=== PATIENT | female | born 1950 | race Caucasian/White ===

== ENCOUNTER → 2024-03-05 14:50 | Outpatient (REF) | payer OTHER, SELFPAY | LOC: WDC 14:50 | PROVIDERS: ATTENDING PHYSICIAN Family Medicine | DX: Z12.31 Encounter for screening mammogram for malignant neoplasm of breast (principal) | CPT/HCPCS: 77062; 77066 ==

== ENCOUNTER → 2024-03-10 08:27 | Outpatient (REF) | payer OTHER, SELFPAY | LOC: WDC 08:27 | PROVIDERS: ATTENDING PHYSICIAN Family Medicine | DX: R92.8 Other abnormal and inconclusive findings on diagnostic imaging of breast (principal) | CPT/HCPCS: 76642 ==

== ENCOUNTER → 2024-03-13 11:26 | Outpatient (REF) | payer OTHER, SELFPAY ==
--- NOTE | 2024-03-14 08:57 | OID.BR.INTR ---
OID Breast Navigator - Initial
- -
Did not meet patient at time of biopsy. Will follow up per protocol.
== END ==
LOC: WDC 11:26
PROVIDERS: ATTENDING PHYSICIAN Family Medicine
DX: N63.12 Unspecified lump in the right breast, upper inner quadrant (principal); N63.31 Unspecified lump in axillary tail of the right breast
CPT/HCPCS: 88305; 19083; 19084; 77065; 88341; 88360; A4648

== ENCOUNTER → 2024-04-23 07:29 | Outpatient (REF) | payer OTHER, SELFPAY | LOC: RCS 07:29 | PROVIDERS: ATTENDING PHYSICIAN Internal Medicine; FAMILY PHYSICIAN Family Medicine | DX: C50.211 Malignant neoplasm of upper-inner quadrant of right female breast (principal); K76.9 Liver disease, unspecified; Z17.0 Estrogen receptor positive status [ER+] | CPT/HCPCS: 74183; 93005; A9575 ==

== ENCOUNTER 2024-05-12 21:28 | Inpatient (IN) | payer OTHER, SELFPAY ==
[2024-05-12 16:59] VITALS: BMI 39.9
[2024-05-12 17:00] VITALS: BP 102/56
[2024-05-12 17:04] VITALS: BP 102/56
--- NOTE | 2024-05-12 17:15 | ED.GENMED ---
History of Present Illness
General
Chief Complaint: Fainting/Passed Out
Time Seen by Provider: 05/12/24 17:05
History of Present Illness
History of Present Illness:
73-year-old female presents to the emergency department for evaluation of fever and a syncopal event that occurred this afternoon. Patient apparently has had right knee pain for the past 3 days, was seen in the emergency department at [facility] yesterday and prescribed antibiotics for presumed cellulitis. She is not able to ambulate for the past day on the right knee. She is status post right total knee arthroplasty performed in this hospital by Dr. Amador in 2015. She denies
any coughing or difficulty breathing.
Past History
Past History
ED Past Medical History: HTN, Hypercholesterolemia and IDDM
Social History
Tobacco: Non-smoker
Alcohol: None
Drug: None
Personal:
Living: with family
Employment: Employed
Family History
Family History: Other
Review of Systems
Review of Systems
Allergies reviewed?: Yes
All Other Systems: ROS reviewed and negative except as documented in HPI and ROS
Phy Exam
Physical Exam
Physical Exam:
GEN: Ill-appearing, somnolent, tachypneic
Eyes: PERRLA, EOMs intact, no scleral icterus
HENT: NCAT, oral mucosa moist, no JVD, no cervical adenopathy.
Lungs: Tachypneic, no rales or wheezing
Cardiac: Markedly tachycardic, regular
Abdomen: S, NT, ND, NABS, no masses or hepatosplenomegaly
Neuro: Somnolent but arouses easily to voice, disoriented, is oriented to person and place
MSK: Right knee effusion with scant erythema and significant pain with range of motion
Skin: No rashes, petechiae. Normal color, no pallor or jaundice.
Psych: Calm, cooperative, proper hygiene
Course
Orders/Labs/Results
Orders:
Orders
05/12/24 16:56
Electrocardiogram (*1) Urgent
Reason for Study: Syncope
EKG- Treatment ONCE
05/12/24 17:12
Basic Metabolic Panel Urgent
C-Reactive Protein Urgent
Comment: ADD ON
Complete Blood Count/With Diff Urgent
05/12/24 17:13
0.9% Sodium Chloride 1000 ml [Nss] 1,000 ml IV BOLUS
Acetaminophen 1000MG/100Ml [Ofirmev] 1,000 mg in 100 ml IV ONCE
Acetaminophen IV Indication:: ED Narcotic Naive Pt-ONCE
CR Chest Portable - 1 View Urgent
Comment:
Reason For Exam: sepsis
Reason Study Needs to be Portable: Other
05/12/24 17:15
Lactic Acid Q4H
Comment: CANCEL 2nd LACTIC ACID IF 1st LACTIC ACID IS LESS THAN 2
Blood Culture Urgent
LYNNE Source: Blood/Venous
Specimen Description:
05/12/24 17:16
Add On- LAB Urgent
Tests Added?: CRP
05/12/24 17:17
Blood Culture Urgent
LYNNE Source: Blood/Venous
Specimen Description:
05/12/24 17:51
Urinalysis Reflex To Culture Urgent
Date Specimen was Collected: 05/12/24
Time Specimen was Collected: 17:48
Urine Microscopic Reflex Cult Urgent
05/12/24 18:32
CeFAZolin 2 GRAM [Ancef] 2 grams in 10 ml IV NOW
05/12/24 18:40
Vancomycin [Vancocin] 2,000 mg 0.9% Sodium Chloride 500 ml [Nss] 500 ml IV NOW
05/12/24 18:45
Body Fluid Cell Count Urgent
What is the Body Fluid: joint
Date Specimen was Collected: 05/12/24
Time Specimen was Collected: 18:42
Comment: with DIFF
Body Fluid Crystals Urgent
What is the Body Fluid: joint
Date Specimen was Collected: 05/12/24
Time Specimen was Collected: 18:42
Fluid Culture with Gram Stain Urgent
LYNNE Source: Joint Fluid
Specimen Description:
Date Specimen was Collected: 05/12/24
Time Specimen was Collected: 18:42
Wound Culture [Wound/Abscess/Other Culture] Urgent
LYNNE Source: Knee
Specimen Description: Right
Date Specimen was Collected: 05/12/24
Time Specimen was Collected: 18:42
Comment: synovial fluid
05/12/24 19:46
HYDROmorphone [Dilaudid] 0.25 mg IV PACU-Q5MPRN PRN
HYDROmorphone [Dilaudid] 0.5 mg IV PACU-Q5MPRN PRN
Ondansetron Injectable [Zofran] 4 mg IV PACU-ONCEPRN PRN
Prochlorperazine [Compazine] 5 mg IV PACU-ONCEPRN PRN
Notify MD As Directed
Notify physician if: for SDS patients with known or suspected sleep obstructive sleep apnea, monitor in the
PACU.
Notify MD for any apneic/desaturation episodes
O2 Therapy [RESP] Urgent
Titrate/Wean O2 to maintain O2 sat greater than (%): 92
Special Instructions: -Provide supplemental oxygen to achieve O2 sat of 92% or greater.
-After 15 min, may wean O2 and discontinue if patient is able to maintain O2 sat of 92%
or greater during recovery period.
If patient is a discharge home, without oxygen therapy, notify anestheiologist if
unable to maintain O2 SAT of 92% or greater on room air for MD clearance.
05/12/24 20:00
Normosol (Mult Electrolytes) [Normosol-R] 1,000 ml IV PER PROTOCOL
05/12/24 20:45
Admit/Transfer Patient As Directed
Co-Sign Provider:
Level of Care: Inpatient admission
Assign to:: Telemetry
Physician / Group: Laron
Diagnosis: Sepsis/ Septic Right Knee Prosthesis
Reason for Telemetry: Arrhythmia
Date to Stop Telemetry: 05/15/24
Time to Stop Telemetry: 11:00
Reason for Hospitalization: IV abx
Expected length of stay greater than two midnights?: Yes
ELOS- Estimated Length of Stay in days: 3
I certify the patient meets the requirements for IP care: Yes
PRN Pain Medication Management As Directed
May give lesser potent ordered pain med per pt: Yes
preference::
Protocol:: Medication orders for pain may be administered in a
manner that supports deferring to patient preference
when the pt is:
- Requesting an ordered lesser potent pain medication.
Least to most potent pain medications are defined
as: acetaminophen < NSAID < tramadol < opioids
(morphine, oxycodone, hydromorphone).
- Requesting a lesser dose of the same medication IF
ORDERED.
- Requesting a less intrusive route of administration
if both routes are prescribed by the provider (PO <
IV).
05/12/24 20:50
Code Status As Directed
Resuscitation Status: Full Code
05/12/24 21:09
Lactic Acid Q4H
Comment: CANCEL 2nd LACTIC ACID IF 1st LACTIC ACID IS LESS THAN 2
05/15/24 11:00
DC Protocol for Telemetry ONCE
Abnormal Lab Results
05/12/24 05/12/24 05/12/24
17:12 17:51 21:09
WBC 28.8 H 10^3/uL
(4.8-10.8)
Abs Immat Gran (auto) 0.3 H 10^3/uL
(0-0.05)
Absolute Neuts (auto) 26.1 H 10^3/uL
(1.4-6.5)
Absolute Monos (auto) 1.1 H 10^3/uL
(0.1-0.6)
Immature Gran % 1.0 H %
(0-0.5)
Neutrophils % 90.6 H %
(42.2-75.2)
Lymphocytes % 4.1 L %
(20.5-51.1)
Carbon Dioxide 21 L mmol/L
(22-30)
BUN 29 H mg/dl
(7-17)
Glucose 180 H mg/dl
(70-99)
Lactic Acid 0.6 L mmol/L
(0.7-2.0)
C-Reactive Protein 250.90 H mg/L
(0.0-10.00)
Urine Ketones Trace A
(Negative)
Ur Occult Blood Reflex 1+ A
(Negative)
Urine Bilirubin 1+ A
(Negative)
Leukocyte Esterase Rfl Trace A
(Negative)
Urine RBC 3-6 A /HPF
(0-2)
Urine Bacteria (Reflex) Few A
(Negative)
Urine Albumin (Reflex) 2+ A
(Neg - Trace)
05/12/24 17:12
05/12/24 17:12
Vital Signs
Initial and Last Documented VS:
Initial Vital Signs
Pulse Ox
88
05/12/24 16:57
Last Documented Vital Signs
Temp Pulse Resp BP Pulse Ox
99.3 F 104 19 111/58 94
05/12/24 21:29 05/12/24 20:21 05/12/24 20:21 05/12/24 20:21 05/12/24 20:21
Procedures
Incision/Drainage/Joint Aspiration
Right Knee:
Preparation: cleaned with Hibiclens
Type of procedure: aspiration
Nature of site: other (joint-R knee)
How much fluid was obtained?: number in mls (45cc)
Fluid description: cloudy and purulent
Treatment: bandaid applied
MDM/Problems Addressed
MDM/Problems Addressed:
After initial workup patient was noted to be profoundly septic with a white blood cell count of 20,000 and a markedly elevated CRP. Urinalysis and chest x-ray are unrevealing thus attention was then directed to the right knee with a clear effusion,
I made the decision to perform a sterile arthrocentesis which yielded approximately 45 cc of purulent fluid. This fluid confirmed the suspicion for infection with white blood cell count greater than 100,000. Orthopedics was made aware with plans
to take the patient for operative intervention tonight. Will admit the patient for further evaluation and management to the hospitalist service, broad-spectrum IV antibiotics initiated in the emergency department
*Critical Care Note
Total Time (30-74mins, 75-104mins- exclusive of procedures): Not Applicable
ED Attending Note
-
Portions of this chart may have been created with voice recognition software.� Occasional wrong word or��sound alike� substitutions may have occurred due to the inherent limitations of voice recognition software.
Discharge Plan
Departure
Patient Disposition: Admit
Date of Disposition: 05/12/24
Time of Disposition: 20:04
Admit to: Med/Surg
Presentation/result/management discussed w/ accepting MD/DO: Hospitalist
Discharge Problem:
Infection of prosthetic right knee joint, Sepsis
Interventions
Interventions:
*Risk Screen - Suicide Last Done: 05/12/24 17:00
*General Assessment Last Done: 05/12/24 17:00
*Neglect/Abuse Screening Last Done: 05/12/24 17:00
ED- Fall Risk Assessment Last Done: 05/12/24 17:05
*ED COVID-19 Vaccine History Last Done: 05/12/24 17:00
*Nursing Disposition Last Done: 05/12/24 21:38
ED- Cardiac Assessment Last Done: 05/12/24 17:05
ED- Neurological Assessment Last Done: 05/12/24 17:05
Discharge Date and Time
Discharge Date/Time: 05/12/24 21:38
[2024-05-12 17:18] LABS: Hematocrit 39.2 % (37.0-47.0); Hemoglobin 13.4 g/dL (12.0-16.0); Mean Corp Hgb Conc. 34.2 g/dL (33.0-37.0); Mean Corpuscular Hgb 29.6 pg (27.0-31.0); Mean Corpuscular Volume 86.7 fL (81.0-99.0); Mean Platelet Volume 9.6 fL (7.4-10.4); Platelet Count 366 10^3/uL (130-400); Red Blood Cell Count 4.52 10^6/uL (4.20-5.40); Red Cell Dist. Width 13.7 % (11.5-14.5); White Blood Cell Count 28.8 10^3/uL (4.8-10.8)
[2024-05-12] MEDS: NSS 1000 IV (17:18)
[2024-05-12] MEDS: OFIRMEV 100 IV (17:18)
[2024-05-12 17:36] LABS: Blood Urea Nitrogen 29 mg/dl (7-17); Calcium 10.2 mg/dl (8.4-10.2); Carbon Dioxide 21 mmol/L (22-30); Chloride 103 mmol/L (98-107); Estimated Creatinine Clearance 70 ml/min; Glucose 180 mg/dl (70-99); Sodium 136 mmol/L (135-145); eGFR > 60.00
[2024-05-12 17:43] LABS: % Basophils 0.3 % (0-2); % Lymphocytes 4.1 % (20.5-51.1); % Neutrophils 90.6 % (42.2-75.2); Absolute Basophils 0.1 10^3/uL (0-0.2); Absolute Immature Granulocytes 0.3 10^3/uL (0-0.05); Absolute Lymphocytes 1.2 10^3/uL (1.2-3.4); Absolute Monocytes 1.1 10^3/uL (0.1-0.6); Absolute Neutrophils 26.1 10^3/uL (1.4-6.5); Nucleated Red Blood Cells % 0 %
[2024-05-12 18:00] VITALS: BP 118/55
[2024-05-12 18:04] LABS: Urine Albumin 2+ (Neg - Trace); Urine Bilirubin 1+ (Negative); Urine Character Clear (Clear); Urine Color Yellow; Urine Glucose Negative (Negative); Urine Ketone Trace (Negative); Urine Leukocyte Trace (Negative); Urine Nitrite Negative (Negative); Urine Occult Blood 1+ (Negative); Urine Urobilinogen 1+ (Neg - 1+)
[2024-05-12 18:15] LABS: Urine Mucus Moderate
[2024-05-12 18:16] LABS: Urine Bacteria Few (Negative)
[2024-05-12] MEDS: ANCEF 10 IV (18:45)
[2024-05-12] MEDS: VANCOCIN 540 MG IV (18:53)
[2024-05-12 19:09] VITALS: BP 131/72
--- NOTE | 2024-05-12 19:20 | EDRN ---
Report received, introduced myself to patient who is waiting on being admitted
[2024-05-12 19:30] LABS: Body Fluid Mononuclear 12.8 %; Body Fluid Polymorphonuclear 87.2 %; Body Fluid WBC 113800 /CUMM
[2024-05-12 19:45] LABS: Body Fluid Second Tech EYM
--- NOTE | 2024-05-12 19:53 | EDRN ---
Dr. Amador called, he is in on his way in to hospital, will most likely be taking patient to OR tonight, informed patient not to eat or drink anything since he will be on his way in, MARY Sam made aware as well who also went in and spoke with
patient.
[2024-05-12 20:21] VITALS: BP 111/58
--- NOTE | 2024-05-12 20:27 | EDRN ---
Hospitalist at bedside working on admission
--- NOTE | 2024-05-12 20:44 | W.PN.UPDATE ---
Update Note
Progress Note Update
This is an addendum to the H&P written by MARY Engel on 05/12/2024
73-year-old female with history of right knee arthroplasty in 2014, past medical history of breast cancer with possible liver metastases, hypertension, CKD 3, diabetes presenting with right knee pain, swelling and erythema and inability to bear
weight with fever consistent with sepsis secondary to septic arthritis of prosthetic knee. Arthrocentesis shows fluid white blood cell count of [id number] and Gram stain shows rare gram-positive cocci.
Blood cultures pending. IV fluids. Hold antihypertensives. Vancomycin/ceftriaxone. Ortho to take to the OR tonight. ID consulted.
--- NOTE | 2024-05-12 20:45 | HPS.HSE ---
Family Physician
-
Family Physician: Addison Willett
Chief Complaint
-
Fever and Right Knee Pain
History of Present Illness
Patient is a 73 y/o female with a PMH of IDDM, HTN, HLD, b/l TKA and recently diagnosed breast cancer with possible liver metastasis who reports to the ED via EMS for right knee pain x 3 days. She states the knee pain started Sunday afternoon and
has worsened over the past 3 days. She says the knee has only been a little red. She was seen at a different emergency department yesterday where she was diagnosed with cellulitis and prescribed an antibiotics, which hasn't been filled yet. Today
she wasn't able to walk due to the pain, which prompted her to come to the ED. She admits to having a fever since yesterday and when EMS arrived her temperature was 103 F. She denies any cough, shortness of breath, nausea, or vomiting. Her right
knee arthroplasty was done in 2014.
Medical History
Past Medical History
Past Medical History: Reports Other
Additional Past Medical History:
Insulin-Dependent Diabetes Mellitus
Diabetic Neuropathy
Essential Hypertension
Hyperlipidemia
Hypothyroidism
Morbid Obesity
Right Breast Invasive Ductal Carcinoma
Chronic Pain Syndrome
Past Surgical History: Reports Other
Additional Past Surgical History:
Right Total Knee Replacement - Jul 2015
Left Total Knee Replacement with Revision - January 2017 / Aug 2021
Social History
Tobacco: Former Smoker (Quit 40 years ago)
Alcohol: None
Family History
Family History: Not pertinent
Allergies / Home Medications
Allergies reflects when Allergies were last updated in [employer].
Home Medications with original date entered in [employer]
Allergy/Medication List:
Allergies
Allergy/AdvReac Type Severity Reaction Status Date / Time
feathers Allergy Shortness Verified 10/11/21 12:03
of Breath
Penicillins Allergy Hives & Verified 10/11/21 12:03
Itching
red dye Allergy Itchy and Verified 10/11/21 12:03
Hives
yellow dye Allergy itching Verified 10/11/21 12:03
and hives
Environmental Allergy Congestion Uncoded 09/26/21 10:58
Home Medications
desloratadine 5 mg tablet (Clarinex) 5 mg PO DAILY Allergies 02/12/17
guaifenesin 600 mg tablet, extended release 12 hr (Mucus Relief ER) 1,200 mg PO BID Congestion 09/06/21
levothyroxine 50 mcg tablet 175 mcg PO MOTUWETHFRSA Thyroid 09/06/21
vitamin B complex 1 tab PO DAILY Supplement 09/06/21
diltiazem HCl 240 mg capsule,extended release 24 hr 240 mg PO HS 10/11/21
gabapentin 100 mg capsule 200 mg PO HSPRN PRN mild pain 10/11/21
gabapentin 100 mg capsule 200 mg PO QPM Pain 10/11/21
gabapentin 100 mg capsule 300 mg PO DAILY Pain 10/11/21
acetaminophen 500 mg tablet (Tylenol Extra Strength) 1,000 mg PO BID Pain 10/12/21
insulin detemir U-100 100 unit/mL subcutaneous solution (Levemir U-100 Insulin) 35 units SC Q12H Diabetes 10/12/21
aspirin 325 mg tablet 975 mg PO BID 05/12/24
chlorzoxazone 500 mg tablet 500 mg PO TIDPRN PRN Muscle cramps 05/12/24
diclofenac sodium 50 mg tablet,delayed release 100 mg PO BID 05/12/24
ibuprofen 200 mg tablet (Advil) 600 mg PO BID 05/12/24
letrozole 2.5 mg tablet 2.5 mg PO DAILY 05/12/24
lisinopril 20 mg-hydrochlorothiazide 12.5 mg tablet 2 tab PO QPM 05/12/24
rosuvastatin 20 mg tablet 20 mg PO HS 05/12/24
Review of Systems
-
A 12 point ROS was completed and negative except as noted: Yes
Constitutional: Reports Fever
Respiratory: Denies Cough or Trouble Breathing
Cardiac: Denies Chest Pain or Palpitations
Musculoskeletal: Reports See HPI
Physical Exam
Vital Signs
Vital Signs
Temp Pulse Resp BP Pulse Ox
99.8 F 104 19 111/58 94
05/12/24 19:18 05/12/24 20:21 05/12/24 20:21 05/12/24 20:21 05/12/24 20:21
Physical Exam
General: Comfortable and Conversant
HEENT: Anicteric and Moist mucous membranes
Respiratory: Clear and Non Labored Respirations
Cardiac: S1/S2 and Regular Rhythm
GI: Soft and Non Tender
Musculoskeletal: No Clubbing, No Cyanosis and Other (Right Knee: Mild erythema with increased warmth, and significant pain with movement)
Skin: Warm and Dry
Neuro: Awake, Alert, Oriented and Nonfocal/grossly intact
Laboratory Results
-
05/12/24 17:12
05/12/24 17:12
Laboratory Results
Lactic Acid 2.0 mmol/L (0.7-2.0) 05/12/24 17:15
Total Bilirubin Cancelled 05/12/24 17:12
AST Cancelled 05/12/24 17:12
ALT Cancelled 05/12/24 17:12
Alkaline Phosphatase Cancelled 05/12/24 17:12
Data Reviewed
-
Lab Data: Labs Reviewed by me
Impression/Plan
-
Sepsis secondary to Septic Arthritis of Right Prosthetic Knee
-Consult Ortho - Plan for washout in OR this evening
-Consult Infectious Disease
-Continue ceftriaxone and vancomycin pending culture data
-Await fluid culture and blood culture
Insulin-Dependent Diabetes Mellitus
-Check HgbA1c
-Continue Levemir
-Monitor sugars and continue coverage insulin
Diabetic Neuropathy
-Continue gabapentin
Essential Hypertension
-BP running on the low side
-Hold oral meds
Hyperlipidemia
-Continue rosuvastatin
Hypothyroidism
-Continue levothyroxine
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
-Patient was diagnosed about 6 weeks ago and had a recent liver biospy, but still waiting on the results
-Continue letrozole
Chronic Pain Syndrome
-Continue Diclofenac and Gabapentin
-Stop Ibuprofen and Aspirin
Class III Obesity
-Affects all aspects of care
DVT proph: SCDs
Code Status: Full Code
[2024-05-12 21:00] VITALS: BP 114/57
[2024-05-12 21:33] LABS: Lactic Acid 0.6 mmol/L (0.7-2.0)
--- NOTE | 2024-05-12 21:36 | CON.ORTHO ---
Consultation
-
Date/Time Consultation Requested: May 21/2129
Date/Time Consultation Performed: May 21/2130
Requesting Provider: RADHA Weber
Performing Provider: Sara Amador
Reason for Consultation: RIGHT knee pain, probable PJI
Consultation - Orthopedics
History
Dictation:[id number]
Asked to see this pleasant 73 y/o white female with PMH HTN, Hypercholesterolemia and IDDM, hx of Breast Ca, mitral stenosis, hypothyroid, who is known to our practice, specifically Dr. Amador for Right TKA back in 2014. Also a left TKA back in
2016 with revision in 2020. She presented to the [facility] ER after 3 days of right knee pain and swelling and was D/c home on po ABX for presumed cellulitis. She experienced a syncopal event today with fever, prompting a visit here to the [facility]. She was
noted to have a large knee effusion which was aspirated prior to any IV ABX admission. On presentation she had a temp of 103, now 99. WBC was 28,800. She will be admitted to the Hospitalist service, but first will be taken urgently to the OR for
Right knee washout with polyethylene liner exchange. We have been requested in consultation given her current medical predicament. Right knee aspirate has come back with 113k WBC.
Allergies / Home Medications
Allergy/AdvReac Type Severity Reaction Status Date / Time
feathers Allergy Shortness Verified 10/11/21 12:03
of Breath
Penicillins Allergy Hives & Verified 10/11/21 12:03
Itching
red dye Allergy Itchy and Verified 10/11/21 12:03
Hives
yellow dye Allergy itching Verified 10/11/21 12:03
and hives
Environmental Allergy Congestion Uncoded 09/26/21 10:58
�Medication �Instructions �Recorded
desloratadine 5 mg tablet 5 mg PO DAILY Allergies 02/12/17
(Clarinex)
guaifenesin 600 mg tablet, 1,200 mg PO BID Congestion 09/06/21
extended release 12 hr (Mucus
Relief ER)
levothyroxine 50 mcg tablet 175 mcg PO MOTUWETHFRSA Thyroid 09/06/21
vitamin B complex 1 tab PO DAILY Supplement 09/06/21
diltiazem HCl 240 mg 240 mg PO HS 10/11/21
capsule,extended release 24 hr
gabapentin 100 mg capsule 200 mg PO HSPRN PRN mild pain 10/11/21
gabapentin 100 mg capsule 200 mg PO QPM Pain 10/11/21
gabapentin 100 mg capsule 300 mg PO DAILY Pain 10/11/21
acetaminophen 500 mg tablet 1,000 mg PO BID Pain 10/12/21
(Tylenol Extra Strength)
insulin detemir U-100 100 unit/mL 35 units SC Q12H Diabetes 10/12/21
subcutaneous solution (Levemir
U-100 Insulin)
aspirin 325 mg tablet 975 mg PO BID 05/12/24
chlorzoxazone 500 mg tablet 500 mg PO TIDPRN PRN Muscle cramps 05/12/24
diclofenac sodium 50 mg 100 mg PO BID 05/12/24
tablet,delayed release
ibuprofen 200 mg tablet (Advil) 600 mg PO BID 05/12/24
letrozole 2.5 mg tablet 2.5 mg PO DAILY 05/12/24
lisinopril 20 2 tab PO QPM 05/12/24
mg-hydrochlorothiazide 12.5 mg
tablet
rosuvastatin 20 mg tablet 20 mg PO HS 05/12/24
Vital Signs / Lab Results
Temp Pulse Resp BP Pulse Ox
99.3 F 104 19 111/58 94
05/12/24 21:29 05/12/24 20:21 05/12/24 20:21 05/12/24 20:21 05/12/24 20:21
05/12/24 17:12
05/12/24 17:12
Assessment / Plan
PE: Tmax 103, currently 99. Right knee with scar anteriorly. Moderate effusion with surrounding erythema and warmth. ROM very limited due to pain. Calf soft, nontender. DNVI RLE
Xrays: Right TKA cemented in position without obvious evidence of loosening or failure
Right hip/pelvis without any obvious or aggressive appearing lesions
Fluid aspirate: 113K WBC
Gram stain: Rare Gram + cocci
Impression: Right knee PJI
Plan: Unfortunately Ana has a RIGHT knee prosthetic joint infection. I have placed right knee films, including right hip and pelvis given her Breast Ca Hx here and 'possible spread to the hip.' However, we did review these films and did not
note anything aggressive in appearance. We had a very long discussion with her regarding this situation. RBAs of nonsurgical and surgical management were discussed. She has accepted all the proposed risks of surgery and wishes to proceed. Surgical
and blood consent has been signed and placed on the patient's chart. RIGHT knee has been marked as the operative site. Patient is NPO. T&S requested. 9L of irrigation requested urgently to the OR. She understands the gravity of this situation, but
the sooner we address it the better her chances are of erradicating the infection. Post-operatively she will continue with IV ABX with ID consult. Will hope to isolate a bacteria from her ER aspirate to better direct ABX coverage, however she was
placed on po ABX post ER visit at [facility] 3 days ago. Again, under the direction of Dr. Amador we will be heading urgently to the OR for RIGHT knee I&D with polyethylene liner exchange
This patient was seen in tandem with Dr. Amador
--- NOTE | 2024-05-12 21:38 | EDRN ---
Report to OR
[2024-05-13] VITALS (15 sets, daily range): BP systolic 90–136; BP diastolic 48–86; PULSE 106–121; O2SAT 99; BMI 45.7
[2024-05-13 00:38] LABS: Glucose - Point of Care 215 mg/dl (70-99)
[2024-05-13] MEDS: TYLENOL 650 MG PO ×2 (00:39→21:11)
[2024-05-13] MEDS: ROXICODONE 5 MG PO ×3 (00:40→08:26)
[2024-05-13] MEDS: NSS 1000 IV ×4 (00:47→21:10)
[2024-05-13] MEDS: ROCEPHIN 2000 MG IV ×2 (00:58→13:36)
[2024-05-13] MEDS: CRESTOR PO (01:36)
[2024-05-13] MEDS: ROCEPHIN IV (01:37)
[2024-05-13] MEDS: BENADRYL SOLUTION 25 MG PO (02:39)
[2024-05-13] MEDS: ANCEF 5 IV (02:39)
[2024-05-13 05:15] LABS: Hematocrit 35.6 % (37.0-47.0); Hemoglobin 11.7 g/dL (12.0-16.0); Mean Corp Hgb Conc. 32.9 g/dL (33.0-37.0); Mean Corpuscular Hgb 29.6 pg (27.0-31.0); Mean Corpuscular Volume 90.1 fL (81.0-99.0); Mean Platelet Volume 9.7 fL (7.4-10.4); Platelet Count 294 10^3/uL (130-400); Red Blood Cell Count 3.95 10^6/uL (4.20-5.40); Red Cell Dist. Width 13.6 % (11.5-14.5); White Blood Cell Count 18.8 10^3/uL (4.8-10.8)
[2024-05-13 05:42] LABS: Blood Urea Nitrogen 28 mg/dl (7-17); Carbon Dioxide 24 mmol/L (22-30); Chloride 105 mmol/L (98-107); Estimated Creatinine Clearance 63 ml/min; Glucose 156 mg/dl (70-99); Potassium 4.1 mmol/L (3.5-5.1); Sodium 137 mmol/L (135-145); eGFR > 60.00
[2024-05-13] MEDS: SYNTHROID 175 MCG PO (06:09)
--- NOTE | 2024-05-13 06:42 | W.PN.ORTHO ---
Addendum entered and electronically signed by Alejandro Medina PA-C 05/13/24 07:02:
ID recommending Cefazolin for now.
Original Note:
Today's Communication / Plan
-
73-year-old female POD 1 right knee I&D with liner exchange [address] Amador.
- WBAT RLE with use of walker for assistance
- ASA 325mg QD x 4 weeks for DVT ppx
- GS showing gram positive cocci. Continue to follow cultures. ID consulted. Continue IV ABX per ID
- PT/OT
- Pain control per primary team. Ice and elevation for edema control
- Repeat CRP and ESR Sunday05/16/2024
- Hgb 11.7. Continue to monitor and trend
- Orthopedic surgery will continue to follow along
Assessment
.
Distal Motor Intact: Yes
Dressing:
Clean, dry and intact.
Assessment:
POD 1 Right Knee I&D with liner exchange [address] Amador
Plan
.
Surgery / Date: 05/12/2024
DVT Prophylaxis: Aspirin
Activity:
Out of bed.
PT/OT
Discharge Information:
Appreciate CM
Subjective
.
.:
Patient resting comfortably. Reports that her pain is well controlled.
Vital Signs and Labs
.
Vital Signs and Labs:
Lab Results
05/13/24 04:34
05/13/24 04:34
Temp Pulse Resp BP Pulse Ox
98.5 F 103 14 120/57 96
05/13/24 03:08 05/13/24 03:08 05/13/24 03:08 05/13/24 03:08 05/13/24 03:08
Non-invasive Hgb result: 10.4
[2024-05-13 08:17] LABS: Glucose - Point of Care 156 mg/dl (70-99)
[2024-05-13] MEDS: ASPIRIN 325 MG PO (08:27)
[2024-05-13] MEDS: LANTUS 0.35 UNITS SC ×2 (08:27→21:24)
[2024-05-13] MEDS: NOVOLOG FLEXPEN-LOW RESISTANCE SC ×3 (08:28→16:39)
[2024-05-13] MEDS: FEMARA 2.5 MG PO (08:28)
[2024-05-13] MEDS: NEURONTIN 300 MG PO (08:32)
[2024-05-13] MEDS: MUCINEX 1200 MG PO ×2 (08:32→21:10)
[2024-05-13 09:07] LABS: Glycohemoglobin (HgbA1c) 6.6 % (4.0-5.6)
--- NOTE | 2024-05-13 09:44 | PHA.VAN.IN ---
Assessment
- Assessment
Renal Function: Appears similar to baseline
Concomitant Antimicrobials: cefazolin
AUC Dosing Plan
- Dosing Variables
Dosing Weight (kg): 110
Dosing CrCl (ml/min): 63
Vd coefficient (L/kg): 0.6
- Empiric Dosing
Initial / Loading Dose: 2000mg - 05/12 18:53
Maintenance Regimen: Vanc 1000mg Q12H - give 1500mg at noon then start 05/14 0600
Estimated AUC (mcg*h/mL): 550
Estimated Peak (mcg*h/mL): 30.7
Estimated Trough (mcg/ml): 16.5
Estimated Half Life (H): 12.2
Patient with borderline CrCl / estimated half-life - may require Q24H interval
Will tentatively start Q12H dosing and follow trend
- Monitoring
No levels ordered at this time: consider levels in next few days
Pharmacokinetics Vancomycin I
- -
Patient Age: 73
Patient Sex: Female
Vancomycin Day #: 1
Indication: Bone And Joint
Requesting Provider: Geovanni Engel
Pertinent Antimicrobial Allergies:
penicillins - hives & itching > 30 years ago
Height / Weight:
Height 5 ft 1 in
Actual Weight 109.769 kg
Pertinent Past Medical History: BMI ~46, DM, TKA, Metastatic breast cancer
- Vital Signs / Lab Results
Temp Pulse Resp BP Pulse Ox
98.4 F 103 17 102/66 97
05/13/24 07:30 05/13/24 07:30 05/13/24 07:30 05/13/24 07:30 05/13/24 08:00
Lab Results - Hematology
05/12/24 05/13/24
17:12 04:34
WBC 28.8 H 18.8 H
Lab Results - Chemistry
05/12/24 05/13/24
17:12 04:34
BUN 29 H 28 H
Creatinine 0.9 0.9
Estimated Creat Clear 70 63
Albumin Cancelled
05/12/24 05/12/24
17:15 21:09
Lactic Acid 2.0 0.6 L
Lab Results - Urine
05/12/24
17:51
Urine Nitrite (Reflex) Negative
Leukocyte Esterase Rfl Trace A
Urine WBC (Reflex) 6-10
Ur Squamous Epith Cells 3-5
Urine Bacteria (Reflex) Few A
Microbiology Results
05/12/24 Unknown Gram Stain - Preliminary
Knee - Right
05/12/24 Unknown Gram Stain - Preliminary
Knee - Right
05/12/24 17:17 Blood Culture - Preliminary
Blood/Venous Positive culture in progress
Gram Stain - Preliminary
05/12/24 17:15 Blood Culture - Preliminary
Blood/Venous Positive culture in progress
Gram Stain - Preliminary
05/12/24 18:45 Gram Stain - Preliminary
Joint Fluid
05/12/24 18:45 Gram Stain - Preliminary
Knee - Right
[2024-05-13] MEDS: ANCEF 10 IV (10:49)
[2024-05-13] MEDS: ROXICODONE 10 MG PO (11:19)
[2024-05-13 11:24] LABS: Glucose - Point of Care 184 mg/dl (70-99)
--- NOTE | 2024-05-13 11:36 | CON.ID ---
Consultation
-
Date/Time Consultation Requested: May 13, 2024 [id number]
Date/Time Consultation Performed: May 13, 2024 1136
Requesting Provider: Lorena Engel PA-C
Performing Provider: Dr. Carey Lombardo
Reason for Consultation: PJI
Chief Complaint / Past History
Chief Complaint
Right knee pain
History of Present Illness
73-year-old female with diabetes mellitus, recent right breast cancer diagnosis with possible liver metastases status post liver biopsy last week, history of right total knee replacement in 2014 who presented to the hospital yesterday due to acute
onset of right knee pain. She reports the knee started to bother her about 2 days after her liver biopsy. She noted redness. Then she developed edema and severe right knee pain. Initially she presented to the ER early on May 12 and was placed
on antibiotics for cellulitis. She was not able to ambulate at home and therefore presented back to the ER last night. She was febrile 1003, white count 28.8. Right knee arthrocentesis showed 114,000 white blood cells, 87% polys. She was taken
to the OR status post I&D, polyethylene liner exchange. Her blood cultures was positive for GPC in chains. She was started on vancomycin and ceftriaxone. + chills and malaise. Has post-op pain.
Past History
Additional Past Medical History:
Insulin-Dependent Diabetes Mellitus
Neuropathy
Hypertension
Hyperlipidemia
Hypothyroidism
Morbid Obesity BMI 46
Recent dx Right Breast Invasive Ductal Carcinoma, liver mets s/p liver bx 05/07/24 at [facility]
Chronic Pain Syndrome
R TKA ( 07/2015)
Left TKA (01/2017) with revision (08/2021)
Allergy History:
feathers Allergy (Verified 10/11/21 12:03)
Shortness of Breath
Penicillins Allergy (Verified 05/13/24 09:45)
Hives & Itching 30 years ago
red dye Allergy (Verified 10/11/21 12:03)
Itchy and Hives
yellow dye Allergy (Verified 10/11/21 12:03)
itching and hives
Environmental Allergy (Uncoded 09/26/21 10:58)
Congestion
Medications Reviewed: Yes
Current Antibiotics:
Vancomycin
Ceftriaxone
Social History
Tobacco: Former Smoker
Alcohol: None
Drug: None
Family History
Family History: Not Pertinent
Review of Systems
Review of Systems
General: Fever, Chills and Change in Appetite
HEENT: Negative Sinus Problems, Headache or Pharyngitis
Cardiovascular: Negative Chest Pain or Dyspnea
Respiratory: Negative Dyspnea or Cough
Gasteroenterology: Other (no diarrhea); Negative Nausea or Vomiting
Genital / Urological: Negative Dysuria or Flank Pain
Neurological: Negative Headache
All systems: All other systems were reviewed and were negative
Vital Signs
Temp Pulse Resp BP Pulse Ox
98.4 F 103 17 102/66 97
05/13/24 07:30 05/13/24 07:30 05/13/24 07:30 05/13/24 07:30 05/13/24 08:00
Selected Entries
05/12/24
17:00
Temp 103.0 F H
Physical Exam
Physical Exam
Constitutional: No Acute Distress and Obese
Eyes: No Conjunctival Hemorrhage and Sclera Anicteric
Cardiovascular: Regular Rate and S1/S2
Pulmonary: Clear
Gastrointestinal: Soft, Non Tender and Non Distended
Genito-Urinary: Negative CVA Tenderness
Musculoskeletal: Other (right knee post-op dressing in place)
Neurological: AO x 3
Lab / Diagnostic Study Results
05/13/24 04:34
05/13/24 04:34
Abs Immat Gran (auto) 0.3 10^3/uL (0-0.05) H 05/12/24 17:12
Absolute Neuts (auto) 26.1 10^3/uL (1.4-6.5) H 05/12/24 17:12
Absolute Lymphs (auto) 1.2 10^3/uL (1.2-3.4) 05/12/24 17:12
Absolute Monos (auto) 1.1 10^3/uL (0.1-0.6) H 05/12/24 17:12
Absolute Basos (auto) 0.1 10^3/uL (0-0.2) 05/12/24 17:12
Immature Gran % 1.0 % (0-0.5) H 05/12/24 17:12
Neutrophils % 90.6 % (42.2-75.2) H 05/12/24 17:12
Lymphocytes % 4.1 % (20.5-51.1) L 05/12/24 17:12
Monocytes % 4.0 % (1.7-9.3) 05/12/24 17:12
Eosinophils % 0.0 % (0-6) 05/12/24 17:12
Basophils % 0.3 % (0-2) 05/12/24 17:12
Lactic Acid 0.6 mmol/L (0.7-2.0) L 05/12/24 21:09
C-Reactive Protein Cancelled 05/12/24 17:15
Ur Squamous Epith Cells 3-5 /LPF (Few) 05/12/24 17:51
Microbiology Results
Micro:
05/12/24 Unknown Wound Culture - Pending
Knee - Right Gram Stain - Preliminary
05/12/24 Unknown Wound Culture - Pending
Knee - Right Gram Stain - Preliminary
05/12/24 17:17 Blood Culture - Preliminary
Blood/Venous Positive culture in progress
Gram Stain - Preliminary
05/12/24 17:15 Blood Culture - Preliminary
Blood/Venous Positive culture in progress
Gram Stain - Preliminary
05/12/24 Unknown Anaerobic Culture - Pending
Knee - Right
05/12/24 Unknown Anaerobic Culture - Pending
Knee - Right
05/12/24 18:45 Body Fluid Culture - Pending
Joint Fluid Gram Stain - Preliminary
05/12/24 18:45 Wound Culture - Pending
Knee - Right Gram Stain - Preliminary
05/12/24 CXR: Mildly decreased bilateral lung volumes with mild subsegmental atelectasis and scarring in both lower lungs.
Assessment / Plan
# Late Right knee PJI
# GPC chain bacteremia
# Sepsis : fever and leukocytosis
# PCN allergy
-s/p I+D, polyethylene liner exchange 05/12/24
- Synovial fluid gram stain GPC, cx pending
- Suspect Streptococcus vs Enterococcus
-Repeat blood cx's in am
- Continue Vancomycin and ceftriaxone pending cx.
- DC cefazolin.
-Follow temps/wbc.
-Place Picc when bcx's clear.
-Anticipate 6 weeks of IV abx followed by lifelong suppressive po abx due to retained hardware.
[2024-05-13] MEDS: VANCOCIN 300 MG IV (12:05)
[2024-05-13] MEDS: VANCOCIN 300 ML IV (12:05)
--- NOTE | 2024-05-13 13:23 | W.PN.HOSP.TC ---
Addendum entered and electronically signed by Kiana Parker MD 05/13/24 18:24:
I saw and evaluated the patient independently. I reviewed the resident�s note and agree with findings and plan as documented by Dr. Cotter.
GENERAL: well developed, well nourished, female in no apparent distress
HEENT: NC/AT--O2 NC in place
HEART: regular rate and rhythm, +S1, +S2, 2/6 MERCEDEZ
LUNGS : clear to auscultation bilaterally
ABDOM: soft, nontender, nondistended, + bowel sounds
EXT: no cyanosis, clubbing, or edema--right knee post op and wrapped
NEUROLOGIC: grossly intact
Septic arthritis of right prosthetic knee: appreciate ortho consult--s/p I & D right knee, Synovial fluid with >100K WBCs and gram stain with gm positive cocci, cx pending (preliminary gram positive cocci), appreciate ID consult--Repeat blood cx's
in am, continue vancomycin and ceftriaxone pending cx, DC cefazolin. Follow temps/wbc, Place Picc when bcx's clear, Anticipate 6 weeks of IV abx followed by lifelong suppressive po abx due to retained hardware
Type 2 DM-- Continue Levemir and monitoring blood glucose
Essential Hypertension-- Blood pressure is controlled--cont meds
diabetic neuropathy-- Continue gabapentin
Hypothyroidism: Continue levothyroxine
CODE STATUS: Full
Original Note:
Today's Communication/Plan
-
Follow orders per ID consult--wean O2
Assessment / Plan
Assessment / Plan
Problem #1: Septic arthritis of right prosthetic knee: appreciate ortho consult-s/p I & D right knee, Synovial fluid gram stain GPC, cx pending (preliminary gram positive cocci), appreciate ID consult--Repeat blood cx's in am, continue vancomycin
and ceftriaxone pending cx, DC cefazolin.Follow temps/wbc, Place Picc when bcx's clear, Anticipate 6 weeks of IV abx followed by lifelong suppressive po abx due to retained hardware
Problem #2: DM: Continue Levemir and monitoring blood glucose
Problem #3: Hypertension: Blood pressure is controlled
Problem #4: diabetec neuropathy: Continue gabapentin
Problem #5: Hypothyroidism: Continue levothyroxin
CODE STATUS: Full
Anticipated Discharge: 24 - 48 hours
Subjective/Interval History
-
Date of Service: May 13, 2024
Patient is feeling good. She did not have any fevers or chills overnight. Mentions her pain is much better after the operation on her right knee last night.
Objective Data
-
Labs:
Laboratory Results
05/13/24
04:34
WBC 18.8 H
Hgb 11.7 L
Hct 35.6 L
Plt Count 294
Sodium 137
Potassium 4.1
Chloride 105
Carbon Dioxide 24
BUN 28 H
Creatinine 0.9
Glucose 156 H
Calcium 9.0
Vital Signs:
Vital Signs
Temp Pulse Resp BP Pulse Ox
97.9 F 105 17 127/57 4
05/13/24 11:30 05/13/24 11:30 05/13/24 11:30 05/13/24 11:30 05/13/24 11:30
I&O
05/12/24 05/13/24 05/14/24
06:59 06:59 06:59
Intake Total 350 / 350
Balance 350 / 350
Review of Systems
-
History Source: Patient
All other systems: Reviewed and negative
Abdomen/GI: Reports Constipated (Chronically constipated)
Physical Exam
-
General: Well Developed and Comfortable
HEENT: Normocephalic and Atraumatic
Respiratory: Clear to Auscultation
Cardiac: Regular Rhythm and S1/S2
GI: Soft, Nontender and Normal Bowel Sounds
Genito-urinary: No Costovertebral Tender
Musculoskeletal: Other (Right knee dressing)
Skin: Warm
Neuro: Awake, Alert, Oriented and AO x 3
Hematologic / Lymphatic: No Lymphadenopathy
Psych: Calm
Data Reviewed
-
Total Time Spent with Patient (in minutes): 20
[2024-05-13] MEDS: STERILE WATER FOR INJECTION 20 ML IV (13:36)
--- NOTE | 2024-05-13 13:59 | CM ---
Patient seen at bedside with physicians. Patient states that she lives with her adult children in a 2 story home. Patient bedroom on second floor. patient states no options for first floor set up. Patient has had several knee replacements and may
need IV antibiotics. Patient has a walker but does not use it. Patient PCP is Dr. Willett and she uses the [facility] in [place] or the [facility] in [place]. Patient referral stent to [facility] for PT/OT. Pending ID assessment. Patient refusing to
consider SNF options at this time. CM will continue to follow for discharge needs.
Plan; home with VN and watch for IV antibiotic needs.
[2024-05-13 16:23] LABS: Glucose - Point of Care 167 mg/dl (70-99)
[2024-05-13] MEDS: NOVOLOG FLEXPEN-LOW RESISTANCE 1 UNITS SC (17:56)
[2024-05-13] MEDS: NEURONTIN 200 MG PO (17:57)
[2024-05-13] MEDS: BACTROBAN 2% OINTMENT NASAL ×2 (20:00→21:11)
[2024-05-13] MEDS: COLACE 100 MG PO (21:10)
[2024-05-13] MEDS: CRESTOR 20 MG PO (21:10)
[2024-05-13] MEDS: SENOKOT 17.2 MG PO (21:11)
[2024-05-13 21:26] LABS: Glucose - Point of Care 179 mg/dl (70-99)
[2024-05-14] VITALS (8 sets, daily range): BP systolic 94–124; BP diastolic 49–67; PULSE 105; O2SAT 96
[2024-05-14] MEDS: FLOMAX 0.4 MG PO (02:17)
--- NOTE | 2024-05-14 03:01 | DOWNTIME ---
There was a [employer] Client Cistern Room Operator Downtime on 05/14/2024 from 0100 to 05/14/2024 at 0255. Downtime documentation of patient's care, including medication administrations, has been reconciled in the electronic record per guidelines. Refer to the
patient's paper chart under the miscellaneous tab to see printed paper medication records and downtime forms.
[2024-05-14] MEDS: ROXICODONE 10 MG PO (04:36)
[2024-05-14] MEDS: SYNTHROID 175 MCG PO (05:46)
[2024-05-14] MEDS: VANCOCIN 200 IV (05:46)
--- NOTE | 2024-05-14 05:56 | W.PN.UPDATE ---
Update Note
Progress Note Update
HR 115-120, mild fever at 99.0. Patient takes Diltazem 240mg PO at home, and is on hold likely due to low BP. BP at present HR-113,124/60. STALEY (baseline), no other complaints. Will give a dose of Diltiazem 240mg POx1.
[2024-05-14] MEDS: TYLENOL 650 MG PO ×2 (06:24→20:03)
--- NOTE | 2024-05-14 06:30 | PTCARENOTE ---
Addendum entered by Burak Licea RN 05/14/24 07:46:
Pt HR was continued to monitor, after tylenol HR came down to 105, Pt resting comfortably,SHUTTLECOCK FEATHER TRIMMER ordered cardizem if HR is sustaining, unable to give it at this time as pt BP-94/49,hr-103.plan of care continued.Report provided to next RN.
Addendum entered by Burak Licea RN 05/14/24 07:45:
Pt HR-105-115, ASSEMBLER ADJUSTER extension forester was made aware.pt temp 99.3, SHUTTLECOCK FEATHER TRIMMER made aware ok to give tylenol to pt & monitor pt HR on telemetry.
Original Note:
Pt aaox3 able to make her needs known.Pt was oob with 2 person assist to BSC. Pt had a temp of 102 prn tylenol given as ordered & rechecked 99.3. SHUTTLECOCK FEATHER TRIMMER was made aware of pt HR-105-120, with activity in 120 or 130 not sustaining.Pt on oxygen at 2lit, pt
ok with ANA stockings,refuses foot pump. SHUTTLECOCK FEATHER TRIMMER was made aware of pt Bladder scan results,flomax was given & straight cath was 600ml. Pt denies of any other problems.Plan of care continued.
[2024-05-14] MEDS: NSS 1000 IV (07:30)
--- NOTE | 2024-05-14 07:36 | W.PN.ORTHO ---
Today's Communication / Plan
-
73-year-old female POD2 right knee I&D with liner exchange [address] Amador.
- WBAT RLE with use of walker for assistance
- ASA 325mg QD x 4 weeks for DVT ppx
- GS showing gram positive cocci. Cultures with streptococcus agalactiae group B. Appreciate ID recommendations. Currently on vancomycin and ceftriaxone
- PT/OT
- Pain control per primary team. Ice and elevation for edema control
- Repeat CRP and ESR Sunday05/16/2024
- Orthopedic surgery will continue to follow along
Assessment
.
Distal Motor Intact: Yes
Dressing:
Clean, dry and intact.
Plan
.
Surgery / Date: Right knee I&D, liner exhange 05/12/24 Dr. Amador
DVT Prophylaxis: Aspirin
Activity:
Out of bed.
PT/OT
Subjective
.
.:
Patient resting comfortably in bed this morning. She does report some pain when working with PT.
Vital Signs and Labs
.
Vital Signs and Labs:
Lab Results
05/13/24 04:34
05/13/24 04:34
Temp Pulse Resp BP Pulse Ox
99.7 F 113 20 124/60 96
05/14/24 03:10 05/14/24 03:10 05/14/24 03:10 05/14/24 03:10 05/14/24 03:10
Non-invasive Hgb result: 10.9
Physical Exam
-
RLE: Aquacel dressing to right knee with strikethrough to center of dressing. MOLINA wrap and ANA stocking in place. Calf soft and nontender. NVI distally
[2024-05-14 08:18] LABS: Glucose - Point of Care 106 mg/dl (70-99)
[2024-05-14] MEDS: ASPIRIN 325 MG PO (08:23)
[2024-05-14] MEDS: NOVOLOG FLEXPEN-LOW RESISTANCE SC ×4 (08:23→16:35)
[2024-05-14] MEDS: BACTROBAN 2% OINTMENT 1 APPLIC NASAL ×2 (08:24→20:04)
[2024-05-14] MEDS: COLACE 100 MG PO (08:24)
[2024-05-14] MEDS: MUCINEX 1200 MG PO ×2 (08:25→20:04)
[2024-05-14] MEDS: FEMARA 2.5 MG PO (08:25)
[2024-05-14] MEDS: NEURONTIN 300 MG PO (08:25)
[2024-05-14] MEDS: LANTUS 0.35 UNITS SC ×2 (08:26→21:22)
[2024-05-14] MEDS: SENOKOT PO ×2 (08:26→21:35)
[2024-05-14 11:57] LABS: Glucose - Point of Care 123 mg/dl (70-99)
[2024-05-14] MEDS: ROCEPHIN 2000 MG IV (12:47)
[2024-05-14] MEDS: STERILE WATER FOR INJECTION 20 ML IV (12:48)
[2024-05-14] MEDS: FLUSH (NSS) 1 FLUSH IV (12:48)
--- NOTE | 2024-05-14 13:02 | CM ---
Addendum entered by Ana Rodrigues 05/14/24 15:56:
CM spoke with patient and Mik. Patient correct number is [phone] and Mik [phone]. Per patient and Mik, Mik will be the point person for the IV antibiotics and they do not have a preference for provider.
CM will call to [facility] to confirm ability to care. CM will continue to follow for discharge planning needs.
Original Note:
Patient seen at bedside. Patient states that she is aware of need for home IV antibiotics as per Dr. Lombardo and does not want to go to a SNF. Patient requested CM call to [facility]; but no phone number given. CM attempted to call patient but no VM
available and no response. CM will continue to follow for discharge planning needs.
Plan; home with VN/IV antibiotics vs SNF
--- NOTE | 2024-05-14 14:13 | W.PN.ID1 ---
Date of Service
Date of Service: May 14, 2024
Today's Communication
See below.
Assessment / Plan
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
# Group B strep bacteremia, septic prosthetic knee source
# Sepsis : fever and leukocytosis
# PCN allergy
-s/p I+D, polyethylene liner exchange 05/12/24
OR cx's Group B strep
-Follow Repeat blood cx's
- DC Vancomycin
-Continue ceftriaxone 2g IV q24 through 06/25/2024 followed by lifelong suppressive po abx due to retained hardware.
- Follow weekly CBC, CMP, CRP
- When bcx's neg x 24 to 48 hrs, place PICC.
- Follow WBC/temps
# Additional Past Medical History:
Insulin-Dependent Diabetes Mellitus
Neuropathy
Hypertension
Hyperlipidemia
Hypothyroidism
Morbid Obesity BMI 46
Recent dx Right Breast Invasive Ductal Carcinoma, liver mets s/p liver bx 05/07/24 at [facility]
Chronic Pain Syndrome
R TKA ( 07/2015)
Left TKA (01/2017) with revision (08/2021)
Chief Complaint
-: Other (PJI)
Subjective / Review of Systems
Feeling better.
Vital Signs / Physical Exam
Vital Signs
Vital Signs
Temp Pulse Resp BP Pulse Ox
98.6 F 105 28 116/63 95
05/14/24 11:10 05/14/24 11:10 05/14/24 11:10 05/14/24 11:10 05/14/24 11:10
Selected Entries
05/13/24
19:20
Temp 101.8 F H
Physical Exam
Constitutional: No Acute Distress
Cardiovascular: Regular Rate and S1/S2
Pulmonary: Clear
Gastrointestinal: Soft, Non Tender and Non Distended
Neurological: AO x 3
Objective Data
Lab Data
Lab Results
05/13/24 04:34
05/13/24 04:34
Estimated Creat Clear 63 ml/min 05/13/24 04:34
Lactic Acid 0.6 mmol/L (0.7-2.0) L 05/12/24 21:09
Total Bilirubin Cancelled 05/12/24 17:12
AST Cancelled 05/12/24 17:12
ALT Cancelled 05/12/24 17:12
Alkaline Phosphatase Cancelled 05/12/24 17:12
C-Reactive Protein Cancelled 05/12/24 17:15
Most recent labs reviewed.
Micro Results:
05/12/24 18:45 Wound Culture - Final
Knee - Right Streptococcus agalactiae
Gram Stain - Final
05/12/24 18:45 Body Fluid Culture - Preliminary
Joint Fluid Streptococcus agalactiae
Gram Stain - Preliminary
05/12/24 Unknown Anaerobic Culture - Preliminary
Knee - Right Culture pending. Anaerobic cultures are examined after 3
days incubation. Additional information to follow.
05/12/24 Unknown Anaerobic Culture - Preliminary
Knee - Right Culture pending. Anaerobic cultures are examined after 3
days incubation. Additional information to follow.
05/12/24 17:15 Blood Culture - Preliminary
Blood/Venous Streptococcus agalactiae
Gram Stain - Preliminary
05/12/24 17:17 Blood Culture - Preliminary
Blood/Venous Streptococcus agalactiae
Gram Stain - Preliminary
05/12/24 Unknown Wound Culture - Preliminary
Knee - Right Streptococcus agalactiae
Gram Stain - Preliminary
05/12/24 Unknown Wound Culture - Preliminary
Knee - Right Streptococcus agalactiae
Gram Stain - Preliminary
05/14/24 07:22 Blood Culture - Pending
Blood/Venous
05/14/24 06:05 Blood Culture - Pending
Blood/Venous
05/12/24 CXR: Mildly decreased bilateral lung volumes with mild subsegmental atelectasis and scarring in both lower lungs.
[2024-05-14 16:14] LABS: Glucose - Point of Care 135 mg/dl (70-99)
--- NOTE | 2024-05-14 16:22 | PTCARENOTE ---
Pt AAO x3, PUENTE; OOB in chair/BSC with assist x1-2/walker,luis felipe well; has slight decreased ROM to RLE from recent knee surgery. VSS. Telemetry:NSR/sinus tachy to 100's with activity. On nc 2 lpm- pulse ox 92%, pt with (+) slight STALEY; denies SOB. Abd
obese, soft, luis felipe PO well; eating foods brought in by family; refusing meal trays. Voided large amts yellow urine on BSC; refuses bladder scan to assess PVR; 'I don't have any problems!'. Rt knee MOLINA wrap intact. Resting in chair at present, no
c/o. Will continue to monitor.
[2024-05-14] MEDS: NEURONTIN 200 MG PO (17:30)
--- NOTE | 2024-05-14 17:44 | W.PN.HOSP.TC ---
Addendum entered and electronically signed by Kiana Parker MD 05/14/24 18:15:
I saw and evaluated the patient independently. I reviewed the resident�s note and agree with findings and plan as documented by Dr. Cotter.
GENERAL: well developed, well nourished, female in no apparent distress
HEENT: NC/AT--O2 NC in place
HEART: regular rate and rhythm, +S1, +S2, 2/6 MERCEDEZ
LUNGS : clear to auscultation bilaterally
ABDOM: soft, nontender, nondistended, + bowel sounds
EXT: no cyanosis, clubbing, or edema--right knee post op and wrapped
NEUROLOGIC: grossly intact
Septic arthritis of right prosthetic knee: appreciate ortho consult--s/p I & D right knee, blood and wound cultures from 05/12/24 show Strep agalactiae,repeat blood cultures pending, appreciate ID --continue vancomycin and ceftriaxone pending cx--
Place Picc when bcx's clear, ceftriaxone 2 gms IV daily through 06/25/24 followed by lifelong suppression
acute hypoxemic resp insufficiency--unclear why requiring O2--wean to OFF
Type 2 DM-- Continue Levemir and monitoring blood glucose
Essential Hypertension-- Blood pressure is controlled--cont meds
diabetic neuropathy-- Continue gabapentin
Hypothyroidism: Continue levothyroxine
CODE STATUS: Full
Original Note:
Today's Communication/Plan
-
Blood culture pending--as soon as blood culture negative PICC line can be placed-discontinue vancomycin--continue ceftriaxone 2 mg daily--continue to monitor body temps/wbc
Assessment / Plan
Assessment / Plan
Problem #1: Septic arthritis of right prosthetic knee: appreciate ortho consult-s/p I & D and liner exchange of right knee, Synovial fluid gram stain GPC, cx pending (preliminary gram positive cocci), appreciate ID consult-- blood cx's pending, DC
Vancomycin-Continue ceftriaxone 2g IV q24 through 06/25/2024 followed by lifelong suppressive po abx due to retained hardware-- Follow weekly CBC, CMP, CRP-- When bcx's neg x 24 to 48 hrs, place PICC-- Follow WBC/temps--Appreciate Ortho consult--
Activity: Out of bed. PT/OT
Problem #2: DM: Continue Levemir and monitoring blood glucose
Problem #3: Hypertension: Blood pressure is controlled
Problem #4: diabetec neuropathy: Continue gabapentin
Problem #5: Hypothyroidism: Continue levothyroxin
DVT Prophylaxis: Aspirin
Case management spoke to patient about who can help her take the IV medications at home. Patient mentioned Mik (mothers adopted child) can be trained for this purpose.
CODE STATUS: Full
Anticipated Discharge: Within 24 hours
Subjective/Interval History
-
Date of Service: May 14, 2024
Patient is feeling good, is alert and oriented. Mentions she has right knee pain while walking with PT. does not report any fever/chills last night.
Objective Data
-
Vital Signs:
Vital Signs
Temp Pulse Resp BP Pulse Ox
98.3 F 110 22 101/54 92
05/14/24 15:44 05/14/24 15:44 05/14/24 15:44 05/14/24 15:44 05/14/24 16:22
I&O
05/13/24 05/14/24 05/15/24
06:59 06:59 06:59
Intake Total 350 / 350 240 / 240 1700 / 1700
Output Total 600 / 600
Balance 350 / 350 -360 / -360 1700 / 1700
Review of Systems
-
History Source: Patient
All other systems: Reviewed and negative
Musculoskeletal: Reports Other (Right knee pain when walking)
Physical Exam
-
General: Well Developed, Well Nourished and Comfortable
HEENT: Normocephalic and Atraumatic
Respiratory: Clear to Auscultation
Cardiac: Regular Rhythm and S1/S2
GI: Soft and Nontender
Genito-urinary: No Costovertebral Tender
Musculoskeletal: No Clubbing, No Cyanosis and Other (Fernando wrap and stockings on right knee)
Neuro: Awake, Alert, Oriented and AO x 3
Psych: Calm
Data Reviewed
-
Total Time Spent with Patient (in minutes): 20
[2024-05-14 21:01] LABS: Glucose - Point of Care 185 mg/dl (70-99)
[2024-05-14] MEDS: CRESTOR 20 MG PO (21:23)
[2024-05-14] MEDS: COLACE PO (21:35)
[2024-05-15] VITALS (9 sets, daily range): BP systolic 92–135; BP diastolic 42–79; PULSE 67–117; O2SAT 94–100
[2024-05-15] MEDS: SYNTHROID 175 MCG PO (04:33)
[2024-05-15] MEDS: ROXICODONE 10 MG PO ×2 (04:33→23:31)
--- NOTE | 2024-05-15 07:24 | PTCARENOTE ---
Pt aaox3 able to make her needs known. Pt denies of any other complaints,prn pain meds given as needed. Plan of care continued. Pt family had concerns about pt having issues with vision.Pt denies of any blurry vision, neurochecks intact, able to
follow commands & track as needed, able to close eyes & open them, neurochecks done with another RN.Plan of care continued.
--- NOTE | 2024-05-15 07:56 | W.PN.ORTHO ---
Today's Communication / Plan
-
PT/OT
Weightbearing as tolerated with walker
Aspirin for DVT prophylaxis
Ceftriaxone x 6 weeks per ID
Follow inflammatory markers
Return to office 2 weeks for skin clip removal
Assessment
.
Distal Motor Intact: Yes
Dressing:
Scant dried blood on dressing.
Plan
.
Surgery / Date: Right knee I&D, liner exhange 05/12/24 Dr. Amador
DVT Prophylaxis: Aspirin
Activity:
Out of bed.
PT/OT
Discharge Plan: SNF
Subjective
.
.:
Patient resting comfortably.
Vital Signs and Labs
.
Vital Signs and Labs:
Temp Pulse Resp BP Pulse Ox
98.2 F 108 20 135/79 95
05/15/24 02:56 05/15/24 02:56 05/15/24 02:56 05/15/24 02:56 05/15/24 02:56
cultures Strep Algaectiae group B
Non-invasive Hgb result: 10.9
[2024-05-15 07:57] LABS: Hematocrit 31.9 % (37.0-47.0); Hemoglobin 10.5 g/dL (12.0-16.0); Mean Corp Hgb Conc. 32.9 g/dL (33.0-37.0); Mean Corpuscular Hgb 29.8 pg (27.0-31.0); Mean Corpuscular Volume 90.6 fL (81.0-99.0); Mean Platelet Volume 9.6 fL (7.4-10.4); Platelet Count 304 10^3/uL (130-400); Red Blood Cell Count 3.52 10^6/uL (4.20-5.40); Red Cell Dist. Width 13.3 % (11.5-14.5)
[2024-05-15 08:32] LABS: Glucose - Point of Care 64 mg/dl (70-99)
[2024-05-15 09:16] LABS: Glucose - Point of Care 91 mg/dl (70-99)
--- NOTE | 2024-05-15 09:18 | W.PN.ID1 ---
Date of Service
Date of Service: May 15, 2024
Today's Communication
Place Picc
-Can dc home when home IV abx set up.
-Follow up with me in 4 weeks.
Assessment / Plan
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
# Group B strep bacteremia, septic prosthetic knee source
# s/p Sepsis : fever and leukocytosis resolved
# PCN allergy
-s/p I+D, polyethylene liner exchange 05/12/24
OR cx's Group B strep
- Repeat blood cx's neg to date
-Continue ceftriaxone 2g IV q24 through 06/25/2024 followed by lifelong suppressive po abx due to retained hardware.
- Follow weekly CBC, CMP, CRP
-Place PICC
- Home infusion sheet submitted to rn case manager hospice 05/14/24.
-Can dc home when home IV abx set up.
-Follow up with me in 4 weeks.
# Additional Past Medical History:
Insulin-Dependent Diabetes Mellitus
Neuropathy
Hypertension
Hyperlipidemia
Hypothyroidism
Morbid Obesity BMI 46
Recent dx Right Breast Invasive Ductal Carcinoma, liver mets s/p liver bx 05/07/24 at [facility]
Chronic Pain Syndrome
R TKA ( 07/2015)
Left TKA (01/2017) with revision (08/2021)
Chief Complaint
-: Other (PJI)
Subjective / Review of Systems
Doing well.
Vital Signs / Physical Exam
Vital Signs
Vital Signs
Temp Pulse Resp BP Pulse Ox
98.7 F 115 24 92/42 98
05/15/24 06:59 05/15/24 06:59 05/15/24 06:59 05/15/24 06:59 05/15/24 08:11
Physical Exam
Constitutional: No Acute Distress and Obese
Pulmonary: Clear
Gastrointestinal: Soft, Non Tender and Non Distended
Wound: Other (right knee dressing mild dried blood)
Objective Data
Lab Data
Lab Results
05/15/24 07:12
Estimated Creat Clear 63 ml/min 05/13/24 04:34
Lactic Acid 0.6 mmol/L (0.7-2.0) L 05/12/24 21:09
Total Bilirubin Cancelled 05/12/24 17:12
AST Cancelled 05/12/24 17:12
ALT Cancelled 05/12/24 17:12
Alkaline Phosphatase Cancelled 05/12/24 17:12
C-Reactive Protein Cancelled 05/12/24 17:15
Most recent labs reviewed.
Micro Results:
05/12/24 17:17 Blood Culture - Preliminary
Blood/Venous Streptococcus agalactiae
Gram Stain - Preliminary
05/12/24 17:15 Blood Culture - Preliminary
Blood/Venous Streptococcus agalactiae
Gram Stain - Final
05/14/24 07:22 Blood Culture - Preliminary
Blood/Venous No Growth in 24 hours- Final report to follow
05/14/24 06:05 Blood Culture - Preliminary
Blood/Venous No Growth in 24 hours- Final report to follow
05/12/24 18:45 Wound Culture - Final
Knee - Right Streptococcus agalactiae
Gram Stain - Final
05/12/24 18:45 Body Fluid Culture - Preliminary
Joint Fluid Streptococcus agalactiae
Gram Stain - Preliminary
05/12/24 Unknown Anaerobic Culture - Preliminary
Knee - Right Culture pending. Anaerobic cultures are examined after 3
days incubation. Additional information to follow.
05/12/24 Unknown Anaerobic Culture - Preliminary
Knee - Right Culture pending. Anaerobic cultures are examined after 3
days incubation. Additional information to follow.
05/12/24 Unknown Wound Culture - Preliminary
Knee - Right Streptococcus agalactiae
Gram Stain - Preliminary
05/12/24 Unknown Wound Culture - Preliminary
Knee - Right Streptococcus agalactiae
Gram Stain - Preliminary
05/12/24 CXR: Mildly decreased bilateral lung volumes with mild subsegmental atelectasis and scarring in both lower lungs.
[2024-05-15] MEDS: NEURONTIN 300 MG PO (09:46)
[2024-05-15] MEDS: NOVOLOG FLEXPEN-LOW RESISTANCE SC ×3 (09:46→16:57)
[2024-05-15] MEDS: MUCINEX 1200 MG PO ×2 (09:47→19:44)
[2024-05-15] MEDS: FEMARA 2.5 MG PO (09:47)
[2024-05-15] MEDS: SENOKOT PO ×2 (09:47→19:43)
[2024-05-15] MEDS: COLACE PO ×2 (09:47→19:43)
[2024-05-15] MEDS: ASPIRIN 325 MG PO (09:47)
[2024-05-15] MEDS: LANTUS 0.35 UNITS SC (09:48)
[2024-05-15 10:08] LABS: Blood Urea Nitrogen 23 mg/dl (7-17); Calcium 9.7 mg/dl (8.4-10.2); Carbon Dioxide 26 mmol/L (22-30); Chloride 104 mmol/L (98-107); Estimated Creatinine Clearance 71 ml/min; Glucose 85 mg/dl (70-99); Potassium 4.2 mmol/L (3.5-5.1); Sodium 135 mmol/L (135-145); eGFR > 60.00
[2024-05-15 11:18] LABS: Glucose - Point of Care 145 mg/dl (70-99)
--- NOTE | 2024-05-15 11:45 | W.PN.HOSP.TC ---
Addendum entered and electronically signed by Kiana Parker MD 05/15/24 13:50:
I saw and evaluated the patient independently. I reviewed the resident�s note and agree with findings and plan as documented by Dr. Cotter.
GENERAL: well developed, well nourished, female in no apparent distress
HEENT: NC/AT--O2 NC in place
HEART: regular rate and rhythm, +S1, +S2, 2/6 MERCEDEZ
LUNGS : clear to auscultation bilaterally
ABDOM: soft, nontender, nondistended, + bowel sounds
EXT: no cyanosis, clubbing, or edema--right knee post op and wrapped
NEUROLOGIC: grossly intact
Septic arthritis of right prosthetic knee: appreciate ortho consult--s/p I & D right knee, blood and wound cultures from 05/12/24 show Strep agalactiae,repeat blood cultures pending, appreciate ID ---- Picc today 05/15/24-- ceftriaxone 2 gms IV daily
through 06/25/24 followed by lifelong suppression
acute hypoxemic resp insufficiency--unclear why requiring O2--wean to OFF--check CXR
Type 2 DM-- Continue Levemir and monitoring blood glucose
Essential Hypertension-- Blood pressure is controlled--cont meds
diabetic neuropathy-- Continue gabapentin
Hypothyroidism: Continue levothyroxine
CODE STATUS: Full
Original Note:
Today's Communication/Plan
-
Coordinating for PICC placement--continue IV ceftriaxone 2 g daily--decrease glargine dose--wean off O2 if patient tolerates
Assessment / Plan
Assessment / Plan
Problem #1: Septic arthritis of right prosthetic knee: appreciate ortho consult-s/p I & D and liner exchange of right knee, Synovial fluid gram stain GPC, blood cx's negative-- appreciate ID consult: Vancomycin DC'ed--Continue ceftriaxone 2g IV q24
through 06/25/2024 followed by lifelong suppressive po abx due to retained hardware-- Follow weekly CBC, CMP, CRP--coordinating for PICC to be placed today-leukocytosis resolved--continue to follow WBC/temps--patient to follow-up with ID office in 4
weeks --appreciate Ortho consult: Weightbearing as tolerated with walker--Return to office 2 weeks for skin clip removal
Case management is aware of family situation and is actively involved in seeking the right option for continuation of IV medications.
Problem #2: DM: Blood glucose 85--reduced glargine to 30 BID
Problem #3: Hypertension: Blood pressure is controlled
Problem #4: diabetec neuropathy: Continue gabapentin
Problem #5: Hypothyroidism: Continue levothyroxin
DVT Prophylaxis: Aspirin
Activity: Out of bed. PT/OT.
CODE STATUS: Full
Anticipated Discharge: Within 24 hours
Subjective/Interval History
-
Date of Service: May 15, 2024
Patient is feeling good. Mentions her right knee pain has improved significantly. Did not have any fever or chills overnight. Is still a bit undecided about where to go after discharge to continue IV medication. Patient refuses pumps and to have
only ANA stockings.
Objective Data
-
Labs:
Laboratory Results
05/15/24 05/15/24
07:12 09:03
WBC 9.0
Hgb 10.5 L
Hct 31.9 L
Plt Count 304
Sodium 135
Potassium 4.2
Chloride 104
Carbon Dioxide 26
BUN 23 H
Creatinine 0.8
Glucose 85
Calcium 9.7
Vital Signs:
Vital Signs
Temp Pulse Resp BP Pulse Ox
98.6 F 67 24 127/69 99
05/15/24 10:56 05/15/24 10:56 05/15/24 10:56 05/15/24 10:56 05/15/24 10:56
I&O
05/14/24 05/15/24 05/16/24
06:59 06:59 06:59
Intake Total 240 / 240 194 / 1939
Output Total 600 / 600 150 / 150
Balance -360 / -360 1789 / 1789
Review of Systems
-
History Source: Patient
All other systems: Reviewed and negative
Abdomen/GI: Reports Constipated
Physical Exam
-
General: Well Developed, Well Nourished and Comfortable
HEENT: Normocephalic and Atraumatic
Respiratory: Clear to Auscultation
Cardiac: Regular Rhythm and S1/S2
GI: Soft and Nontender
Genito-urinary: No Costovertebral Tender
Musculoskeletal: Other (Fernando wrap and ANA stockings on right knee)
Neuro: Awake, Alert, Oriented and AO x 3
Psych: Calm
Data Reviewed
-
Total Time Spent with Patient (in minutes): 20
--- NOTE | 2024-05-15 11:49 | CM ---
Addendum entered by Ana Rodrigues 05/15/24 13:29:
Stephanie from [facility] to stop by and review plan for patient at discharge/teaching with family
Original Note:
Patient seen at bedside with physicians. CM faxed to [facility] and referral sent to [facility]. Per [facility] traveling sales representative patient has a copay of 20$ per week and CM called to [facility] Liaison to inquire about the teaching process for this
patient. CM will continue to follow for discharge planning needs.
Plan; home with [facility] and [facility]
[2024-05-15] MEDS: ROCEPHIN 2000 MG IV (13:17)
[2024-05-15] MEDS: STERILE WATER FOR INJECTION 20 ML IV (13:17)
[2024-05-15] MEDS: FLUSH (NSS) 1 FLUSH IV (13:17)
[2024-05-15 13:28] LABS: Glucose - Point of Care 83 mg/dl (70-99)
[2024-05-15 15:49] LABS: Glucose - Point of Care 134 mg/dl (70-99)
--- NOTE | 2024-05-15 16:01 | RESPNOTE ---
Patient received on 2L NC. After removing o2 and assessing after 5 minutes, spo2 > 95%. Attempted to walk patient in room; patient unable to ambulate more than 5ft at this time due to pain in her knee. However, spo2 maintained > 94% on attempt.
--- NOTE | 2024-05-15 16:24 | PTCARENOTE ---
Pt AAO x3, PUENTE; OOB to chair/BSC with assist x1/walker, moves slowly. VSS. On room air- pulseox 95%, pt with (+) slight STALEY, denies SOB. Abd obese, soft, luis felipe PO; does not order meal trays; eats foods brought in from home. Voids piedad urine on
BSC without difficulty. Rt knee post-op dsg D/I; Thigh high TEDs in place. Pt without c/o Rt knee discomfort. Will continue to monitor.
[2024-05-15] MEDS: NEURONTIN 200 MG PO (17:50)
[2024-05-15 21:26] LABS: Glucose - Point of Care 118 mg/dl (70-99)
[2024-05-15] MEDS: CRESTOR 20 MG PO (21:29)
[2024-05-15] MEDS: LANTUS SC (21:29)
--- NOTE | 2024-05-15 21:30 | PTCARENOTE ---
Pts blood sugar 118- pt refusing lantus. Pt educated, continues to refuse.
[2024-05-16 03:58] LABS: Glucose - Point of Care 59 mg/dl (70-99)
[2024-05-16 04:25] LABS: Glucose - Point of Care 96 mg/dl (70-99)
--- NOTE | 2024-05-16 04:36 | PTCARENOTE ---
Pts blood sugar 59 gave applejuice and Peanut butter rechecked 96. asymptomatic.
[2024-05-16] MEDS: SYNTHROID 175 MCG PO (06:07)
[2024-05-16 06:38] LABS: Glucose - Point of Care 110 mg/dl (70-99)
--- NOTE | 2024-05-16 07:54 | W.PN.ORTHO ---
Today's Communication / Plan
-
PT/OT
Weightbearing as tolerated with walker
Aspirin for DVT prophylaxis
Ceftriaxone x 6 weeks per ID
Follow inflammatory markers, weekly.
Return to office 2 weeks for skin clip removal
Assessment
.
Distal Motor Intact: Yes
Dressing:
Clean, dry and intact.
Plan
.
Surgery / Date: Right knee I&D, liner exhange 05/12/24 Dr. Amador
Activity:
Out of bed.
PT/OT
Subjective
.
.:
Patient resting comfortably.
Vital Signs and Labs
.
Vital Signs and Labs:
Temp Pulse Resp BP Pulse Ox
98.1 F 113 20 127/79 94
05/15/24 23:27 05/15/24 23:27 05/15/24 23:27 05/15/24 23:27 05/15/24 23:27
Non-invasive Hgb result: 10.9
[2024-05-16] MEDS: NEURONTIN PO ×2 (08:03→08:11)
[2024-05-16] MEDS: FEMARA 2.5 MG PO (08:03)
[2024-05-16] MEDS: ASPIRIN 325 MG PO (08:03)
[2024-05-16] MEDS: MUCINEX 1200 MG PO (08:03)
[2024-05-16] MEDS: COLACE PO (08:04)
[2024-05-16] MEDS: NOVOLOG FLEXPEN-LOW RESISTANCE SC ×2 (08:05→12:18)
[2024-05-16] MEDS: SENOKOT PO (08:09)
[2024-05-16] MEDS: NEURONTIN 300 MG PO (08:13)
[2024-05-16 08:18] VITALS: BP 138/78
[2024-05-16 08:48] LABS: Glucose - Point of Care 150 mg/dl (70-99)
[2024-05-16] MEDS: LANTUS 0.3 UNITS SC (08:52)
--- NOTE | 2024-05-16 09:25 | W.PN.HOSP.TC ---
Addendum entered and electronically signed by Kiana Parker MD 05/16/24 18:31:
I saw and evaluated the patient independently. I reviewed the resident�s note and agree with findings and plan as documented by Dr. Cotter.
GENERAL: well developed, well nourished, female in no apparent distress
HEENT: NC/AT--O2 NC in place
HEART: regular rate and rhythm, +S1, +S2, 2/6 MERCEDEZ
LUNGS : clear to auscultation bilaterally
ABDOM: soft, nontender, nondistended, + bowel sounds
EXT: no cyanosis, clubbing, or edema--right knee post op and wrapped
NEUROLOGIC: grossly intact
Septic arthritis of right prosthetic knee: appreciate ortho consult--s/p I & D right knee, blood and wound cultures from 05/12/24 show Strep agalactiae, repeat blood cultures negative, appreciate ID ---- Picc today 05/15/24-- ceftriaxone 2 gms IV
daily through 06/25/24 followed by lifelong suppression
acute pulmonary insufficiency following surgery-- OFF--CXR WNL
Type 2 DM-- Continue Levemir and monitoring blood glucose
Essential Hypertension-- Blood pressure is controlled--cont meds
diabetic neuropathy-- Continue gabapentin
Hypothyroidism: Continue levothyroxine
CODE STATUS: Full
ok for d/c
Original Note:
Today's Communication/Plan
-
Plan is to discharge home today with VN. Continue Ceftriaxone 2gr daily for 6 weeks
Assessment / Plan
Assessment / Plan
Problem #1: Septic arthritis of right prosthetic knee: appreciate ortho consult-s/p I & D and liner exchange of right knee, Synovial fluid gram stain GPC, blood cx's negative after 48hrs-- appreciate ID consult: Vancomycin DC'ed--Continue
ceftriaxone 2g IV q24 through 06/25/2024 followed by lifelong suppressive po abx due to retained hardware-- Follow weekly CBC, CMP, CRP--coordinating for PICC to be placed today-leukocytosis resolved--continue to follow WBC/temps--patient to
follow-up with ID office in 4 weeks --appreciate Ortho consult: Weightbearing as tolerated with walker--Return to office 2 weeks for skin clip removal
Case management and physician are aware of family situation--Patient does not have any problems with vision or eye movement--She mentions she will not go upstairs and the living room is being made prepared for her to stay downstairs in a recliner
chair--[facility] will be here today to teach patient and family (Mik) regarding IV meds at home--patient insists on going home and not SNF
Problem #2: DM: Blood glucose 85--cont glargine to 30 BID
Problem #3: Hypertension: Blood pressure is controlled
Problem #4: diabetec neuropathy: Continue gabapentin
Problem #5: Hypothyroidism: Continue levothyroxin
DVT Prophylaxis: Aspirin
Activity: Out of bed. PT/OT.
CODE STATUS: Full
Anticipated Discharge: Today
Subjective/Interval History
-
Date of Service: May 16, 2024
Patient is feeling good. Still not comfortable with who will take care of continuation of her IV treatment, would like to speak to Dr. Parker and comp field case manager about this. She has no other complains otherwise and has been able to wean off O2
without any drops in saturations.
Objective Data
-
Labs:
Laboratory Results
05/16/24
07:27
WBC Pending
Hgb Pending
Hct Pending
Plt Count Pending
Sodium Pending
Potassium Pending
Chloride Pending
Carbon Dioxide Pending
BUN Pending
Creatinine Pending
Glucose Pending
Calcium Pending
Vital Signs:
Vital Signs
Temp Pulse Resp BP Pulse Ox
97.8 F 107 20 138/78 96
05/16/24 08:18 05/16/24 08:18 05/16/24 08:18 05/16/24 08:18 07/19/24 08:18
I&O
05/15/24 05/16/24 05/17/24
06:59 06:59 06:59
Intake Total 1939 / 1939 1560 / 1560
Output Total 150 / 150
Balance 1789 / 1790 1560 / 1560
[2024-05-16 10:38] LABS: Hematocrit 33.4 % (37.0-47.0); Hemoglobin 11.5 g/dL (12.0-16.0); Mean Corp Hgb Conc. 34.4 g/dL (33.0-37.0); Mean Corpuscular Hgb 29.2 pg (27.0-31.0); Mean Corpuscular Volume 84.8 fL (81.0-99.0); Mean Platelet Volume 9.5 fL (7.4-10.4); Platelet Count 344 10^3/uL (130-400); Red Blood Cell Count 3.94 10^6/uL (4.20-5.40); White Blood Cell Count 8.3 10^3/uL (4.8-10.8)
[2024-05-16 11:13] LABS: Blood Urea Nitrogen 20 mg/dl (7-17); Calcium 9.4 mg/dl (8.4-10.2); Carbon Dioxide 26 mmol/L (22-30); Chloride 103 mmol/L (98-107); Estimated Creatinine Clearance 81 ml/min; Glucose 109 mg/dl (70-99); Potassium 4.4 mmol/L (3.5-5.1); Sodium 134 mmol/L (135-145); eGFR > 60.00
--- NOTE | 2024-05-16 11:52 | W.PN.ID1 ---
Date of Service
Date of Service: May 16, 2024
Today's Communication
- Can dc home when home IV abx set up.
-Follow up with Dr Lombardo in 4 weeks.
Assessment / Plan
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
# Group B strep bacteremia, septic prosthetic knee source
# s/p Sepsis : fever and leukocytosis resolved
# PCN allergy
-s/p I+D, polyethylene liner exchange 05/12/24
OR cx's Group B strep
- Repeat blood cx's neg to date
- Continue ceftriaxone 2g IV q24 through 06/25/2024 followed by lifelong suppressive po abx due to retained hardware.
- Follow weekly CBC, CMP, CRP
- PICC in place
- Home infusion sheet submitted to clinical case manager 05/14/24.
- Can dc home when home IV abx set up.
-Follow up with Dr Lombardo in 4 weeks.
# Additional Past Medical History:
Insulin-Dependent Diabetes Mellitus
Neuropathy
Hypertension
Hyperlipidemia
Hypothyroidism
Morbid Obesity BMI 46
Recent dx Right Breast Invasive Ductal Carcinoma, liver mets s/p liver bx 05/07/24 at [facility]
Chronic Pain Syndrome
R TKA ( 07/2015)
Left TKA (01/2017) with revision (08/2021)
Chief Complaint
-: Other (PJI)
Subjective / Review of Systems
afebrile
bp stable
without leukocytosis
cr stable
crp 73 today, esr pending
cxr: PICC in place
blood cultures x2 no growth to date
Vital Signs / Physical Exam
Vital Signs
Vital Signs
Temp Pulse Resp BP Pulse Ox
97.8 F 107 20 138/78 96
05/16/24 08:18 05/16/24 08:18 05/16/24 08:18 05/16/24 08:18 05/16/24 08:18
Physical Exam
Constitutional: No Acute Distress
Cardiovascular: Regular Rate and S1/S2; Negative Murmur or Rub
Pulmonary: Clear and Symmetric; Negative Wheezes or Rales
Gastrointestinal: Soft, Non Tender, Non Distended and Normal Bowel Sounds
Skin: Warm and Dry; Negative Rash or Jaundice
Lines: PICC
Objective Data
Lab Data
Lab Results
05/16/24 09:53
05/16/24 09:53
Estimated Creat Clear 81 ml/min 05/16/24 09:53
Lactic Acid 0.6 mmol/L (0.7-2.0) L 05/12/24 21:09
Total Bilirubin Cancelled 05/12/24 17:12
AST Cancelled 05/12/24 17:12
ALT Cancelled 05/12/24 17:12
Alkaline Phosphatase Cancelled 05/12/24 17:12
C-Reactive Protein 73.00 mg/L (0.0-10.00) H 05/16/24 09:53
Most recent labs reviewed.
Micro Results:
05/12/24 Unknown Anaerobic Culture - Preliminary
Knee - Right Culture pending. Anaerobic cultures are examined after 3
days incubation. Additional information to follow.
05/12/24 Unknown Anaerobic Culture - Preliminary
Knee - Right Culture pending. Anaerobic cultures are examined after 3
days incubation. Additional information to follow.
05/12/24 17:15 Blood Culture - Preliminary
Blood/Venous Streptococcus agalactiae
Gram Stain - Final
05/12/24 17:17 Blood Culture - Final
Blood/Venous Streptococcus agalactiae
Gram Stain - Final
05/14/24 07:22 Blood Culture - Preliminary
Blood/Venous No Growth in 48 hours- Final report to follow
05/14/24 06:05 Blood Culture - Preliminary
Blood/Venous No Growth in 48 hours- Final report to follow
05/12/24 18:45 Body Fluid Culture - Final
Joint Fluid Streptococcus agalactiae
Gram Stain - Final
05/12/24 18:45 Wound Culture - Final
Knee - Right Streptococcus agalactiae
Gram Stain - Final
05/12/24 Unknown Wound Culture - Preliminary
Knee - Right Streptococcus agalactiae
Gram Stain - Preliminary
05/12/24 Unknown Wound Culture - Preliminary
Knee - Right Streptococcus agalactiae
Gram Stain - Preliminary
05/12/24 CXR: Mildly decreased bilateral lung volumes with mild subsegmental atelectasis and scarring in both lower lungs.
[2024-05-16 12:09] LABS: Glucose - Point of Care 108 mg/dl (70-99)
[2024-05-16] MEDS: STERILE WATER FOR INJECTION 20 ML IV (12:18)
[2024-05-16] MEDS: ROCEPHIN 2000 MG IV (12:18)
[2024-05-16 12:40] VITALS: BP 117/63; PULSE 100
[2024-05-16 12:58] LABS: Erythrocyte Sed Rate 64 mm/hour (0-20)
--- NOTE | 2024-05-16 13:26 | CM ---
Patient seen at bedside with physician. Patient states again she wants to go home with [facility], and [facility] for IV antibiotics. Patient completed IMM form, signed and placed on chart. Patient to have teaching with patient son Mik today approx
2pm. Patient son expressing concerns about taking patient home. Patient reviewed all concerns with physician and patient insisting on discharge home. PT/OT recommending SNF due to limited distance in patient ambulation. Patient close supervision
to get up per PT. PT agreed to return and provide any assistance with recommendations to get out of chair. [facility] to start with patient when patient home and dogs to be placed in crates. CM will continue to follow for discharge planning needs.
Plan; home with IV antibiotics and [facility]
--- NOTE | 2024-05-16 14:34 | PN.CDI ---
CDI
- -
CDI:
Physician Documentation Request
Admit Date: 05/12/24 21:28
Dear Doctor Keith ,
Please review the following and provide your response in the progress notes.
Clinical Indicators:
Pt admitted with Sepsis 2/2 infected knee prosthesis/septic arthritis s/p revision on 05/12
Progress note 05/14 &05/15 , ' acute hypoxemic resp insufficiency--unclear why requiring O2--wean to OFF..'
Patient care note 05/14 @1622, ' sinus tachy to 100's with activity. On nc 2 lpm- pulse ox 92%, pt with (+) slight STALEY...'
Respirations as high as 34, on 2-4 LPM via NC
05/13/24
00:43 05/13/24
15:40 05/13/24
19:20
Nasal Cannula flow liters per minute 4 4 2
05/14/24
19:52 05/15/24
15:10
Nasal Cannula flow liters per minute 2 2
Clarify which of the following accurately represents the patient's respiratory status following surgery:
Acute pulmonary insufficiency (following surgery)
Hypoxia only
Other (please specify)
Additional information for Pulmonary Insufficiency:
Consider when patients require group home oxygen therapy postoperatively
Weaned off oxygen initially then requiring supplemental oxygen
No other definitive diagnosis to support the need for oxygen (COPD exac, CHF etc.)
Unable to wean from vent
When criteria for respiratory failure not present
May extend stay or require additional resources; may need home O2
Use of terms such as suspected, likely, concern for, or probable (associated with a specific diagnosis that is being evaluated, monitored, or treated as if it exists) are acceptable and can be coded in the inpatient setting, when documented at the
time of discharge.
Thank you,
Lottie Parker RN
CDI Specialist
Only Text
Please use your independent medical judgment in providing your response.
--- NOTE | 2024-05-16 14:55 | PN.CDI ---
CDI
- -
CDI:
Physician Documentation Request
Admit Date: 05/12/24 21:28
Dear Doctor Keith ,
Please review the following and provide your response in the progress notes.
Clinical Indicators:
Pt admitted with Sepsis 2/2 infected knee prosthesis/septic arthritis s/p revision on 05/12
Progress note 05/14 &05/15 , ' acute hypoxemic resp insufficiency--unclear why requiring O2--wean to OFF..'
Patient care note 05/14 @1622, ' sinus tachy to 100's with activity. On nc 2 lpm- pulse ox 92%, pt with (+) slight STALEY...'
Respirations as high as 34, on 2-4 LPM via NC / Pt was on 4 LPM from 05/13 0028- 05/13 @ 1540 ,Then on 2 LPM until 05/15
Clarify which of the following accurately represents the patient's respiratory status following surgery:
Acute pulmonary insufficiency (following surgery)
Hypoxia only
Other (please specify)
Additional information for Pulmonary Insufficiency:
Consider when patients require powder operator oxygen therapy postoperatively
Weaned off oxygen initially then requiring supplemental oxygen
No other definitive diagnosis to support the need for oxygen (COPD exac, CHF etc.)
Unable to wean from vent
When criteria for respiratory failure not present
May extend stay or require additional resources; may need home O2
Use of terms such as suspected, likely, concern for, or probable (associated with a specific diagnosis that is being evaluated, monitored, or treated as if it exists) are acceptable and can be coded in the inpatient setting, when documented at the
time of discharge.
Thank you,
Lottie Parker RN
CDI Specialist
[place] Text
Please use your independent medical judgment in providing your response.
[2024-05-16 16:06] VITALS: BP 135/77
--- NOTE | 2024-05-16 16:55 | PTCARENOTE ---
Reviewed discharge instructions with patient and son. Both verbalize understanding of teaching and deny questions at this time. Patient left with right PICC line for home antibiotics. [facility] completed teaching and medications and supplies to be
delivered to home tonight. Patient left via wheelchair with staff escort. Son is here to transport patient home.
--- NOTE | 2024-05-16 18:19 | W.DS.TRANS ---
DC Summary - [employer]
-
Discharge Instructions:
Discharge Diagnosis/Procedures Septic arthritis of right prosthetic knee, Type
2 DM, Essential Hypertension, diabetic
neuropathy, Hypothyroidism
Diet As tolerated,Diabetic, Carb Controlled
Activity Do not bear weight R leg,With Walker
Driving Restrictions Not until seen by your Dr
Bathing Restrictions After dressing removed
Other Services VN,PT,OT
Instructions:
Stand-Alone Forms:
Changes to Home Medications: Yes
Discharge Medications:
DC Medications w/original date entered in Verified Person
desloratadine 5 mg tablet (Clarinex) 5 mg PO DAILY Allergies 02/12/17
guaifenesin 600 mg tablet, extended release 12 hr (Mucus Relief ER) 1,200 mg PO BID Congestion 09/06/21
levothyroxine 50 mcg tablet 175 mcg PO MOTUWETHFRSA Thyroid 09/06/21
vitamin B complex 1 tab PO DAILY Supplement 09/06/21
diltiazem HCl 240 mg capsule,extended release 24 hr 240 mg PO HS Heart Disease/Condition 10/11/21
gabapentin 100 mg capsule 200 mg PO HSPRN PRN mild pain 10/11/21
gabapentin 100 mg capsule 200 mg PO QPM Pain 10/11/21
gabapentin 100 mg capsule 300 mg PO DAILY Pain 10/11/21
acetaminophen 500 mg tablet (Tylenol Extra Strength) 1,000 mg PO BID Pain 10/12/21
insulin detemir U-100 100 unit/mL subcutaneous solution (Levemir U-100 Insulin) 35 units SC Q12H Diabetes 10/12/21
aspirin 325 mg tablet 975 mg PO BID 05/12/24
chlorzoxazone 500 mg tablet 500 mg PO TIDPRN PRN Muscle cramps 05/12/24
diclofenac sodium 50 mg tablet,delayed release 100 mg PO BID 05/12/24
ibuprofen 200 mg tablet (Advil) 600 mg PO BID Pain 05/12/24
letrozole 2.5 mg tablet 2.5 mg PO DAILY Cancer 05/12/24
lisinopril 20 mg-hydrochlorothiazide 12.5 mg tablet 2 tab PO QPM Blood Pressure 05/12/24
rosuvastatin 20 mg tablet 20 mg PO HS High Cholesterol 05/12/24
ceftriaxone 2 gram solution for injection 2,000 mg IV Q24H 6 weeks #0 ea 05/16/24
Home Medication Changes
New Medications:
ceftriaxone 2 gram solution for injection 2,000 mg IV Q24H for 6 weeks
Pending Results: No
--- NOTE | 2024-05-16 18:20 | W.DCSUMMARY ---
Addendum entered and electronically signed by Kiana Parker MD 05/17/24 07:19:
Read, reviewed, and agree. See same day progress note for additional details. Time spent coordinating care, DC planning, review of DC plan of care with resident, transition of care, review of records in EMR, med rec, consults, notes, d/w
consultants, nursing, family, and CM = 40 minutes.
In regards to disposition, patient wanted to go home and refused to think about a senior living facility. Family was concerned that the patient was having 'mini strokes' because her left eye was not tracking according to them. I examined the
patient on multiple occasions and all ocular movements are intact. There was no lag or 'lazy eye'. Following that, family was concerned that the patient was unable to get up from a chair on her own and that they could not lift her. Physical
therapy and Occupational Therapy saw the patient and cleared the patient for home with visiting nurses/PT/OT. Subsequently, family was concerned that patient was getting outside food and not eating the hospital food. Nursing instructed patient's
family that this was brought in from outside and not given to her by us. There was concern upon the medical staff that the patient's family did not want her home and wished to have her placed. However, patient has complete capacity to make her own
decisions and does not wish to go to a senior living facility.
She was discharged home in good condition. Family did receive training on IV antibiotic administration.
Original Note:
Discharge Summary
Discharge Data
Date of Admission: 05/12/24
Date of Discharge: 05/16/24
Total time spent discharging patient (in min): 40
-
Pending Results: No
Hospital Course
Patient is a 73 y/o female with PMH of IDDM, HTN, HLD, b/l TKA and recently diagnosed breast cancer who presented to the ED via EMS for right knee pain for the past 3 days; the pain had been progressing and she was not able to bear weight on her
right knee on the day of admission. She was diagnosed with cellulitis at another ED one day prior to admission and had received one dose of doxycycline. She denied any cough, shortness of breath, nausea, or vomiting, or changes in urination. Her
right knee arthroplasty was done in 2014. On evaluation in the ED, she was noted to have a large knee effusion
which was aspirated prior to any IV abx admission. She had a temp of 103 and White blood cell count 28,800. She was admitted for evaluation and treatment of possible right knee infection.
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 Right knee aspirate came back with 113,000 white blood cells and fluid culture and gram stain showed gram
positive cocci. ID was consulted and she was initially started on vancomycin and ceftriaxone. Initial blood cultures came back positive for streptococcal agalactiae but repeat blood cultures were negative. WBC count and temperatures down trended
during hospitalization and returned back to normal. Since 6 weeks of IV antibiotic was anticipated the patient, a PICC line was placed for continuation of IV ceftriaxone at home after second set of blood cultures came back negative. Patient
insisted on being discharged to home rather than SNF. Patient and family (Mik) received training regarding administering IV antibiotics through PICC line. Patient was examined by physician and did not have any problems with vision or eyes
movements. Patient mentioned family is preparing the recliner chair downstairs in the living room, and she will not have to go up the stairs while at home. Patient and family have been trained to continue IV antibiotic for 6 weeks. She will visit
the orthopedics office in 2 weeks for skin clip removal. She will follow-up with ID in 4 weeks.
#2: Type 2 DM: No changes as prior to admission. Blood glucose was controlled during hospitalization.
#3: Essential hypertension: No changes as prior to admission. Blood pressure was controlled during hospitalization.
#4: Diabetic neuropathy: No changes as prior to admission. Gabapentin continued during hospitalization.
#5: Hypothyroidism: No changes as prior to admission. Levothyroxine continued during hospitalization.
Patient is in good clinical condition and is stable for discharge to home with visiting nurse.
Discharge Plan
-
Patient Disposition: Home with Home Care
Discharge Diagnosis/Procedures: Septic arthritis of right prosthetic knee, Type 2 DM, Essential Hypertension, diabetic neuropathy, Hypothyroidism
Condition: Good
Diet: As tolerated and Diabetic, Carb Controlled
Activity: Do not bear weight R leg and With Walker
Driving Restrictions: Not until seen by your Dr
Bathing Restrictions: After dressing removed
Other Services: VN, PT and OT
Referrals:
Addison Willett MD [Family Provider] - in less than 1 week
Carey Lombardo MD [Active] - in one month
Prescriptions:
New
ceftriaxone 2 gram Recon Soln
2,000 mg IV Q24H 42 Days Qty: 0 0RF
Continued
desloratadine [Clarinex] 5 MG tablet
5 mg PO DAILY
vitamin B complex 1 TAB tablet
1 tab PO DAILY
guaifenesin [Mucus Relief ER] 600 MG tablet extended release 12hr
1,200 mg PO BID
levothyroxine 50 MCG tablet
175 mcg PO MOTUWETHFRSA
Patient Comments:
diltiazem HCl 240 MG capsule,extended release 24hr
240 mg PO HS
gabapentin 100 MG capsule
300 mg PO DAILY
gabapentin 100 MG capsule
200 mg PO QPM
gabapentin 100 MG capsule
200 mg PO HSPRN PRN (Reason: mild pain)
acetaminophen [Tylenol Extra Strength] 500 MG tablet
1,000 mg PO BID
Levemir U-100 Insulin 1,000 UNITS/10 ML solution
35 units SC Q12H
lisinopril-hydrochlorothiazide 20-12.5 mg Tablet
2 tab PO QPM
ibuprofen [Advil] 200 mg Tablet
600 mg PO BID
diclofenac sodium 50 mg Tablet,Delayed Release (Dr/Ec)
100 mg PO BID
letrozole 2.5 mg Tablet
2.5 mg PO DAILY
rosuvastatin 20 mg Tablet
20 mg PO HS
aspirin 325 MG tablet
975 mg PO BID
Patient Comments:
05/12/24: triple confirmed with patient, she takes 3 full dose tablets twice a day for total of 6.
chlorzoxazone 500 MG tablet
500 mg PO TIDPRN PRN (Reason: Muscle cramps)
Discharge Orders:
Discharge Patient (As Directed); Ordered 05/16/24
Ordered By: Bessy Cotter
Discharge Date and Time
Discharge Date/Time: 05/16/24 17:14
Print Language: HEBREW
== END 2024-05-16 17:14 | disposition home health service (06) | DRG 485 ==
LOC: 4 EAST ACU 21:28
PROVIDERS: Emergency Medicine; Physician Assistant; Physician Assistant Medical; Physician Assistant Surgical; Radiology Vascular & Interventional Radiology; ADMITTING PHYSICIAN Hospitalist; ATTENDING PHYSICIAN Internal Medicine; CONSULT PHYSICIAN Internal Medicine Infectious Disease; CONSULT PHYSICIAN Specialist; EMERGENCY PHYSICIAN Emergency Medicine; FAMILY PHYSICIAN Family Medicine
PROC: 0S9C3ZZ Drainage of Right Knee Joint, Percutaneous Approach (ICD-10-PCS; 2024-05-12)
PROC: 0SPC08Z Removal of Spacer from Right Knee Joint, Open Approach (ICD-10-PCS; 2024-05-12)
PROC: 0SBC0ZZ Excision of Right Knee Joint, Open Approach (ICD-10-PCS; 2024-05-12)
PROC: 0SHC08Z Insertion of Spacer into Right Knee Joint, Open Approach (ICD-10-PCS; 2024-05-12)
PROC: 0S9C0ZX Drainage of Right Knee Joint, Open Approach, Diagnostic (ICD-10-PCS; 2024-05-12)
PROC: 02HV33Z Insertion of Infusion Device into Superior Vena Cava, Percutaneous Approach (ICD-10-PCS; 2024-05-15)
DX: T84.53XA Infection and inflammatory reaction due to internal right knee prosthesis, initial encounter (principal); A40.1 Sepsis due to streptococcus, group B; J95.2 Acute pulmonary insufficiency following nonthoracic surgery; M00.261 Other streptococcal arthritis, right knee; Z68.42 Body mass index [BMI] 45.0-49.9, adult; C78.7 Secondary malignant neoplasm of liver and intrahepatic bile duct; E11.40 Type 2 diabetes mellitus with diabetic neuropathy, unspecified; E78.00 Pure hypercholesterolemia, unspecified; C50.911 Malignant neoplasm of unspecified site of right female breast; E03.9 Hypothyroidism, unspecified; E66.01 Morbid (severe) obesity due to excess calories; G89.4 Chronic pain syndrome; I10 Essential (primary) hypertension; M25.561 Pain in right knee; J30.1 Allergic rhinitis due to pollen; J30.81 Allergic rhinitis due to animal (cat) (dog) hair and dander; I05.0 Rheumatic mitral stenosis; G47.33 Obstructive sleep apnea (adult) (pediatric); Y83.1 Surgical operation with implant of artificial internal device as the cause of abnormal reaction of the patient, or of later complication, without mention of misadventure at the time of the procedure; Y92.9 Unspecified place or not applicable; Z96.651 Presence of right artificial knee joint; Z96.652 Presence of left artificial knee joint; Z87.891 Personal history of nicotine dependence; Z91.02 Food additives allergy status; Z88.0 Allergy status to penicillin; Z79.890 Hormone replacement therapy; Z79.4 Long term (current) use of insulin; Z79.82 Long term (current) use of aspirin; Z79.811 Long term (current) use of aromatase inhibitors
CPT/HCPCS: 20610; 71045; 71046; 73502; 73560; 80048; 81003; 81015; 82962; 83036; 83605; 85025; 85027; 85652; 86140; 86850; 86900; 86901; 87015; 87040; 87070; 87075; 87077; 87147; 87205; 89051; 89060; 93005; 94761; 96365; 97116; 97163; 97167; 97530; 97535; 99285; C1776

== ENCOUNTER → 2024-05-22 07:59 | Outpatient (REF) | payer OTHER, SELFPAY | LOC: WOUND 07:59 | PROVIDERS: ATTENDING PHYSICIAN Surgery; FAMILY PHYSICIAN Family Medicine | DX: L97.511 Non-pressure chronic ulcer of other part of right foot limited to breakdown of skin (principal); M00.9 Pyogenic arthritis, unspecified; I87.2 Venous insufficiency (chronic) (peripheral); I73.9 Peripheral vascular disease, unspecified; E11.3213 Type 2 diabetes mellitus with mild nonproliferative diabetic retinopathy with macular edema, bilateral; Z79.4 Long term (current) use of insulin; E66.01 Morbid (severe) obesity due to excess calories; N18.32 Chronic kidney disease, stage 3b; E11.42 Type 2 diabetes mellitus with diabetic polyneuropathy; E11.29 Type 2 diabetes mellitus with other diabetic kidney complication | CPT/HCPCS: 97597; 97598; 99204 ==

== ENCOUNTER → 2024-05-29 13:25 | Outpatient (REF) | payer OTHER, SELFPAY | LOC: WOUND 13:25 | PROVIDERS: ATTENDING PHYSICIAN Surgery; FAMILY PHYSICIAN Family Medicine | DX: L97.511 Non-pressure chronic ulcer of other part of right foot limited to breakdown of skin (principal); L97.521 Non-pressure chronic ulcer of other part of left foot limited to breakdown of skin; I87.2 Venous insufficiency (chronic) (peripheral); I73.9 Peripheral vascular disease, unspecified | CPT/HCPCS: 99213 ==

== ENCOUNTER → 2024-06-05 13:35 | Outpatient (REF) | payer OTHER, SELFPAY | LOC: WOUND 13:35 | PROVIDERS: ATTENDING PHYSICIAN Surgery; FAMILY PHYSICIAN Family Medicine | DX: L97.511 Non-pressure chronic ulcer of other part of right foot limited to breakdown of skin (principal); L97.521 Non-pressure chronic ulcer of other part of left foot limited to breakdown of skin; M00.9 Pyogenic arthritis, unspecified; I87.2 Venous insufficiency (chronic) (peripheral); I73.9 Peripheral vascular disease, unspecified; E11.3213 Type 2 diabetes mellitus with mild nonproliferative diabetic retinopathy with macular edema, bilateral; E66.01 Morbid (severe) obesity due to excess calories; N18.32 Chronic kidney disease, stage 3b; E11.42 Type 2 diabetes mellitus with diabetic polyneuropathy; Z79.4 Long term (current) use of insulin; E11.29 Type 2 diabetes mellitus with other diabetic kidney complication | CPT/HCPCS: 72110; 99213 ==

== ENCOUNTER → 2024-06-12 13:13 | Outpatient (REF) | payer OTHER, SELFPAY | LOC: WOUND 13:13 | PROVIDERS: ATTENDING PHYSICIAN Surgery; FAMILY PHYSICIAN Family Medicine | DX: L97.511 Non-pressure chronic ulcer of other part of right foot limited to breakdown of skin (principal); L97.521 Non-pressure chronic ulcer of other part of left foot limited to breakdown of skin; M00.9 Pyogenic arthritis, unspecified; I87.2 Venous insufficiency (chronic) (peripheral); I73.9 Peripheral vascular disease, unspecified; E11.3213 Type 2 diabetes mellitus with mild nonproliferative diabetic retinopathy with macular edema, bilateral; E66.01 Morbid (severe) obesity due to excess calories; N18.32 Chronic kidney disease, stage 3b; E11.42 Type 2 diabetes mellitus with diabetic polyneuropathy; Z79.4 Long term (current) use of insulin; E11.22 Type 2 diabetes mellitus with diabetic chronic kidney disease | CPT/HCPCS: 99212 ==

== ENCOUNTER → 2024-07-09 08:26 | Outpatient (REF) | payer OTHER, SELFPAY | LOC: RAD 08:26 | PROVIDERS: ATTENDING PHYSICIAN Registered Nurse Oncology; FAMILY PHYSICIAN Family Medicine | DX: C50.211 Malignant neoplasm of upper-inner quadrant of right female breast (principal) | CPT/HCPCS: 78306; A9503 ==

== ENCOUNTER → 2024-07-15 07:36 | Outpatient (REF) | payer OTHER, SELFPAY | LOC: HWRAD 07:36 | PROVIDERS: ATTENDING PHYSICIAN Registered Nurse Oncology; FAMILY PHYSICIAN Family Medicine | DX: C50.211 Malignant neoplasm of upper-inner quadrant of right female breast (principal); C78.7 Secondary malignant neoplasm of liver and intrahepatic bile duct; Z79.811 Long term (current) use of aromatase inhibitors; Z17.0 Estrogen receptor positive status [ER+] | CPT/HCPCS: 71260; 74177; Q9967 ==

== ENCOUNTER 2024-08-14 21:06 | Inpatient (IN) | payer OTHER, SELFPAY ==
[2024-08-14] VITALS (18 sets, daily range): BP systolic 65–129; BP diastolic 26–102; BMI 48.0; BMI 6758.0
--- NOTE | 2024-08-14 18:15 | ED.GENMED ---
History of Present Illness
General
Chief Complaint: Breathing Problem
Source: patient
Exam Limitations: none
Time Seen by Provider: 08/14/24 17:54
History of Present Illness
History of Present Illness:
This is a 74 year old female that comes in with c/o weakness. States that she was unable to walk since last night. States that she is very tired. States that she feels SOB and has had diarrhea. States that she is also dizzy. When questioned about
new chemo medication patient states that she is not getting any chemo and doesn't know her medications. Denies any fever, chills, chest pain, abd pain, nausea, vomiting, headache, urinary burning.
Past History
Past History
ED Past Medical History: Cancer (Breast CA), HTN, Hypercholesterolemia, IDDM and Other (Macular degeneration, )
ED Past Surgical History: (X 3), Gynecological (D&C), Orthopedic (Right and left carpal tunnel, right knee surgery X 2, Left knee replacement), Tonsilectomy and Other (Left breast tumor removed, Cataracts, )
Social History
Tobacco: 2nd hand smoke exposure
Alcohol: None
Drug: None
Personal:
Living: with family
Employment: Employed
Family History
Family History: Other
Review of Systems
Review of Systems
All Other Systems: ROS reviewed and negative except as documented in HPI and ROS
Constitutional: Reports no symptoms; Denies fever or chills
EENT: Reports no symptoms
Respiratory: Reports trouble breathing; Denies cough
Cardiac: Reports no symptoms; Denies chest pain
ABD/GI: Reports diarrhea; Denies abdominal pain, nausea or vomiting
: Reports no symptoms; Denies dysuria, frequency or urgency
Musculoskeletal: Reports no symptoms
Skin: Reports no symptoms
Neurological: Reports dizzy and weakness; Denies headache
Psychiatric: Reports no symptoms
Phy Exam
General Physical Exam
General Presentation: no apparent distress
General age: appears stated age
General Skin: warm and dry
General Habitus: elderly
General Mental: other (Lethargic, will open eyes when asked otherwise keeps eye's closed)
General Hydration: dry mucous membranes
ENT Exam
ENT Exam: TM's normal, pharynx normal and neck supple
Eye Exam
Eye Exam: EOMI
Cardiovascular Exam
Cardiovascular Exam: no edema, normal peripheral pulses and irregularly irregular
Pulmonary Exam
Pulmonary Exam: lungs clear, no respiratory distress, no rales, chest non tender, no crackles, no rhonchi, no wheezing and no cough
Gastrointestinal Exam
Gastrointestinal Exam: normal bowel sounds, non tender, soft, no organomegaly, no pulsatile mass and non distended
Musculoskeletal Exam
Musculoskeletal Exam: no edema
Skin Exam
Skin Exam: normal color, warm/dry, no rash and no petechia
Psychiatric Exam
Psychiatric Exam: normal mood/affect
Scores
Heart Failure Risk
Heart Failure Risk Score: Not Applicable
Course
Orders/Labs/Results
Orders:
Orders
08/14/24 17:47
Electrocardiogram (*1) Urgent
Reason for Study: Shortness of Breath
EKG- Treatment ONCE
08/14/24 17:51
Basic Metabolic Panel Urgent
COVID-19 Antigen Urgent
Source: Nasal Swab
Complete Blood Count/With Diff Urgent
Lipase Urgent
Manual Differential Urgent
PTT Urgent
Prothrombin Time Urgent
Troponin I Urgent
Influenza A+B Rapid Molecular Urgent
LYNNE Source: Nasal Swab
Specimen Description:
08/14/24 18:14
Straight cath- Treatment ONCE
0.9% Sodium Chloride 1000 ml [Nss] 1,000 ml IV BOLUS
CR Chest - 2 Views Urgent
Comment:
Reason For Exam: SOB
08/14/24 18:15
CT Head W/o Iv Contrast Urgent
Comment:
Reason For Exam: Weakness, cant walk
08/14/24 18:17
Lactic Acid Urgent
Venous Blood Gas Urgent
%Oxygen/Room Air: room air
08/14/24 18:33
Comprehensive Metabolic Panel Urgent
Urinalysis Reflex To Culture Urgent
Date Specimen was Collected: 08/14/24
Time Specimen was Collected: 18:27
Urine Microscopic Reflex Cult Urgent
Urine Culture Urgent
LYNNE Source: U
Specimen Description:
Date Specimen was Collected: 08/14/24
Time Specimen was Collected: 18:27
08/14/24 19:39
Sodium Zirconium Cyclosilicate [Lokelma] 10 gram PO NOW STA
Abnormal Lab Results
08/14/24 08/14/24 08/14/24
17:51 18:17 18:33
WBC 4.1 L 10^3/uL
(4.8-10.8)
MCHC 32.5 L g/dL
(33.0-37.0)
RDW 15.2 H %
(11.5-14.5)
Band Neutrophils 14 H %
(0-3)
Lymphocytes (Manual) 15 L %
(20-51)
PT 16.5 H Sec
(11.4-14.6)
APTT 42.4 H Sec
(23.4-35.0)
VBG pH 7.20 L
(7.32-7.43)
VBG pCO2 55 H mmHg
(35-48)
VBG HCO3 21.5 L mmol/L
(22-27)
Potassium 6.1 H* mmol/L
(3.5-5.1)
Carbon Dioxide 19 L mmol/L 20 L mmol/L
(22-30) (22-30)
BUN 63 H mg/dl 63 H mg/dl
(7-17) (7-17)
Creatinine 2.9 H mg/dL 2.9 H mg/dL
(0.6-1.0) (0.6-1.0)
Glucose 116 H mg/dl 111 H mg/dl
(70-99) (70-99)
AST 51 H U/L
(14-36)
Total Protein 5.8 L g/dl
(6.3-8.2)
Albumin 3.2 L g/dl
(3.5-5.0)
Lipase 11 L U/L
(23-300)
Urine Ketones Trace A
(Negative)
Urine Bilirubin 3+ A
(Negative)
Leukocyte Esterase Rfl 1+ A
(Negative)
Urine Bacteria (Reflex) Moderate A
(Negative)
08/14/24 17:51
08/14/24 18:33
Leukopenia Bandemia. Hyperkalemia, Carbon dioxide low Acidosis, Acute renal Failure, Dehydration. Hyperglycemia. Lactic acid normal at 1.7, AST elevation. Total protein low. Albumin slightly low, PT 16.5 with INR 1.32, PTT 42.4 Troponin 0.013,
Lipase low at 11, COVID negative, Influenza negative. Urine negative for infection positive for bilirubin
Vital Signs
Initial and Last Documented VS:
Initial Vital Signs
Temp Pulse Resp BP Pulse Ox
98.5 F 79 20 129/102 93
08/14/24 17:18 08/14/24 17:18 08/14/24 17:18 08/14/24 17:18 08/14/24 17:18
Last Documented Vital Signs
Temp Pulse Resp BP Pulse Ox
98.9 F 90 24 105/48 95
08/14/24 18:40 08/14/24 18:45 08/14/24 18:45 08/14/24 18:30 08/14/24 18:45
MDM/Problems Addressed
Differential Diagnosis Includes:
UTI, Change in mental status, Dehydration
MDM/Problems Addressed:
This is a 74 year old female that comes in with c/o weakness. States that starting last night she has not been able to walk. States that she is very tired. According to triage note patient was started on a new Chemo medication but patient at this
time denies.
Will check labs. Chest x-ray, Urine, Give IV fluids. CT head
Spoke with Son. States that there has been a significant mental decline in the past 24 hours. States that the new chemo medication as started about 2.5 weeks ago.
Back into see patient. Explained that her chest x-ray shows a right sided Pneumonia, her blood work shows that her potassium is elevated and that she is in renal failure. Will admit. Hospitalist notified and IV antibiotics ordered.
Chronic conditions affecting care: Cancer
Acute Exacerbation and/or Progression of Chronic Illness: Cancer
*Radiology
Radiology exam reviewed: radiology read reviewed (CT head-No acute intracranial abnormality noted. Chest-Findings suggesting mild right upper lobe and right infrahilar Pneumonia. Clinical and laboratory correlation recommended. )
*Pulse Oximetry
Patient hypoxic: no
*EKG
Interpreted by ED Provider?: Yes
Heart Rate: 88
Rate: normal
Rhythm: sinus and PVC's
[place]: left axis deviation
Interval: normal interval
Ischemia: non-specific ST changes (V4, V5, V6)
*Corrections Caseworker Interpretation
Rate: normal
Heart Rate: 85
Rhythm: sinus and PAC's
*Critical Care Note
Total Time (30-74mins, 75-104mins- exclusive of procedures): Not Applicable
ED Attending Note
-
Portions of this chart may have been created with voice recognition software.� Occasional wrong word or��sound alike� substitutions may have occurred due to the inherent limitations of voice recognition software.
Discharge Plan
Departure
Patient Disposition: Admit
Date of Disposition: 08/14/24
Time of Disposition: 19:47
Admit to: Telemetry
Presentation/result/management discussed w/ accepting MD/DO: Hospitalist
Patient with high blood pressure during this ER visit?: No
Condition: Good
Covid-19: Negative COVID-19
Discharge Problem:
Pneumonia, Acute renal failure, Weakness, Acute hyperkalemia
Prescriptions:
No Action
desloratadine [Clarinex] 5 MG tablet
5 mg PO DAILY
vitamin B complex 1 TAB tablet
1 tab PO DAILY
guaifenesin [Mucus Relief ER] 600 MG tablet extended release 12hr
1,200 mg PO DAILY
levothyroxine 50 MCG tablet
175 mcg PO MOTUWETHFRSA
Patient Comments:
diltiazem HCl 240 MG capsule,extended release 24hr
240 mg PO HS
gabapentin 100 MG capsule
200 mg PO DAILY
gabapentin 100 MG capsule
300 mg PO QPM
gabapentin 100 MG capsule
200 mg PO HSPRN PRN (Reason: mild pain)
acetaminophen [Tylenol Extra Strength] 500 MG tablet
1,500 mg PO BID
Levemir U-100 Insulin 1,000 UNITS/10 ML solution
38 units SC Q12H
lisinopril-hydrochlorothiazide 20-12.5 mg Tablet
2 tab PO QPM
ibuprofen [Advil] 200 mg Tablet
600 mg PO BID
diclofenac sodium 50 mg Tablet,Delayed Release (Dr/Ec)
100 mg PO BID
letrozole 2.5 mg Tablet
2.5 mg PO DAILY
rosuvastatin 20 mg Tablet
20 mg PO HS
chlorzoxazone 500 MG tablet
500 mg PO TIDPRN PRN (Reason: Muscle cramps)
diphenhydramine HCl [Benadryl] 50 mg Capsule
50 mg PO DAILY
cefuroxime axetil 500 mg Tablet
500 mg PO DAILY
Verzenio 100 mg Tablet
100 mg PO BID
Referrals:
UNKNOWN - PT DOES,NOT KNOW [Family Provider] -
Interventions
Interventions:
*Risk Screen - Suicide Last Done: 08/14/24 17:45
*General Assessment Last Done: 08/14/24 17:44
*Neglect/Abuse Screening Last Done: 08/14/24 17:45
ED- Fall Risk Assessment Last Done: 08/14/24 17:58
*ED COVID-19 Vaccine History Last Done: 08/14/24 17:45
ED- Cardiac Assessment Last Done: 08/14/24 17:58
ED- Pulmonary Assessment Last Done: 08/14/24 17:58
Discharge Date and Time
Print Language: NAURUAN
[2024-08-14 18:16] LABS: INR 1.32; PT 16.5 Sec (11.4-14.6)
[2024-08-14 18:17] LABS: APTT 42.4 Sec (23.4-35.0)
[2024-08-14] MEDS: NSS 1000 IV ×3 (18:17→22:31)
[2024-08-14 18:19] LABS: COVID-19 Antigen Negative (Negative)
[2024-08-14 18:20] LABS: Absolute Neutrophils -Man Diff 3.2 10^3/uL (1.4-6.5); Band Neutrophils 14 % (0-3); Hematocrit 39.4 % (37.0-47.0); Hemoglobin 12.8 g/dL (12.0-16.0); Lymphocytes 15 % (20-51); Mean Corp Hgb Conc. 32.5 g/dL (33.0-37.0); Mean Corpuscular Hgb 29.2 pg (27.0-31.0); Mean Platelet Volume 10.3 fL (7.4-10.4); Monocytes 6 % (2-9); Platelet Count 185 10^3/uL (130-400); Red Blood Cell Count 4.38 10^6/uL (4.20-5.40); Red Cell Dist. Width 15.2 % (11.5-14.5); Segmented Neutrophils 65 % (42-75); White Blood Cell Count 4.1 10^3/uL (4.8-10.8)
[2024-08-14 18:21] LABS: Normal RBC Morphology Yes; Platelets Checked Yes; Total Cells Counted 100
[2024-08-14 18:22] LABS: Venous Blood Gas B.E. -6.9 mmol/L (-4 to +4); Venous Blood Gas HCO3 21.5 mmol/L (22-27); Venous Blood Gas O2 Sat % 54.9 %; Venous Blood Gas pCO2 55 mmHg (35-48); Venous Blood Gas pO2 33 mmHg (30-50)
[2024-08-14 18:24] LABS: Blood Urea Nitrogen 63 mg/dl (7-17); Calcium 9.3 mg/dl (8.4-10.2); Carbon Dioxide 19 mmol/L (22-30); Chloride 105 mmol/L (98-107); Estimated Creatinine Clearance 20 ml/min; Glucose 116 mg/dl (70-99); Lipase 11 U/L (23-300); Sodium 137 mmol/L (135-145); eGFR 16.37
[2024-08-14 18:30] LABS: Troponin I 0.013 ng/ml
[2024-08-14 18:37] LABS: Lactic Acid 1.7 mmol/L (0.7-2.0)
[2024-08-14 18:42] LABS: Urine Albumin Trace (Neg - Trace); Urine Bilirubin 3+ (Negative); Urine Character Clear (Clear); Urine Color Amber; Urine Glucose Negative (Negative); Urine Ketone Trace (Negative); Urine Leukocyte 1+ (Negative); Urine Nitrite Negative (Negative); Urine Occult Blood Negative (Negative); Urine Urobilinogen 1+ (Neg - 1+)
[2024-08-14 18:52] LABS: Urine Bacteria Moderate (Negative); Urine Red Blood Cell 0-2 /HPF (0-2)
[2024-08-14 19:09] LABS: ALT (SGPT) 26 U/L (0-35); AST (SGOT) 51 U/L (14-36); Albumin 3.2 g/dl (3.5-5.0); Alkaline Phosphatase 53 U/L (38-126); Blood Urea Nitrogen 63 mg/dl (7-17); Calcium 9.3 mg/dl (8.4-10.2); Carbon Dioxide 20 mmol/L (22-30); Chloride 106 mmol/L (98-107); Estimated Creatinine Clearance 20 ml/min; Glucose 111 mg/dl (70-99); Potassium 6.1 mmol/L (3.5-5.1); Sodium 137 mmol/L (135-145); Total Bilirubin 0.7 mg/dl (0.2-1.3); Total Protein 5.8 g/dl (6.3-8.2); eGFR 16.37
[2024-08-14] MEDS: ZITHROMAX INFUSION 250 IV (20:10)
[2024-08-14] MEDS: ROCEPHIN 1000 MG IV (20:10)
--- NOTE | 2024-08-14 20:34 | HPS.HSE ---
Family Physician
-
Family Physician: Addison Willett
Chief Complaint
-
Weakness
History of Present Illness
Patient is a 74y F with PMH significant for hypertension, DM-II and breast cancer who presents to ED complaining of weakness. History obtained from patient and from ED staff. Patient has julita feeling poorly for the past 3 days or so. Family
reports diarrhea, poor PO intake and general malaise. Patient states that she slept until 3PM today when she was awakened by family. At that time, she was unable to get out of bed under her own power and was transported to the ED for further
evaluation and treatment. Patient is somewhat sluggish / fatigued in the ED and seems slightly confused in terms of recent history.
She denies any specific / focal complaints such as sore throat, cough, N/V, urinary symptoms.
She states that she has had perhaps one loose stool per day - though family indicated more significant diarrhea.
Patient is on lifelong suppression with cefuroxime following R TKA joint infection treated here in April of this year.
Since that admission, she was also started on Verzenio for breast cancer. She believes she has been on this for 2-3 weeks or so.
In the ED, patient is noted to be hypotensive and hypoxemic.
Medical History
Past Medical History
Past Medical History: Reports Other
Additional Past Medical History:
DM-II
Diabetic Neuropathy
Hypertension
Dyslipidemia
Hypothyroidism
Morbid Obesity
Right Breast Invasive Ductal Carcinoma
Chronic Pain Syndrome
Past Surgical History: Reports Other
Additional Past Surgical History:
Right Total Knee Replacement - Jul 2015
Left Total Knee Replacement with Revision - January 2017 / Aug 2021
Right Knee Wash Out - April 2024
Social History
Tobacco: Former Smoker (Quit 40 years ago)
Alcohol: None
Family History
Family History: Not pertinent
Allergies / Home Medications
Allergies reflects when Allergies were last updated in [facility].
Home Medications with original date entered in [facility]
Allergy/Medication List:
Allergies
Allergy/AdvReac Type Severity Reaction Status Date / Time
feathers Allergy Shortness Verified 10/11/21 12:03
of Breath
Penicillins Allergy Hives & Verified 05/13/24 09:45
Itching 30
years ago
red dye Allergy Itchy and Verified 10/11/21 12:03
Hives
yellow dye Allergy itching Verified 10/11/21 12:03
and hives
Environmental Allergy Congestion Uncoded 09/26/21 10:58
Home Medications
desloratadine 5 mg tablet (Clarinex) 5 mg PO DAILY Allergies 02/12/17
guaifenesin 600 mg tablet, extended release 12 hr (Mucus Relief ER) 1,200 mg PO DAILY Congestion 09/06/21
levothyroxine 50 mcg tablet 175 mcg PO MOTUWETHFRSA Thyroid 09/06/21
vitamin B complex 1 tab PO DAILY Supplement 09/06/21
diltiazem HCl 240 mg capsule,extended release 24 hr 240 mg PO HS Heart Disease/Condition 10/11/21
gabapentin 100 mg capsule 200 mg PO DAILY Pain 10/11/21
gabapentin 100 mg capsule 200 mg PO HSPRN PRN mild pain 10/11/21
gabapentin 100 mg capsule 300 mg PO QPM Pain 10/11/21
acetaminophen 500 mg tablet (Tylenol Extra Strength) 1,500 mg PO BID Pain 10/12/21
insulin detemir U-100 100 unit/mL subcutaneous solution (Levemir U-100 Insulin) 38 units SC Q12H Diabetes 10/12/21
chlorzoxazone 500 mg tablet 500 mg PO TIDPRN PRN Muscle cramps 05/12/24
diclofenac sodium 50 mg tablet,delayed release 100 mg PO BID 05/12/24
ibuprofen 200 mg tablet (Advil) 600 mg PO BID Pain 05/12/24
letrozole 2.5 mg tablet 2.5 mg PO DAILY Cancer 05/12/24
lisinopril 20 mg-hydrochlorothiazide 12.5 mg tablet 2 tab PO QPM Blood Pressure 05/12/24
rosuvastatin 20 mg tablet 20 mg PO HS High Cholesterol 05/12/24
abemaciclib 100 mg tablet (Verzenio) 100 mg PO BID 08/14/24
cefuroxime axetil 500 mg tablet 500 mg PO DAILY 08/14/24
diphenhydramine HCl 50 mg capsule 50 mg PO DAILY 08/14/24
Review of Systems
-
History Source: Patient
A 12 point ROS was completed and negative except as noted: Yes
Constitutional: Reports Fatigue and Chills; Denies Fever
EENT: Denies Sore Throat
Respiratory: Denies Cough or Trouble Breathing
Cardiac: Denies Chest Pain or Palpitations
Abdomen/GI: Reports Diarrhea; Denies Abdominal Pain, Nausea or Vomiting
: Denies Dysuria, Frequency or Flank Pain
Musculoskeletal: Denies Edema
Neurological: Denies Dizzy or Headache
Psych: Denies Depression or Anxiety
Physical Exam
Vital Signs
Vital Signs
Temp Pulse Resp BP Pulse Ox
98.9 F 90 24 105/48 95
08/14/24 20:29 08/14/24 18:45 08/14/24 18:45 08/14/24 18:30 08/14/24 18:45
Physical Exam
General: Other (74y F is interactive, but weak, sluggish. Not in acute distress.)
HEENT: Other (Dry MM. Thick neck.)
Respiratory: Other (Decreased BS bilaterally - otherwise clear.)
Cardiac: S1/S2, Regular Rhythm and Murmur (II/ MERCEDEZ)
GI: Non Tender, Non Distended, Normal Bowel Sounds and Other (Obese)
Musculoskeletal: No Clubbing, No Cyanosis, No Edema and Other (Dry skin of extremities.)
Neuro: Awake, Alert and Nonfocal/grossly intact
Laboratory Results
-
08/14/24 17:51
08/14/24 18:33
Laboratory Results
PT 16.5 Sec (11.4-14.6) H 08/14/24 17:51
INR 1.32 08/14/24 17:51
APTT 42.4 Sec (23.4-35.0) H 08/14/24 17:51
Lactic Acid 1.7 mmol/L (0.7-2.0) 08/14/24 18:17
Total Bilirubin 0.7 mg/dl (0.2-1.3) 08/14/24 18:33
AST 51 U/L (14-36) H 08/14/24 18:33
ALT 26 U/L (0-35) 08/14/24 18:33
Alkaline Phosphatase 53 U/L (38-126) 08/14/24 18:33
Troponin I 0.013 ng/ml 08/14/24:51
Lipase 11 U/L (23-300) L 08/14/24 17:51
Impression/Plan
-
A/P: Patient is a 74y F with PMH significant for HTN, DM-II and breast cancer who presents to ED complaining of weakness and diarrhea.
Pneumonia
Sepsis secondary to the above
Acute Hypoxemic Respiratory Insufficiency secondary to the above
- Admit for further evaluation and treatment.
- Patient presents with CXR evidence of right-sided pneumonia, hypotension and life-threatening organ dysfunction in the form of acute hypoxemia and DONNA.
- Continue IV abx for coverage of CAP.
- Supportive care including IVFs.
- Follow-up culture data and monitor for focal / specific complaints or symptoms.
DONNA
Hyperkalemia
- Likely pre-renal due to GI losses, poor PO intake and med effects (HCTZ and lisinopril).
- Hold BP meds.
- IVF support and follow for improvement in labs / lytes.
- Bladder scan protocol and straight cath / Keith if needed.
- Consider Nephrology evaluation if renal function does not improve.
- Hold newly added Verzenio which can also contribute to DONNA and infection risk.
Diarrhea
- Unclear the frequency or volume of GI losses at this point. No stools since arrival here.
- Patient is on chronic abx for R TKA infection - so CDiff is a possibility.
- Check stool studies and adjust abx regimen as needed.
- IVF replacement as noted above.
Right TKA Infection
- Treated with wash out and IV abx x 6 weeks starting in April of this year.
- Now on lifelong suppression with cefuroxime (which we will hold acutely while on abx as noted above).
- Resume usual suppression meds at discharge.
- No evidence at present of any new / recurrent infection of the R knee.
Benign Hypertension
- Currently hypotensive.
- Hold all BP medications acutely.
- Resume when appropriate.
DM-II with Neuropathy
- Continue basal : bolus insulin at decreased dose.
- Follow glucose and cover with SSI as needed.
- Update A1C.
- Hold gabapentin acutely given weakness / confusion.
- Resume at lower doses if needed for pain / neuropathy control.
Breast Cancer
- Holding newly added Verzenio as noted above.
- Continue letrozole.
Hypothyroidism
- Continue current T4 supplementation.
Morbid Obesity due to excess calories
- Affects all aspects of care.
- Encourage healthy diet and increased mobility with goal of weight reduction.
DVT Prophylaxis: Lovenox
Code Status: Full
[2024-08-14] MEDS: VIBRAMYCIN 260 MG IV (22:34)
[2024-08-14 22:35] LABS: Glucose - Point of Care 82 mg/dl (70-99)
--- NOTE | 2024-08-14 22:44 | PTCARENOTE ---
Patient arrived to room 3342 with ER nurse and tech. Pt drowsy; able to state place and the year, forgetful on the month/day. on 2L. CHG bath. Placed on tele. NSR with PVCs. Loud audible murmur present. LORETA Oliva made aware about potassium, no new
orders. No diarrhea. Denies any pain. Bladder scan showing 4mL. NSS IVF started, abx administered. Blood sugar 82; hold 20 units of Lantus per LORETA Oliva. Unable to complete full admission questions d/t patient's mentation status. Bed alarm set for
safety. Call gallo left within reach. RN sitting outside closest nursing station.
[2024-08-15] VITALS (14 sets, daily range): BP systolic 85–127; BP diastolic 33–90; BMI 6813.8
[2024-08-15] MEDS: SYNTHROID 175 MCG PO (05:24)
[2024-08-15 05:45] LABS: Blood Urea Nitrogen 66 mg/dl (7-17); Carbon Dioxide 17 mmol/L (22-30); Chloride 111 mmol/L (98-107); Estimated Creatinine Clearance -1 ml/min; Glucose 86 mg/dl (70-99); Potassium 5.5 mmol/L (3.5-5.1); Sodium 140 mmol/L (135-145); eGFR 16.37
[2024-08-15 05:54] LABS: Hematocrit 34.6 % (37.0-47.0); Hemoglobin 11.3 g/dL (12.0-16.0); Mean Corp Hgb Conc. 32.7 g/dL (33.0-37.0); Mean Corpuscular Hgb 28.8 pg (27.0-31.0); Mean Corpuscular Volume 88.3 fL (81.0-99.0); Platelet Count 138 10^3/uL (130-400); Red Blood Cell Count 3.92 10^6/uL (4.20-5.40); Red Cell Dist. Width 15.6 % (11.5-14.5); White Blood Cell Count 3.8 10^3/uL (4.8-10.8)
[2024-08-15 06:25] LABS: TSH Reflex To Free T4 0.09 uIU/ml (0.47-4.68)
[2024-08-15 06:54] LABS: Free T4 1.37 ng/dl (0.78-2.19)
[2024-08-15] MEDS: NSS 1000 IV (07:05)
[2024-08-15 07:54] LABS: Glucose - Point of Care 85 mg/dl (70-99)
[2024-08-15] MEDS: MAXIPIME 1000 MG IV (08:38)
[2024-08-15] MEDS: FEMARA 2.5 MG PO (08:38)
[2024-08-15] MEDS: VISBIOME 1 CAP PO (08:38)
[2024-08-15] MEDS: STERILE WATER FOR INJECTION 10 ML IV (08:38)
[2024-08-15] MEDS: HEPARIN 5000 UNITS SC ×2 (08:39→17:14)
[2024-08-15] MEDS: DESENEX/MITRAZOL/ZEASORB 1 APPLIC TOPICAL ×2 (08:39→21:10)
[2024-08-15] MEDS: VANCOCIN 540 MG IV (08:40)
--- NOTE | 2024-08-15 09:27 | W.PN.HOSP.TC ---
Today's Communication/Plan
-
See PN
Assessment / Plan
Assessment / Plan
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
patient herself does not confirm and admitted with hypotension, DONNA and hyperkalemia due to possible UTI vs RUL and R infrahilar pneumonia and intermittent lethargy
A/P:
#Sepsis (DONNA, toxic metabolic encephaalopathy) 2/2 UTI and RUL pneumonia with unspecified organism with acute hypoxic insufficiency
Leukopenia 2/2 CA and sepsis
Vanco/Cefepime
Follow Bcx
Ucx
Legionella and S/pneumonia urinary Ag
Sputum Cx if possible
Wean off O2
Check VBG for CO2 retention
#DONNA with hyperkalemia
#Hypotension on admission
responding to IVF, concern for dehydration with diarrhea vs Verzenio vs drug-induced vs iatrogenic hypotension
Hold BP meds
Avoid diuretics
Urine studies including eosynophils
CT without hydronephrosis
#Non-obstructive R nephrolithiasis
Outpatient follow up
#Morbid Obesity weith BMI 45.8
Reduce calorie intake
#DM type 2 with neuropathy
Accuchecks, Insulin SS, HgbA1c, DM diet
Cont low dose lantus if patient resuming oral intake
#Hx of R knee prosthetic joint infection
cont suppression upon d/c
#Metastatic R breat CA with liver mets
Upon d/c cont mgmt with existent oncologist in [place]
temporary holding Verzenio
#HLD
cont statin
DVT ppx hep
FUll code
I have spent at least 59min reviewing chart, test results, communication with consultants and direct patient care
Anticipated Discharge: > 48 hours
Subjective/Interval History
-
Date of Service: August 15, 2024
Objective Data
-
Labs:
Laboratory Results
08/15/24 08/15/24
05:04 09:11
WBC 3.8 L
Hgb 11.3 L
Hct 34.6 L
Plt Count 138 D
Sodium 140 Pending
Potassium 5.5 H Pending
Chloride 111 H Pending
Carbon Dioxide 17 L Pending
BUN 66 H Pending
Creatinine 2.9 H Pending
Glucose 86 Pending
Calcium 8.0 L Pending
Vital Signs:
Vital Signs
Temp Pulse Resp BP Pulse Ox
98.4 F 90 15 98/45 94
08/15/24 07:00 08/15/24 06:00 08/15/24 06:00 08/15/24 06:00 08/15/24 06:00
I&O
08/14/24 08/15/24 08/16/24
06:59 06:59 06:59
Intake Total 1005 / 1005
Output Total 0 / 0
Balance 1005 / 1005
Review of Systems
-
History Source: Patient
All other systems: Reviewed and negative
Constitutional: Reports Fatigue
Physical Exam
-
General: No Apparent Distress and Morbidly Obese
HEENT: Normocephalic, Atraumatic and Moist Mucous Membranes
Respiratory: Clear to Auscultation
Cardiac: Regular Rhythm
GI: Soft, Nontender and Nondistended
Musculoskeletal: No Clubbing, No Cyanosis and No Edema
Skin: Warm
Neuro: Awake, Alert, Oriented, AO x 3 and Other (Lethargic)
Psych: Calm
--- NOTE | 2024-08-15 09:40 | W.CON.NEPH ---
Consultation
-
Date/Time Consultation Requested: 08/15/2024 7:00 AM
Date/Time Consultation Performed: 08/15/2024 9:40 AM
Requesting Provider: Dr. Lowe
Performing Provider: Dr. Walker
Reason for Consultation: Acute kidney injury/hyperkalemia/metabolic acidosis
Medical History
-
Chief Complaint: Acute kidney injury/hyperkalemia/metabolic acidosis
History of Present Illness:
The patient is a 74-year-old female with a history of breast cancer maintained on Verzenio. She has been on this agent for 2 to 3 weeks. she has a history of diabetes maintained on insulin therapy. She also has a history of hypertension for which
she is maintained on lisinopril hydrochlorothiazide, and diltiazem. The patient has remained on lifelong antibiotic suppression with cefuroxime following a right total knee joint infection for which she underwent treatment at our hospital this past
April. The patient presented to the hospital with complaints of weakness. She has been feeling poorly over the past 3-day reports diarrhea malaise and decreased p.o. intake. She was brought in by her family last evening after being unable to get
out of bed. Nephrology was consulted for acute renal failure as her creatinine is off its baseline of 0.7 from April 2024 now up to 2.9 with associated metabolic acidosis and hyperkalemia.
Past Medical History
Hypertension
Right knee septic arthritis
Breast cancer
Diabetes
Diabetic neuropathy
Hypothyroidism
Morbid obesity
Chronic pain
Social History
Tobacco: Former Smoker
Alcohol: None
Drug: None
Family History
No chronic kidney disease
Family History: Not Pertinent
Allergies / Home Medications
Allergy/AdvReac Type Severity Reaction Status Date / Time
feathers Allergy Shortness Verified 10/11/21 12:03
of Breath
Penicillins Allergy Hives & Verified 05/13/24 09:45
Itching 30
years ago
red dye Allergy Itchy and Verified 10/11/21 12:03
Hives
yellow dye Allergy itching Verified 10/11/21 12:03
and hives
Environmental Allergy Congestion Uncoded 09/26/21 10:58
�Medication �Instructions �Recorded �Confirmed �Type
desloratadine 5 mg tablet 5 mg PO DAILY Allergies 02/12/17 08/14/24 History
(Clarinex)
guaifenesin 600 mg tablet, 1,200 mg PO DAILY Congestion 09/06/21 08/14/24 History
extended release 12 hr (Mucus
Relief ER)
levothyroxine 50 mcg tablet 175 mcg PO MOTUWETHFRSA Thyroid 09/06/21 08/14/24 History
vitamin B complex 1 tab PO DAILY Supplement 09/06/21 08/14/24 History
diltiazem HCl 240 mg 240 mg PO HS Heart 10/11/21 08/14/24 History
capsule,extended release 24 hr Disease/Condition
gabapentin 100 mg capsule 200 mg PO DAILY Pain 10/11/21 08/14/24 History
gabapentin 100 mg capsule 200 mg PO HSPRN PRN mild pain 10/11/21 08/14/24 History
gabapentin 100 mg capsule 300 mg PO QPM Pain 10/11/21 08/14/24 History
acetaminophen 500 mg tablet 1,500 mg PO BID Pain 10/12/21 08/14/24 History
(Tylenol Extra Strength)
insulin detemir U-100 100 unit/mL 38 units SC Q12H Diabetes 10/12/21 08/14/24 History
subcutaneous solution (Levemir
U-100 Insulin)
chlorzoxazone 500 mg tablet 500 mg PO TIDPRN PRN Muscle cramps 05/12/24 08/14/24 History
diclofenac sodium 50 mg 100 mg PO BID Pain 05/12/24 08/14/24 History
tablet,delayed release
ibuprofen 200 mg tablet (Advil) 600 mg PO BID Pain 05/12/24 08/14/24 History
letrozole 2.5 mg tablet 2.5 mg PO DAILY Cancer 05/12/24 08/14/24 History
lisinopril 20 2 tab PO QPM Blood Pressure 05/12/24 08/14/24 History
mg-hydrochlorothiazide 12.5 mg
tablet
rosuvastatin 20 mg tablet 20 mg PO HS High Cholesterol 05/12/24 08/14/24 History
abemaciclib 100 mg tablet 100 mg PO BID BREAST CA 08/14/24 08/14/24 History
(Verzenio)
cefuroxime axetil 500 mg tablet 500 mg PO DAILY Infection 08/14/24 08/14/24 History
diphenhydramine HCl 50 mg capsule 50 mg PO DAILY ITCH 08/14/24 08/14/24 History
Review of Systems
-
History Source: Patient
All other systems: Negative unless noted
Constitutional: Fatigue
Abdomen/GI: Diarrhea
Physical Exam
Vital Signs
Vital Signs
Temp Pulse Resp BP Pulse Ox
98.4 F 90 15 98/45 94
08/15/24 07:00 08/15/24 06:00 08/15/24 06:00 08/15/24 06:00 08/15/24 06:00
Lab Results
08/15/24 05:04
WBC 3.8 10^3/uL (4.8-10.8) L 08/15/24 05:04
RBC 3.92 10^6/uL (4.20-5.40) L 08/15/24 05:04
Hgb 11.3 g/dL (12.0-16.0) L 08/15/24 05:04
Hct 34.6 % (37.0-47.0) L 08/15/24 05:04
Plt Count 138 10^3/uL (130-400) D 08/15/24 05:04
eGFR 16.37 08/15/24 05:04
Albumin 3.2 g/dl (3.5-5.0) L 08/14/24 18:33
Physical Exam
General: AOx3, Nontoxic , NAD, obese
HEENT: PERRL, EOMI, Anicteric, Conjunctivae Clear, Ear/Nose Intact, Hearing Normal, Oropharynx Clear/Moist, Dentition Intact, Facial Symmetry, Neck Supple, Neck: Trachea Midline, No JVD and No Thyromegaly, no Bruits
Respiratory: Coarse to auscultation bilaterally with normal lung exersion
Cardiac: S1/S2 and Regular Rate/Rhythm
Breast: Deferred by me
Abdomen: Soft, Nontender, Nondistended, Normal Bowel Sounds and No Hepatosplenomegaly
Rectal: Deferred by Provider
Genito-urinary: No Costovertebral Tenderness
Extremities: No Clubbing, No Cyanosis and No Edema
Skin: No Rash or open lesions
Neuro: Nonfocal/Grossly Intact, CN II-XII (Intact) and Strength (Musculoskeletal exam 5 out of 5 both upper and lower extremities)
Hematologic/Lymphatic: No Cervical Lymphadenopathy, No Submandibular Lymphadenopathy and No Supraclavicular Lymphadenopathy
Psych: Mood/afflect flat, Insight/judgement uncertain
Vascular: plus 1 pedal and radial pulses
Data Reviewed
-
CT Scan: Report Reviewed by me (No hydronephrosis mild perinephric stranding and large right breast mass, no bowel obstruction)
Medical Tests (Nuc Med, Echo etc): Other (EKG reviewed 08/15/2024 sinus rhythm left axis deviation inferior infarct pattern at 95 bpm per report)
Labs: Labs Reviewed by me ([facility] CBC urinalysis)
Old Records: Reviewed (Old records reviewed from date 05/15/2024 and hospital chart creatinine 0.7)
Assessment/Plan
-
Impression:
RUL PNA
Diarrhea
DONNA
Hyperkalemia
Metabolic acidosis (Non-gapped)
History of hypertension
History of chronic pain
History of breast cancer liver metastasis
Plan:
DONNA:
-Likely prerenal he mediated in setting of hypotension from sepsis on presentation
-Support blood pressure with isotonic fluids
-Will add alkaline IV fluids given hyperkalemia and metabolic acidosis
-Accurate I's and O's
-Check fractional excretion of sodium
-CT of abdomen and pelvis reveals no obstructive uropathy
-Check urine eosinophils for possible interstitial nephritis from multiple drug exposure including antibiotics and cancer meds
-Withhold all antihypertensives and NSAIDs
-Lokelma provided for hyperkalemia
- no acute HD required
-Place Keith as patient has acute kidney injury hyperkalemia and inconsistent voiding
[2024-08-15 10:06] LABS: Glycohemoglobin (HgbA1c) 5.9 % (4.0-5.6)
[2024-08-15 10:20] LABS: Venous Blood Gas B.E. -10.4 mmol/L (-4 to +4); Venous Blood Gas HCO3 18.2 mmol/L (22-27); Venous Blood Gas O2 Sat % 94.6 %; Venous Blood Gas pCO2 51 mmHg (35-48); Venous Blood Gas pO2 70 mmHg (30-50)
[2024-08-15 10:22] LABS: Venous Blood Gas pH 7.16 (7.32-7.43)
[2024-08-15 10:39] LABS: Blood Urea Nitrogen 68 mg/dl (7-17); Calcium 7.7 mg/dl (8.4-10.2); Carbon Dioxide 17 mmol/L (22-30); Chloride 111 mmol/L (98-107); Estimated Creatinine Clearance 19 ml/min; Glucose 79 mg/dl (70-99); Potassium 5.3 mmol/L (3.5-5.1); Sodium 139 mmol/L (135-145); eGFR 16.37
--- NOTE | 2024-08-15 11:22 | PHA.VAN.IN ---
Assessment
- Assessment
Renal Function: Appears elevated from baseline (DONNA)
Concomitant Antimicrobials: cefepime
Plan
- Plan
Initial / Loading Dose: 2000 mg LD - given 0840 08/15/24
Maintenance Regimen: dose by random level due to DONNA
Monitoring: random level ordered AM 08/16
Pharmacokinetics Vancomycin I
- -
Patient Age: 74
Patient Sex: Female
Vancomycin Day #: 1
Indication: Pulmonary/Respiratory
Requesting Provider: Therese
Pertinent Antimicrobial Allergies:
penicillins- hives/itching 30 years ago; red dye/yellow dye - hives itching
Height / Weight:
Height 5 ft 1 in
Actual Weight 109.9 kg
Pertinent Past Medical History: BMI~46; R breast invasive Ca ( on Verzenio); Hx R knee pros joint infection
- Vital Signs / Lab Results
Temp Pulse Resp BP Pulse Ox
98.4 F 90 15 98/45 94
08/15/24 07:00 08/15/24 06:00 08/15/24 06:00 08/15/24 06:00 08/15/24 06:00
Lab Results - Hematology
08/14/24 08/15/24
17:51 05:04
WBC 4.1 L 3.8 L
Band Neutrophils 14 H
Lab Results - Chemistry
08/14/24 08/14/24 08/15/24
17:51 18:33 05:04
BUN 63 H 63 H 66 H
Creatinine 2.9 H 2.9 H 2.9 H
Estimated Creat Clear 20 20 -1
Albumin Cancelled 3.2 L
08/15/24
10:08
BUN 68 H
Creatinine 2.9 H
Estimated Creat Clear 19
Albumin
08/14/24
18:17
Lactic Acid 1.7
Lab Results - Urine
08/14/24
18:33
Urine Nitrite (Reflex) Negative
Leukocyte Esterase Rfl 1+ A
Urine WBC (Reflex) 3-5
Urine Bacteria (Reflex) Moderate A
Microbiology Results
08/15/24 07:32 Legionella Urinary Antigen - Final
Urine Negative for Legionella pneumophila Serogroup 1 antigen.
A negative result does not rule out the possiblity of
Legionella infection due to other serogroups or species of
Legionella. Clinical correlation is recommended.
Streptococcus pneumoniae Antigen (M - Final
Negative for Streptococcus pneumoniae antigen.
A negative result does not exclude infection with
Streptococcus pneumoniae. Clinical correlation is
recommended.
08/14/24 17:51 Influenza Types A & B (AYAAN) - Final
Nasal Swab Negative for Influenza A & B, NAAT
Negative results must be combined with clinical observations
and patient history.
Nucleic Acid Amplification test (NAAT)performed on the
[employer] platform.
[2024-08-15] MEDS: SODIUM BICARBONATE 1150 MEQ IV ×2 (11:36→20:59)
[2024-08-15 12:12] LABS: Glucose - Point of Care 88 mg/dl (70-99)
[2024-08-15] MEDS: NOVOLOG FLEXPEN-MODERATE RESISTANCE SC ×2 (12:34→17:05)
--- NOTE | 2024-08-15 14:00 | CM ---
Patient with Hx metastatic breast CA, Morbid Obesity with Dx Sepsis, DONNA, TME 2/2 UTI and RUL pneumonia. Refused BiPAP. Receiving IV Abx, IVF w Bicarb. PT/OT held today.
Met with patient who seemed sleepy, answers were brief and somewhat vague.
The patient resides with her , 2 sons, daughter in a 2 story house with no GUSTABO.
The patient has been independent in ADLs and ambulation.
DME - [facility]W
Prior [facility]
No prior SNF.
PCP - Addison Willett
Pharmacy - [place]
Patient says her best family contact is her son Mik- she attempted to provide his phone # but patient was unable to figure out how to use her phone to find his #, and after several minutes gave up.
Phone call to patient's Dionisio; no answer and no voicemail.
Plan follow up after seen by PT/OT.
[2024-08-15 16:24] LABS: Body Fluid for Eosinophils No Eosinophils seen
[2024-08-15 16:43] LABS: Urine Sodium 29 mmol/L (30-90)
[2024-08-15 16:43] LABS: Glucose - Point of Care 143 mg/dl (70-99)
--- NOTE | 2024-08-15 18:13 | PTCARENOTE ---
pt drowsy but arousable , confused at times and pulling at monitor wires. ct scan abd done this am. venous blood gas drawn with [id number]. dr Saleh and Aaron made aware. iv fluids with bicarb initiated. respiratory attempted to place pt on bipap
per order but pt refused to wear. made aware. santana catheter inserted for Mary. drained 450 mls piedad urine. lantus insulin not given as pt has poor oral intake. md made aware. sinus ryhym with pvcs,pacs on monitor. systolic bps in 90s to 120s
throughout shift. see nursing assessmnet.
[2024-08-15 21:24] LABS: Glucose - Point of Care 72 mg/dl (70-99)
[2024-08-16] VITALS (14 sets, daily range): BP systolic 95–137; BP diastolic 58–112; PULSE 103; O2SAT 97; BMI 46.7
[2024-08-16 04:18] LABS: Venous Blood Gas B.E. -5.7 mmol/L (-4 to +4); Venous Blood Gas HCO3 21.9 mmol/L (22-27); Venous Blood Gas O2 Sat % 98.2 %; Venous Blood Gas pCO2 51 mmHg (35-48); Venous Blood Gas pH 7.24 (7.32-7.43); Venous Blood Gas pO2 83 mmHg (30-50)
[2024-08-16 04:30] LABS: % Basophils 1.5 % (0-2); % Eosinophils 0.7 % (0-6); % Immature Granulocytes 0.5 % (0-0.5); % Lymphocytes 13.6 % (20.5-51.1); % Monocytes 8.9 % (1.7-9.3); % Neutrophils 74.8 % (42.2-75.2); Absolute Basophils 0.1 10^3/uL (0-0.2); Absolute Lymphocytes 0.6 10^3/uL (1.2-3.4); Absolute Monocytes 0.4 10^3/uL (0.1-0.6); Hematocrit 34.6 % (37.0-47.0); Hemoglobin 11.4 g/dL (12.0-16.0); Mean Corp Hgb Conc. 32.9 g/dL (33.0-37.0); Mean Corpuscular Hgb 28.7 pg (27.0-31.0); Mean Corpuscular Volume 87.2 fL (81.0-99.0); Mean Platelet Volume 9.8 fL (7.4-10.4); Nucleated Red Blood Cells % 0 %; Platelet Count 132 10^3/uL (130-400); Red Blood Cell Count 3.97 10^6/uL (4.20-5.40); Red Cell Dist. Width 15.4 % (11.5-14.5)
[2024-08-16 04:48] LABS: ALT (SGPT) 33 U/L (0-35); AST (SGOT) 58 U/L (14-36); Albumin 2.8 g/dl (3.5-5.0); Alkaline Phosphatase 72 U/L (38-126); Blood Urea Nitrogen 70 mg/dl (7-17); Calcium 7.3 mg/dl (8.4-10.2); Carbon Dioxide 21 mmol/L (22-30); Chloride 107 mmol/L (98-107); Estimated Creatinine Clearance 25 ml/min; Glucose 87 mg/dl (70-99); Potassium 4.4 mmol/L (3.5-5.1); Sodium 140 mmol/L (135-145); Total Bilirubin 0.3 mg/dl (0.2-1.3); Total Protein 5.3 g/dl (6.3-8.2); eGFR 21.62
[2024-08-16 04:51] LABS: Vancomycin Random 11.4 ug/ml
--- NOTE | 2024-08-16 05:22 | PTCARENOTE ---
Restraints off since beginning of shift. Pt AAOx3 but can be slightly confused and restless. Did admit to discomfort at right hip. Discomfort relieved after pt repositioned. Keith output 750ml overnight. Continues on 2L NC POX 95%. IVF's infusing as
ordered. No change from previous assessment. Pt turns self in bed. Bed alarm on and working. Call gallo remains within reach. Will continue to monitor.
[2024-08-16] MEDS: SYNTHROID 175 MCG PO (05:29)
[2024-08-16] MEDS: SODIUM BICARBONATE 1150 MEQ IV ×2 (05:33→16:20)
--- NOTE | 2024-08-16 09:04 | W.PN.NEPH.PH ---
Today's Communication / Plan
-
Maintain reduced alkaline IV fluids
Assessment/Plan
-
Impression:
RUL PNA
Diarrhea
DONNA
Hyperkalemia
Metabolic acidosis (Non-gapped)
History of hypertension
History of chronic pain
History of breast cancer liver metastasis
Plan:
DONNA:
-Likely prerenal he mediated in setting of hypotension from sepsis on presentation
-Creatinine improved to 2.3 and remains nonoliguric via Keith
-CT of abdomen and pelvis reviewed
-Hemodynamically more stable
-Metabolic acidosis and hyperkalemia improved with alkaline IV fluid which will be continued another day
-Accurate I's and O's
-Checked fractional excretion of sodium
-CT of abdomen and pelvis reveals no obstructive uropathy
-Checked urine eosinophils for possible interstitial nephritis from multiple drug exposure including antibiotics and cancer meds (-)
-Withhold all antihypertensives and NSAIDs
- no acute HD required
-
-
Date of Service: August 16, 2024
CC / HPI / ROS
-
Chief Complaint:
Acute kidney injury
History of Present Illness:
Creatinine improving to 2.3
Hemodynamically stable
Metabolic acidosis improving with alkaline IV fluid
Review of Systems:
Nonoliguric via Keith
Afebrile
Less shortness of breath
Labs
-
Labs:
WBC 4.0 10^3/uL (4.8-10.8) L 08/16/24 04:10
RBC 3.97 10^6/uL (4.20-5.40) L 08/16/24 04:10
Hgb 11.4 g/dL (12.0-16.0) L 08/16/24 04:10
Hct 34.6 % (37.0-47.0) L 08/16/24 04:10
Plt Count 132 10^3/uL (130-400) 08/16/24 04:10
Sodium 140 mmol/L (135-145) 08/16/24 04:10
Potassium 4.4 mmol/L (3.5-5.1) 08/16/24 04:10
Chloride 107 mmol/L (98-107) 08/16/24 04:10
Carbon Dioxide 21 mmol/L (22-30) L 08/16/24 04:10
BUN 70 mg/dl (7-17) H 08/16/24 04:10
Creatinine 2.3 mg/dL (0.6-1.0) H 08/16/24 04:10
eGFR 21.62 08/16/24 04:10
Glucose 87 mg/dl (70-99) 08/16/24 04:10
Calcium 7.3 mg/dl (8.4-10.2) L 08/16/24 04:10
Albumin 2.8 g/dl (3.5-5.0) L 08/16/24 04:10
Physical Exam
-
Vital Signs:
Vital Signs
Temp Pulse Resp BP Pulse Ox
98.3 F 102 20 111/62 95
08/16/24 07:05 08/16/24 04:15 08/16/24 04:15 08/16/24 04:00 08/16/24 04:15
Cardiovascular:: Regular rate and rhythm
Respiratory:: Bilateral: Coarse
Lung Excursion:: Normal
Abdomen:: Nontender and Soft
Bowel Sounds:: Normal
Extremity Edema:: None: Bilateral:
Keith Catheter: Yes
[2024-08-16] MEDS: FEMARA 2.5 MG PO (09:35)
[2024-08-16] MEDS: HEPARIN 5000 UNITS SC ×4 (09:35→23:16)
[2024-08-16] MEDS: VISBIOME 1 CAP PO (09:35)
[2024-08-16] MEDS: MAXIPIME 1000 MG IV (09:35)
--- NOTE | 2024-08-16 09:35 | PHA.VAN.FU ---
Vancomycin Assessment / Plan
- Assessment
Renal Function: SCR Decreasing (Cr improving - nonoliguric via santana)
WBC's are: Stable
In the past 24 hrs, patient has been: Afebrile
Concomitant Antimicrobials: cefepime
- Assessment - Therapeutic Drug Monitoring
Random Level: 11.4 - ~ 20 hours post 2000 mg LD
- Dosing Plan
Continue: dose by random level for now while SCr still elevated
Dosing by Level: Re-dose today (1500 mg (13 mg/kg) x 1 dose)
- Monitoring Plan
Random Level: random level am 08/17
- Follow Up
Pharmacy will continue to follow.
Vancomycin Follow UP
- -
Patient Age: 74
Patient Sex: Female
Vancomycin Day #: 2
Indication: Pulmonary/Respiratory
Requesting Provider: Therese
Pertinent Antimicrobial Allergies:
penicillins- hives/itching 30 years ago; red dye/yellow dye - hives itching
Height / Weight:
Height 5 ft 1 in
Actual Weight 112 kg
Pertinent Past Medical History: BMI~46; R breast invasive Ca ( on Verzenio); Hx R knee pros joint infection
- Vital Signs / Lab Results
Temp Pulse Resp BP Pulse Ox
98.3 F 102 20 111/62 95
08/16/24 07:05 08/16/24 04:15 08/16/24 04:15 08/16/24 04:00 08/16/24 04:15
Lab Results - Hematology
08/14/24 08/15/24 08/16/24
17:51 05:04 04:10
WBC 4.1 L 3.8 L 4.0 L
Band Neutrophils 14 H
Lab Results - Chemistry
08/14/24 08/14/24 08/15/24
17:51 18:33 05:04
BUN 63 H 63 H 66 H
Creatinine 2.9 H 2.9 H 2.9 H
Estimated Creat Clear 20 20 -1
Albumin Cancelled 3.2 L
08/15/24 08/16/24
10:08 04:10
BUN 68 H 70 H
Creatinine 2.9 H 2.3 H
Estimated Creat Clear 19 25
Albumin 2.8 L
08/14/24
18:17
Lactic Acid 1.7
Microbiology Results
08/15/24 05:03 MRSA Screen - Final
Nose No Methicillin Resistant Staphylococcus aureus isolated.
08/14/24 20:02 Blood Culture - Preliminary
Blood/Venous No Growth in 24 hours- Final report to follow
08/14/24 20:02 Blood Culture - Preliminary
Blood/Venous No Growth in 24 hours- Final report to follow
08/15/24 07:32 Legionella Urinary Antigen - Final
Urine Negative for Legionella pneumophila Serogroup 1 antigen.
A negative result does not rule out the possiblity of
Legionella infection due to other serogroups or species of
Legionella. Clinical correlation is recommended.
Streptococcus pneumoniae Antigen (M - Final
Negative for Streptococcus pneumoniae antigen.
A negative result does not exclude infection with
Streptococcus pneumoniae. Clinical correlation is
recommended.
08/14/24 17:51 Influenza Types A & B (AYAAN) - Final
Nasal Swab Negative for Influenza A & B, NAAT
Negative results must be combined with clinical observations
and patient history.
Nucleic Acid Amplification test (NAAT)performed on the
[employer] platform.
Therapeutic Drug Monitoring
Random Vancomycin 11.4 ug/ml 08/16/24 04:10
[2024-08-16] MEDS: STERILE WATER FOR INJECTION 10 ML IV (09:36)
[2024-08-16] MEDS: DESENEX/MITRAZOL/ZEASORB 1 APPLIC TOPICAL ×2 (09:36→21:29)
[2024-08-16] MEDS: NOVOLOG FLEXPEN-MODERATE RESISTANCE SC ×3 (09:54→17:55)
[2024-08-16 09:59] LABS: Glucose - Point of Care 63 mg/dl (70-99)
[2024-08-16] MEDS: VANCOCIN 300 MG IV (09:59)
[2024-08-16] MEDS: VANCOCIN 300 ML IV (09:59)
[2024-08-16 10:12] LABS: Glucose - Point of Care 70 mg/dl (70-99)
--- NOTE | 2024-08-16 11:41 | W.PN.HOSP.TC ---
Today's Communication/Plan
-
cont Abx
US RUQ
cont IVF as Cr improving
Assessment / Plan
Assessment / Plan
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
patient herself does not confirm and admitted with hypotension, DONNA and hyperkalemia due to possible UTI vs RUL and R infrahilar pneumonia and intermittent lethargy
A/P:
#Sepsis (DONNA, toxic metabolic encephaalopathy) 2/2 RUL pneumonia with unspecified organism with acute hypoxic insufficiency
UTI ruled out
Leukopenia 2/2 CA and sepsis
Vanco/Cefepime
check MRSA
Bcx NTD
Ucx
Legionella and S/pneumonia urinary Ag neg
Sputum Cx if possible
Wean off O2
#DONNA with hyperkalemia
#Hypotension on admission
responding to IVF, concern for dehydration with diarrhea vs Verzenio vs drug-induced vs iatrogenic hypotension
Hold BP meds
Avoid diuretics
Urine studies including eosynophils
CT without hydronephrosis
#Non-obstructive R nephrolithiasis
Outpatient follow up
#Morbid Obesity weith BMI 45.8
Reduce calorie intake
#DM type 2 with neuropathy
Accuchecks, Insulin SS, HgbA1c, DM diet
Cont low dose lantus if patient resuming oral intake
#Hx of R knee prosthetic joint infection
cont suppression upon d/c
#Metastatic R breat CA with liver mets
Upon d/c cont mgmt with existent oncologist in [place]
temporary holding Verzenio
#HLD
cont statin
#Moderately distended gall bladder with cholelithiasis
#Minimal AST elevation
no RUQ pain
Alk.phos WNL
currently no concern for cholecystitis
US RUQ pending
DVT ppx hep
FUll code
I have spent at least 59min reviewing chart, test results, communication with consultants and direct patient care
Anticipated Discharge: > 48 hours
Subjective/Interval History
-
Date of Service: August 16, 2024
Objective Data
-
Labs:
Laboratory Results
08/16/24
04:10
WBC 4.0 L
Hgb 11.4 L
Hct 34.6 L
Plt Count 132
Sodium 140
Potassium 4.4
Chloride 107
Carbon Dioxide 21 L
BUN 70 H
Creatinine 2.3 H
Glucose 87
Calcium 7.3 L
Total Bilirubin 0.3
AST 58 H
ALT 33
Alkaline Phosphatase 72
Vital Signs:
Vital Signs
Temp Pulse Resp BP Pulse Ox
98.3 F 102 20 108/81 97
08/16/24 07:05 08/16/24 10:39 08/16/24 10:39 08/16/24 10:39 08/16/24 10:39
I&O
08/15/24 08/16/24 08/17/24
06:59 06:59 06:59
Intake Total 1005 / 1005 3000 / 3000
Output Total 0 / 0 1200 / 1200
Balance 1005 / 1005 1800 / 1800
Review of Systems
-
History Source: Patient
All other systems: Reviewed and negative
Physical Exam
-
General: No Apparent Distress
HEENT: Normocephalic
Respiratory: Clear to Auscultation
GI: Soft, Nontender and Nondistended
Musculoskeletal: No Clubbing, No Cyanosis and No Edema
Neuro: Awake, Alert, Oriented and AO x 3
Psych: Calm
[2024-08-16 12:12] LABS: Glucose - Point of Care 75 mg/dl (70-99)
--- NOTE | 2024-08-16 13:31 | W.PN.UPDATE ---
Update Note
Progress Note Update
With no swelling of the R knee and no redness - no concern for recurrence of septic joint infection
[2024-08-16] MEDS: TYLENOL 650 MG PO (16:19)
--- NOTE | 2024-08-16 16:42 | PTCARENOTE ---
Mentation waxes and wanes- at times she seems coherent in conversation then forgetful and just wrong- (she stated she lives with her mom) C/o pain this pm in her right side middle back- Tylenol given will monitor. She is asking for her gabapentin.
AF 100 on tele, BP 90s-110/60-70s. Keeps removing O2 89-90%- replaced 2L sao2 96%. Keith intact- cleansed and checked- she is complaining about feeling like she has to go urinate. Good UO. Appetite poor- ate nothing this shift- few sips of
water with meds only. IVF infusing. US abd completed. No stool on this shift- specimen not obtained. OOB to bsc/ recliner chair x4 hours- got back to bed and wants out again- encouraging rest at this time.
[2024-08-16 17:12] LABS: Glucose - Point of Care 87 mg/dl (70-99)
[2024-08-16] MEDS: TYLENOL 1000 MG PO (21:30)
[2024-08-16] MEDS: LIDOCAINE 4% PATCH 1 PATCH TOPICAL (21:31)
[2024-08-16 21:36] LABS: Glucose - Point of Care 88 mg/dl (70-99)
[2024-08-17] VITALS (12 sets, daily range): BP systolic 135–171; BP diastolic 56–113; BMI 46.8
--- NOTE | 2024-08-17 03:55 | PTCARENOTE ---
Pt very restless overnight. Yelling out at times. Intermittently confused and forgetful. Mid back pain. Medicated with x 1 dose Tylenol and Lidocaine patch to mid back which has since fallen off due to pt's restlessness. VSS. Afebrile. Afib on CM
rate 100's-120's. Keith draining piedad urine. 700ml total UO. Right breast grossly enlarged from cancer. Denies any pain. No change from previous assessment. Pt intermittently turns self. Call gallo remains within reach but pt does not use. Soft limb
wrist restraints in use with all four side rails. Will continue to monitor.
[2024-08-17 04:29] LABS: ALT (SGPT) 38 U/L (0-35); AST (SGOT) 61 U/L (14-36); Albumin 3.4 g/dl (3.5-5.0); Alkaline Phosphatase 77 U/L (38-126); Blood Urea Nitrogen 57 mg/dl (7-17); Calcium 7.5 mg/dl (8.4-10.2); Carbon Dioxide 20 mmol/L (22-30); Chloride 102 mmol/L (98-107); Estimated Creatinine Clearance 38 ml/min; Glucose 94 mg/dl (70-99); Potassium 4.2 mmol/L (3.5-5.1); Sodium 140 mmol/L (135-145); Total Bilirubin 0.5 mg/dl (0.2-1.3); eGFR 36.12
[2024-08-17 04:32] LABS: Vancomycin Random 14.5 ug/ml
[2024-08-17 04:46] LABS: % Basophils 0.3 % (0-2); % Eosinophils 0.5 % (0-6); % Lymphocytes 12.3 % (20.5-51.1); % Monocytes 6.9 % (1.7-9.3); Absolute Immature Granulocytes 0.1 10^3/uL (0-0.05); Absolute Lymphocytes 0.9 10^3/uL (1.2-3.4); Absolute Monocytes 0.5 10^3/uL (0.1-0.6); Absolute Neutrophils 5.8 10^3/uL (1.4-6.5); Hematocrit 37.9 % (37.0-47.0); Hemoglobin 12.7 g/dL (12.0-16.0); Mean Corp Hgb Conc. 33.5 g/dL (33.0-37.0); Mean Corpuscular Hgb 27.7 pg (27.0-31.0); Mean Corpuscular Volume 82.8 fL (81.0-99.0); Mean Platelet Volume 10.5 fL (7.4-10.4); Nucleated Red Blood Cells % 0 %; Platelet Count 163 10^3/uL (130-400); Red Blood Cell Count 4.58 10^6/uL (4.20-5.40); Red Cell Dist. Width 15.3 % (11.5-14.5); White Blood Cell Count 7.3 10^3/uL (4.8-10.8)
[2024-08-17] MEDS: SODIUM BICARBONATE 1150 MEQ IV ×2 (05:56→21:32)
[2024-08-17 07:25] LABS: Glucose - Point of Care 95 mg/dl (70-99)
[2024-08-17] MEDS: DESENEX/MITRAZOL/ZEASORB 1 APPLIC TOPICAL ×2 (08:31→20:36)
[2024-08-17] MEDS: NOVOLOG FLEXPEN-MODERATE RESISTANCE SC ×3 (08:31→15:56)
[2024-08-17] MEDS: HEPARIN 5000 UNITS SC ×3 (08:32→23:10)
[2024-08-17] MEDS: VISBIOME 1 CAP PO (08:32)
[2024-08-17] MEDS: FEMARA 2.5 MG PO (08:32)
[2024-08-17] MEDS: MAXIPIME 1000 MG IV (08:33)
[2024-08-17] MEDS: STERILE WATER FOR INJECTION 10 ML IV ×2 (08:33→12:35)
--- NOTE | 2024-08-17 09:34 | W.PN.NEPH.PH ---
Today's Communication / Plan
-
Add back diltiazem
Alkaline IV fluids provide
Assessment/Plan
-
Impression:
RUL PNA
Diarrhea
DONNA
Hyperkalemia
Metabolic acidosis (Non-gapped)
History of hypertension
History of chronic pain
History of breast cancer liver metastasis
Plan:
DONNA:
-Likely prerenal he mediated in setting of hypotension from sepsis on presentation
-Will maintain alkaline IV fluids as patient is refusing food or fluids and remains confused with persistent metabolic acidosis
-Creatinine improved to 1.5
-and remains nonoliguric via Keith
-Hemodynamically more stable
-Add back diltiazem for hypertension and tachycardia
-Accurate I's and O's
-CT of abdomen and pelvis reveals no obstructive uropathy
-Checked urine eosinophils for possible interstitial nephritis from multiple drug exposure including antibiotics and cancer meds (-)
- no acute HD required
-
-
Date of Service: August 17, 2024
CC / HPI / ROS
-
Chief Complaint:
Acute kidney injury
History of Present Illness:
Creatinine improving to 1.5
Hemodynamically stable
Metabolic acidosis improving with alkaline IV fluid
Review of Systems:
Nonoliguric via Keith
Afebrile
Confused, refusing p.o. intake
Labs
-
Labs:
WBC 7.3 10^3/uL (4.8-10.8) 08/17/24 03:19
RBC 4.58 10^6/uL (4.20-5.40) 08/17/24 03:19
Hgb 12.7 g/dL (12.0-16.0) 08/17/24 03:19
Hct 37.9 % (37.0-47.0) 08/17/24 03:19
Plt Count 163 10^3/uL (130-400) D 08/17/24 03:19
Sodium 140 mmol/L (135-145) 08/17/24 03:19
Potassium 4.2 mmol/L (3.5-5.1) 08/17/24 03:19
Chloride 102 mmol/L (98-107) 08/17/24 03:19
Carbon Dioxide 20 mmol/L (22-30) L 08/17/24 03:19
BUN 57 mg/dl (7-17) H 08/17/24 03:19
Creatinine 1.5 mg/dL (0.6-1.0) H 08/17/24 03:19
eGFR 36.12 08/17/24 03:19
Glucose 94 mg/dl (70-99) 08/17/24 03:19
Calcium 7.5 mg/dl (8.4-10.2) L 08/17/24 03:19
Albumin 3.4 g/dl (3.5-5.0) L 08/17/24 03:19
Physical Exam
-
Vital Signs:
Vital Signs
Temp Pulse Resp BP Pulse Ox
97.6 F 109 21 153/82 90
08/17/24 07:10 08/17/24 06:00 08/17/24 06:00 08/17/24 06:00 08/17/24 05:30
Cardiovascular:: Regular rate and rhythm
Respiratory:: Bilateral: Coarse
Lung Excursion:: Normal
Abdomen:: Nontender and Soft
Bowel Sounds:: Normal
Extremity Edema:: None: Bilateral:
Keith Catheter: Yes
--- NOTE | 2024-08-17 09:45 | PHA.VAN.FU ---
Vancomycin Assessment / Plan
- Assessment
Renal Function: SCR Decreasing (2.9->2.3->1.5)
WBC's are: WNL
In the past 24 hrs, patient has been: Afebrile
Concomitant Antimicrobials: cefepime
- Assessment - Therapeutic Drug Monitoring
Random Level: 14.5 ~ 17 hours post 1500 mg yesterday
- Dosing Plan
Continue: continue dose by random level
Dosing by Level: Re-dose today (1500 mg x 1 dose)
- Monitoring Plan
Random Level: repeat random level AM 08/18
- Follow Up
Pharmacy will continue to follow.
Vancomycin Follow UP
- -
Patient Age: 74
Patient Sex: Female
Vancomycin Day #: 3
Indication: Pulmonary/Respiratory
Requesting Provider: Therese
Pertinent Antimicrobial Allergies:
penicillins- hives/itching 30 years ago; red dye/yellow dye - hives itching
Height / Weight:
Height 5 ft 1 in
Actual Weight 112.4 kg
Pertinent Past Medical History: BMI~46; R breast invasive Ca ( on Verzenio); Hx R knee pros joint infection
- Vital Signs / Lab Results
Temp Pulse Resp BP Pulse Ox
97.6 F 109 21 153/82 90
08/17/24 07:10 08/17/24 06:00 08/17/24 06:00 08/17/24 06:00 08/17/24 05:30
Lab Results - Hematology
08/14/24 08/15/24 08/16/24
17:51 05:04 04:10
WBC 4.1 L 3.8 L 4.0 L
Band Neutrophils 14 H
08/17/24
03:19
WBC 7.3
Band Neutrophils
Lab Results - Chemistry
10/17/24 10/17/24 10/18/24
17:51 18:33 05:04
BUN 63 H 63 H 66 H
Creatinine 2.9 H 2.9 H 2.9 H
Estimated Creat Clear 20 20 -1
Albumin Cancelled 3.2 L
08/15/24 08/16/24 08/17/24
10:08 04:10 03:19
BUN 68 H 70 H 57 H
Creatinine 2.9 H 2.3 H 1.5 H
Estimated Creat Clear 19 25 38
Albumin 2.8 L 3.4 L
08/14/24
18:17
Lactic Acid 1.7
Microbiology Results
08/14/24 20:02 Blood Culture - Preliminary
Blood/Venous No Growth in 48 hours- Final report to follow
08/14/24 20:02 Blood Culture - Preliminary
Blood/Venous No Growth in 48 hours- Final report to follow
08/14/24 18:33 Urine Culture - Final
Urine NO GROWTH
08/15/24 05:03 MRSA Screen - Final
Nose No Methicillin Resistant Staphylococcus aureus isolated.
08/15/24 07:32 Legionella Urinary Antigen - Final
Urine Negative for Legionella pneumophila Serogroup 1 antigen.
A negative result does not rule out the possiblity of
Legionella infection due to other serogroups or species of
Legionella. Clinical correlation is recommended.
Streptococcus pneumoniae Antigen (M - Final
Negative for Streptococcus pneumoniae antigen.
A negative result does not exclude infection with
Streptococcus pneumoniae. Clinical correlation is
recommended.
Therapeutic Drug Monitoring
Random Vancomycin 14.5 ug/ml 08/17/24 03:19
[2024-08-17] MEDS: CARDIZEM CD 240 MG PO (10:26)
[2024-08-17 11:13] LABS: Glucose - Point of Care 106 mg/dl (70-99)
--- NOTE | 2024-08-17 12:17 | W.PN.HOSP.TC ---
Today's Communication/Plan
-
Abx changed to Ceftiaxone/Doxy
Poor oral intake - Insulin decreased, patient remains fully awake and conversant, just said that she has no appetite
cont IVF and restart cardizem as BP improved
Assessment / Plan
Assessment / Plan
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
patient herself does not confirm and admitted with hypotension, DONNA and hyperkalemia due to possible UTI vs RUL and R infrahilar pneumonia and intermittent lethargy, improved on Abx. Ucx negative so UTI ruled out, regimen adjusted to CAP treatment
only
A/P:
#Sepsis (DONNA, toxic metabolic encephalopathy) 2/2 RUL pneumonia with unspecified organism with acute hypoxic insufficiency
UTI ruled out
Leukopenia 2/2 CA and sepsis
Vanco/Cefepime switched to Ceftriaxone/Doxy on 08/17/24
check MRSA
Bcx NTD
Ucx neg
Legionella and S/pneumonia urinary Ag neg
Sputum Cx if possible
Wean off O2
#DONNA with hyperkalemia - improving
#Hypotension on admission
responding to IVF, concern for dehydration with diarrhea vs Verzenio vs drug-induced vs iatrogenic hypotension
Initially held BP meds- now restarting
Avoid diuretics
Urine studies neg for eosinophils
CT without hydronephrosis
#Non-obstructive R nephrolithiasis
Outpatient follow up
#Morbid Obesity weith BMI 45.8
Reduce calorie intake
#DM type 2 with neuropathy
PAtient has poor oral intake - Lantus decreased to avoid hypoglycemia
Accuchecks, Insulin SS, HgbA1c, DM diet
Cont low dose lantus if patient resuming oral intake
#Hx of R knee prosthetic joint infection
cont suppression upon d/c
#Metastatic R breast CA with liver mets
Upon d/c cont mgmt with existent oncologist in [place]
temporary holding Verzenio
#HLD
cont statin
#Moderately distended gall bladder with cholelithiasis
#Minimal AST elevation
no RUQ pain
Alk.phos WNL
currently no concern for cholecystitis
US RUQ pending
DVT ppx hep
FUll code
I have spent at least 39min reviewing chart, test results, communication with consultants and direct patient care
Anticipated Discharge: > 48 hours
Subjective/Interval History
-
Date of Service: August 17, 2024
Objective Data
-
Labs:
Laboratory Results
08/17/24
03:19
WBC 7.3
Hgb 12.7
Hct 37.9
Plt Count 163 D
Sodium 140
Potassium 4.2
Chloride 102
Carbon Dioxide 20 L
BUN 57 H
Creatinine 1.5 H
Glucose 94
Calcium 7.5 L
Total Bilirubin 0.5
AST 61 H
ALT 38 H
Alkaline Phosphatase 77
Vital Signs:
Vital Signs
Temp Pulse Resp BP Pulse Ox
97.6 F 122 21 151/111 91
08/17/24 07:10 08/17/24 10:26 08/17/24 06:00 08/17/24 10:26 08/17/24 12:09
I&O
08/16/24 08/17/24 08/18/24
06:59 06:59 06:59
Intake Total 2460 / 2460 2225 / 2225
Output Total 1200 / 1200 1725 / 1725 550 / 550
Balance 1260 / 1260 500 / 500 -550 / -550
Review of Systems
-
Unable to obtain full review of systems at this time due to: Dementia
History Source: Patient
Physical Exam
-
General: No Apparent Distress
HEENT: Normocephalic
Respiratory: Clear to Auscultation
Cardiac: Regular Rhythm and Tachycardic
GI: Soft, Nontender and Nondistended
Neuro: Awake, Alert, Oriented and AO x 3
Psych: Calm and Apparent Dementia
[2024-08-17] MEDS: VIBRAMYCIN 260 MG IV ×2 (12:35→23:10)
[2024-08-17] MEDS: ROCEPHIN 1000 MG IV (12:35)
--- NOTE | 2024-08-17 14:22 | PTCARENOTE ---
Rec'd pt this AM. Remains confused, attempting to get OOB, pt has no appetite. RN made several efforts to get her to eat breakfast and lunch but she will either refuse or take one small bite and say everything tastes terrible. Remains A fib 110s. PO
Ramon restarted today. emotional support provided.
[2024-08-17] MEDS: TYLENOL 650 MG PO (15:11)
[2024-08-17 15:44] LABS: Glucose - Point of Care 121 mg/dl (70-99)
[2024-08-17] MEDS: LIDOCAINE 4% PATCH 1 PATCH TOPICAL (21:13)
[2024-08-17 21:47] LABS: Glucose - Point of Care 122 mg/dl (70-99)
[2024-08-18] VITALS (12 sets, daily range): BP systolic 99–142; BP diastolic 62–127; BMI 46.6
[2024-08-18] MEDS: SYNTHROID 175 MCG PO (05:19)
[2024-08-18 06:08] LABS: Blood Urea Nitrogen 35 mg/dl (7-17); Calcium 7.4 mg/dl (8.4-10.2); Carbon Dioxide 20 mmol/L (22-30); Chloride 100 mmol/L (98-107); Estimated Creatinine Clearance 51 ml/min; Glucose 143 mg/dl (70-99); Potassium 3.6 mmol/L (3.5-5.1); Sodium 141 mmol/L (135-145)
--- NOTE | 2024-08-18 06:23 | PTCARENOTE ---
Pt AAOx1, confused, restless and forgetful. Pt remains in BL wrist restrains. Pt has been Afib in the monitor. Lung sounds are diminished , shallow breathing and dyspneic w/ exertion. SaO2 93% will be removed at 0600 08/18.
[2024-08-18 08:11] LABS: Glucose - Point of Care 138 mg/dl (70-99)
[2024-08-18] MEDS: DESENEX/MITRAZOL/ZEASORB 1 APPLIC TOPICAL ×2 (09:50→20:48)
[2024-08-18] MEDS: CARDIZEM CD 240 MG PO (09:50)
[2024-08-18] MEDS: NOVOLOG FLEXPEN-MODERATE RESISTANCE SC ×2 (09:50→13:29)
[2024-08-18] MEDS: VISBIOME 1 CAP PO (09:50)
[2024-08-18] MEDS: FEMARA 2.5 MG PO (09:51)
[2024-08-18] MEDS: HEPARIN 5000 UNITS SC ×2 (09:51→17:42)
[2024-08-18] MEDS: LANTUS 0.15 UNITS SC (09:52)
--- NOTE | 2024-08-18 10:02 | CM ---
Patient with Hx metastatic breast CA, Morbid Obesity with Dx Sepsis, DONNA with hyperkalemia, TME, RUL pneumonia. Room air. Keith d/c'ed today. Receiving IV & PO Abx, IVF. Per nursing; Ox1, confused, forgetful, wrist restraints. PT & OT; requires
assist of 2, recommend skilled rehab.
Spoke with patient's Dionisio; has been coming in the past few days/over the weekend and feels he has been updated re; patient's current condition. Discussed her current functional status as per PT/OT and her current mentation as per
nursing. Dionisio says patient has had intermittent confusion at home but not as much as her current confusion. Dionisio says he cannot take the patient home if she needs assist of 2. He thinks she will resist going to SNF to rehab, and agrees to
talk to her later about this. prefers patient go to [facility].
Message to Resident Aida Block; patient's mentation would need to improve/patient needs to be out of restraints, in order to be accepted by SNF.
Plan referral to [facility] once behavior improves/out of restraints.
--- NOTE | 2024-08-18 10:14 | W.PN.HOSP.TC ---
Addendum entered and electronically signed by Jaime Caba MD 08/18/24 21:15:
Attending Addendum-
I saw and evaluated the patient. I reviewed the resident�s note and agree with findings and plan as documented in the resident�s note. Sub: Patient appears confused. Feels weak. Full 12 point ROS reviewed and negative except as documented Exam:
Vitals reviewed in chart GEN-NAD heart irreg lungs clear abd soft LE no edema santana removed NPPB
Plan:
#Sepsis (DONNA, toxic metabolic encephalopathy) 2/2 RUL pneumonia with unspecified organism with acute hypoxic insufficiency
-r/o UTI- await cx
-Vanco/Cefepime switched to Ceftriaxone/Doxy on 08/17/24 continue
-MRSA neg
-Bcx NTD
-initial Ucx neg- repeat P
-Legionella and S/pneumonia urinary Ag neg
-Sputum Cx if possible
-Wean 02 for sats >92%
#DONNA with hyperkalemia
- improving
- likely prerenal from hypotension/sepsis
- Urine studies neg for eosinophils
- CT without hydronephrosis
- repeat BMP in am
# Metabolic Acidosis/Hypokalemia
-improving
- nephro on board appreciate input
- cont HCO3
-repeat bmp in am
# CIMS/TME
- DC restraints
- infectious vs metabolic
- decrease levothyroxine
- no dementia per history, verified with PCP
- repeat urine cx
- cont Rocephin and doxy for now
# HTN
- restart diltiazem
- CTM
#PVC's
- cont diltiazem
- repeat EKG
- check BMP in am
#Non-obstructive R nephrolithiasis
-Outpatient follow up
# Hypothyroidism
- decrease levothyroxine 175->137
- TSH suppressed
- repeat TSH in 4-6 weeks
# Peripheral Neuropathy
- gabapentin on hold
#Morbid Obesity/ BMI 45.8
#DM type 2 with neuropathy
- HBa1c 5.9!
-Patient has poor oral intake
-Accuchecks, Insulin SS DM diet
-Cont Lantus with SSI
- sugars well controlled
-DC Levemir
#Hx of R knee prosthetic joint infection
- s/p I and D and liner exchange on 05/12 Dr. Amador - completed course of IV abx 06/25/24
- hold keflex while on IV abx
- cont suppression upon d/c
#Metastatic R breast CA with liver mets
- Upon d/c cont mgmt with existent oncologist in [facility]
- temporary holding Verzenio
- cont letrozole
- breast mass appears larger on imaging
# Urinary Retention
- santana removed 08/18
- TOV underway
- replace if continues to hold urine
- possibly due to UTI
#HLD
cont statin
#Moderately distended gall bladder with cholelithiasis
#Minimal AST elevation
-no RUQ pain
-Alk phos WNL
-currently no concern for cholecystitis
-08/16- US RUQ-Patchy fatty infiltration of the liver.
Cholelithiasis
Cortical scarring at the lower pole of the left kidney
DVT ppx hep
FUll code
Time spent coordinating care, review of plan of care with resident, personally reviewed records in EMR, med rec, consults, notes, labs, radiology, d/w nursing, PCP� 65 mins
Original Note:
Today's Communication/Plan
-
Continue antibiotics
Repeat UA culture pending
Continue 1/2 normal saline with bicarb per nephro
Assessment / Plan
Assessment / Plan
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 She follows at [facility] for cancer and started on Verzenio 1 month ago after which
she felt generally fatigued. She also reported diarrhea. She was admitted with hypotension, DONNA, hyperkalemia due to possible UTI versus right upper lung and right infrahilar lymph node pneumonia and intermittent lethargy. She is improving on
antibiotics.
A/P:
#Sepsis (DONNA, toxic metabolic encephalopathy) 2/2 RUL pneumonia with unspecified organism with acute hypoxic insufficiency
Leukopenia 2/2 CA and sepsis
Leukopenia resolved today 7.3
Continue ceftriaxone/Doxy
Prelim blood cultures (-), ED urine cultures (-), MRSA (-)
Legionella and S/pneumonia urinary Ag neg
On 2L O2 try to wean off
No SOB or crackles on physical exam
#DONNA with hyperkalemia
improving on 1/2 normal saline with bicarb per nephro
Cr today 1.1
# Agitation/confusion
Patient was not oriented to place and generally confused
Initially refused morning medications
Required wrist restraints
Work up delirium vs psychiatric etiology
Repeat UA and culture as patient previously had Santana in
UA 2+ leukocyte esterase, urine WBC 11-15, moderate bacteria. Culture pending
Spoke to PCP Dr. Willett. No history of dementia
# Urinary retention
straight cath protocol
#A. fib
EKG 08/16/2024 A fib with RVR and premature ventricular or aberrantly conducted complexes
On telemetry
Repeat EKG
Hep sq DVT prophylaxis
#Hypotension on admission
Currently stable, responded to IVF
Concern for dehydration with diarrhea vs Verzenio vs drug-induced vs iatrogenic hypotension
Hold BP meds until stabilized
Avoid diuretics
#Non-obstructive R nephrolithiasis
Outpatient follow up
No signs of hydronephrosis on CT
#Morbid Obesity
BMI 45.8
Diabetic diet
#DM type 2 with neuropathy
Patient has poor oral intake - Lantus decreased to avoid hypoglycemia
Accuchecks, Insulin SS, HgbA1c, DM diet
Cont low dose lantus if patient resuming oral intake
#Hx of R knee prosthetic joint infection
cont suppression upon d/c
#Metastatic R breast CA with liver mets
Upon d/c cont mgmt with existent oncologist in [place]
temporary holding Verzenio
#HLD
cont statin
#Moderately distended gall bladder with cholelithiasis
#Minimal AST elevation
Patient denies right upper quadrant pain,
alkaline phos 77
Ultrasound revealed cholelithiasis, but no acute changes
currently no concern for cholecystitis
DVT ppx hep
FUll code
I have spent at least 39min reviewing chart, test results, communication with consultants and direct patient care
Anticipated Discharge: > 48 hours
Subjective/Interval History
-
Date of Service: August 18, 2024
Objective Data
-
Labs:
Laboratory Results
08/18/24
05:07
Sodium 141
Potassium 3.6
Chloride 100
Carbon Dioxide 20 L
BUN 35 H
Creatinine 1.1 H
Glucose 143 H
Calcium 7.4 L
Vital Signs:
Vital Signs
Temp Pulse Resp BP Pulse Ox
98.1 F 92 26 123/68 96
08/18/24 07:05 08/18/24 06:00 08/18/24 06:00 08/18/24 06:00 08/18/24 06:00
I&O
08/17/24 08/18/24 08/19/24
06:59 06:59 06:59
Intake Total 2225 / 2225 1430 / 1430
Output Total 1725 / 1725 2975 / 2975
Balance 500 / 500 -1545 / -1545
Review of Systems
-
Respiratory: Reports No Symptoms
Cardiac: Reports No Symptoms
Abdomen/GI: Reports No Symptoms
Genitourinary: Reports No Symptoms
Neuro: Reports No Symptoms
Physical Exam
-
General: No Apparent Distress
Respiratory: Clear to Auscultation
Cardiac: Irregular Rhythm
GI: Soft and Nontender
Musculoskeletal: No Edema
Neuro: Awake and Alert; Negative Oriented
Psych: Calm
--- NOTE | 2024-08-18 11:09 | PTCARENOTE ---
Patient in restraints to prevent from pulling out IV and monitoring equipment. Patient confused oriented to self, she forgets she is in the hospital. Patient uncooperative. Refusing to take medications. Very poor appetite. Not interested in
eating. VS stable spo2 96-97% 2L O2.
[2024-08-18] MEDS: VIBRAMYCIN 100 MG PO (12:24)
[2024-08-18] MEDS: ROCEPHIN 1000 MG IV (12:27)
[2024-08-18] MEDS: STERILE WATER FOR INJECTION 10 ML IV (12:27)
[2024-08-18 12:43] LABS: Glucose - Point of Care 129 mg/dl (70-99)
[2024-08-18] MEDS: SODIUM BICARBONATE IV (13:29)
[2024-08-18 13:56] LABS: Urine Albumin 1+ (Neg - Trace); Urine Bilirubin Negative (Negative); Urine Character Clear (Clear); Urine Color Yellow; Urine Glucose Negative (Negative); Urine Ketone 3+ (Negative); Urine Leukocyte 2+ (Negative); Urine Nitrite Negative (Negative); Urine Occult Blood 3+ (Negative); Urine Specific Gravity 1.015 (<1.030); Urine Urobilinogen Negative (Neg - 1+)
--- NOTE | 2024-08-18 13:56 | W.PN.NEPH.PH ---
Today's Communication / Plan
-
1/2NS with bciarb IVF
Assessment/Plan
-
Impression:
RUL PNA
Diarrhea
DONNA
Hyperkalemia
Metabolic acidosis (Non-gapped)
History of hypertension
History of chronic pain
History of breast cancer liver metastasis
Plan:
DONNA:
-Likely prerenal he mediated in setting of hypotension from sepsis on presentation
-Will maintain alkaline IV fluids as patient is refusing food or fluids and remains confused
met acidosis is improving
-Creatinine improved to 1.1
-and remains nonoliguric via Santana
BP soft back on CCB mainly for tachycardia, off ACEI and HCTZ
-check Accurate I's and O's
off santana today, ongoing VT, may need to replace santana as she has not urinated and bladder scan 400cc
-CT of abdomen and pelvis reveals no obstructive uropathy
-Checked urine eosinophils for possible interstitial nephritis from multiple drug exposure including antibiotics and cancer meds (-)
d/w nursing
-
-
Date of Service: August 18, 2024
CC / HPI / ROS
-
Chief Complaint:
Acute kidney injury
History of Present Illness:
Creatinine improving to 1.1
Hemodynamically stable, BP soft
Metabolic acidosis improving with alkaline IV fluid
on 2lit of O2
Review of Systems:
Nonoliguric via Santana, VT today
Afebrile
Confused, refusing p.o. intake
Labs
-
Labs:
Sodium 141 mmol/L (135-145) 08/18/24 05:07
Potassium 3.6 mmol/L (3.5-5.1) 08/18/24 05:07
Chloride 100 mmol/L (98-107) 08/18/24 05:07
Carbon Dioxide 20 mmol/L (22-30) L 08/18/24 05:07
BUN 35 mg/dl (7-17) H 08/18/24 05:07
Creatinine 1.1 mg/dL (0.6-1.0) H 08/18/24 05:07
eGFR 52.40 08/18/24 05:07
Glucose 143 mg/dl (70-99) H 08/18/24 05:07
Calcium 7.4 mg/dl (8.4-10.2) L 08/18/24 05:07
Albumin 3.4 g/dl (3.5-5.0) L 08/17/24 03:19
Physical Exam
-
Vital Signs:
Vital Signs
Temp Pulse Resp BP Pulse Ox
98.1 F 101 25 107/97 98
08/18/24 07:05 08/18/24 10:00 08/18/24 10:00 08/18/24 10:00 08/18/24 10:00
Cardiovascular:: Regular rate and rhythm
Respiratory:: Bilateral: CTA (decreased)
Lung Excursion:: Normal
Abdomen:: Distended, Nontender and Soft (palpable bladder)
Extremity Edema:: None: Bilateral:
Santana Catheter: No
[2024-08-18 15:01] LABS: Urine Squamous Cell 16-20 /LPF (Few)
[2024-08-18 15:03] LABS: Urine Bacteria Moderate (Negative); Urine Red Blood Cell 16-20 /HPF (0-2); Urine Yeast Few (Negative)
--- NOTE | 2024-08-18 15:31 | PTCARENOTE ---
Patient unable to void after santana removal this AM. Bladder scanned patient for >400mls. Order to straight cath patient. Removed 750 mls of clear yellow urine via 15 fr straight cath kit with assistance x5. Patient confused and combative.
[2024-08-18] MEDS: SODIUM BICARBONATE 1075 MEQ IV (15:34)
[2024-08-18 17:03] LABS: Glucose - Point of Care 161 mg/dl (70-99)
[2024-08-18] MEDS: NOVOLOG FLEXPEN-MODERATE RESISTANCE 1 UNITS SC (18:43)
[2024-08-18] MEDS: VIBRAMYCIN PO ×2 (20:48→23:59)
[2024-08-18 21:49] LABS: Glucose - Point of Care 147 mg/dl (70-99)
[2024-08-19] VITALS (10 sets, daily range): BP systolic 125–154; BP diastolic 69–115; PULSE 108–110; O2SAT 94; BMI 46.4; BMI 47.3
--- NOTE | 2024-08-19 00:59 | PTCARENOTE ---
Pt received from previous RN. Pt confused, unable to have oriented conversation. Attempted to administer ordered PO Vibramycin several times, Pt spits medication out each attempt. Attempted to orient Pt, unsuccessful. Pt expresses need to urinate,
pt placed on bed chambers, remains unable to void. BS for 400, Pt straight cathed for 450.
[2024-08-19] MEDS: SYNTHROID 137 MCG PO (05:21)
[2024-08-19 05:43] LABS: % Basophils 0.6 % (0-2); % Eosinophils 0.2 % (0-6); % Immature Granulocytes 0.2 % (0-0.5); % Lymphocytes 16.9 % (20.5-51.1); % Monocytes 11.2 % (1.7-9.3); % Neutrophils 70.9 % (42.2-75.2); Absolute Lymphocytes 0.8 10^3/uL (1.2-3.4); Absolute Monocytes 0.5 10^3/uL (0.1-0.6); Absolute Neutrophils 3.4 10^3/uL (1.4-6.5); Hemoglobin 13.3 g/dL (12.0-16.0); Mean Corp Hgb Conc. 34.1 g/dL (33.0-37.0); Mean Corpuscular Hgb 28.5 pg (27.0-31.0); Mean Corpuscular Volume 83.7 fL (81.0-99.0); Mean Platelet Volume 11.1 fL (7.4-10.4); Nucleated Red Blood Cells % 0 %; Platelet Count 136 10^3/uL (130-400); Red Blood Cell Count 4.66 10^6/uL (4.20-5.40); Red Cell Dist. Width 14.5 % (11.5-14.5); White Blood Cell Count 4.7 10^3/uL (4.8-10.8)
[2024-08-19 06:06] LABS: ALT (SGPT) 29 U/L (0-35); AST (SGOT) 30 U/L (14-36); Albumin 3.1 g/dl (3.5-5.0); Alkaline Phosphatase 62 U/L (38-126); Blood Urea Nitrogen 24 mg/dl (7-17); Calcium 7.1 mg/dl (8.4-10.2); Carbon Dioxide 27 mmol/L (22-30); Chloride 100 mmol/L (98-107); Estimated Creatinine Clearance 70 ml/min; Glucose 156 mg/dl (70-99); Potassium 3.3 mmol/L (3.5-5.1); Sodium 141 mmol/L (135-145); Total Bilirubin 0.4 mg/dl (0.2-1.3); Total Protein 5.6 g/dl (6.3-8.2); eGFR > 60.00
[2024-08-19] MEDS: VIBRAMYCIN 260 MG IV ×2 (06:08→17:09)
[2024-08-19] MEDS: KCL 270 MEQ IV ×2 (06:45→18:57)
[2024-08-19 07:47] LABS: Glucose - Point of Care 154 mg/dl (70-99)
[2024-08-19] MEDS: NOVOLOG FLEXPEN-MODERATE RESISTANCE 1 UNITS SC ×3 (08:12→17:07)
[2024-08-19] MEDS: CARDIZEM CD PO ×2 (08:13→08:19)
[2024-08-19] MEDS: HEPARIN 5000 UNITS SC ×4 (08:13→23:31)
[2024-08-19] MEDS: FEMARA PO ×2 (08:13→08:18)
[2024-08-19] MEDS: VISBIOME PO ×2 (08:13→08:18)
[2024-08-19] MEDS: DESENEX/MITRAZOL/ZEASORB 1 APPLIC TOPICAL ×2 (08:19→21:30)
[2024-08-19] MEDS: LANTUS 0.15 UNITS SC (08:36)
--- NOTE | 2024-08-19 10:54 | CM ---
Patient seen at bedside. Patient appeared more coherent today, but indicated that she did not want to go to SNF. Review of patient chart indicated that patient family unable to care for patient as an assist of 2. Patient off restraints and off 1:1
as of visit. CM will continue to follow for discharge planning needs.
Plan; SNF vs home with VN; [facility] would need referral
[2024-08-19 12:14] LABS: Glucose - Point of Care 187 mg/dl (70-99)
--- NOTE | 2024-08-19 12:28 | W.PN.NEPH.PH ---
Addendum entered and electronically signed by Ronit Lowery MD 08/19/24 12:34:
[email or web address]
Original Note:
Today's Communication / Plan
-
IVF change to NS
Assessment/Plan
-
Impression:
RUL PNA
Diarrhea
DONNA
Hyperkalemia
Metabolic acidosis (Non-gapped)
History of hypertension
History of chronic pain
History of breast cancer liver metastasis
Plan:
DONNA:
-Likely prerenal he mediated in setting of hypotension from sepsis on presentation
met acidosis resolved, change iVF to NS
-Creatinine improved to 0.8
follow bladder scan and low threshold for santana
BP stable back on CCB mainly for tachycardia, off ACEI and HCTZ
encourage po intake
d/w nursing
-
-
Date of Service: August 19, 2024
CC / HPI / ROS
-
Chief Complaint:
Acute kidney injury
History of Present Illness:
Creatinine improving to 0.8
Hemodynamically stable, BP stable
Metabolic acidosis resolved
on RA
Review of Systems:
Nonoliguric , SC x2
Afebrile
Confused still but cooperative
denies cp or sob
?c/o dizzy
Labs
-
Labs:
WBC 4.7 10^3/uL (4.8-10.8) L 08/19/24 05:31
RBC 4.66 10^6/uL (4.20-5.40) 08/19/24 05:31
Hgb 13.3 g/dL (12.0-16.0) 08/19/24 05:31
Hct 39.0 % (37.0-47.0) 08/19/24 05:31
Plt Count 136 10^3/uL (130-400) 08/19/24 05:31
Sodium 141 mmol/L (135-145) 08/19/24 05:31
Potassium 3.3 mmol/L (3.5-5.1) L 08/19/24 05:31
Chloride 100 mmol/L (98-107) 08/19/24 05:31
Carbon Dioxide 27 mmol/L (22-30) 08/19/24 05:31
BUN 24 mg/dl (7-17) H 08/19/24 05:31
Creatinine 0.8 mg/dL (0.6-1.0) 08/19/24 05:31
eGFR > 60.00 08/19/24 05:31
Glucose 156 mg/dl (70-99) H 08/19/24 05:31
Calcium 7.1 mg/dl (8.4-10.2) L 08/19/24 05:31
Albumin 3.1 g/dl (3.5-5.0) L 08/19/24 05:31
Physical Exam
-
Vital Signs:
Vital Signs
Temp Pulse Resp BP Pulse Ox
97.6 F 110 24 126/115 94
08/19/24 07:10 08/19/24 10:00 08/19/24 10:00 08/19/24 10:00 08/19/24 08:00
Cardiovascular:: Irregular rate and rhythm (tachy)
Respiratory:: Bilateral: CTA
Lung Excursion:: Normal
Abdomen:: Nontender and Soft
Extremity Edema:: None: Bilateral:
Santana Catheter: No
[2024-08-19] MEDS: ROCEPHIN 1000 MG IV (14:25)
[2024-08-19] MEDS: NSS 1000 IV (14:25)
[2024-08-19] MEDS: STERILE WATER FOR INJECTION 10 ML IV (14:26)
[2024-08-19] MEDS: SODIUM BICARBONATE IV (14:56)
[2024-08-19 17:00] LABS: Glucose - Point of Care 155 mg/dl (70-99)
--- NOTE | 2024-08-19 17:46 | W.PN.HOSP.TC ---
Addendum entered and electronically signed by Jaime Caba MD 08/19/24 20:45:
Attending Addendum-
I saw and evaluated the patient. I reviewed the resident�s note and agree with findings and plan as documented in the resident�s note. Sub: Poor appetite feels nauseous. 'i dont want to eat' Feels weak. Denies palps per nursing has wet the bed.
SC'd for PVR > 400 Full 12 point ROS reviewed and negative except as documented Exam: Vitals reviewed in chart GEN-NAD heart irreg lungs clear abd distended obese high pitch BS LE no edema -NPB
Plan:
#Sepsis 2/2 RUL pneumonia with acute hypoxic failure
- resolving
- TX to TELE
- urine cx- yeast
- Vanco/Cefepime switched to Ceftriaxone/Doxy on 08/17/24 - continue
- MRSA neg
- Bcx NTD
- Legionella and S/pneumonia urinary Ag neg
- Weaned O2 to off
- repeat CBC in am
#DONNA
- resolved
- likely prerenal from hypotension/sepsis
- Urine studies neg for eosinophils
- CT without hydronephrosis
- repeat BMP in am
#Poor Appetite/Nausea
- refusing meds
- check Obs series
- CMP and lipase in am
- secondary to doxy?
# Metabolic Acidosis
- resolved
- nephro on board appreciate input
- DC HCO3
- repeat bmp in am
# Hypokalemia
- replete
- repeat BMP in am
# Leukopenia
- from sepsis and ca
# CIMS/TME
- DC restraints
- infectious vs metabolic
- cont decreased levothyroxine
- no dementia per history, verified with PCP
- repeat urine cx - neg
- cont Rocephin and doxycycline
- possible psych c/s
# HTN
- cont diltiazem
- CTM
#PVC's
- cont diltiazem
- repeat EKG
- check BMP in am
#Non-obstructive R nephrolithiasis
-Outpatient follow up
# Hypothyroidism
- decrease levothyroxine 175->137
- TSH suppressed
- repeat TSH in 4-6 weeks as OP
# Peripheral Neuropathy
- gabapentin on hold
#Morbid Obesity/ BMI 45.8
#DM type 2 with neuropathy
- HBa1c 5.9
-Patient has poor oral intake
-Accuchecks, Insulin SS DM diet
-Cont Lantus with SSI
-sugars well controlled
-DC'd home Levemir
#Hx of R knee prosthetic joint infection
- s/p I and D and liner exchange on 05/12 Dr. Amador - completed course of IV abx 06/25/24
- hold keflex while on IV abx
- cont suppression upon d/c
#Metastatic R breast CA with liver mets
- Upon d/c cont mgmt with existent oncologist in [place]
- holding Verzenio
- cont letrozole
- breast mass appears larger on imaging
# Urinary Retention
- santana removed 08/18
- TOV underway
- replace if continues to retain urine
- likely due to immobility
#HLD
cont statin
#Moderately distended gall bladder with cholelithiasis
#Minimal AST elevation
-Alk phos WNL
-currently no concern for cholecystitis
-08/16- US RUQ-Patchy fatty infiltration of the liver.
Cholelithiasis
Cortical scarring at the lower pole of the left kidney
DVT ppx hep
FUll code
Dispo likely SNF hopefully patient agrees
Time spent coordinating care, review of plan of care with resident, personally reviewed records in EMR, med rec, consults, notes, labs, radiology, d/w nursing, PCP� 61 mins
Original Note:
Today's Communication/Plan
-
Continue ceftriaxone and Doxy
Echo for tomorrow
Continue normal saline per nephro
Assessment / Plan
Assessment / Plan
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 She follows at [place] for cancer and started on Verzenio 1 month ago after which
she felt generally fatigued. She also reported diarrhea. She was admitted with hypotension, DONNA, hyperkalemia due to possible UTI versus right upper lung and right infrahilar lymph node pneumonia and intermittent lethargy. She is improving on
antibiotics.
A/P:
#Sepsis (DONNA, toxic metabolic encephalopathy) 2/2 RUL pneumonia with unspecified organism with acute hypoxic insufficiency
Leukopenia 2/2 CA and sepsis today 4.7
Continue ceftriaxone/Doxy
Repeat U/A culture pending
Prelim blood cultures (-), ED urine cultures (-), MRSA (-)
Legionella and S/pneumonia urinary Ag neg
Weaned off O2
Transfer to [facility]
#DONNA with hyperkalemia
resolved switch to NS per nephro
Cr today 0.8
# Metabolic Acidosis/Hypokalemia
resolved switch to NS per nephro
Replace K as needed
# Agitation/confusion
Patient is better oriented today, but still refusing medications
Initially refused morning medications
d/c wrist restraints
Work up delirium vs psychiatric etiology
Repeat UA and culture as patient previously had Santana in
UA 2+ leukocyte esterase, urine WBC 11-15, moderate bacteria. Culture pending
Continue on ceftriaxone and doxy
Spoke to PCP, No history of dementia
Decrease levothyroxine
# Urinary retention
straight cath protocol
#Nausea/Abdominal distension/increased bowel sounds
Obstructive x-ray series revealing non-obstructive pattern
Lipase and LFTs in the am
#pericardial effusion
Small. noted on ab xray and ab CT 08/15
Hemodynamically stable
Echo pending
#A. fib
EKG 08/16/2024 A fib with RVR and premature ventricular or aberrantly conducted complexes
On telemetry with PVC
No complaints of chest pain or heart palpitations
Transfer to [facility]
Hep sq DVT prophylaxis
#Hypotension on admission
Currently stable, responded to IVF
Concern for dehydration with diarrhea vs Verzenio vs drug-induced vs iatrogenic hypotension
Hold BP meds until stabilized
Avoid diuretics
#Non-obstructive R nephrolithiasis
Outpatient follow up
No signs of hydronephrosis on CT
#Morbid Obesity
BMI 45.8
Diabetic diet
#DM type 2 with neuropathy
Patient has poor oral intake - Lantus decreased to avoid hypoglycemia
Accuchecks, Insulin SS, HgbA1c, DM diet
Cont low dose lantus if patient resuming oral intake
#Hx of R knee prosthetic joint infection
cont suppression upon d/c
#Metastatic R breast CA with liver mets
Upon d/c cont mgmt with existent oncologist in [place]
temporary holding Verzenio
#HLD
cont statin
#Moderately distended gall bladder with cholelithiasis
#Minimal AST elevation
Patient denies right upper quadrant pain,
alkaline phos 77
Ultrasound revealed cholelithiasis, but no acute changes
currently no concern for cholecystitis
DVT ppx hep
FUll code
I have spent at least 39min reviewing chart, test results, communication with consultants and direct patient care
Anticipated Discharge: > 48 hours
Subjective/Interval History
-
Date of Service: August 19, 2024
Objective Data
-
Labs:
Laboratory Results
08/19/24
05:31
Sodium 141
Potassium 3.3 L
Chloride 100
Carbon Dioxide 27
BUN 24 H
Creatinine 0.8
Glucose 156 H
Calcium 7.1 L
Total Bilirubin 0.4
AST 30
ALT 29
Alkaline Phosphatase 62
Vital Signs:
Vital Signs
Temp Pulse Resp BP Pulse Ox
97.6 F 114 21 148/102 96
08/19/24 07:10 08/19/24 15:18 08/19/24 15:18 08/19/24 16:06 08/19/24 15:02
I&O
08/18/24 08/19/24 08/20/24
06:59 06:59 06:59
Intake Total 1430 / 1430 800 / 800
Output Total 2975 / 2975 1700 / 1700 700 / 700
Balance -1545 / -1545 -900 / -900 -700 / -700
Review of Systems
-
History Source: Patient
Constitutional: Reports No Appetite
Respiratory: Reports No Symptoms
Cardiac: Reports No Symptoms
Abdomen/GI: Reports Nausea; Denies Abdominal Pain, Vomiting or Diarrhea
Genitourinary: Reports Difficulty Voiding
Neuro: Reports No Symptoms
Physical Exam
-
General: Other (Appears nauseous)
HEENT: Normocephalic
Respiratory: Clear to Auscultation
Cardiac: Irregular Rhythm
GI: Soft, Nontender, Normal Bowel Sounds (Increased bowel sounds) and Distended
Musculoskeletal: No Edema
Neuro: AO x 3
Psych: Calm
--- NOTE | 2024-08-19 19:27 | PTCARENOTE ---
Report called by dayshift RN to receiving 4th floor RN.
--- NOTE | 2024-08-19 19:33 | PTCARENOTE ---
pt being transferred to [facility]. report given to Jodee.
--- NOTE | 2024-08-19 19:34 | PTCARENOTE ---
day shift note. pt refusing oral intake. refuses po meds. made aware. obstruction series completed per order. straight cathed at 1700 for 700 mls yellow urine. restraints off all day. pt oriented x 2 .
--- NOTE | 2024-08-19 20:51 | PTCARENOTE ---
Pt tx to 409 bed 1.
[2024-08-19] MEDS: LIDOCAINE 4% PATCH 1 PATCH TOPICAL ×2 (21:30)
[2024-08-20 01:04] LABS: Glucose - Point of Care 136 mg/dl (70-99)
[2024-08-20] MEDS: SYNTHROID 137 MCG PO (05:06)
[2024-08-20] MEDS: VIBRAMYCIN 260 MG IV ×2 (05:06→17:24)
[2024-08-20 05:12] VITALS: BMI 46.6
[2024-08-20 07:05] VITALS: BMI 46.6
[2024-08-20 07:11] LABS: Glucose - Point of Care 131 mg/dl (70-99)
[2024-08-20 07:20] VITALS: BP 114/62
[2024-08-20] MEDS: NOVOLOG FLEXPEN-MODERATE RESISTANCE SC ×2 (07:40→12:32)
[2024-08-20] MEDS: CARDIZEM CD 240 MG PO (09:20)
[2024-08-20] MEDS: VISBIOME 1 CAP PO (09:21)
[2024-08-20] MEDS: FEMARA 2.5 MG PO (09:21)
[2024-08-20] MEDS: HEPARIN 5000 UNITS SC ×2 (09:26→16:39)
[2024-08-20 09:32] LABS: % Basophils 0.7 % (0-2); % Eosinophils 0.2 % (0-6); % Immature Granulocytes 0.4 % (0-0.5); % Lymphocytes 20.7 % (20.5-51.1); % Monocytes 6.7 % (1.7-9.3); % Neutrophils 71.3 % (42.2-75.2); Absolute Lymphocytes 0.9 10^3/uL (1.2-3.4); Absolute Monocytes 0.3 10^3/uL (0.1-0.6); Absolute Neutrophils 3.2 10^3/uL (1.4-6.5); Hematocrit 35.6 % (37.0-47.0); Hemoglobin 12.2 g/dL (12.0-16.0); Mean Corp Hgb Conc. 34.3 g/dL (33.0-37.0); Mean Corpuscular Volume 81.7 fL (81.0-99.0); Mean Platelet Volume 10.2 fL (7.4-10.4); Nucleated Red Blood Cells % 0 %; Platelet Count 165 10^3/uL (130-400); Red Blood Cell Count 4.36 10^6/uL (4.20-5.40); Red Cell Dist. Width 14.6 % (11.5-14.5); White Blood Cell Count 4.5 10^3/uL (4.8-10.8)
[2024-08-20] MEDS: DESENEX/MITRAZOL/ZEASORB 1 APPLIC TOPICAL ×2 (09:37→21:54)
--- NOTE | 2024-08-20 09:38 | W.PN.HOSP.TC ---
Addendum entered and electronically signed by Jaime Caba MD 08/20/24 23:01:
Attending Addendum-
I saw and evaluated the patient. I reviewed the resident�s note and agree with findings and plan as documented in the resident�s note. Sub: Patient more alert today. Feels nauseous. No vom. Complains of SOB. Feels weak. Full 12 point ROS reviewed
and negative except as documented Exam: Vitals reviewed in chart GEN-NAD heart irreg irreg lungs clear abd soft obese distended high pitched BS LE trace B/L edema - non palp bladder
Plan:
#Sepsis (DONNA, toxic metabolic encephalopathy) 2/2 RUL pneumonia with unspecified organism with acute hypoxic insufficiency
-r/o UTI- cx pos for yeast
-Vanco/Cefepime switched to Ceftriaxone/Doxy on 08/17/24 continue
-MRSA neg
-Bcx NTD
-Legionella and S/pneumonia urinary Ag neg
-Sputum Cx if possible
-Wean 02 for sats >92%
#DONNA with hyperkalemia
- no signs of CKD
- resolved
- CT without hydronephrosis
- nephro on board
- repeat BMP in am
# Metabolic Acidosis/Hypokalemia
- resolved
- nephro on board appreciate input
- DC HCO3
- repeat bmp in am
# CIMS/TME
- improving
- infectious vs metabolic
- decrease levothyroxine
- no dementia per history
- cont Rocephin and doxy for now
# Cardiomyopathy with Reduced EF
- secondary to chemo verzenio?
- Echo 08/20- Moderately reduced left ventricular systolic function. Left ventricular
ejection fraction is 35-40% by visual assessment.
Global hypokinesis.
Diastolic function indeterminate due to atrial fibrillation.
Mitral annular calcification with mild mitral stenosis.
Mild aortic stenosis.
Mild pulmonary hypertension.
- strict I and O daily weights
- lasix x 1
- start toprol xl
- slowly introduce MOLINA/ARB SGLT-2 spironolactone
- cards c/s
- may benefit from cath
# A fib-NEW
- tx to TELE
- start eliquis
- start toprol
- cards c/s
# Hypocalcemia
- correct for albumin
- check PTH, phos, Vit d
- replete IV ca gluc x 1
- check in am
# Pericardial Effusion
- echo- Small to moderate pericardial effusion without
evidence of hemodynamic compromise.
- cont to monitor
- lasix x 1
# HTN
- DC dilt start toprol XL
- CTM
#Non-obstructive R nephrolithiasis
-Outpatient follow up
# Hypothyroidism
- decreased levothyroxine 175->137
- repeat TSH in 4-6 weeks
# Peripheral Neuropathy
- gabapentin on hold
#Morbid Obesity/ BMI 45.8
#DM type 2 with neuropathy
- HBa1c 5.9!
-Patient has poor oral intake
-Accuchecks, Insulin SS DM diet
-Cont Lantus with SSI
- sugars well controlled
-DC Levemir
- SGLT-2 when able
#Hx of R knee prosthetic joint infection
- s/p I and D and liner exchange on 05/12 Dr. Amador - completed course of IV abx 06/25/24
- hold keflex while on IV abx
- cont suppression upon d/c
#Metastatic R breast CA with liver mets
- Upon d/c cont mgmt with existent oncologist in [place]
- temporary holding Verzenio
- cont letrozole
- breast mass appears larger on imaging
# Urinary Retention
- santana removed 08/18
- TOV underway
- replace if continues to hold urine
- possibly due to UTI
#HLD
cont statin
#Moderately distended gall bladder with cholelithiasis
#Minimal AST elevation
-no RUQ pain
-Alk phos WNL
-currently no concern for cholecystitis
-08/16- US RUQ-Patchy fatty infiltration of the liver.
Cholelithiasis
Cortical scarring at the lower pole of the left kidney
DVT ppx hep
FUll code
Time spent coordinating care, review of plan of care with resident, personally reviewed records in EMR, med rec, consults, notes, labs, radiology, d/w nursing, cards, son� 68 mins
Original Note:
Today's Communication/Plan
-
Continue doxy and ceftriaxone
HFrEF dx EF 35-40%
Lasix 40mg IV one dose re-evaluate in am
Eliquis 5mg BID
Toprol XL 25mg qd d/c diltiazem
Cards appreaciated
duonebs as needed for wheezing
No pulmonary edema on chest x-ray
Laxative
Assessment / Plan
Assessment / Plan
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 She follows at [place] for cancer and started on Verzenio 1 month ago after which
she felt generally fatigued. She also reported diarrhea. She was admitted with hypotension, DONNA, hyperkalemia due to possible UTI versus right upper lung and right infrahilar lymph node pneumonia and intermittent lethargy. She is improving on
antibiotics.
A/P:
#Sepsis (DONNA, toxic metabolic encephalopathy) 2/2 RUL pneumonia with unspecified organism with acute hypoxic insufficiency
Leukopenia 2/2 CA and sepsis today 4.7
Continue ceftriaxone/Doxy
U/A culture yeast
Weaned off O2
#HFrEF
SOB/wheezing
Echo EF 30-45% with global hypokineses
Lasix 40mg IV one dose re-evaluate in am
Toprol XL 25mg qd d/c diltiazem
Strict I&O, daily weights
Stop maintenance fluids
No cardiopulmonary edema on chest x-ray
Duonebs as needed
Appreciate cards
#Atrial fibrillation
Patient stated she does have a hx of a.fib and has been on diltiazem for years
[id number] score 6
d/c dvt prophylaxis and start eliquis 5mg BID
transfer to tele
No history of prior bleed
#DONNA with hyperkalemia
resolved
# Metabolic Acidosis/Hypokalemia
resolved
# Agitation/confusion
Patient is significantly better today, but still not at baseline
Work up delirium vs psychiatric etiology
UA culture yeast
Continue on ceftriaxone and doxy
Spoke to PCP, No history of dementia
Decrease levothyroxine
# Urinary retention
resolved
#Nausea/Abdominal distension/increased bowel sounds
Obstructive x-ray series revealing non-obstructive pattern
LFTs normal
Lipase wnl
dulcolax suppository prn
Secondary to doxy?
#pericardial effusion
Small. noted on ab xray and ab CT 08/15
Hemodynamically stable
Small to moderate pericardial effusion without evidence of hemodynamic compromise
#Wheezing
Repeat chest x-ray
Duonebs
#Hypocalcemia
Replete
PTH elevated
#Hypotension on admission
Currently stable, responded to IVF
Hold BP meds until stabilized
#Non-obstructive R nephrolithiasis
Outpatient follow up
No signs of hydronephrosis on CT
#Morbid Obesity
BMI 45.8
Diabetic diet
#DM type 2 with neuropathy
Patient has poor oral intake - Lantus decreased to avoid hypoglycemia
Accuchecks, Insulin SS, HgbA1c, DM diet
Cont low dose lantus if patient resuming oral intake
#hypothyroidism
Decrease levo from 175 to 137
TSH supressed
Repeat TSH in 4-6 weeks OP
#Hx of R knee prosthetic joint infection
cont suppression upon d/c
#Metastatic R breast CA with liver mets
Upon d/c cont mgmt with existent oncologist in [place]
temporary holding Verzenio
#HLD
cont statin
#Moderately distended gall bladder with cholelithiasis
#Minimal AST elevation
alkaline phos 77
Ultrasound revealed cholelithiasis, but no acute changes
currently no concern for cholecystitis
Spoke with patient and son at length regarding new CHF diagnosis. Patient was AAOx3 and doing much better. Son agrees.
DVT eliquis
FUll code
Anticipated Discharge: > 48 hours
Subjective/Interval History
-
Date of Service: August 20, 2024
Objective Data
-
Labs:
Laboratory Results
08/20/24
08:24
WBC 4.5 L
Hgb 12.2
Hct 35.6 L
Plt Count 165 D
Sodium Pending
Potassium Pending
Chloride Pending
Carbon Dioxide Pending
BUN Pending
Creatinine Pending
Glucose Pending
Calcium Pending
Total Bilirubin Pending
AST Pending
ALT Pending
Alkaline Phosphatase Pending
Vital Signs:
Vital Signs
Temp Pulse Resp BP Pulse Ox
97.9 F 100 22 124/64 97
08/20/24 07:20 08/20/24 09:20 08/20/24 07:20 08/20/24 09:20 08/20/24 07:20
I&O
08/19/24 08/20/24 08/21/24
06:59 06:59 06:59
Intake Total 800 / 800 1430 / 1430
Output Total 1700 / 1700 700 / 700
Balance -900 / -900 730 / 730
Review of Systems
-
History Source: Patient
Respiratory: Reports Wheezing
Cardiac: Reports No Symptoms
Abdomen/GI: Reports Nausea
Genitourinary: Reports No Symptoms
Neuro: Reports No Symptoms
Physical Exam
-
General: Comfortable
Respiratory: Wheezes and Crackles
Cardiac: Irregular Rhythm
GI: Soft and Tender (RUQ tenderness with palpation)
Musculoskeletal: No Edema
Neuro: AO x 3
Psych: Calm
[2024-08-20] MEDS: LANTUS 0.15 UNITS SC (10:28)
[2024-08-20] MEDS: NSS 1000 IV (10:35)
[2024-08-20 11:31] LABS: ALT (SGPT) 25 U/L (0-35); AST (SGOT) 26 U/L (14-36); Albumin 2.9 g/dl (3.5-5.0); Alkaline Phosphatase 58 U/L (38-126); Blood Urea Nitrogen 19 mg/dl (7-17); Calcium 6.9 mg/dl (8.4-10.2); Carbon Dioxide 24 mmol/L (22-30); Chloride 104 mmol/L (98-107); Estimated Creatinine Clearance 80 ml/min; Glucose 145 mg/dl (70-99); Potassium 3.6 mmol/L (3.5-5.1); Sodium 139 mmol/L (135-145); Total Bilirubin 0.3 mg/dl (0.2-1.3); Total Protein 5.2 g/dl (6.3-8.2); eGFR > 60.00
[2024-08-20 11:48] LABS: Glucose - Point of Care 148 mg/dl (70-99)
[2024-08-20] MEDS: STERILE WATER FOR INJECTION 10 ML IV (12:35)
[2024-08-20] MEDS: ROCEPHIN 1000 MG IV (12:35)
[2024-08-20] MEDS: ZOFRAN 4 MG IV (13:02)
[2024-08-20 15:15] VITALS: BP 130/84
--- NOTE | 2024-08-20 15:20 | W.PN.NEPH.PH ---
Today's Communication / Plan
-
Sign off
Assessment/Plan
-
Impression:
RUL PNA
Diarrhea
DONNA
Hyperkalemia
Metabolic acidosis (Non-gapped)
History of hypertension
History of chronic pain
History of breast cancer liver metastasis
Plan:
DONNA:
-Likely prerenal he mediated in setting of hypotension from sepsis on presentation
met acidosis resolved, change iVF to NS
-Creatinine improved to 0.7
follow bladder scan and low threshold for santana
BP stable back on CCB mainly for tachycardia, off ACEI and HCTZ (this can be added back once blood pressure rebounds as DONNA has resolved)
encourage po intake
we will sign off
-
-
Date of Service: August 20, 2024
CC / HPI / ROS
-
Chief Complaint:
Acute kidney injury
History of Present Illness:
Creatinine improving to 0.7
Hemodynamically stable, BP stable
Metabolic acidosis resolved
on RA
Review of Systems:
Nonoliguric , SC x2
Afebrile
Confused still but cooperative
denies cp or sob
?c/o dizzy
Labs
-
Labs:
WBC 4.5 10^3/uL (4.8-10.8) L 08/20/24 08:24
RBC 4.36 10^6/uL (4.20-5.40) 08/20/24 08:24
Hgb 12.2 g/dL (12.0-16.0) 08/20/24 08:24
Hct 35.6 % (37.0-47.0) L 08/20/24 08:24
Plt Count 165 10^3/uL (130-400) D 08/20/24 08:24
Sodium 139 mmol/L (135-145) 08/20/24 08:24
Potassium 3.6 mmol/L (3.5-5.1) 08/20/24 08:24
Chloride 104 mmol/L (98-107) 08/20/24 08:24
Carbon Dioxide 24 mmol/L (22-30) 08/20/24 08:24
BUN 19 mg/dl (7-17) H 08/20/24 08:24
Creatinine 0.7 mg/dL (0.6-1.0) 08/20/24 08:24
eGFR > 60.00 08/20/24 08:24
Glucose 145 mg/dl (70-99) H 08/20/24 08:24
Calcium 6.9 mg/dl (8.4-10.2) L* 08/20/24 08:24
Albumin 2.9 g/dl (3.5-5.0) L 08/20/24 08:24
Physical Exam
-
Vital Signs:
Vital Signs
Temp Pulse Resp BP Pulse Ox
98 F 108 20 130/84 95
08/20/24 15:15 08/20/24 15:15 08/20/24 15:15 08/20/24 15:15 08/20/24 15:15
Cardiovascular:: Regular rate and rhythm
Respiratory:: Bilateral: CTA
Lung Excursion:: Normal
Abdomen:: Nontender and Soft
Santana Catheter: No
[2024-08-20] MEDS: CALCIUM GLUCONATE 100 IV (15:30)
[2024-08-20 15:31] LABS: Lipase 255 U/L (23-300)
[2024-08-20 16:08] LABS: Intact PTH 878.2 pg/ml (13.6-85.8)
[2024-08-20 16:37] LABS: Glucose - Point of Care 154 mg/dl (70-99)
[2024-08-20] MEDS: NOVOLOG FLEXPEN-MODERATE RESISTANCE 1 UNITS SC (16:43)
[2024-08-20] MEDS: LASIX 40 MG IV (18:42)
[2024-08-20 20:30] LABS: Phosphorus 1.1 mg/dl (2.5-4.5)
[2024-08-20 21:45] LABS: Glucose - Point of Care 137 mg/dl (70-99)
[2024-08-20] MEDS: ELIQUIS 5 MG PO (21:54)
[2024-08-20] MEDS: LIDOCAINE 4% PATCH 1 PATCH TOPICAL (21:54)
[2024-08-20 23:54] VITALS: BP 134/57
[2024-08-21] VITALS (7 sets, daily range): BP systolic 115–142; BP diastolic 54–79; PULSE 90; O2SAT 91; BMI 45.8
[2024-08-21] MEDS: VIBRAMYCIN 260 MG IV ×2 (05:31→18:00)
[2024-08-21] MEDS: SYNTHROID 137 MCG PO (05:32)
[2024-08-21 07:37] LABS: Hematocrit 36.2 % (37.0-47.0); Hemoglobin 12.2 g/dL (12.0-16.0); Mean Corp Hgb Conc. 33.7 g/dL (33.0-37.0); Mean Corpuscular Volume 83.2 fL (81.0-99.0); Mean Platelet Volume 9.9 fL (7.4-10.4); Platelet Count 201 10^3/uL (130-400); Red Blood Cell Count 4.35 10^6/uL (4.20-5.40); Red Cell Dist. Width 14.8 % (11.5-14.5); White Blood Cell Count 4.6 10^3/uL (4.8-10.8)
[2024-08-21 07:43] LABS: Glucose - Point of Care 171 mg/dl (70-99)
[2024-08-21 07:56] LABS: ALT (SGPT) 24 U/L (0-35); AST (SGOT) 24 U/L (14-36); Albumin 3.2 g/dl (3.5-5.0); Alkaline Phosphatase 57 U/L (38-126); Blood Urea Nitrogen 18 mg/dl (7-17); Carbon Dioxide 28 mmol/L (22-30); Chloride 103 mmol/L (98-107); Direct Bilirubin 0.3 mg/dl (0.0-0.4); Estimated Creatinine Clearance 70 ml/min; Glucose 149 mg/dl (70-99); Magnesium 1.4 mg/dl (1.6-2.3); Potassium 3.4 mmol/L (3.5-5.1); Sodium 140 mmol/L (135-145); Total Bilirubin 0.3 mg/dl (0.2-1.3); Total Protein 5.6 g/dl (6.3-8.2); eGFR > 60.00
[2024-08-21 07:59] LABS: NT-proBNP 6370 pg/ml
[2024-08-21 08:07] LABS: Vitamin D, 25-OH*** < 12.8 ng/mL (30-80)
--- NOTE | 2024-08-21 08:20 | CON.CAR ---
Addendum entered and electronically signed by Iam Alfonso MD 08/21/24 09:54:
I saw and examined the patient.
The PRACTICAL MINISTRIES PROFESSOR's note was reviewed and I agree with the note.
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
however no clear known prior EF, diabetes on insulin, hypertension, morbid obesity who presented with weakness and fatigue and is being treated for DONNA and pneumonia. With this, CT scan showed possible effusion so echocardiogram was ordered.
Echocardiogram was done and showed moderately reduced ejection fraction at 35 to 40% with global hypokinesis, small to moderate pericardial effusion without evidence of hemodynamic compromise. Atrial fibrillation has also been noted through this
hospitalization. Overall, she is feeling better. She reports her breathing is at baseline as she lies flat in the bed. She has an irregularly irregular rate and rhythm with a normal S1-S2, Rales bilaterally fpc down. She has an obese abdomen
and no lower extremity edema.On admission, chest x-ray was read as a mild right upper lobe and right infrahilar pneumoniaChest x-ray from 08/20/2024 shows cardiomegaly with pulmonary edema quality limited by body habitus and inspiratory effort.Labs
show an elevated proBNP at 6370. Kidney function has improved from 2.9 admission to 0.8. She received 11 L over the course of this hospitalization for appropriate volume resuscitation with sepsis. From our perspective, she has heart failure with
reduced ejection fraction with an EF of 35 to 40% and global hypokinesis. Is unclear if this is new or not. It is mentioned to be present in a prior outpatient note from cardiology in 07/21/2024. However no specifics were mentioned. We will
obtain the records from her outpatient cardiology office if able and attempt to see if she had an echo at [place]. Regardless, at this moment I would not offer right and left heart catheterization given recent DONNA and ongoing breast cancer. Will
optimize her GDMT and leave the further evaluation for her typical cardiology team as an outpatient. Meanwhile she does have atrial fibrillation that is rate controlled but appears to be new. Eliquis has been appropriately started. This is
complicated by a pericardial effusion. Ideally I would offer NETTA cardioversion given her heart failure, but we will first monitor her on Eliquis to ensure no enlargement of her effusion. Will order a repeat focused echocardiogram for Sunday if she
is still present. Otherwise this can be pursued by her outpatient team. We will ask case preparer and liner to assist in the pricing of her GDMT. We will continue to follow..
Original Note:
Consultation
Consultation Request
Date/Time Consultation Requested: 08/20/241934
Date/Time Consultation Performed: 08/21/24814
Requesting Provider: Aida Block
Performing Provider: Juliana KAN for Dr. Alfonso
Reason for Consultation: AFIB, cardiomyopathy
Medical History
-
Chief Complaint: weakness
History of Present Illness:
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
abx who is here for evaluation of weakness and fatigue per chart- patient reports she doesn't know why she came in. She is being treated for PNA with IV abx. Additionally, she was seen to have DONNA with creatinine 2.9 and hyperkalemia with potassium
6.1. DONNA was felt to be prerenal from hypotension from sepsis. She was given fluids and Lokelma. This has resolved. She had an echo yesterday that revealed EF 35-40%, as well as small to moderate pericardial effusion without evidence of hemodynamic
compromise. She denies CP or SOB, but when I turned her for lung auscultation she did seem SOB. Additionally, AFIB is seen on EKG and monitor. Rate is about 100 BPM. She was started on Eliquis for OAC. Of note, she sees [facility] (
Adrian and Aysha Irene PRACTICAL MINISTRIES PROFESSOR) and recently was seen to have new LBBB on EKG and was ordered echo and holter, but tells me she cancelled them and didn't have them done. She is AAO x 3, but does seem to be forgetful.
Past Medical History
Past Medical History: CHF, HTN, Hypercholesterolemia, Hypothyroidism, IDDM (DM2 on insulin) and Other (as above)
Social History
Living: With Family
Family History
Family History: Reviewed & Not Pertinent
Allergies / Home Medications
Allergy/AdvReac Type Severity Reaction Status Date / Time
feathers Allergy Shortness Verified 10/11/21 12:03
of Breath
Penicillins Allergy Hives & Verified 05/13/24 09:45
Itching 30
years ago
red dye Allergy Itchy and Verified 10/11/21 12:03
Hives
yellow dye Allergy itching Verified 10/11/21 12:03
and hives
Environmental Allergy Congestion Uncoded 09/26/21 10:58
�Medication �Instructions �Recorded �Confirmed �Type
desloratadine 5 mg tablet 5 mg PO DAILY Allergies 02/12/17 08/14/24 History
(Clarinex)
guaifenesin 600 mg tablet, 1,200 mg PO DAILY Congestion 09/06/21 08/14/24 History
extended release 12 hr (Mucus
Relief ER)
levothyroxine 50 mcg tablet 175 mcg PO MOTUWETHFRSA Thyroid 09/06/21 08/14/24 History
vitamin B complex 1 tab PO DAILY Supplement 09/06/21 08/14/24 History
diltiazem HCl 240 mg 240 mg PO HS Heart 10/11/21 08/14/24 History
capsule,extended release 24 hr Disease/Condition
gabapentin 100 mg capsule 200 mg PO DAILY Pain 10/11/21 08/14/24 History
gabapentin 100 mg capsule 200 mg PO HSPRN PRN mild pain 10/11/21 08/14/24 History
gabapentin 100 mg capsule 300 mg PO QPM Pain 10/11/21 08/14/24 History
acetaminophen 500 mg tablet 1,500 mg PO BID Pain 10/12/21 08/14/24 History
(Tylenol Extra Strength)
insulin detemir U-100 100 unit/mL 38 units SC Q12H Diabetes 10/12/21 08/14/24 History
subcutaneous solution (Levemir
U-100 Insulin)
chlorzoxazone 500 mg tablet 500 mg PO TIDPRN PRN Muscle cramps 05/12/24 08/14/24 History
diclofenac sodium 50 mg 100 mg PO BID Pain 05/12/24 08/14/24 History
tablet,delayed release
ibuprofen 200 mg tablet (Advil) 600 mg PO BID Pain 05/12/24 08/14/24 History
letrozole 2.5 mg tablet 2.5 mg PO DAILY Cancer 05/12/24 08/14/24 History
lisinopril 20 2 tab PO QPM Blood Pressure 05/12/24 08/14/24 History
mg-hydrochlorothiazide 12.5 mg
tablet
rosuvastatin 20 mg tablet 20 mg PO HS High Cholesterol 05/12/24 08/14/24 History
abemaciclib 100 mg tablet 100 mg PO BID BREAST CA 08/14/24 08/14/24 History
(Verzenio)
cefuroxime axetil 500 mg tablet 500 mg PO DAILY Infection 08/14/24 08/14/24 History
diphenhydramine HCl 50 mg capsule 50 mg PO DAILY ITCH 08/14/24 08/14/24 History
Review of Systems
-
History Source: Patient and Other (and chart since patient forgetful)
Constitutional: Fatigue and Other (weakness)
Physical Exam
Vital Signs
Temp Pulse Resp BP Pulse Ox
98.1 F 87 19 142/79 92
08/21/24 07:53 08/21/24 07:53 08/21/24 07:53 08/21/24 07:53 08/21/24 07:53
Lab Results
08/21/24 07:17
08/21/24 07:17
Troponin I 0.013 ng/ml 08/14/24 17:51
Smi-B-Zsamxnhfrjq Pept 6370 pg/ml 08/21/24 07:17
Physical Exam
General: Well Developed and No Apparent Distress
HEENT: Normocephalic and Anicteric
Respiratory: Other (crackles to bases, mild)
Cardiac: Irregular Rhythm
Musculoskeletal: No Edema
Neuro: AO x 3 (but forgetful)
Psych: Calm
Impression / Plan
-
Sepsis/PNA:
-getting IV abx
-s/p multiple IVF
Cardiomyopathy:
-EF 35-40%. Unclear if new since OP cardiology note reports combined systolic and diastolic HF. Will try and obtain previous echo.
-consider ischemic evaluation as OP with her primary cardiology team, but with metastatic breast CA, recent DONNA, PNA, would not do this right now.
-start with GDMT- increase metoprolol today. Will gregg SGLT2 inhibitors and Entresto.
Gxkku-ra-idmgeaw HFrEF:
-BNP elevated, STALEY noted
-will give another dose of IV Lasix today and monitor response
Pericardial effusion:
-will need to be reassessed with Eliquis and diuresis- perhaps follow-up study next week (inpatient or OP depending on her course here)
AFIB, type unknown:
-was in SR on admission. Now in AFIB around 100 BPM. Diltiazem transitioned to metoprolol and I will increase dosing.
-Eliquis initiated for her [id number] score of 6 for age, female, HTN, DM, and CHF. She denies bleeding issues or falls.
DONNA:
-resolved
-felt to be from hypotension
Hyperkalemia:
-resolved, actually hypokalemic now
-will replace potassium today
Data Reviewed
-
EKG: Tracing Personally Visualized and interpreted (AFIB with PVC, IVCD)
Radiology: Report Reviewed by me (CXR: Cardiomegaly without associated pulmonary edema)
Medical Tests (Nuc Med, Echo etc): Report Reviewed by me (Echo 08/20/24: EF 35-40% with Global hypokinesis. MAC with mild MS. Mild . Mild pulmonary hypertension. Small to moderate pericardial effusion without evidence of hemodynamic compromise.)
Labs: Labs Reviewed by me
Old Records: Requested (echo) and Reviewed (Cardiology OV note 07/21/24)
--- NOTE | 2024-08-21 09:11 | W.PN.HOSP.TC ---
Addendum entered and electronically signed by Jaime Caba MD 08/21/24 23:42:
Attending Addendum-
I saw and evaluated the patient. I reviewed the resident�s note and agree with findings and plan as documented in the resident�s note. Sub: Feels greatly improved. 'im not going to snf' Seen with present. Still STALEY. Full 12 point ROS
reviewed and negative except as documented Exam: Vitals reviewed in chart GEN-NAD heart irreg irreg lungs clear abd soft obese ND pos BS LE trace B/L edema - non palp bladder pure wick in place draiing concentrated urine
Plan:
#Sepsis 2/2 RUL pneumonia
-resolved
-r/o UTI
-Vanco/Cefepime switched to Ceftriaxone/Doxy on 08/17/24 continue day 03/04
-MRSA neg
-Bcx NTD
-Legionella and S/pneumonia urinary Ag neg
-Sputum Cx if possible
-Weaned off 02
#DONNA
- no signs of CKD
- resolved
- CT without hydronephrosis
- nephro-signed off
- repeat BMP in am
# Metabolic Acidosis
- resolved
- DC HCO3
- repeat bmp in am
# Hypokalemia
- replete
-repeat BMP in am
#Hypomagnesemia
- replete
- repeat mg in am
#Hypophosphatemia
- replete
- repeat in am
# CIMS/TME
- resolved
- infectious vs metabolic
- cont decreased levothyroxine
- no dementia per history
- cont Rocephin and doxy for now
# AE HFrEF-NEW
- secondary to chemo verzenio?
- Echo 08/20- Moderately reduced left ventricular systolic function. Left ventricular
ejection fraction is 35-40% by visual assessment.
Global hypokinesis.
Diastolic function indeterminate due to atrial fibrillation.
Mitral annular calcification with mild mitral stenosis.
Mild aortic stenosis.
Mild pulmonary hypertension.
- strict I and O daily weights
- additional lasix x 1
- change to BID toprol xl
- GDMT
- cards c/s appreciated
- cath can be done as OP
# A fib-NEW
- cont to monitor on tele
- cont eliquis
- cont toprol
- cards con board possible NETTA CV
# Hypocalcemia
- correct for albumin
- replete
- check in am
# secondary hyperPTH secondary to vit d deficiency
- start replacement 125 mcg daily x 6-8wks then maint dose
- repeat level as OP
# Pericardial Effusion
- echo- Small to moderate pericardial effusion without
evidence of hemodynamic compromise.
- cont to monitor
# HTN
- DC dilt start toprol XL
- CTM
#Non-obstructive R nephrolithiasis
-Outpatient follow up
# Hypothyroidism
- decreased levothyroxine 175->137
- repeat TSH in 4-6 weeks
# Peripheral Neuropathy
- gabapentin on hold
#Morbid Obesity/ BMI 45.8
#DM type 2 with neuropathy
- HBa1c 5.9!
-Patient has decreased oral intake
-Accuchecks, Insulin SS DM diet
-Cont Lantus with SSI
-sugars well controlled
-DC Levemir
-SGLT-2 when able as OP
#Hx of R knee prosthetic joint infection
- s/p I and D and liner exchange on 05/12 Dr. Amador - completed course of IV abx 06/25/24
- hold keflex while on IV abx
- cont suppression upon d/c
#Metastatic R breast CA with liver mets
- Upon d/c cont mgmt with existent oncologist in [place]
- temporary holding Verzenio
- cont letrozole
- breast mass appears larger on imaging
# Urinary Retention
- santana removed 08/18
- TOV successful
#HLD
cont statin
#Moderately distended gall bladder with cholelithiasis
#Minimal AST elevation
-no RUQ pain
-Alk phos WNL
-currently no concern for cholecystitis
-08/16- US RUQ-Patchy fatty infiltration of the liver.
Cholelithiasis
Cortical scarring at the lower pole of the left kidney
DVT ppx hep
FUll code
Dispo Patient would benefit from SNF stay currently refusing- possible [facility]?
Time spent coordinating care, review of plan of care with resident, personally reviewed records in EMR, med rec, consults, notes, labs, radiology, d/w nursing, cards, � 60 mins
Original Note:
Today's Communication/Plan
-
Continue antibiotics
Repeat one dose lasix per cards
Increase toprol XL to 25 BID per cards
Replace electrolytes
Assessment / Plan
Assessment / Plan
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 She follows at [place] for cancer and started on Verzenio 1 month ago after which
she felt generally fatigued. She also reported diarrhea. She was admitted with hypotension, DONNA, hyperkalemia due to possible UTI versus right upper lung and right infrahilar lymph node pneumonia and intermittent lethargy. She is improving on
antibiotics.
A/P:
#Sepsis (DONNA, toxic metabolic encephalopathy) 2/2 RUL pneumonia with unspecified organism with acute hypoxic insufficiency
Leukopenia 2/2 CA and sepsis today 4.7
Continue ceftriaxone/Doxy
U/A culture yeast
Weaned off O2
#HFrEF
SOB/wheezing
Echo EF 30-45% with global hypokineses
Pro-BNP 6370
Lasix 40mg IV one dose re-evaluate in am - one more dose of IV lasix 40mg per cards
Toprol XL 25mg qd d/c diltiazem -> Toprol XL 25 BID per cards
Strict I&O, daily weights
Stop maintenance fluids
No cardiopulmonary edema on chest x-ray
Duonebs as needed
Appreciate cards
#Atrial fibrillation
Patient stated she does have a hx of a.fib and has been on diltiazem for years
[id number] score 6
d/c dvt prophylaxis and start eliquis 5mg BID
Toprol XL 25 BID
tele
No history of prior bleed
#DONNA with hyperkalemia
resolved
# Metabolic Acidosis/Hypokalemia
resolved
# Agitation/confusion
Significantly improved
UA culture yeast
Continue on ceftriaxone and doxy
Spoke to PCP, No history of dementia
Decrease levothyroxine
#Hypocalcemia
Replete
PTH elevated
Low ironized calcium, vit D, mg and phos
Vit D supplements
# Urinary retention
resolved
#Nausea/Abdominal distension/increased bowel sounds
Obstructive x-ray series revealing non-obstructive pattern
LFTs normal
Lipase wnl
dulcolax suppository prn
Secondary to doxy?
#pericardial effusion
Small. noted on ab xray and ab CT 08/15
Hemodynamically stable
Small to moderate pericardial effusion without evidence of hemodynamic compromise
#Wheezing
Repeat chest x-ray
Duonebs
#Hypotension on admission
Currently stable, responded to IVF
Hold BP meds until stabilized
#Non-obstructive R nephrolithiasis
Outpatient follow up
No signs of hydronephrosis on CT
#Morbid Obesity
BMI 45.8
Diabetic diet
#DM type 2 with neuropathy
Patient has poor oral intake - Lantus decreased to avoid hypoglycemia
Accuchecks, Insulin SS, HgbA1c, DM diet
Cont low dose lantus if patient resuming oral intake
#hypothyroidism
Decrease levo from 175 to 137
TSH supressed
Repeat TSH in 4-6 weeks OP
#Hx of R knee prosthetic joint infection
cont suppression upon d/c
#Metastatic R breast CA with liver mets
Upon d/c cont mgmt with existent oncologist in [place]
temporary holding Verzenio
#HLD
cont statin
#Moderately distended gall bladder with cholelithiasis
#Minimal AST elevation
alkaline phos 77
Ultrasound revealed cholelithiasis, but no acute changes
currently no concern for cholecystitis
Spoke with patient and son at length regarding new CHF diagnosis. Patient was AAOx3 and doing much better. Son agrees.
DVT eliquis
FUll code
Anticipated Discharge: > 48 hours
Subjective/Interval History
-
Date of Service: August 21, 2024
Objective Data
-
Labs:
Laboratory Results
08/21/24
07:17
WBC 4.6 L
Hgb 12.2
Hct 36.2 L
Plt Count 201 D
Sodium 140
Potassium 3.4 L
Chloride 103
Carbon Dioxide 28
BUN 18 H
Creatinine 0.8
Glucose 149 H
Calcium 7.0 L
Total Bilirubin 0.3
AST 24
ALT 24
Alkaline Phosphatase 57
Vital Signs:
Vital Signs
Temp Pulse Resp BP Pulse Ox
98.1 F 87 19 142/79 92
08/21/24 07:53 08/21/24 07:53 08/21/24 07:53 08/21/24 07:53 08/21/24 07:53
I&O
08/20/24 08/21/24 08/22/24
06:59 06:59 06:59
Intake Total 1430 / 1430 1550 / 1550
Output Total 700 / 700
Balance 730 / 730 1550 / 1550
Review of Systems
-
History Source: Patient
Respiratory: Reports No Symptoms
Cardiac: Reports No Symptoms
Abdomen/GI: Reports No Symptoms
Genitourinary: Reports No Symptoms
Neuro: Reports No Symptoms
Physical Exam
-
General: No Apparent Distress
Respiratory: Crackles
Cardiac: Irregular Rhythm
GI: Soft and Nontender
Musculoskeletal: No Edema
Skin: Warm
Neuro: AO x 3
Psych: Calm
[2024-08-21] MEDS: DESENEX/MITRAZOL/ZEASORB 1 APPLIC TOPICAL ×2 (10:20→21:27)
[2024-08-21] MEDS: ELIQUIS 5 MG PO ×2 (10:22→21:27)
[2024-08-21] MEDS: TOPROL XL 25 MG PO ×2 (10:22→21:27)
[2024-08-21] MEDS: VISBIOME 1 CAP PO (10:22)
[2024-08-21] MEDS: LANTUS 0.15 UNITS SC (10:22)
[2024-08-21] MEDS: FEMARA 2.5 MG PO (10:22)
[2024-08-21] MEDS: KCL 40 MEQ PO (10:23)
[2024-08-21] MEDS: MAGNESIUM SULFATE 100 IV (10:26)
[2024-08-21] MEDS: NOVOLOG FLEXPEN-MODERATE RESISTANCE SC ×2 (10:30→12:40)
[2024-08-21 11:46] LABS: Glucose - Point of Care 145 mg/dl (70-99)
[2024-08-21] MEDS: LASIX 40 MG IV (11:46)
--- NOTE | 2024-08-21 12:06 | CM ---
Juliana Martin requested pricing for Entresto, Farxiga and Jardiance: No copay for any of these medications. TT sent to Juliana Martin.
Farxiga 10mg $0
Jardiance 10mg $0
Entresto 24-26 mg bid $0
[2024-08-21] MEDS: STERILE WATER FOR INJECTION 10 ML IV (13:55)
[2024-08-21] MEDS: ROCEPHIN 1000 MG IV (13:55)
[2024-08-21 16:48] LABS: Glucose - Point of Care 403 mg/dl (70-99)
[2024-08-21 17:47] LABS: Glucose 185 mg/dl (70-99); Magnesium 1.4 mg/dl (1.6-2.3)
[2024-08-21] MEDS: CALCIUM GLUCONATE 100 IV (17:58)
[2024-08-21] MEDS: VITAMIN D3 (cholecalciferol) 125 MCG PO (18:00)
[2024-08-21] MEDS: NOVOLOG FLEXPEN-MODERATE RESISTANCE 1 UNITS SC (18:01)
[2024-08-21 21:20] LABS: Glucose - Point of Care 146 mg/dl (70-99)
[2024-08-21] MEDS: LIDOCAINE 4% PATCH 1 PATCH TOPICAL (21:26)
[2024-08-22] VITALS (8 sets, daily range): BP systolic 113–165; BP diastolic 57–99; PULSE 59–116; BMI 46.4
[2024-08-22] MEDS: VIBRAMYCIN 260 MG IV (05:18)
[2024-08-22] MEDS: SYNTHROID 137 MCG PO (05:19)
[2024-08-22 07:22] LABS: Glucose - Point of Care 137 mg/dl (70-99)
[2024-08-22 08:13] LABS: Hematocrit 36.9 % (37.0-47.0); Hemoglobin 12.5 g/dL (12.0-16.0); Mean Corp Hgb Conc. 33.9 g/dL (33.0-37.0); Mean Corpuscular Hgb 28.9 pg (27.0-31.0); Mean Corpuscular Volume 85.2 fL (81.0-99.0); Mean Platelet Volume 9.7 fL (7.4-10.4); Platelet Count 217 10^3/uL (130-400); Red Blood Cell Count 4.33 10^6/uL (4.20-5.40); Red Cell Dist. Width 14.6 % (11.5-14.5); White Blood Cell Count 5.1 10^3/uL (4.8-10.8)
--- NOTE | 2024-08-22 08:22 | W.PN.CD ---
Today's Communication / Plan
-
Start Jardiance 10mg
Entresto low dose
increase metop
PO diuretics likely tomorrow
Impression / Plan
-
A: 74 y/o female with metastatic breast cancer, CHF (per OP chart mixed systolic and diastolic, but no EF in chart), DM2 on insulin, hypertension, dyslipidemia, hypothyroidism, severe obesity, osteoarthritis, and right knee septic arthritis on
chronic abx who is here for evaluation of weakness and fatigue found to have PNA, DONNA and hyperkalemia. We are consulted for acute on chronic HFrEF.
Sepsis/PNA:
-getting IV abx
-s/p multiple IVF
Cardiomyopathy:
-EF 35-40%. Unclear if new since OP cardiology note reports combined systolic and diastolic HF. Will try and obtain previous echo.
-consider ischemic evaluation as OP with her primary cardiology team, but with metastatic breast CA, recent DONNA, PNA, would not do this right now.
-Increase metop
- start Entresto low dose and Jardiance 10 mg
Vtmkc-th-strwxbq HFrEF:
-BNP elevated, STALEY noted
-IV lasix today likely PO tomorrow
- does not weight herself at home
Pericardial effusion:
-will need to be reassessed with Eliquis and diuresis- perhaps follow-up study next week (inpatient or OP depending on her course here)
AFIB, type unknown:
-was in SR on admission. Now in AFIB around 100 BPM. Diltiazem transitioned to metoprolol and I will increase dosing.
-Eliquis initiated for her [id number] score of 6 for age, female, HTN, DM, and CHF. She denies bleeding issues or falls.
DONNA:
-resolved
-felt to be from hypotension
Hyperkalemia:
-resolved, actually hypokalemic now
-will replace potassium today
Physical Exam
Vital Signs/Labs
Vital Signs
Temp Pulse Resp BP Pulse Ox
97.8 F 99 22 119/64 94
08/22/24 03:16 08/22/24 03:16 08/22/24 03:16 08/22/24 03:16 08/22/24 03:16
08/21/24 08/22/24 08/23/24
06:59 06:59 06:59
Actual Weight 242 lb 6 oz 245 lb 8 oz
08/22/24 07:15
PT 16.5 Sec (11.4-14.6) H 08/14/24 17:51
INR 1.32 08/14/24 17:51
APTT 42.4 Sec (23.4-35.0) H 08/14/24 17:51
Magnesium 1.4 mg/dl (1.6-2.3) L 08/21/24 17:25
Free T4 1.37 ng/dl (0.78-2.19) 08/15/24 05:04
08/21/24
07:17
Tap-U-Zdiumfbbosz Pept 6370
Physical Exam
Constitutional: No acute distress and Comfortable
EENT: Anicteric
Cardiovascular: Rhythm/rate is irregular
Respiratory: Respiratory effort normal and Lungs clear to auscul.
GI: Soft
Neuro/Psych: AO x 3
Data Reviewed
-
Date of Service: August 22, 2024
EKG: Tracing Personally Visualized and interpreted (af)
Echo: Report Reviewed by me
Labs: Labs Reviewed by me
[2024-08-22 09:10] LABS: Blood Urea Nitrogen 20 mg/dl (7-17); Calcium 6.9 mg/dl (8.4-10.2); Carbon Dioxide 26 mmol/L (22-30); Chloride 104 mmol/L (98-107); Estimated Creatinine Clearance 70 ml/min; Glucose 130 mg/dl (70-99); Potassium 3.7 mmol/L (3.5-5.1); Sodium 139 mmol/L (135-145); eGFR > 60.00
--- NOTE | 2024-08-22 09:15 | W.PN.HOSP.TC ---
Addendum entered and electronically signed by Jaime Caba MD 08/22/24 21:04:
Attending Addendum-
I saw and evaluated the patient. I reviewed the resident�s note and agree with findings and plan as documented in the resident�s note. Sub: Patient feels much improved and stronger. less STALEY. Full 12 point ROS reviewed and negative except as
documented Exam: Vitals reviewed in chart GEN-NAD heart irreg irreg lungs clear abd soft obese ND pos BS LE trace B/L edema - non palp bladder pure wick in place draining concentrated urine
Plan:
#Sepsis 2/2 RUL pneumonia
-resolved
-Vanco/Cefepime switched to Ceftriaxone/Doxy on 08/17/24 continue day 04/04
-Bcx NTD
#DONNA
- no signs of CKD
- resolved
- CT without hydronephrosis
- nephro-signed off
- repeat BMP in am
# Metabolic Acidosis
- resolved
- repeat bmp in am
# Hypokalemia
-resolved
-repeat BMP in am
#Hypomagnesemia
- replete
- repeat mg in am
#Hypophosphatemia
- replete
- repeat in am
# CIMS/TME
- resolved
- infectious vs metabolic
- cont decreased levothyroxine
- no dementia per history
- cont Rocephin and doxy
# AE HFrEF-NEW
- secondary to chemo verzenio?
- Echo 08/20- Moderately reduced left ventricular systolic function. Left ventricular
ejection fraction is 35-40% by visual assessment.
Global hypokinesis.
Diastolic function indeterminate due to atrial fibrillation.
Mitral annular calcification with mild mitral stenosis.
Mild aortic stenosis.
Mild pulmonary hypertension.
- strict I and O daily weights
- additional lasix IV x 1 per cards today
- increase toprol xl
- GDMT
- start Jardiance and Entresto
- cards cinput appreciated
- cath can be done as OP
# A fib-NEW
- cont to monitor on tele
- cont eliquis
- cont toprol XL
- cards on board
# Hypocalcemia
- correct for albumin
- replete
- check in am
# secondary hyperPTH secondary to vit d deficiency-NEW
- cont replacement 125 mcg daily x 6-8wks then maint dose
- repeat level as OP
# Pericardial Effusion
- echo- Small to moderate pericardial effusion without
evidence of hemodynamic compromise.
- cont to monitor closely while on eliquis
# HTN
- DC diltiazem cont toprol XL
- CTM
#Non-obstructive R nephrolithiasis
-Outpatient follow up
# Hypothyroidism
- decreased levothyroxine 175->137
- repeat TSH in 4-6 weeks as OP
# Peripheral Neuropathy
- gabapentin on hold would not restart on DC
#Morbid Obesity/ BMI 45.8
#DM type 2 with neuropathy
- HBa1c 5.9!
-Patient has improved oral intake
-Accuchecks, Insulin SS DM diet
-Cont Lantus with SSI - adjust accordingly may need standing meal time insulin
-sugars better controlled
-DC'd home Levemir
#Hx of R knee prosthetic joint infection
- s/p I and D and liner exchange on 05/12 Dr. Amador - completed course of IV abx 06/25/24
- hold keflex while on IV abx
- cont suppression upon d/c
#Metastatic R breast CA with liver mets
- Upon d/c cont mgmt with existent oncologist in [place]
- temporary holding Verzenio
- cont letrozole
- breast mass appears larger on imaging
# Urinary Retention
- santana removed 08/18
- TOV successful
- cont pure wick
#HLD
cont statin
DVT ppx hep
FUll code
Dispo DC home with VN when able
Time spent coordinating care, review of plan of care with resident, personally reviewed records in EMR, med rec, consults, notes, labs, radiology, d/w nursing, cards, � 57 mins
Original Note:
Today's Communication/Plan
-
Laxitive
Continue lasix per cards
Continue antibiotics day 04/04
Echo for sunday ordered
Discharge pending cardiology clearance
Assessment / Plan
Assessment / Plan
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 She follows at [facility] for cancer and started on Verzenio 1 month ago after which
she felt generally fatigued. She also reported diarrhea. She was admitted with hypotension, DONNA, hyperkalemia due to possible UTI versus right upper lung and right infrahilar lymph node pneumonia and intermittent lethargy. She is improving on
antibiotics. Today improved cognition, interested in eating waffles for breakfast. No bowel movement since admit and pt has some abdominal pain. Plans to get laxitive. Continued slight SOB with some expiratory wheezes.
A/P:
#Sepsis (DONNA, toxic metabolic encephalopathy) 2/2 RUL pneumonia with unspecified organism with acute hypoxic insufficiency
Leukopenia 2/2 CA and sepsis today 4.7
Vanco/cefepime switched to ceftriaxone/doxy on 08/17/24 continue day 04/04
U/A culture yeast
Weaned off O2
#HFrEF
SOB/wheezing
Echo EF 30-45% with global hypokineses
Pro-BNP 6370
Lasix 60 IV one dose per cards
Toprol XL 25mg qd d/c diltiazem -> 25BID -> Toprol XL 50 BID per cards
[id number] PO BID per cards
Repeat echo for sunday per cards
Strict I&O, daily weights
Stop maintenance fluids
No cardiopulmonary edema on chest x-ray
Duonebs as needed
Appreciate cards
#Atrial fibrillation
Patient stated she has been on diltiazem for years
[id number] score 6
d/c dvt prophylaxis and start eliquis 5mg BID
Toprol XL 50 BID
tele
No history of prior bleed
#DONNA with hyperkalemia
resolved
# Metabolic Acidosis/Hypokalemia
resolved
# Agitation/confusion
Significantly improved
UA culture yeast
Continue on ceftriaxone and doxy
Spoke to PCP, No history of dementia
Decrease levothyroxine
#Hypocalcemia
Replete
PTH elevated
Low ironized calcium, vit D, mg and phos
Vit D supplements
Pt allergic to yellow dye so did not want to take the 50,000 IU. Okay with Cholecalciferol 125 daily dose to replete.
# Urinary retention
resolved
#Nausea/Abdominal distension/increased bowel sounds
Obstructive x-ray series revealing non-obstructive pattern
LFTs normal
Lipase wnl
dulcolax suppository originally ordered, pt refused and requested oral. Tried miralax, felt nauseous, requested oral dulcolax. I told pt there is a yellow dye allergy so the other two options would be better for her. She still requested the pill
form and said her reaction is not bad unless she has a lot.
Benadryl prn
#pericardial effusion
Small. noted on ab xray and ab CT 08/15
Hemodynamically stable
Small to moderate pericardial effusion without evidence of hemodynamic compromise
#Wheezing
Repeat chest x-ray
Duonebs
#Hypotension on admission
Currently stable, responded to IVF
Hold BP meds until stabilized
#Non-obstructive R nephrolithiasis
Outpatient follow up
No signs of hydronephrosis on CT
#Morbid Obesity
BMI 45.8
Diabetic diet
#DM type 2 with neuropathy
Patient has poor oral intake - Lantus decreased to avoid hypoglycemia
Accuchecks, Insulin SS, HgbA1c, DM diet
Cont low dose lantus if patient resuming oral intake
#hypothyroidism
Decrease levo from 175 to 137
TSH supressed
Repeat TSH in 4-6 weeks OP
#Hx of R knee prosthetic joint infection
cont suppression upon d/c
#Metastatic R breast CA with liver mets
Upon d/c cont mgmt with existent oncologist in [place]
temporary holding Verzenio
#HLD
cont statin
#Moderately distended gall bladder with cholelithiasis
#Minimal AST elevation
alkaline phos 77
Ultrasound revealed cholelithiasis, but no acute changes
currently no concern for cholecystitis
Spoke with patient and son at length regarding new CHF diagnosis.
DVT eliquis
FUll code
Anticipated Discharge: > 48 hours
Subjective/Interval History
-
Date of Service: August 22, 2024
Objective Data
-
Labs:
Laboratory Results
08/22/24
07:15
WBC 5.1
Hgb 12.5
Hct 36.9 L
Plt Count 217
Sodium 139
Potassium 3.7
Chloride 104
Carbon Dioxide 26
BUN 20 H
Creatinine 0.8
Glucose 130 H
Calcium 6.9 L*
Vital Signs:
Vital Signs
Temp Pulse Resp BP Pulse Ox
97.8 F 103 18 165/98 97
08/22/24 07:20 08/22/24 07:20 08/22/24 07:20 08/22/24 07:20 08/22/24 07:20
I&O
08/21/24 08/22/24 08/23/24
06:59 06:59 06:59
Intake Total 1550 / 1550 960 / 960
Output Total 200 / 200
Balance 1550 / 1550 760 / 760
Review of Systems
-
History Source: Patient
Constitutional: Reports Sleep Disturbance
EENT: Reports No Symptoms Reported
Respiratory: Reports Trouble Breathing
Cardiac: Reports No Symptoms
Abdomen/GI: Reports Abdominal Pain and Constipated; Denies Nausea, Vomiting or Diarrhea
Genitourinary: Reports No Symptoms
Neuro: Reports No Symptoms
Physical Exam
-
General: No Apparent Distress and Comfortable
Respiratory: Clear to Auscultation
Cardiac: Irregular Rhythm
GI: Soft and Tender (RUQ)
Musculoskeletal: No Edema
Neuro: AO x 3
Psych: Calm
[2024-08-22] MEDS: NOVOLOG FLEXPEN-MODERATE RESISTANCE SC ×2 (10:05→12:03)
[2024-08-22] MEDS: FEMARA 2.5 MG PO (10:06)
[2024-08-22] MEDS: ELIQUIS 5 MG PO ×2 (10:06→21:23)
[2024-08-22] MEDS: VISBIOME 1 CAP PO (10:06)
[2024-08-22] MEDS: TOPROL XL 25 MG PO (10:06)
[2024-08-22] MEDS: VITAMIN D3 (cholecalciferol) 125 MCG PO (10:06)
[2024-08-22] MEDS: DESENEX/MITRAZOL/ZEASORB 1 APPLIC TOPICAL ×2 (10:07→21:23)
[2024-08-22] MEDS: CALCIUM GLUCONATE 100 IV (10:10)
[2024-08-22] MEDS: FLUSH (NSS) 2 FLUSH IV ×3 (10:10→17:38)
[2024-08-22] MEDS: FLUSH (NSS) 1 FLUSH IV ×2 (10:13→11:41)
[2024-08-22 10:16] LABS: ALT (SGPT) 22 U/L (0-35); AST (SGOT) 23 U/L (14-36); Albumin 3.1 g/dl (3.5-5.0); Alkaline Phosphatase 51 U/L (38-126); Direct Bilirubin 0.3 mg/dl (0.0-0.4); Magnesium 1.5 mg/dl (1.6-2.3); Total Bilirubin 0.3 mg/dl (0.2-1.3); Total Protein 5.4 g/dl (6.3-8.2)
[2024-08-22] MEDS: LANTUS 0.15 UNITS SC (10:32)
[2024-08-22] MEDS: LASIX 60 MG IV (11:40)
[2024-08-22] MEDS: ENTRESTO 24 MG/26 MG 1 TAB PO ×2 (11:42→21:23)
[2024-08-22 11:46] LABS: Glucose - Point of Care 126 mg/dl (70-99)
[2024-08-22] MEDS: ROCEPHIN 1000 MG IV (12:50)
[2024-08-22] MEDS: STERILE WATER FOR INJECTION 10 ML IV (12:50)
[2024-08-22 16:37] LABS: Glucose - Point of Care 174 mg/dl (70-99)
[2024-08-22] MEDS: NOVOLOG FLEXPEN-MODERATE RESISTANCE 1 UNITS SC (17:37)
[2024-08-22] MEDS: MAGNESIUM SULFATE 102 GRAMS IV (17:38)
[2024-08-22] MEDS: DULCOLAX 5 MG PO (18:03)
[2024-08-22] MEDS: MAGNESIUM SULFATE 100 IV (21:22)
[2024-08-22] MEDS: VIBRAMYCIN 100 MG PO (21:22)
[2024-08-22] MEDS: LIDOCAINE 4% PATCH 1 PATCH TOPICAL (21:22)
[2024-08-22] MEDS: TOPROL XL 50 MG PO (21:23)
[2024-08-22 21:36] LABS: Glucose - Point of Care 139 mg/dl (70-99)
[2024-08-22] MEDS: POTASSIUM PHOSPHATE 259.0909 MEQ IV (22:48)
[2024-08-23 03:00] VITALS: BP 96/51
[2024-08-23 03:45] VITALS: BP 130/76
[2024-08-23] MEDS: SYNTHROID 137 MCG PO (05:28)
[2024-08-23 06:00] VITALS: BMI 45.3
[2024-08-23 07:18] LABS: Glucose - Point of Care 121 mg/dl (70-99)
[2024-08-23 07:55] VITALS: BP 116/55
[2024-08-23] MEDS: FEMARA 2.5 MG PO (09:02)
[2024-08-23] MEDS: ENTRESTO 24 MG/26 MG 1 TAB PO (09:02)
[2024-08-23] MEDS: NOVOLOG FLEXPEN-MODERATE RESISTANCE SC ×2 (09:02→12:52)
[2024-08-23] MEDS: DULCOLAX 5 MG PO (09:03)
[2024-08-23] MEDS: VITAMIN D3 (cholecalciferol) 125 MCG PO (09:03)
[2024-08-23] MEDS: VIBRAMYCIN 100 MG PO (09:05)
[2024-08-23] MEDS: ELIQUIS 5 MG PO (09:05)
[2024-08-23] MEDS: VISBIOME 1 CAP PO (09:05)
[2024-08-23] MEDS: LANTUS 0.15 UNITS SC (09:14)
[2024-08-23] MEDS: TOPROL XL 50 MG PO (09:15)
[2024-08-23] MEDS: DESENEX/MITRAZOL/ZEASORB 1 APPLIC TOPICAL (09:18)
[2024-08-23 09:44] LABS: Blood Urea Nitrogen 19 mg/dl (7-17); Calcium 7.1 mg/dl (8.4-10.2); Carbon Dioxide 27 mmol/L (22-30); Chloride 101 mmol/L (98-107); Estimated Creatinine Clearance 69 ml/min; Glucose 124 mg/dl (70-99); Magnesium 1.7 mg/dl (1.6-2.3); Potassium 3.8 mmol/L (3.5-5.1); Sodium 139 mmol/L (135-145); eGFR > 60.00
--- NOTE | 2024-08-23 09:46 | W.PN.HOSP.TC ---
Today's Communication/Plan
-
Final dose of Rocephin at 1200. Pt clinically improved. Pt to be discharged today with PO Lasix and start Jardiance.
Assessment / Plan
Assessment / Plan
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
A/P:
#Sepsis (DONNA, toxic metabolic encephalopathy) 2/2 RUL pneumonia with unspecified organism with acute hypoxic insufficiency
Leukopenia 2/2 CA and sepsis today 4.7
Pt to be discharged after last dose of Rocephin today at 1200
WBC 5.1, afebrile, stable.
On discharge continue Ceftin
#HFrEF
Echo EF 30-45% with global hypokineses
Pro-BNP 6370 at time of admission
Pt switched to PO Lasix
Start SGLT2-I at discharge.
No cardiopulmonary edema on chest x-ray
Appreciate cards, signed off
To be discharged later today for follow up outpatient
#Atrial fibrillation
Eliquis added during course of admission
Diltizem transitioned to Toprol on admission
#DONNA with hyperkalemia
resolved
# Metabolic Acidosis/Hypokalemia
resolved
# Agitation/confusion
Significantly improved
UA culture yeast
Continue on ceftriaxone and doxy
Spoke to PCP, No history of dementia
Decrease levothyroxine
#Hypocalcemia
Replete
PTH elevated
Low ironized calcium, vit D, mg and phos
Vit D supplements
Pt allergic to yellow dye so did not want to take the 50,000 IU. Okay with Cholecalciferol 125 daily dose to replete.
# Urinary retention
resolved
#pericardial effusion
Small. noted on ab xray and ab CT 08/15
Hemodynamically stable
Small to moderate pericardial effusion without evidence of hemodynamic compromise
Will follow up with cardiology
#Hypotension on admission
Currently stable, responded to IVF
Hold BP meds until stabilized
#Non-obstructive R nephrolithiasis
Outpatient follow up
No signs of hydronephrosis on CT
#Morbid Obesity
BMI 45.8
Diabetic diet
#DM type 2 with neuropathy
Patient has poor oral intake - Lantus decreased to avoid hypoglycemia
Accuchecks, Insulin SS, HgbA1c, DM diet
Cont low dose lantus if patient resuming oral intake
#hypothyroidism
Decrease levo from 175 to 137
TSH supressed
Repeat TSH in 4-6 weeks OP
#Hx of R knee prosthetic joint infection
cont suppression upon d/c
#Metastatic R breast CA with liver mets
Upon d/c cont mgmt with existent oncologist in [place]
temporary holding Verzenio
#HLD
cont statin
Anticipated Discharge: Today
Subjective/Interval History
-
Date of Service: August 23, 2024
Pt resting comfortably, sitting up on side of bed. Pt denies any overnight complaints, in fact expressed a desire to go home when ready. Patient denies CP, SOB, palpitations. Says she is tolerating her diet without nausea vomting or diarrhea.
Objective Data
-
Labs:
Laboratory Results
08/23/24
07:24
WBC Pending
Hgb Pending
Hct Pending
Plt Count Pending
Sodium 139
Potassium 3.8
Chloride 101
Carbon Dioxide 27
BUN 19 H
Creatinine 0.8
Glucose 124 H
Calcium 7.1 L
Vital Signs:
Vital Signs
Temp Pulse Resp BP Pulse Ox
97.5 F 100 22 116/55 96
08/23/24 07:55 08/23/24 07:55 08/23/24 07:55 08/23/24 07:55 08/23/24 07:55
I&O
08/22/24 08/23/24 08/24/24
06:59 06:59 06:59
Intake Total 960 / 960 720 / 720 480 / 480
Output Total 200 / 200 800 / 800 950 / 950
Balance 760 / 760 -80 / -80 -470 / -470
Review of Systems
-
History Source: Patient
Constitutional: Reports No Symptoms
Respiratory: Reports No Symptoms
Cardiac: Reports No Symptoms
Abdomen/GI: Reports No Symptoms
Musculoskeletal: Reports No Symptoms
Neuro: Reports No Symptoms
Physical Exam
-
General: Well Developed, Well Nourished and No Apparent Distress
HEENT: Normocephalic and Atraumatic
Respiratory: Clear to Auscultation
Cardiac: Regular Rhythm
GI: Soft and Nontender
Neuro: Awake and Alert
Psych: Calm
Data Reviewed
-
Labs: Labs Reviewed by me
[2024-08-23 09:54] LABS: Hematocrit 39.7 % (37.0-47.0); Hemoglobin 13.5 g/dL (12.0-16.0); Mean Corpuscular Hgb 28.9 pg (27.0-31.0); Mean Platelet Volume 9.7 fL (7.4-10.4); Platelet Count 299 10^3/uL (130-400); Red Blood Cell Count 4.67 10^6/uL (4.20-5.40); Red Cell Dist. Width 14.9 % (11.5-14.5); White Blood Cell Count 5.1 10^3/uL (4.8-10.8)
--- NOTE | 2024-08-23 10:02 | W.PN.UPDATE ---
Addendum entered and electronically signed by Zhen Treviño MD 08/23/24 14:19:
Total time spent on d/c = 37 min. This included today's physical exam, progress note, review of laboratory and diagnostic data, preparation of discharge documents and prescriptions, and discussions about the pt's hospital course and discharge plan
with the patient and other chief medical technologist involved in the patient's care.
Original Note:
Update Note
Progress Note Update
I saw and evaluated the patient. I reviewed the resident�s note and agree with findings and plan as documented in the resident�s note.
Shortness of breath improving.
Gen: NAD, AAOx3.
Eyes: EOMI, PERRLA, no scleral icterus.
Neck: supple.
CV: irreg/irreg, +S1/S2, no m/r/g.
Resp: Faint rales in the bases
Abd: +BS, soft, NT, ND
Skin: No rashes. Trace bilateral lower extremity edema, right greater than left
Neuro: CN 2-12 intact, non-focal.
Psych: Normal mood and affect.
Echo 08/20/24: EF 35-40% Global hypokinesis. Diastolic function indeterminate due to atrial fibrillation. Mild MS//pulm HTN.
Sepsis due to RUL pneumonia:
-Vanco/Cefepime switched to Ceftriaxone/Doxy on 08/17/24 continue day 05/04
-BCx NTD
-on discharge resume suppressive Ceftin
DONNA and metabolic acidosis:
-resolved
-CT A/P without hydronephrosis
-renal saw and signed off
Acute HFrEF:
-possibly secondary to chemo agent Verzenio
-Echo with EF 35-40%
-seen by cards
-was diuresed with IV lasix
-cont Entresto/Toprol XL
-cardiology likely to start Jardiance and PO diuretics today
Other problems:
Hypokalemia, resolved
Hypomagnesemia, resolved
Hypophosphatemia, resolved
Acute metabolic encephalopathy likely due to infection and metabolic acidosis, resolved
New atrial fibrillation: cont Eliquis/BB
Hypocalcemia: 2g IV calcium gluconate
Secondary hyperparathyroidism secondary to Vit D deficiency: cont Vit D
Non-obstructive R nephrolithiasis
Hypothyroidism: Levoxyl decreased, repeat TFTs in 4-6 weeks
Peripheral diabetic neuropathy: was on neurontin [employer], no plans to restart on d/c
Morbid Obesity due to excess calories
Small to moderate pericardial Effusion
Essential HTN: cont Entresto/Toprol XL
DM2 with diabetic neuropathy: cont Lantus/SSI/accuchecks/diabetic diet
h/o R knee prosthetic joint infection: s/p I&D and liner exchange on 05/12/24, completed course of IV abx on 06/25/24, continue suppressive oral antibiotics on discharge
Acute Urinary Retention, resolved
HLD: restart statin
FULL/Eliquis
--- NOTE | 2024-08-23 10:59 | W.PN.CD ---
Addendum entered and electronically signed by Bobby New MD 08/23/24 11:15:
-
I added Lasix 20 mg a day
I added SGLT2-I to start tomorrow
Should have a bmp in 1-2 weeks after discharge with her PCP or ski production supervisor
Original Note:
Today's Communication / Plan
-
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 Roberts
Agree with adding SGLT2-I at discharge
She knows to see cardiology within 1-2 weeks
I reviewed signs/symptoms of tamponade that would prompt 911 call and return to nearest ER
OK for home from our perspective
We will sign off. Please call with questions
Impression / Plan
-
A: 74 y/o female with metastatic breast cancer, CHF (per OP chart mixed systolic and diastolic, but no EF in chart), DM2 on insulin, hypertension, dyslipidemia, hypothyroidism, severe obesity, osteoarthritis, and right knee septic arthritis on
chronic abx who is here for evaluation of weakness and fatigue found to have PNA, DONNA and hyperkalemia. We are consulted for acute on chronic HFrEF.
Sepsis/PNA, finishing ATBs
Cardiomyopathy with now improved hmqhr-nj-orclmeh HFrEF
-EF 35-40%. Unclear if new since OP cardiology note reports combined systolic and diastolic HF. Will try and obtain previous echo.
-consider ischemic evaluation as OP with her primary cardiology team, but with metastatic breast CA, recent DONNA, PNA, would not do this right now.
-Working on ramping up GDMT
-Add SGLT2-1 at discharge
Pericardial effusion:
-will need to be reassessed with Eliquis and diuresis
- perhaps follow-up study next week (inpatient or OP depending on her course here)
- Patient updated again today by need to see card and have effusion followed and I reviewed symptoms of concern
AFIB, type unknown:
-was in SR on admission. Now in AFIB around 100 BPM. Diltiazem transitioned to metoprolol and dosed increased
-Eliquis initiated for her [id number] score of 6 for age, female, HTN, DM, and CHF. She denies bleeding issues or falls.
DONNA:
-resolved
-felt to be from hypotension
Hyperkalemia:
-resolved, actually hypokalemic now
-will replace potassium today
Subjective:
Feels well. No
Physical Exam
Vital Signs/Labs
Vital Signs
Temp Pulse Resp BP Pulse Ox
97.5 F 100 22 116/55 96
08/23/24 07:55 08/23/24 07:55 08/23/24 07:55 08/23/24 07:55 08/23/24 07:55
08/22/24 08/23/24 08/24/24
06:59 06:59 06:59
Actual Weight 111.357 kg 108.635 kg
08/23/24 07:24
08/23/24 07:24
PT 16.5 Sec (11.4-14.6) H 08/14/24 17:51
INR 1.32 08/14/24 17:51
APTT 42.4 Sec (23.4-35.0) H 08/14/24 17:51
Magnesium 1.7 mg/dl (1.6-2.3) 08/23/24 07:24
Free T4 1.37 ng/dl (0.78-2.19) 08/15/24 05:04
08/21/24
07:17
Nvl-A-Ichatdmqita Pept 6370
Physical Exam
Constitutional: No acute distress
Cardiovascular: Pedal edema is absent and Rhythm/rate is irregular
Respiratory: Respiratory effort normal and Lungs clear to auscul.
GI: Soft
Neuro/Psych: AO x 3
Data Reviewed
-
Date of Service: August 23, 2024
[2024-08-23 11:37] VITALS: BP 115/68
[2024-08-23] MEDS: CALCIUM GLUCONATE 100 IV (11:40)
[2024-08-23] MEDS: FLUSH (NSS) 2 FLUSH IV ×2 (11:40→14:04)
[2024-08-23] MEDS: LASIX 20 MG PO (11:52)
--- NOTE | 2024-08-23 12:15 | CM ---
Addendum entered by Jessie Cheney 08/23/24 15:47:
IMM explained to patient. Verbalized understanding
Original Note:
Patient seen at bedside.
PT recommend HH
Patient had [facility] in past - declines home health at this time.
Lives with family
CM to continue to follow
PLAN: home, declining VN
[2024-08-23 12:32] LABS: Glucose - Point of Care 147 mg/dl (70-99)
--- NOTE | 2024-08-23 13:14 | W.DCSUMMARY ---
Addendum entered and electronically signed by Zhen Treviño MD 08/24/24 08:18:
Read, reviewed, and agree. See same day progress note for additional details.
Original Note:
Discharge Summary
Discharge Data
Date of Admission: 08/14/24
Date of Discharge: 08/23/24
-
Pending Results: No
Hospital Course
Ana Edouard is a 73-year-old female with past medical history of type 2 diabetes mellitus, hypertension, hyperlipidemia, bilateral total knee replacement with lifelong suppressive antibiotic therapy (Ceftin), congestive heart failure, and
breast cancer who presented to the emergency department at [facility] on August 14, 2024 with a chief complaint of weakness. She stated that for 1 day she had been unable to walk and was very tired. She also complained of shortness of
breath and diarrhea. Upon reconciling her medications the patient denied that she had been on any chemotherapy currently for breast cancer. However when speaking with the patient's son, he stated that there has been a significant mental decline
over the past 24 hours. He stated that a new chemotherapy medication had been started about 2-1/2 weeks prior to arrival. It was also noted that the patient was hypotensive and hypoxemic in the emergency department. During emergency department
workup it was discovered on chest x-ray that she had a right sided pneumonia. Her blood work showed hyperkalemia and that shad an acute kidney injury. IV antibiotics were ordered and the patient was subsequently admitted to the hospitalist service
at [facility] for sepsis, acute kidney injury, and toxic metabolic encephalopathy.
Initially during the admission the patient was started on IV antibiotics for coverage of community-acquired pneumonia and supportive care including IV fluids. The patient's blood pressure medications were held because they may have been
contributing to the patient's hypotension and hyperkalemia. The patient's cefuroxime was also held while she was on antibiotics to treat her pneumonia. Additionally the patient's relatively new chemotherapy drug Verzenio was held due to its
potential contribution to the acute kidney injury and infection risk.
Over the course of her admission blood cultures and urine cultures were negative. MRSA, urinary legionella antigen and urinary streptococcus pneumonia antigen were also negative. The patients antibiotics were subsequently tailored to Rocephin and
Doxycycline for narrower coverage of community acquired pneumonia. She completed a 7 day course of her medication. Repeat chest X-ray showed resolution of the pneumonia. The patient's clinical picture and mental status also improved over the course
of her stay. Upon discharge the patient can continue her antibiotic suppressive therapy, Ceftin.
Since the patient was hypotensive at the time of admission, the patient was admitted to the telemetry unit. Over the course of her stay, the patient exhibited irregularly irregular rhythms and telemetry would often show PVCs. The patient was began
on a diltiazem drip, and cardiology was consulted. She was diagnosed with new-onset atrial fibrillation and the diltiazem drip was transitioned to metoprolol for rate control. The patient was also started on Eliquis for anticoagulation, since her
[id number] score was 6. As part of the work up for this new diagnosis, the patient received and echocardiogram. The echocardiogram revealed an ejection fraction of 30-35%. The cardiology team thus also started the patient on Entresto and Jardiance
in addition to metoprolol.
With regards to the patient's acute kidney injury it was thought to be due to prerenal causes in the setting of the patient's hypotension from sepsis. As the patient received fluids and her clinical picture improved the metabolic acidosis resolved
and the patient's creatinine improved to 0.7. The patient's MOLINA inhibitor and hydrochlorothiazide can be resumed after discharge as the DONNA has resolved and was thought to be due to hypotension in the setting of sepsis.
Incidentally during her stay the patient was found to have a vitamin D deficiency. It was recommended that the patient's start replacement therapy at 125 mcg daily for 6 to 8 weeks and then continue on a maintenance dose. It is suggested that once
the patient is discharged to home she should repeat her vitamin D level outpatient, and continue vitamin D replacement therapy as directed by her outpatient primary care provider.
The patient was discharged to home on August 23, 2024 after 9 days of admission.
Discharge Plan
-
Patient Disposition: Home (Routine Discharge)
Discharge Diagnosis/Procedures: Sepsis
Right Upper Lobe Pneumonia
Acute kidney Injury
Acute Exacerbation of Heart Failure with Reduced Ejection Fraction
Acute metabolic encephalopathy secondary to infection and metabolic acidosis
New onset Atrial Fibrillation
Vitamin D Deficiency
Condition: Fair
Diet: Diabetic, Carb Controlled and Other diet
Additional Diets: fluid restrict to 1500cc/day
Activity: As tolerated
Driving Restrictions: Not until seen by your Dr
Blood Work: BMP in 1-2 weeks. Receive script from Primary Care Provider.
Instructions: *PCP/Other Landscape [employer] Member Heart Failure Instructions
Referrals:
Addison Willett MD [Family Provider] - in less than 1 week
Additional Discharge Medication Instructions: Diltiazem transitioned to metoprolol and dose increased
Eliquis initiated for her [id number] score of 6.
Farxiga added at discharge.
Entresto added to regimen.
Prescriptions:
New
metoprolol succinate 50 mg Tablet Extended Release 24 Hr
50 mg PO BID Qty: 30 0RF
furosemide 20 mg Tablet
20 mg PO DAILY Qty: 30 0RF
Eliquis 5 mg Tablet
5 mg PO BID Qty: 30 0RF
dapagliflozin propanediol 10 mg Tablet
10 mg PO DAILY Qty: 30 0RF
Entresto 24-26 mg Tablet
1 tab PO BID Qty: 30 0RF
cholecalciferol (vitamin D3) 125 mcg (5,000 unit) Tablet
125 mcg PO DAILY Qty: 30 0RF
Continued
desloratadine [Clarinex] 5 MG tablet
5 mg PO DAILY
vitamin B complex 1 TAB tablet
1 tab PO DAILY
guaifenesin [Mucus Relief ER] 600 MG tablet extended release 12hr
1,200 mg PO DAILY
levothyroxine 50 MCG tablet
175 mcg PO MOTUWETHFRSA
Patient Comments:
gabapentin 100 MG capsule
200 mg PO DAILY
gabapentin 100 MG capsule
300 mg PO QPM
gabapentin 100 MG capsule
200 mg PO HSPRN PRN (Reason: mild pain)
acetaminophen [Tylenol Extra Strength] 500 MG tablet
1,500 mg PO BID
Levemir U-100 Insulin 1,000 UNITS/10 ML solution
38 units SC Q12H
ibuprofen [Advil] 200 mg Tablet
600 mg PO BID
diclofenac sodium 50 mg Tablet,Delayed Release (Dr/Ec)
100 mg PO BID
letrozole 2.5 mg Tablet
2.5 mg PO DAILY
rosuvastatin 20 mg Tablet
20 mg PO HS
chlorzoxazone 500 MG tablet
500 mg PO TIDPRN PRN (Reason: Muscle cramps)
diphenhydramine HCl 50 mg Capsule
50 mg PO DAILY
cefuroxime axetil 500 mg Tablet
500 mg PO DAILY
Verzenio 100 mg Tablet
100 mg PO BID
Discontinued
diltiazem HCl 240 MG capsule,extended release 24hr
240 mg PO HS
lisinopril-hydrochlorothiazide 20-12.5 mg Tablet
2 tab PO QPM
Discharge Orders:
Discharge Patient (As Directed); Ordered 08/23/24
Ordered By: Mukesh Hugo
Discharge Date and Time
Print Language: MOROCCAN
[2024-08-23] MEDS: ROCEPHIN 1000 MG IV (14:02)
[2024-08-23] MEDS: STERILE WATER FOR INJECTION 10 ML IV (14:03)
[2024-08-23 15:00] VITALS: BP 96/51
--- NOTE | 2024-08-25 11:32 | W.HF.CON ---
Heart Failure
- LV Function
Left ventricular function study result: LV Ejection fraction 36-40%
Ejection Fraction Percentage: 35-40
- ARNI
Patient already on ARNI: Yes
- ACEI/ARB
Patient already on ACEI/ARB: No
Heart Failure ACEI/ARB Not Indicated: Patient ordered/on ARNI
- Beta José Manuel
Patient already on Evidence Based Beta José Manuel: Yes
- Mineralocorticord Receptor Antagonist
Patient already on MRA: No
Heart Failure MRA Contraindication: Hyperkalemia - serum >5, Hypotension
- SGLT-2 Inhibitor
Patient already on SGLT-2 Inhibitor: Yes
- Afib Anticoagulation
Patient already on Anticoagulation for Afib: Yes
- NYHA CHF Classification
NYHA CHF Classification Level: Class III - Symptoms w/ min exertion, interferes w/ nml daily activity
- ACC/AHA Stage
ACC/AHA Stage: Stage C: Symptomatic Heart Failure
[2024-08-25 15:20] LABS: Glucose - Point of Care 78 mg/dl (70-99)
== END 2024-08-23 17:09 | disposition home or self-care (01) | DRG 871 ==
LOC: 4 EAST ACU 21:06
PROVIDERS: Clinical Nurse Specialist Family Health; Family Medicine; Internal Medicine; Nurse Practitioner; Student in an Organized Health Care Education/Training Program; ADMITTING PHYSICIAN Hospitalist; ATTENDING PHYSICIAN Internal Medicine; CONSULT PHYSICIAN Internal Medicine Cardiovascular Disease; CONSULT PHYSICIAN Specialist; EMERGENCY PHYSICIAN Emergency Medicine; FAMILY PHYSICIAN Family Medicine
DX: A41.89 Other specified sepsis (principal); G92.8 Other toxic encephalopathy; J18.9 Pneumonia, unspecified organism; I50.23 Acute on chronic systolic (congestive) heart failure; E87.20 Acidosis, unspecified; N17.9 Acute kidney failure, unspecified; Z68.42 Body mass index [BMI] 45.0-49.9, adult; C78.7 Secondary malignant neoplasm of liver and intrahepatic bile duct; I31.39 Other pericardial effusion (noninflammatory); I42.9 Cardiomyopathy, unspecified; M00.9 Pyogenic arthritis, unspecified; N12 Tubulo-interstitial nephritis, not specified as acute or chronic; F05 Delirium due to known physiological condition; R26.2 Difficulty in walking, not elsewhere classified; R19.7 Diarrhea, unspecified; R42 Dizziness and giddiness; E11.40 Type 2 diabetes mellitus with diabetic neuropathy, unspecified; E78.00 Pure hypercholesterolemia, unspecified; H35.30 Unspecified macular degeneration; I11.0 Hypertensive heart disease with heart failure; R09.02 Hypoxemia; I95.9 Hypotension, unspecified; E03.9 Hypothyroidism, unspecified; E66.01 Morbid (severe) obesity due to excess calories; G89.4 Chronic pain syndrome; E11.36 Type 2 diabetes mellitus with diabetic cataract; E86.0 Dehydration; E87.5 Hyperkalemia; D72.819 Decreased white blood cell count, unspecified; I27.20 Pulmonary hypertension, unspecified; R06.89 Other abnormalities of breathing; N20.0 Calculus of kidney; I48.91 Unspecified atrial fibrillation; E87.6 Hypokalemia; K80.20 Calculus of gallbladder without cholecystitis without obstruction; I49.3 Ventricular premature depolarization; K76.0 Fatty (change of) liver, not elsewhere classified; I34.81 Nonrheumatic mitral (valve) annulus calcification; R33.9 Retention of urine, unspecified; E55.9 Vitamin D deficiency, unspecified; C50.911 Malignant neoplasm of unspecified site of right female breast; E11.42 Type 2 diabetes mellitus with diabetic polyneuropathy; E11.65 Type 2 diabetes mellitus with hyperglycemia; Z96.653 Presence of artificial knee joint, bilateral; Z77.22 Contact with and (suspected) exposure to environmental tobacco smoke (acute) (chronic); Z79.890 Hormone replacement therapy; Z87.891 Personal history of nicotine dependence; Z91.02 Food additives allergy status; Z88.0 Allergy status to penicillin; Z91.048 Other nonmedicinal substance allergy status; Z79.811 Long term (current) use of aromatase inhibitors; Z78.1 Physical restraint status; Z11.52 Encounter for screening for COVID-19; Z79.2 Long term (current) use of antibiotics
CPT/HCPCS: 51701; 70450; 71046; 74022; 74176; 76700; 80048; 80053; 80202; 81003; 81015; 81099; 82248; 82306; 82330; 82570; 82805; 82947; 82962; 83036; 83605; 83690; 83735; 83880; 83970; 84100; 84300; 84439; 84443; 84484; 85025; 85027; 85610; 85730; 87040; 87070; 87086; 87449; 87502; 87811; 87899; 93005; 93306; 94660; 96361; 96365; 96375; 97116; 97163; 97167; 97530; 97535; 99285; J7030

== ENCOUNTER → 2024-10-30 10:07 | Outpatient (REF) | payer OTHER, SELFPAY ==
--- NOTE | 2024-10-30 11:26 | CARDSERVLU ---
Echocardiogram with Lumason completed after protocol screening completed. Allergies verified.
Patent IV site:
IV site flushed with 0.9% NaCl pre and post administration.
Diluted bolus method utilized to enhance visualization of ventricular bond.
Total volume given: ____ mL
Patient tolerated all procedures well without complications.
--- NOTE | 2024-10-30 11:26 | CARDSERVLU ---
Echocardiogram with Lumason completed after protocol screening completed. Allergies verified.
Patent IV site: 22 g angio inserted in right hand, 1st attempt, without incident.
IV site flushed with 0.9% NaCl pre and post administration.
Diluted bolus method utilized to enhance visualization of ventricular bond.
Total volume given: 2 ml total given.
Patient tolerated all procedures well without complications.
IV discontinued and bandage applied after pressure held.
== END ==
LOC: RCS 10:07
PROVIDERS: ATTENDING PHYSICIAN Family Medicine
DX: I49.8 Other specified cardiac arrhythmias (principal); I44.7 Left bundle-branch block, unspecified
CPT/HCPCS: 93225; 93226; 93306; Q9950

== ENCOUNTER 2024-11-03 22:13 | Inpatient (IN) | payer OTHER, SELFPAY ==
--- NOTE | 2024-11-03 15:23 | ED.GENMED ---
ED Provider Triage
<Andrew Mccormack Jr., PA-C - Last Filed: 11/03/24 15:26>
-
Patient seen by provider in Triage?: Seen in Triage
Attestation: A medical screening examination has been initiated by a qualified medical provider. Based on the assessment performed at this time, it has been determined that an emergent medical condition may exist and the patient has been informed
that further medical evaluation and possible additional diagnostic testing may be needed.
HPI: 74-year-old female past medical history of breast cancer with mets to the liver and back. Currently taking oral chemo. Also with concerns of worsening heart failure had an outpatient echo a few days ago and Holter monitor. Currently coming
in for worsening shortness of breath since last night. Significant worsening when laying flat. Initial labs chest x-ray EKG ordered.
GENERAL: Alert , in no apparent distress
EYE: No visual abnormalities.
NECK: Trachea midline
ENT: No visible abnormalities.
LUNGS: No acute respiratory distress
NEUROLOGICAL: Alert and oriented
SKIN: Skin intact. No visible changes.
MUSCULOSKELETAL: Moving extremities normally
PSYCH: Normal and appropriate interaction.
This is a medical evaluation conducted in person to initiate diagnostic evaluation and provide initial therapeutics. Please see further documentation by the treating clinician.
History of Present Illness
<Andrew Mccormack Jr., PA-C - Last Filed: 11/03/24 15:26>
General
Chief Complaint: Breathing Problem
Time Seen by Provider: 11/03/24 19:21
<Tyrell Seymour PA-C - Last Filed: 11/03/24 20:35>
General
Source: patient
Exam Limitations: none
History of Present Illness
History of Present Illness:
74-year-old female with history of breast cancer on Eliquis due to history of atrial fibrillation presents with progressively worsening shortness of breath over the past 5 days. She notes she has trouble laying flat. She is short of breath at
rest. She denies fevers or chest pain. No vomiting. No noted weight gain or leg swelling. No other complaints at this time. Of note she had an echocardiogram performed here in this hospital last week which demonstrated an ejection fraction of
35 to 40%. She also has mitral regurgitation.
Past History
<Andrew Mccormack Jr., PA-C - Last Filed: 11/03/24 15:26>
Past History
ED Past Medical History: Cancer (Breast CA), HTN, Hypercholesterolemia, IDDM and Other (Macular degeneration, )
ED Past Surgical History: (X 3), Gynecological (D&C), Orthopedic (Right and left carpal tunnel, right knee surgery X 2, Left knee replacement), Tonsilectomy and Other (Left breast tumor removed, Cataracts, )
Social History
Tobacco: 2nd hand smoke exposure
Alcohol: None
Drug: None
Personal:
Living: with family
Employment: Employed
Family History
Family History: Other
Phy Exam
<Tyrell Seymour PA-C - Last Filed: 11/03/24 20:35>
Physical Exam
Physical Exam:
General: Well-appearing female with increased work of breathing at rest
HEENT: Normocephalic atraumatic
Heart: Regular rate and rhythm murmur noted
Lungs: Slightly diminished bilaterally likely due to body habitus.
Extremities: Mild pitting edema bilateral lower extremities
Skin is warm no rash or lesion
Scores
<Tyrell Seymour PA-C - Last Filed: 11/03/24 20:35>
Heart Failure Risk
Heart Failure Risk Score: Not Applicable
Course
<Andrew Mccormack Jr., PA-C - Last Filed: 11/03/24 15:26>
Orders/Labs/Results
Orders:
Orders
11/03/24 15:24
Electrocardiogram (*1) Stat
Reason for Study: Other
Other Reason for Exam: chest pain
EKG- Treatment ONCE
CR Chest - 2 Views Urgent
Comment:
Reason For Exam: sob
11/03/24 19:30
Basic Metabolic Panel Urgent
Complete Blood Count/With Diff Urgent
NT-proBNP Urgent
Troponin I Urgent
11/03/24 20:21
Magnesium Routine
Potassium Routine
11/03/24 20:30
Furosemide [Lasix] 40 mg IV NOW STA
11/03/24 21:19
Admit/Transfer Patient As Directed
Co-Sign Provider:
Level of Care: Inpatient admission
Assign to:: Telemetry
Physician / Group: htay
Diagnosis: Acute on chr HFrEF, Prx AF
Reason for Telemetry: Acute Heart Failure
Date to Stop Telemetry: 11/06/24
Time to Stop Telemetry: 11:00
Reason for Hospitalization: Acute on chr HFrEF, Prx AF
Expected length of stay greater than two midnights?: Yes
ELOS- Estimated Length of Stay in days: 5
I certify the patient meets the requirements for IP care: Yes
11/03/24 21:24
Code Status As Directed
Resuscitation Status: Full Code
11/03/24 22:00
Flush (0.9% Sodium Chloride) [Flush (Nss)] See Dose Instructions IV PER PROTOCOL
11/06/24 11:00
DC Protocol for Telemetry ONCE
Abnormal Lab Results
11/03/24
19:30
RBC 3.60 L 10^6/uL
(4.20-5.40)
Hgb 11.3 L g/dL
(12.0-16.0)
Hct 34.7 L %
(37.0-47.0)
MCH 31.4 H pg
(27.0-31.0)
MCHC 32.6 L g/dL
(33.0-37.0)
RDW 17.6 H %
(11.5-14.5)
BUN 22 H mg/dl
(7-17)
Glucose 161 H mg/dl
(70-99)
11/03/24 19:30
11/03/24 20:21
Vital Signs
Initial and Last Documented VS:
Initial Vital Signs
Temp Pulse Resp Pulse Ox
97.9 F 66 16 97
11/03/24 15:23 11/03/24 15:23 11/03/24 15:23 11/03/24 15:23
Last Documented Vital Signs
Temp Pulse Resp BP Pulse Ox
97.9 F 70 18 136/88 95
11/03/24 15:23 11/03/24 19:58 11/03/24 19:58 11/03/24 19:58 11/03/24 19:58
<Tyrell Seymour PA-C - Last Filed: 11/03/24 20:35>
Orders/Labs/Results
Orders:
Orders
11/03/24 15:24
Electrocardiogram (*1) Stat
Reason for Study: Other
Other Reason for Exam: chest pain
EKG- Treatment ONCE
CR Chest - 2 Views Urgent
Comment:
Reason For Exam: sob
11/03/24 19:30
Basic Metabolic Panel Urgent
Complete Blood Count/With Diff Urgent
NT-proBNP Urgent
Troponin I Urgent
11/03/24 20:21
Magnesium Routine
Potassium Routine
11/03/24 20:30
Furosemide [Lasix] 40 mg IV NOW STA
11/03/24 21:19
Admit/Transfer Patient As Directed
Co-Sign Provider:
Level of Care: Inpatient admission
Assign to:: Telemetry
Physician / Group: htay
Diagnosis: Acute on chr HFrEF, Prx AF
Reason for Telemetry: Acute Heart Failure
Date to Stop Telemetry: 11/06/24
Time to Stop Telemetry: 11:00
Reason for Hospitalization: Acute on chr HFrEF, Prx AF
Expected length of stay greater than two midnights?: Yes
ELOS- Estimated Length of Stay in days: 5
I certify the patient meets the requirements for IP care: Yes
11/03/24 21:24
Code Status As Directed
Resuscitation Status: Full Code
11/03/24 22:00
Flush (0.9% Sodium Chloride) [Flush (Nss)] See Dose Instructions IV PER PROTOCOL
11/06/24 11:00
DC Protocol for Telemetry ONCE
Abnormal Lab Results
11/03/24
19:30
RBC 3.60 L 10^6/uL
(4.20-5.40)
Hgb 11.3 L g/dL
(12.0-16.0)
Hct 34.7 L %
(37.0-47.0)
MCH 31.4 H pg
(27.0-31.0)
MCHC 32.6 L g/dL
(33.0-37.0)
RDW 17.6 H %
(11.5-14.5)
BUN 22 H mg/dl
(7-17)
Glucose 161 H mg/dl
(70-99)
11/03/24 19:30
11/03/24 20:21
Vital Signs
Initial and Last Documented VS:
Initial Vital Signs
Temp Pulse Resp Pulse Ox
97.9 F 66 16 97
11/03/24 15:23 11/03/24 15:23 11/03/24 15:23 11/03/24 15:23
Last Documented Vital Signs
Temp Pulse Resp BP Pulse Ox
97.9 F 70 18 136/88 95
11/03/24 15:23 11/03/24 19:58 11/03/24 19:58 11/03/24 19:58 11/03/24 19:58
<Tyrell Seymour PA-C - Last Filed: 11/03/24 20:35>
MDM/Problems Addressed
Differential Diagnosis Includes:
Increased work of breathing. Consider CHF versus pneumonia versus viral illness such as COVID or flu. Unlikely to be PE secondary to anticoagulated state.
On exam she does seem somewhat volume overloaded. Chest x-ray shows cardiomegaly with pulmonary edema.
COVID and flu are pending. I reviewed echocardiogram from last week. Patient is on 20 mg of Lasix daily.
<Tyrell Seymour PA-C - Last Filed: 11/03/24 20:35>
*Critical Care Note
Total Time (30-74mins, 75-104mins- exclusive of procedures): Not Applicable
<Tyrell Seymour PA-C - Last Filed: 11/03/24 20:35>
Update Note
Update Note:
Workup demonstrates pulmonary edema with cardiomegaly. BNP is elevated. She is dyspneic at rest. Suspect volume overload/CHF exacerbation. Recent echo shows ejection fraction 35%. Lasix ordered IV will admit to hospital for CHF exacerbation
ED Attending Note
<Andrew Mccormack Jr., PA-C - Last Filed: 11/03/24 15:26>
-
Portions of this chart may have been created with voice recognition software.� Occasional wrong word or��sound alike� substitutions may have occurred due to the inherent limitations of voice recognition software.
Discharge Plan
Departure
Patient Disposition: Admit
Date of Disposition: 11/03/24
Time of Disposition: 20:31
Presentation/result/management discussed w/ accepting MD/DO: Hospitalist
Discharge Problem:
CHF (congestive heart failure)
Prescriptions:
No Action
desloratadine [Clarinex] 5 MG tablet
5 mg PO DAILY
vitamin B complex 1 TAB tablet
1 tab PO DAILY
levothyroxine 50 MCG tablet
175 mcg PO MOTUWETHFRSA
Patient Comments:
11/03/24: Patient states it must be Synthroid brand
gabapentin 100 MG capsule
200 mg PO DAILY
gabapentin 100 MG capsule
300 mg PO QPM
gabapentin 100 MG capsule
200 mg PO HSPRN PRN (Reason: mild pain)
acetaminophen [Tylenol Extra Strength] 500 MG tablet
1,000 mg PO BID
ibuprofen [Advil] 200 mg Tablet
600 mg PO BID
diclofenac sodium 50 mg Tablet,Delayed Release (Dr/Ec)
100 mg PO BID
letrozole 2.5 mg Tablet
2.5 mg PO DAILY
rosuvastatin 20 mg Tablet
20 mg PO HS
chlorzoxazone 500 MG tablet
500 mg PO TIDPRN PRN (Reason: Muscle cramps)
diphenhydramine HCl 50 mg Capsule
50 mg PO DAILYPRN PRN (Reason: cold symptoms/allergies)
cefuroxime axetil 500 mg Tablet
500 mg PO DAILY
metoprolol succinate 50 mg Tablet Extended Release 24 Hr
50 mg PO BID Qty: 30 0RF
furosemide 20 mg Tablet
20 mg PO DAILY Qty: 30 0RF
Eliquis 5 mg Tablet
5 mg PO BID Qty: 30 0RF
sacubitril-valsartan [Entresto] 24-26 mg Tablet
1 tab PO BID Qty: 30 0RF
calcium carbonate [Calcium 600] 600 mg calcium (1,500 mg) Tablet
600 mg PO DAILY
mirtazapine 15 mg Tablet
15 mg PO HS
cholecalciferol (vitamin D3) 125 mcg (5,000 unit) tablet
125 mcg PO WE
Referrals:
Addison Willett MD [Family Provider] -
Interventions
Interventions:
*Risk Screen - Suicide Last Done: 11/03/24 15:23
*Neglect/Abuse Screening Last Done: 11/03/24 15:23
ED- Fall Risk Assessment Last Done: 11/03/24 19:57
ED- Cardiac Assessment Last Done: 11/03/24 19:57
ED- Pulmonary Assessment Last Done: 11/03/24 19:57
Discharge Date and Time
Print Language: PORTUGUESE
[2024-11-03 17:26] VITALS: BP 130/84
[2024-11-03 19:58] VITALS: BP 136/88
[2024-11-03 19:58] LABS: % Eosinophils 1.8 % (0-6); % Immature Granulocytes 0.1 % (0-0.5); % Lymphocytes 27.2 % (20.5-51.1); % Monocytes 8.2 % (1.7-9.3); % Neutrophils 61.7 % (42.2-75.2); Absolute Basophils 0.1 10^3/uL (0-0.2); Absolute Eosinophils 0.1 10^3/uL (0-0.7); Absolute Lymphocytes 2.1 10^3/uL (1.2-3.4); Absolute Monocytes 0.6 10^3/uL (0.1-0.6); Absolute Neutrophils 4.7 10^3/uL (1.4-6.5); Hematocrit 34.7 % (37.0-47.0); Hemoglobin 11.3 g/dL (12.0-16.0); Mean Corp Hgb Conc. 32.6 g/dL (33.0-37.0); Mean Corpuscular Hgb 31.4 pg (27.0-31.0); Mean Corpuscular Volume 96.4 fL (81.0-99.0); Mean Platelet Volume 9.3 fL (7.4-10.4); Nucleated Red Blood Cells % 0 %; Platelet Count 319 10^3/uL (130-400); Red Cell Dist. Width 17.6 % (11.5-14.5); White Blood Cell Count 7.7 10^3/uL (4.8-10.8)
[2024-11-03 20:14] LABS: Blood Urea Nitrogen 22 mg/dl (7-17); Calcium 9.6 mg/dl (8.4-10.2); Carbon Dioxide 26 mmol/L (22-30); Chloride 107 mmol/L (98-107); Glucose 161 mg/dl (70-99); Sodium 140 mmol/L (135-145); eGFR > 60.00
[2024-11-03 20:25] LABS: NT-proBNP 9870 pg/ml; Troponin I < 0.012 ng/ml
[2024-11-03] MEDS: LASIX 40 MG IV (20:41)
[2024-11-03 20:54] LABS: Potassium 4.4 mmol/L (3.5-5.1)
--- NOTE | 2024-11-03 21:14 | HPS.HSE ---
Family Physician
-
Family Physician: Addison Willett
Chief Complaint
-
progressive SoB
History of Present Illness
HPI
74F 73-year-old female with past medical history of type 2 diabetes mellitus, hypertension, hyperlipidemia
74F HX Chr HFrEF, HX Prx AF, chr Eliquis, HTN, HLD, IDM HX met breast CA sen at ER
- worsening shortness of breath over the past 5 days
- today SoB at rest , cannot lie flat
- TTE this week shows EF 35- 40
ROS:
She denies fevers or chest pain.
No weight gain or leg swelling.
Medical History
Past Medical History
Past Medical History: Reports Other
Additional Past Medical History:
DM-II
Diabetic Neuropathy
Hypertension
Dyslipidemia
Hypothyroidism
Morbid Obesity
Right Breast Invasive Ductal Carcinoma
Chronic Pain Syndrome
Past Surgical History: Reports Other
Additional Past Surgical History:
Right Total Knee Replacement - Jul 2015
Left Total Knee Replacement with Revision - January 2017 / Aug 2021
Right Knee Wash Out - April 2024
Social History
Tobacco: Former Smoker (Quit 40 years ago)
Alcohol: None
Family History
Family History: Not pertinent
Allergies / Home Medications
Allergies reflects when Allergies were last updated in [facility].
Home Medications with original date entered in [facility]
Allergy/Medication List:
Allergies
Allergy/AdvReac Type Severity Reaction Status Date / Time
feathers Allergy Shortness Verified 10/11/21 12:03
of Breath
Penicillins Allergy Hives & Verified 05/13/24 09:45
Itching 30
years ago
red dye Allergy Itchy and Verified 10/11/21 12:03
Hives
yellow dye Allergy itching Verified 10/11/21 12:03
and hives
Environmental Allergy Congestion Uncoded 09/26/21 10:58
Home Medications
desloratadine 5 mg tablet (Clarinex) 5 mg PO DAILY Allergies 02/12/17
guaifenesin 600 mg tablet, extended release 12 hr (Mucus Relief ER) 1,200 mg PO DAILY Congestion 09/06/21
levothyroxine 50 mcg tablet 175 mcg PO MOTUWETHFRSA Thyroid 09/06/21
vitamin B complex 1 tab PO DAILY Supplement 09/06/21
diltiazem HCl 240 mg capsule,extended release 24 hr 240 mg PO HS Heart Disease/Condition 10/11/21
gabapentin 100 mg capsule 200 mg PO DAILY Pain 10/11/21
gabapentin 100 mg capsule 200 mg PO HSPRN PRN mild pain 10/11/21
gabapentin 100 mg capsule 300 mg PO QPM Pain 10/11/21
acetaminophen 500 mg tablet (Tylenol Extra Strength) 1,500 mg PO BID Pain 10/12/21
insulin detemir U-100 100 unit/mL subcutaneous solution (Levemir U-100 Insulin) 38 units SC Q12H Diabetes 10/12/21
chlorzoxazone 500 mg tablet 500 mg PO TIDPRN PRN Muscle cramps 05/12/24
diclofenac sodium 50 mg tablet,delayed release 100 mg PO BID 05/12/24
ibuprofen 200 mg tablet (Advil) 600 mg PO BID Pain 05/12/24
letrozole 2.5 mg tablet 2.5 mg PO DAILY Cancer 05/12/24
lisinopril 20 mg-hydrochlorothiazide 12.5 mg tablet 2 tab PO QPM Blood Pressure 05/12/24
rosuvastatin 20 mg tablet 20 mg PO HS High Cholesterol 05/12/24
abemaciclib 100 mg tablet (Verzenio) 100 mg PO BID 08/14/24
cefuroxime axetil 500 mg tablet 500 mg PO DAILY 08/14/24
diphenhydramine HCl 50 mg capsule 50 mg PO DAILY 08/14/24
Review of Systems
-
Constitutional: Reports No Symptoms
EENT: Reports No Symptoms
Respiratory: Reports See HPI and Trouble Breathing
Cardiac: Reports No Symptoms
Abdomen/GI: Reports No Symptoms
: Reports No Symptoms
Musculoskeletal: Reports No Symptoms
Skin: Reports No Symptoms
Neurological: Reports No Symptoms
Endocrine: Reports No Symptoms
Hematologic/Lymphatic: Reports No Symptoms
Physical Exam
Vital Signs
Vital Signs
Temp Pulse Resp BP Pulse Ox
97.9 F 70 18 136/88 95
11/03/24 15:23 11/03/24 19:58 11/03/24 19:58 11/03/24 19:58 11/03/24 19:58
Physical Exam
General: Other (74y F is interactive, but weak, sluggish. Not in acute distress.)
HEENT: Other (Dry MM. Thick neck.)
Respiratory: Other (Decreased BS bilaterally - otherwise clear.)
Cardiac: Irregular Rhythm and Tachycardia
GI: Non Tender, Non Distended, Normal Bowel Sounds and Other (Obese)
Musculoskeletal: No Clubbing, No Cyanosis and Other (Dry skin of extremities.)
Neuro: Awake, Alert and Nonfocal/grossly intact
Laboratory Results
-
11/03/24 19:30
11/03/24 20:21
Laboratory Results
Total Bilirubin Cancelled 11/03/24 19:30
AST Cancelled 11/03/24 19:30
ALT Cancelled 11/03/24 19:30
Alkaline Phosphatase Cancelled 11/03/24 19:30
Troponin I < 0.012 ng/ml 11/03/24 19:30
Data Reviewed
-
Medical Tests (Nuc Med, Echo, EKG etc): Report Reviewed by me
Lab Data: Labs Reviewed by me
Old Records: Reviewed
Impression/Plan
-
Vital Signs
Temp Pulse Resp BP Pulse Ox
97.9 F 70 18 136/88 95
11/03/24 15:23 11/03/24 19:58 11/03/24 19:58 11/03/24 19:58 11/03/24 19:58
Data
Laboratory Tests
08/21/24 11/03/24
07:17 19:30
WBC 7.7
Hgb 11.3 L
BUN 22 H
Creatinine 0.9
eGFR > 60.00
Troponin I < 0.012
Ftd-R-Jwydhlskxik Pept [id number]
CXR
1. Mild interstitial and alveolar cardiogenic pulmonary edema.
2. MODERATE to SEVERE CARDIOMEGALY.
3. Suspected pericardial effusion.
4. Small band of peripheral subsegmental atelectasis in the left mid lung.
5. Previous left mastectomy.
EKG:
ATRIAL FIBRILLATION WITH PREMATURE VENTRICULAR OR ABERRANTLY CONDUCTED
COMPLEXES
LOW VOLTAGE QRS
CANNOT RULE OUT ANTERIOR INFARCT , AGE UNDETERMINED
ABNORMAL ECG
WHEN COMPARED WITH ECG OF 16-AUG-2024 04:01,
NONSPECIFIC T WAVE ABNORMALITY NOW EVIDENT IN INFERIOR LEADS
Confirmed by MD AMIRA, GEMMA Long ([id number]) on 11/03/2024 4:51:37 PM
10/30/24 TTE
LVEF 35-40%,
Global hypokinesis. Wall motion is also consistent with conduction abnormality.
-Enlarged right ventricular size. Normal right ventricular systolic function.
-Severely dilated left atrium. Severely dilated right atrium.
-Mild to moderate MS peak/mean gradients are 13/4 mmHg.
- Mild to moderate MR
-Mild to moderate ; peak/mean gradients are 29/13 mmHg, calculated SESAR is 1.4 cm2.
-Moderate TR . Estimated pulmonary artery pressure of 55-60 mmHg.
-Small to moderate pericardial effusion without evidence of hemodynamic
compromise.
Compared to prior study of 08/20/24 slightly progressive mitral regurgitation
and tricuspid regurgitation are noted.
Last hospitalist admission: Date of Admission: 08/14/24 - Date of Discharge: 08/23/24
DC DXs
Sepsis
Right Upper Lobe Pneumonia
Acute kidney Injury
Acute Exacerbation of Heart Failure with Reduced Ejection Fraction
Acute metabolic encephalopathy secondary to infection and metabolic acidosis D Dxes:
ASSESSMENT & PLAN
Pending Rx reconciliation
Acute on chr HFrEF with LVEF 35- 40s
- Orthopnic
- Dilated CM with multi valvular heart dz ( Mild to moderate MS & MR, Mild to moderate with onesimo.SESAR is 1.4 cm2, mod TR )
- IV Lasix 40 daily
- on GDMT - on Jardiance and Entresto since last admission
- on Toprol XL ?
- daily Wt, and IOs
- CBC card consult Xander Capone
Prx AF
- cont Eliquis
- cont Toprol XL
HX Pericardial Effusion
Last TE ; Small to moderate pericardial effusion without evidence of hemodynamic compromise.
- cont to monitor closely while on eliquis
Essential HTN
- on Toprol XL
- Entresto
HLD
- on statin
Hypothyroidism
- on levothyroxine 137
Non-obstructive R nephrolithiasis
- Outpatient follow up
Peripheral Neuropathy
- on gabapentin
T2DM with neuropathy
- last A1C 5.9
- ISS low
- cont Lantus
HX Metastatic R breast CA with liver mets
- Primary oncologist in [place]
- temporary holding Verzenio
- cont letrozole
Morbid Obesity/ BMI 45.8
DVT Px: on Eliquis
Full code
IP TLM
[2024-11-03 22:28] VITALS: BP 132/78
[2024-11-04] VITALS (10 sets, daily range): BP systolic 106–137; BP diastolic 47–85; PULSE 106; O2SAT 95; BMI 45.6; BMI 43.8
[2024-11-04] MEDS: NEURONTIN 200 MG PO ×3 (02:22→17:58)
--- NOTE | 2024-11-04 03:43 | PTCARENOTE ---
admitted pt from ED , arrived via stretcher, able to walk to the bathroom then prefered sleeping in the recliner chair. SOB on exertion but pt states that it is getting better after Lasix dose. Orineted to her room, call gallo within reach.
[2024-11-04 07:27] LABS: Glucose - Point of Care 121 mg/dl (70-99)
[2024-11-04] MEDS: LANTUS 0.38 UNITS SC (08:10)
[2024-11-04] MEDS: ENTRESTO 24 MG/26 MG 1 TAB PO ×2 (08:10→20:35)
[2024-11-04] MEDS: FARXIGA 10 MG PO (08:11)
[2024-11-04] MEDS: ELIQUIS 5 MG PO ×2 (08:11→20:35)
[2024-11-04] MEDS: LASIX 40 MG IV ×2 (08:11→16:54)
[2024-11-04] MEDS: FEMARA 2.5 MG PO (08:11)
[2024-11-04 08:30] LABS: Blood Urea Nitrogen 21 mg/dl (7-17); Calcium 9.6 mg/dl (8.4-10.2); Carbon Dioxide 27 mmol/L (22-30); Chloride 104 mmol/L (98-107); Estimated Creatinine Clearance 70 ml/min; Glucose 120 mg/dl (70-99); Potassium 4.6 mmol/L (3.5-5.1); Sodium 141 mmol/L (135-145); eGFR > 60.00
[2024-11-04 08:40] LABS: Glycohemoglobin (HgbA1c) 5.9 % (4.0-5.6)
[2024-11-04] MEDS: SYNTHROID 175 MCG PO (09:17)
--- NOTE | 2024-11-04 09:45 | W.PN.HOSP.TC ---
Today's Communication/Plan
-
Cont IV Lasix
Cards Cx
Will Call [facility] providers and update
PT eval
Assessment / Plan
Assessment / Plan
10/30/24 TTE
LVEF 35-40%,
Global hypokinesis. Wall motion is also consistent with conduction abnormality.
-Enlarged right ventricular size. Normal right ventricular systolic function.
-Severely dilated left atrium. Severely dilated right atrium.
-Mild to moderate MS peak/mean gradients are 13/4 mmHg.
- Mild to moderate MR
-Mild to moderate ; peak/mean gradients are 29/13 mmHg, calculated SESAR is 1.4 cm2.
-Moderate TR . Estimated pulmonary artery pressure of 55-60 mmHg.
-Small to moderate pericardial effusion without evidence of hemodynamic
compromise.
Compared to prior study of 08/20/24 slightly progressive mitral regurgitation
and tricuspid regurgitation are noted.
Last hospitalist admission: Date of Admission: 08/14/24 - Date of Discharge: 08/23/24
DC DXs
Sepsis
Right Upper Lobe Pneumonia
Acute kidney Injury
Acute Exacerbation of Heart Failure with Reduced Ejection Fraction
Acute metabolic encephalopathy secondary to infection and metabolic acidosis D Dxes:
#Acute on chr HFrEF with LVEF 35- 40s
- Orthopneic , improved s/p 2 doses IV lasix (one yesterday, one today)
- Dilated CM with multi valvular heart dz ( Mild to moderate MS & MR, Mild to moderate with onesimo.SESAR is 1.4 cm2, mod TR )
- IV Lasix 40 daily- continue for now, pending recs from [facility].
- on GDMT - on Jardiance and Entresto since last admission
- on metoprolol
- daily Wt, and IOs
- Consult Cards Dr. New pending
-pt sees Dr. Roberts at [place] however this is far away for her (he moved), and has a new pt apt with [facility], Dr. Castellon at [place] this Sunday, they may be discussing pacemaker at next apt per pt.
Prx AF , rate controlled
- cont Eliquis
- cont BB
HX Pericardial Effusion
Last TE ; Small to moderate pericardial effusion without evidence of hemodynamic compromise.
- cont to monitor closely while on Eliquis, consider repeat echo pending Cards recs
Essential HTN
- on BB
- Entresto
HLD
- on statin
Hypothyroidism
- on levothyroxine 137 , continue, normal TSH
Non-obstructive R nephrolithiasis
- Outpatient follow up
Peripheral Neuropathy
- on gabapentin
T2DM with neuropathy
- last A1C 5.9
- ISS low
- cont Lantus , monitor glucose
HX Metastatic R breast CA with liver mets
- Primary oncologist in [place], goes to [facility]- [facility] providers (Alanis Hutson or Lisandro Barksdale) are asking for updates- will call them at [phone] pending Cards Cx.
- temporary holding Verzenio
- cont letrozole
Morbid Obesity/ BMI 45.8
DVT Px: on Eliquis
Full code
IP TLM
Anticipated Discharge: 24 - 48 hours
Subjective/Interval History
-
Date of Service: November 04, 2024
Net fluid balance -660, urinating well s/p IV Lasix this am. Improving dyspnea. Sitting up in chair without difficulty. No CP, no dysuria, no palpitations.
Objective Data
-
Labs:
Laboratory Results
11/04/24
06:36
Sodium 141
Potassium 4.6
Chloride 104
Carbon Dioxide 27
BUN 21 H
Creatinine 0.8
Glucose 120 H
Calcium 9.6
Vital Signs:
Vital Signs
Temp Pulse Resp BP Pulse Ox
97.3 F 74 16 122/64 95
11/04/24 07:05 11/04/24 08:10 11/04/24 07:05 11/04/24 08:11 11/04/24 07:05
I&O
11/03/24 11/04/24 11/05/24
06:59 06:59 06:59
Intake Total 240 / 240
Output Total 900 / 900
Balance -660 / -660
Review of Systems
-
History Source: Patient
All other systems: Reviewed and negative
Physical Exam
-
General: Well Developed, Well Nourished, No Apparent Distress and Comfortable
HEENT: Normocephalic, Atraumatic and Moist Mucous Membranes
Respiratory: Clear to Auscultation
Cardiac: Regular Rhythm and Irregular Rhythm
GI: Soft, Nontender and Nondistended
Musculoskeletal: No Clubbing, No Cyanosis, Edema, Right Lower Extrem (tight 1+ pitting edema) and Edema, Left Lower Extrem (tight, 1+ pitting edema)
Skin: Warm and Dry
Neuro: AO x 3 and No Motor Deficits
Psych: Calm
Data Reviewed
-
Diagnostic Radiology: Image personally visualized and interpreted and Report Reviewed by me
Labs: Labs Reviewed by me and Discussed with Patient
[2024-11-04 12:03] LABS: Glucose - Point of Care 126 mg/dl (70-99)
--- NOTE | 2024-11-04 12:12 | CON.CAR ---
Addendum entered and electronically signed by Bobby New MD 11/04/24 16:15:
-
Her [place] at [place] Drs. Lisandro Barksdale and Alanis Hutson [phone] were called by me. I provided update.
Her Oncologist feels that her breast cancer is responding to hormonal therapy and life expectancy is probably in the 5-7 years.
We may be more aggressive with her heart failure.
Pericardial effusion will to be monitored. I looked at images and it seems moderate in size w/o tamponade features and stable from 07/2024.
Addendum entered and electronically signed by Bobby New MD 11/04/24 15:55:
I saw and examined the patient.
The [employer]'s note was reviewed and I agree with the note.
Comment:
HFrEF, acute on chronic, etiology of reduced EF is uncertain
- In light of her met breast ca we are anticipating a conservative strategy
AFib, persistent, onset Jul 2024
- Holter 10/30/2023: 100% AFib, Av rate 70 bpm. No significant bradycardia. Zero% bradycardia, longest pause 2 sec
- She has missed at least one dose of Eliquis in last several weeks
- Can consider referral for ablation
Mild/mod multivalve heart disease
Small to moderate pericardial effusion
- Monitor over time on her newer Elquis
NSVT on recent Holter
- If life expectancy is less than 1 year then would not offer her an ICD
- Would need to quote higher risk of device infection given known chronic joint infction
- As outpatient can reach out to her oncologist
DM
Mixed hyperlipidemia
Chronic knee infection of prosthesis, on chronic suppressive ATB
Morbid obesity, BMI 43.8
Metastatic breast cancer (estrogen/progesterone receptor positive)
- CT 06/2024: Right breast malignancy with stable number of hepatic metastases, however due to the metastases demonstrate mild interval growth since the MRI acquired on 04/23/2024. Furthermore, there are enlarged right axillary, upper abdominal,
retroperitoneal, and pelvic lymph nodes suspicious for rosalina metastases. These are detailed in body of report. No evidence of osseous or pulmonary metastatic disease. Trace left pleural effusion. Small pericardial effusion.
Plan:
- Intensify med rx: resume her new SGLT2-I (zero co-pay), add MRA, increase HF BB, continue ARNI and later increase to goal doses
- IV diuresis
- issues for future: 1) monitor pericardial effusion, 2) decide rate vs rhythm control approach, 3) learn life expectancy from her breast cancer to help decide if ICD can be offered, 4) advance HF meds
- HIGH RISK patient
Original Note:
Consultation
Consultation Request
Date/Time Consultation Requested: 11/04/2024 10:00
Date/Time Consultation Performed: 11/04/2024 11:30
Requesting Provider: Dr. Caldera
Performing Provider: LORETA Isaac for Dr. New
Reason for Consultation: Acute on chronic HF
Medical History
-
Chief Complaint: weakness
History of Present Illness:
Ana Weinberg is a 74 year old female (known to Dr. Roberts, planning to transfer to Dr. Castellon), with metastatic breast cancer, HFrEF, type 2 DM on insulin, hypertension, dyslipidemia, hypothyroidism, severe obesity, osteoarthritis, and right
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 Her shortness of breath started at least 3 days prior to arrival. She presented when she had shortness of breath with minimal activity. She endorsed
orthopnea. No significant weight gain. She is feeling better today. Cardiology was consulted for acute on chronic HFrEF.
Past Medical History
Past Medical History: Arrhythmias (NSVT), Cancer (Metastatic breast cancer), CHF (HFrEF), HTN, Hypercholesterolemia, Hypothyroidism, IDDM (DM2 on insulin) and Other (obesity)
Past Surgical History: Orthopedic
Social History
Tobacco: Former Smoker
Alcohol: None
Living: With Family
Family History
Family History: Reviewed & Not Pertinent
Allergies / Home Medications
Allergy/AdvReac Type Severity Reaction Status Date / Time
feathers Allergy Shortness Verified 11/03/24 15:26
of Breath
Penicillins Allergy Hives & Verified 11/03/24 15:26
Itching 30
years ago
red dye Allergy Itchy and Verified 11/03/24 15:26
Hives
yellow dye Allergy itching Verified 11/03/24 15:26
and hives
Environmental Allergy Congestion Uncoded 11/03/24 15:26
�Medication �Instructions �Recorded �Confirmed �Type
desloratadine 5 mg tablet 5 mg PO DAILY Allergies 02/12/17 11/03/24 History
(Clarinex)
levothyroxine 50 mcg tablet 175 mcg PO MOTUWETHFRSA Thyroid 09/06/21 11/03/24 History
vitamin B complex 1 tab PO DAILY Supplement 09/06/21 11/03/24 History
gabapentin 100 mg capsule 200 mg PO DAILY Pain 10/11/21 11/03/24 History
gabapentin 100 mg capsule 200 mg PO HSPRN PRN mild pain 10/11/21 11/03/24 History
gabapentin 100 mg capsule 300 mg PO QPM Pain 10/11/21 11/03/24 History
acetaminophen 500 mg tablet 1,000 mg PO BID Pain 10/12/21 11/03/24 History
(Tylenol Extra Strength)
chlorzoxazone 500 mg tablet 500 mg PO TIDPRN PRN Muscle cramps 05/12/24 11/03/24 History
diclofenac sodium 50 mg 100 mg PO BID Pain 05/12/24 11/03/24 History
tablet,delayed release
ibuprofen 200 mg tablet (Advil) 600 mg PO BID Pain 05/12/24 11/03/24 History
letrozole 2.5 mg tablet 2.5 mg PO DAILY Cancer 05/12/24 11/03/24 History
rosuvastatin 20 mg tablet 20 mg PO HS High Cholesterol 05/12/24 11/03/24 History
cefuroxime axetil 500 mg tablet 500 mg PO DAILY Infection 08/14/24 11/03/24 History
diphenhydramine HCl 50 mg capsule 50 mg PO DAILYPRN PRN cold 08/14/24 11/03/24 History
symptoms/allergies
apixaban 5 mg tablet (Eliquis) 5 mg PO BID #30 tabs 08/23/24 11/03/24 Rx
furosemide 20 mg tablet 20 mg PO DAILY #30 tabs 08/23/24 11/03/24 Rx
metoprolol succinate 50 mg 50 mg PO BID #30 tabs 08/23/24 11/03/24 Rx
tablet,extended release 24 hr
sacubitril 24 mg-valsartan 26 mg 1 tab PO BID #30 tabs 08/23/24 11/03/24 Rx
tablet (Entresto)
calcium carbonate (Calcium 600) 600 mg PO DAILY 11/03/24 11/03/24 History
cholecalciferol (vitamin D3) 125 125 mcg PO WE 11/03/24 11/03/24 History
mcg (5,000 unit) tablet
mirtazapine 15 mg tablet 15 mg PO HS 11/03/24 11/03/24 History
Review of Systems
-
History Source: Patient
All other systems: Negative unless noted
Constitutional: No Symptoms
EENT: No Symptoms
Respiratory: No Symptoms
Cardiac: No Symptoms
Abdomen/GI: No Symptoms
: No Symptoms
Musculoskeletal: No Symptoms
Skin: No Symptoms
Neurological: No Symptoms
Endocrine: No Symptoms
Hematologic/Lymphatic: No Symptoms
Physical Exam
Vital Signs
Temp Pulse Resp BP Pulse Ox
97.3 F 73 16 136/60 97
11/04/24 11:55 11/04/24 11:55 11/04/24 11:55 11/04/24 11:55 11/04/24 11:55
Lab Results
11/03/24 19:30
11/04/24 06:36
Troponin I < 0.012 ng/ml 11/03/24 19:30
Nlx-H-Sotxtdqznuw Pept 9870 pg/ml 11/03/24 19:30
Physical Exam
General: Well Developed, Well Nourished, No Apparent Distress and Comfortable
HEENT: Normocephalic, Anicteric and Moist Mucous Membranes
Respiratory: Clear and Non Labored Respirations
Cardiac: S1/S2, Irregular Rhythm and Peripheral Edema
Breast: Deferred by me
GI: Soft, Non Tender, Non Distended and Normal Bowel Sounds
Rectal: Deferred by Provider
Genito-urinary: No Costovertebral Tender
Musculoskeletal: No Clubbing and No Cyanosis
Skin: Warm and Dry
Neuro: AO x 3
Hematologic/Lymphatic: No Lymphadenopathy
Psych: Calm
Impression / Plan
-
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
of breath
Primary upfitter: Dr. Roberts, transferring to Dr. Castellon
HFrEF (35-40%), acute on chronic
-Diuresis with furosemide 40 mg IV twice daily
-GDMT as tolerated
-Beta-marcell: Metoprolol succinate 50 mg twice daily
-SGLT2i: Unclear why this was stopped, resumed Jardiance 10 mg daily, prior notes report cost of $0
-MOLINA/ARB/ARNI: Sacubitril/valsartan 24-26 mg
-Diuretic: Furosemide 20 mg daily, she may need 40 mg daily at discharge
-Outpatient cardiology notes reported combined systolic and diastolic heart failure
-Consider outpatient ischemic evaluation, perhaps a PET given her BMI
Persistent atrial fibrillation
-Rate controlled
-Oral Anticoagulation: Apixaban 5 mg twice daily, she denies missed doses and abnormal bleeding
-[id number]: score at least 6 (Heart failure, HTN, age 75 or more, Diabetes Mellitus, female gender)
NSVT
-Longest run 37 beats on most recent Holter (10/30/2024)
-Continue beta marcell
Mild to moderate mitral stenosis, peak/mean gradient 13/4 mmHg
Mild to moderate mitral regurgitation
Mild to moderate aortic stenosis, peak/mean gradients 29/13 mmHg, SESAR 1.4 cm�
Moderate tricuspid regurgitation
Pericardial effusion, small to moderate without hemodynamic compromise, also seen on 07/2024 study
Metastatic breast cancer, managed by [facility]
Obesity, BMI 43.8, she would benefit from weight loss.
--- NOTE | 2024-11-04 12:38 | CM ---
Patient seen at bedside.
IA completed.
Dx: acute on chr HF
past medical history of type 2 diabetes mellitus, hypertension, hyperlipidemia, breast ca ([facility])
Lives at home with spouse & 3 adult children in a 2 story home, 1st floor set up, no steps to enter
PLOF: Ambulates with walker
DME: wheelchair, walker, shower chair
Has had [facility] in past, denies rehab
Discussed HH - patient declining at this time
PCP: Addison Willett
Pharmacy: [address]
PLAN: Home, declining hh
[2024-11-04 18:49] LABS: Glucose - Point of Care 119 mg/dl (70-99)
[2024-11-04] MEDS: TOPROL XL 50 MG PO (20:35)
[2024-11-04 21:46] LABS: Glucose - Point of Care 146 mg/dl (70-99)
[2024-11-04] MEDS: LANTUS SC (21:47)
[2024-11-04] MEDS: TYLENOL 1000 MG PO (23:10)
[2024-11-05 02:58] VITALS: BP 132/64
[2024-11-05 05:16] VITALS: BMI 41.8
[2024-11-05] MEDS: SYNTHROID PO (05:17)
[2024-11-05 07:05] VITALS: BP 119/63
[2024-11-05 07:32] LABS: Glucose - Point of Care 121 mg/dl (70-99)
[2024-11-05 08:18] LABS: Hemoglobin 11.8 g/dL (12.0-16.0); Mean Corp Hgb Conc. 32.8 g/dL (33.0-37.0); Mean Corpuscular Hgb 31.2 pg (27.0-31.0); Mean Corpuscular Volume 95.2 fL (81.0-99.0); Mean Platelet Volume 9.7 fL (7.4-10.4); Platelet Count 292 10^3/uL (130-400); Red Blood Cell Count 3.78 10^6/uL (4.20-5.40)
[2024-11-05] MEDS: FARXIGA 10 MG PO (08:23)
[2024-11-05] MEDS: LANTUS SC (08:23)
[2024-11-05] MEDS: NEURONTIN 200 MG PO (08:24)
[2024-11-05] MEDS: ELIQUIS 5 MG PO (08:24)
[2024-11-05] MEDS: FEMARA 2.5 MG PO (08:24)
[2024-11-05] MEDS: ALDACTONE 25 MG PO (08:28)
[2024-11-05] MEDS: ENTRESTO 24 MG/26 MG 1 TAB PO (08:28)
[2024-11-05] MEDS: TOPROL XL 50 MG PO (08:29)
[2024-11-05] MEDS: LASIX 40 MG IV (08:29)
[2024-11-05 08:52] LABS: Blood Urea Nitrogen 22 mg/dl (7-17); Calcium 9.6 mg/dl (8.4-10.2); Carbon Dioxide 30 mmol/L (22-30); Chloride 101 mmol/L (98-107); Estimated Creatinine Clearance 61 ml/min; Glucose 116 mg/dl (70-99); Potassium 4.1 mmol/L (3.5-5.1); Sodium 140 mmol/L (135-145); eGFR > 60.00
[2024-11-05 11:00] VITALS: BP 97/49
[2024-11-05 12:28] LABS: Glucose - Point of Care 100 mg/dl (70-99)
--- NOTE | 2024-11-05 13:08 | CM ---
Addendum entered by Jessie Cheney 11/05/24 15:05:
IMM explained & signed. In chart.
PLAN: Home, with [facility]
Son to transport
Original Note:
Patient seen at bedside.
interested in VN - prefer [facility]
tt hospitalist for CM consult for VN
notified liaison from [facility]-referral placed in [facility].
PLAN: Discharge when stable, home, VN
--- NOTE | 2024-11-05 13:34 | W.PN.CD ---
Addendum entered and electronically signed by Bobby New MD 11/05/24 13:45:
Call with questions.
We will sign off.
I spoke with Dr. Wilson's office this morning
Original Note:
Today's Communication / Plan
-
Stop IV Lasix
Move to new Lasix dose: 40 mg PO daily
Increase Entresto to 49mg/51mg (we are doubling dose)
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
Later consider referral for AFib ablation
Pericardial effusion will need periodic echocardiograms
OK for home
Impression / Plan
-
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
breath
Primary industrial maintenance instructor: Was Dr. Roberts => will be Dr. Castellon
HFrEF (35-40%), acute on chronic
-Diuresis improved her. Move to PO Lasix
-GDMT as tolerated
-Beta-marcell: Metoprolol succinate 50 mg twice daily. No wei on recent Holter => later increase
-SGLT2i: Contninue (Jardiance or Farxiga, not sure which she has at home)
-MOLINA/ARB/ARNI: Sacubitril/valsartan was 24-26 mg => move to 49/51 mg BID
-Diuretic: Furosemide 20 mg daily, at discharge will be Lasix 40 mg one time daily
-Outpatient cardiology notes reported combined systolic and diastolic heart failure
-Consider outpatient ischemic evaluation, perhaps a PET given her BMI
Pericardial effusion, small to moderate without hemodynamic compromise, also seen on 07/2024 study
Persistent atrial fibrillation, new onset 07/2024
-Rate controlled
-Oral Anticoagulation: Apixaban 5 mg twice daily, she denies missed doses and abnormal bleeding
-[id number]: score at least 6 (Heart failure, HTN, age 75 or more, Diabetes Mellitus, female gender)
-Later consider referral for ablation
NSVT
-Longest run 37 beats on most recent Holter (10/30/2024)
-Continue beta marcell
Mild to moderate mitral stenosis, peak/mean gradient 13/4 mmHg
Mild to moderate mitral regurgitation
Mild to moderate aortic stenosis, peak/mean gradients 29/13 mmHg, SESAR 1.4 cm�
Moderate tricuspid regurgitation
Metastatic breast cancer, managed by [facility]
-Her [place] Drs. Lisandro Barksdale and Alanis Hutson [phone]
- I updated them
- they feel that her breast cancer is responding to hormonal therapy and life expectancy is probably in the 5-7 years.
Obesity, BMI 43.8, she would benefit from weight loss.
Physical Exam
Vital Signs/Labs
Vital Signs
Temp Pulse Resp BP Pulse Ox
98.2 F 88 16 97/49 96
11/05/24 11:00 11/05/24 11:00 11/05/24 11:00 11/05/24 11:00 11/05/24 11:00
11/04/24 11/05/24 11/06/24
06:59 06:59 06:59
Actual Weight 108.545 kg 103.646 kg
11/05/24 07:07
11/05/24 07:07
Magnesium 2.0 mg/dl (1.6-2.3) 11/03/24 20:21
11/03/24
19:30
Jjv-J-Rvhhhahfdrt Pept 9870
LAB Results
11/03/24
19:30
Troponin I < 0.012
Physical Exam
Constitutional: No acute distress
EENT: Anicteric
Cardiovascular: Rhythm/rate is irregular and S1S2 is normal
Respiratory: Respiratory effort normal and Lungs clear to auscul.
GI: Soft and Distention absent
Neuro/Psych: AO x 3
Data Reviewed
-
Date of Service: November 05, 2024
--- NOTE | 2024-11-05 13:34 | VNURNOTE ---
Home Health Liaison met with patient at bedside to discuss [facility] nurse/therapy, visits, schedule and homebound status. Patient is agreeable and understands that visits at home will be 2-3 x per week to assess and teach medical management. [facility]
brochure provided with contact information. Patient is aware that [facility] will contact them for start of care in 1-2 days after discharge from .
[facility] referral completed in [facility].
--- NOTE | 2024-11-05 13:59 | W.PN.HOSP.TC ---
Today's Communication/Plan
-
d/c home
Assessment / Plan
Assessment / Plan
10/30/24 TTE
LVEF 35-40%,
Global hypokinesis. Wall motion is also consistent with conduction abnormality.
-Enlarged right ventricular size. Normal right ventricular systolic function.
-Severely dilated left atrium. Severely dilated right atrium.
-Mild to moderate MS peak/mean gradients are 13/4 mmHg.
- Mild to moderate MR
-Mild to moderate ; peak/mean gradients are 29/13 mmHg, calculated SESAR is 1.4 cm2.
-Moderate TR . Estimated pulmonary artery pressure of 55-60 mmHg.
-Small to moderate pericardial effusion without evidence of hemodynamic
compromise.
Compared to prior study of 08/20/24 slightly progressive mitral regurgitation
and tricuspid regurgitation are noted.

#Acute on chr HFrEF with LVEF 35- 40s
-Weight has trended down
-Cardiology cleared for patient to be transition to oral Lasix 40 mg daily discharge
-Entresto dose increased to 49/51 bid
-Already on Toprol-XL 50 mg twice daily
-Cardiology discussed with primary oncologist in light of improved prognosis, patient will be treated aggressively.
#Paroxysmal AF , rate controlled
- cont Eliquis
- cont BB
#Hx Pericardial Effusion
Last TE ; Small to moderate pericardial effusion without evidence of hemodynamic compromise.
- cont to monitor closely while on Eliquis, consider repeat echo pending Cards recs
#Essential HTN
- on BB
- Entresto
#HLD
- on statin
#Hypothyroidism
- on levothyroxine 137 , continue, normal TSH
#Non-obstructive R nephrolithiasis
- Outpatient follow up
#Peripheral Neuropathy
- on gabapentin
#T2DM with neuropathy
- last A1C 5.9
- ISS low
- cont Lantus , monitor glucose
#HX Metastatic R breast CA with liver mets
- Primary oncologist in [place], goes to [facility] (Alanis Hutson or Lisandro Barksdale) are asking for updates- will call them at [phone] pending Cards Cx.
- temporary holding Verzenio
- cont letrozole
Morbid Obesity/ BMI 45.8
DVT Px: on Eliquis
Full code
More than 30 minutes spent in discharge including
Final examination of the patient
Summarizing hospital stay
Instructions for continuing care to all relevant caregivers
Preparation of discharge records, prescriptions, and referral forms
Total time spent (in minutes): 38 mins
Anticipated Discharge: Today
Subjective/Interval History
-
Date of Service: November 05, 2024
Resting comfortably in chair
Not hypoxic
Denies of any issues overnight
Objective Data
-
Labs:
Laboratory Results
11/05/24
07:07
WBC 5.0
Hgb 11.8 L
Hct 36.0 L
Plt Count 292
Sodium 140
Potassium 4.1
Chloride 101
Carbon Dioxide 30
BUN 22 H
Creatinine 0.9
Glucose 116 H
Calcium 9.6
Vital Signs:
Vital Signs
Temp Pulse Resp BP Pulse Ox
98.2 F 88 16 97/49 96
11/05/24 11:00 11/05/24 11:00 11/05/24 11:00 11/05/24 11:00 11/05/24 11:00
I&O
11/04/24 11/05/24 11/06/24
06:59 06:59 06:59
Intake Total 240 / 240 820 / 820
Output Total 900 / 900
Balance -660 / -660 820 / 820
Review of Systems
-
Respiratory: Reports No Symptoms
Cardiac: Reports No Symptoms
Abdomen/GI: Reports No Symptoms
Physical Exam
-
General: Comfortable
HEENT: Moist Mucous Membranes; Negative Oxygen
Respiratory: Clear to Auscultation
Cardiac: Regular Rhythm and S1/S2; Negative Murmur
GI: Soft, Nontender and Nondistended
Musculoskeletal: Edema, Right Lower Extrem (tight 1+ pitting edema) and Edema, Left Lower Extrem (tight, 1+ pitting edema)
Skin: Warm and Dry
Neuro: AO x 3 and No Motor Deficits
Psych: Calm
--- NOTE | 2024-11-05 14:31 | PN.CDI ---
CDI
- -
CDI:
Physician Documentation Request
Admit Date: 11/03/24 22:13
Dear Doctor Teto,
Please review the following and provide your response in the progress notes.
Clinical Indicators:
Pt admitted with acute on chronic HFrEF
11/05 Cardiology Note: 'Persistent atrial fibrillation, new onset 07/2024-Oral Anticoagulation: Apixaban 5 mg twice daily'
11/05 Progress note: '#Paroxysmal AF , rate controlled'
Due to potential conflicting documentation, please clarify specificity regarding atrial fibrillation, such as:
Paroxysmal atrial fibrillation - terminates spontaneously or with intervention within 7 days of onset
Persistent atrial fibrillation - episodes of continuous AF that last more than 7 days and do not self-terminate
Other - please specify
Use of terms such as suspected, likely, concern for, or probable (associated with a specific diagnosis that is being evaluated, monitored, or treated as if it exists) are acceptable and can be coded in the inpatient setting, when documented at the
time of discharge.
Thank you,
Dione Nichols RN, BSN
CDI Specialist
Available via [place] [employer]
Please use your independent medical judgment in providing your response.
[2024-11-05 15:53] VITALS: BP 121/61
--- NOTE | 2024-11-05 16:50 | W.DCSUMMARY ---
Discharge Summary
Discharge Data
Date of Admission: 11/03/24
Date of Discharge: 11/05/24
-
Pending Results: No
Hospital Course
Discharging Physician : Dr Ernesto Irene
Disposition : To home
Primary care physician : Dr Addison willett
Principal Discharge diagnosis :
Acute on chronic systolic congestive heart failure
Chronic Discharge diagnosis :
Permanent atrial fibrillation
History of pericardial effusion
Essential hypertension
Hyperlipidemia
Hypothyroidism
Nonobstructive right-sided nephrolithiasis
Peripheral neuropathy
Type 2 diabetes mellitus
History of metastatic right breast cancer with liver mets
Morbid obesity
Hospital Course :
Patient is a 74-year-old female with admission past medical history came in with new onset of shortness of breath for 5 days, patient had associated orthopnea. Patient had an outpatient echocardiogram which showed an ejection fraction of 35 to 40%.
Clinically patient was diagnosed to having heart failure exacerbation. Patient was started on IV diuretics and cardiology was involved in care. Patient improvement in symptoms in 48 hours with diuretic therapy. Patient care plan was discussed
with primary oncologist and based on prognosis guarded recommended aggressive GDMT. Patient dose of Entresto/Lasix was increased at discharge. Patient was discharged home at this point with follow-up with cardiology/oncology in office.
Important imaging findings :
None
Procedure findings :
None
Discharge Plan
-
Patient Disposition: Home (Routine Discharge)
Discharge Diagnosis/Procedures: HF exacerbation, Pericardial effusion
Condition: Fair
Diet: 2 Gram Sodium and Restrict fluids to 48 oz
Activity: As tolerated
Driving Restrictions: As prior to admission
Bathing Restrictions: OK to Shower
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
Referrals:
Addison Willett MD [Family Provider] - in one week
Prescriptions:
New
furosemide 40 mg Tablet
40 mg PO DAILY Qty: 30 2RF
dapagliflozin propanediol 10 mg Tablet
10 mg PO DAILY Qty: 30 0RF
sacubitril-valsartan [Entresto] 49-51 mg Tablet
1 tab PO BID Qty: 60 2RF
Insulin Glargine Lantus [Lantus] 38 UNITS
Subcutaneous Insulin Syringe [Syringe-Insulin] 0 UNIT
As Directed mls/hr SC Q12
Ordered By: Ernesto Irene MD
Last Taken: 11/04/24 08:10 0.38 mls
Continued
desloratadine [Clarinex] 5 MG tablet
5 mg PO DAILY
vitamin B complex 1 TAB tablet
1 tab PO DAILY
levothyroxine 50 MCG tablet
175 mcg PO MOTUWETHFRSA
Patient Comments:
11/03/24: Patient states it must be Synthroid brand
gabapentin 100 MG capsule
200 mg PO DAILY
gabapentin 100 MG capsule
300 mg PO QPM
gabapentin 100 MG capsule
200 mg PO HSPRN PRN (Reason: mild pain)
acetaminophen [Tylenol Extra Strength] 500 MG tablet
1,000 mg PO BID
ibuprofen [Advil] 200 mg Tablet
600 mg PO BID
diclofenac sodium 50 mg Tablet,Delayed Release (Dr/Ec)
100 mg PO BID
letrozole 2.5 mg Tablet
2.5 mg PO DAILY
rosuvastatin 20 mg Tablet
20 mg PO HS
chlorzoxazone 500 MG tablet
500 mg PO TIDPRN PRN (Reason: Muscle cramps)
diphenhydramine HCl 50 mg Capsule
50 mg PO DAILYPRN PRN (Reason: cold symptoms/allergies)
cefuroxime axetil 500 mg Tablet
500 mg PO DAILY
metoprolol succinate 50 mg Tablet Extended Release 24 Hr
50 mg PO BID Qty: 30 0RF
Eliquis 5 mg Tablet
5 mg PO BID Qty: 30 0RF
calcium carbonate [Calcium 600] 600 mg calcium (1,500 mg) Tablet
600 mg PO DAILY
mirtazapine 15 mg Tablet
15 mg PO HS
cholecalciferol (vitamin D3) 125 mcg (5,000 unit) tablet
125 mcg PO WE
Discontinued
furosemide 20 mg Tablet
20 mg PO DAILY Qty: 30 0RF
sacubitril-valsartan [Entresto] 24-26 mg Tablet
1 tab PO BID Qty: 30 0RF
Discharge Orders:
Discharge Patient (As Directed); Ordered 11/05/24
Ordered By: Ernesto Irene
Discharge Date and Time
Discharge Date/Time: 11/05/24 16:20
Print Language: MOROCCAN
== END 2024-11-05 16:20 | disposition home health service (06) | DRG 291 ==
LOC: 2 NORTH 22:13
PROVIDERS: Internal Medicine; Physician Assistant; ADMITTING PHYSICIAN Internal Medicine; ATTENDING PHYSICIAN Hospitalist; CONSULT PHYSICIAN Internal Medicine Cardiovascular Disease; EMERGENCY PHYSICIAN Emergency Medicine; FAMILY PHYSICIAN Family Medicine
DX: I11.0 Hypertensive heart disease with heart failure (principal); I50.23 Acute on chronic systolic (congestive) heart failure; C78.7 Secondary malignant neoplasm of liver and intrahepatic bile duct; C79.9 Secondary malignant neoplasm of unspecified site; I48.21 Permanent atrial fibrillation; I47.29 Other ventricular tachycardia; I31.39 Other pericardial effusion (noninflammatory); Z68.41 Body mass index [BMI] 40.0-44.9, adult; I34.0 Nonrheumatic mitral (valve) insufficiency; E66.01 Morbid (severe) obesity due to excess calories; E03.9 Hypothyroidism, unspecified; E11.40 Type 2 diabetes mellitus with diabetic neuropathy, unspecified; E78.2 Mixed hyperlipidemia; Z85.3 Personal history of malignant neoplasm of breast; Z79.4 Long term (current) use of insulin
CPT/HCPCS: 71046; 80048; 82962; 83036; 83735; 83880; 84132; 84443; 84484; 85025; 85027; 87070; 93005; 96374; 97162; 99285

== ENCOUNTER 2024-12-14 03:26 | Inpatient (IN) | payer OTHER, SELFPAY ==
[2024-12-13 19:22] VITALS: BP 113/61
[2024-12-13 19:52] LABS: % Eosinophils 2.4 % (0-6); % Immature Granulocytes 0.3 % (0-0.5); % Lymphocytes 34.7 % (20.5-51.1); % Neutrophils 53.6 % (42.2-75.2); Absolute Eosinophils 0.1 10^3/uL (0-0.7); Absolute Monocytes 0.2 10^3/uL (0.1-0.6); Absolute Neutrophils 1.5 10^3/uL (1.4-6.5); Hemoglobin 13.7 g/dL (12.0-16.0); Mean Corp Hgb Conc. 33.4 g/dL (33.0-37.0); Mean Corpuscular Hgb 31.6 pg (27.0-31.0); Mean Corpuscular Volume 94.7 fL (81.0-99.0); Mean Platelet Volume 10.3 fL (7.4-10.4); Nucleated Red Blood Cells % 0 %; Platelet Count 154 10^3/uL (130-400); Red Blood Cell Count 4.33 10^6/uL (4.20-5.40); Red Cell Dist. Width 12.6 % (11.5-14.5); White Blood Cell Count 2.9 10^3/uL (4.8-10.8)
[2024-12-13 20:22] LABS: ALT (SGPT) 29 U/L (0-35); AST (SGOT) 45 U/L (14-36); Albumin 4.3 g/dl (3.5-5.0); Alkaline Phosphatase 77 U/L (38-126); Blood Urea Nitrogen 39 mg/dl (7-17); Calcium 13.7 mg/dl (8.4-10.2); Carbon Dioxide 27 mmol/L (22-30); Chloride 101 mmol/L (98-107); Glucose 191 mg/dl (70-99); Potassium 4.8 mmol/L (3.5-5.1); Sodium 136 mmol/L (135-145); Total Bilirubin 0.7 mg/dl (0.2-1.3); Total Protein 6.9 g/dl (6.3-8.2); eGFR 36.12
[2024-12-13 23:12] VITALS: BMI 39.0
--- NOTE | 2024-12-13 23:13 | EDRN ---
Pt's son says pt has had decline in cognitive ability, ability to walk for past 3-4 days. He says symptoms worsened this afternoon and that the last time this happened pt had fluid in her pericardial sac and the time before that, pt had to have a
knee replacement removed due to infection. No ill contacts. No fever/chills/cough, cp, sob, abd pain, n/v/c/d, urinary symptoms, dizziness. Pt complains of weakness in her legs only. Son says pt has not been self aware of issues and does not
realize that there is something wrong. Pt uses a walker at home at all times. Son says he really noticed difference when they were playing Monopoly around 1400, pt did not know what was going on.
--- NOTE | 2024-12-13 23:38 | ED.GENMED ---
History of Present Illness
General
Chief Complaint: Weakness
Source: patient and family
Exam Limitations: none
Time Seen by Provider: 12/13/24 23:18
History of Present Illness
History of Present Illness:
74yoF with a history of metastatic breast cancer on oral chemotherapy (follows with [facility]), CHF, insulin-dependent diabetes, atrial fibrillation, hypertension, hyperlipidemia, and hypothyroidism presenting with her son for evaluation of
generalized weakness. Patient has been increasingly weak and fatigued over the past 3 to 4 days. She is having trouble standing and walking due to her symptoms. Son also states that she seems confused at times. They were playing [employer] this
evening and she could not remember how to play the game which is very unusual for her. Son states that she seems much better currently but her symptoms wax and wane. Patient states she feels normal at this time. She denies any headache, chest
pain, shortness of breath, fevers, chills, vomiting.
Past History
Past History
ED Past Medical History: Cancer (Breast CA), HTN, Hypercholesterolemia, IDDM and Other (Macular degeneration, )
ED Past Surgical History: (X 3), Gynecological (D&C), Orthopedic (Right and left carpal tunnel, right knee surgery X 2, Left knee replacement), Tonsilectomy and Other (Left breast tumor removed, Cataracts, )
Social History
Tobacco: 2nd hand smoke exposure
Alcohol: None
Drug: None
Personal:
Living: with family
Employment: Employed
Family History
Family History: Other
Phy Exam
General Physical Exam
General Presentation: well appearing and no apparent distress
General age: appears stated age
General Skin: warm and dry
General Habitus: normal
General Mental: alert
ENT Exam
ENT Exam: normocephalic
Cardiovascular Exam
Cardiovascular Exam: no edema and irregularly irregular
Pulmonary Exam
Pulmonary Exam: lungs clear, no respiratory distress, no rales, no crackles, no rhonchi and no wheezing
Neurological Exam
Neurological Exam: alert and other (Oriented to person, place, and time.)
[place] Coma Scale
Eye Opening: Spontaneous
Verbal Response: Oriented
Motor Response: Obeys Commands
GCS Total Score: 15
Skin Exam
Skin Exam: normal color and warm/dry
Psychiatric Exam
Psychiatric Exam: normal mood/affect
Course
Orders/Labs/Results
Orders:
Orders
12/13/24 19:46
Complete Blood Count/With Diff Urgent
Comprehensive Metabolic Panel Urgent
TSH Urgent
Comment: ADDED
12/13/24 19:48
Electrocardiogram (*1) Urgent
Reason for Study: Fatigue / Weakness
EKG- Treatment ONCE
12/13/24 23:36
Add On- LAB Urgent
Tests Added?: TSH
0.9% Sodium Chloride 500 ml [Nss] 500 ml IV BOLUS
12/13/24 23:56
PTH Related Peptide LC-MS/MS [S] Urgent
PTH [Intact PTH Includes Calcium] Urgent
12/14/24 00:01
CT Head W/o Iv Contrast Urgent
Reason For Exam: AMS
12/14/24 02:00
Flush (0.9% Sodium Chloride) [Flush (Nss)] See Dose Instructions IV PER PROTOCOL
12/14/24 03:05
Pamidronate Disodium [Aredia] 90 mg 0.9% Sodium Chloride 250 ml [Nss] 250 ml IV ONCE
12/14/24 03:07
Admit/Transfer Patient As Directed
Co-Sign Provider:
Level of Care: Inpatient admission
Assign to:: Telemetry
Physician / Group: hospitalist
Diagnosis: hypercalcemia
Reason for Telemetry: Other
Other Reason for Telemetry: hypercalcemia
Date to Stop Telemetry: 12/16/24
Time to Stop Telemetry: 11:00
Reason for Hospitalization: hypercalcemia
Expected length of stay greater than two midnights?: Yes
ELOS- Estimated Length of Stay in days: 2
I certify the patient meets the requirements for IP care: Yes
PRN Pain Medication Management As Directed
May give lesser potent ordered pain med per pt: Yes
preference::
Protocol:: Medication orders for pain may be administered in a
manner that supports deferring to patient preference
when the pt is:
- Requesting an ordered lesser potent pain medication.
Least to most potent pain medications are defined
as: acetaminophen < NSAID < tramadol < opioids
(morphine, oxycodone, hydromorphone).
- Requesting a lesser dose of the same medication IF
ORDERED.
- Requesting a less intrusive route of administration
if both routes are prescribed by the provider (PO <
IV).
12/14/24 03:10
Code Status As Directed
Resuscitation Status: Full Code
12/16/24 11:00
DC Protocol for Telemetry ONCE
Abnormal Lab Results
12/13/24 12/13/24
19:46 23:56
WBC 2.9 L 10^3/uL
(4.8-10.8)
MCH 31.6 H pg
(27.0-31.0)
Absolute Lymphs (auto) 1.0 L 10^3/uL
(1.2-3.4)
BUN 39 H mg/dl
(7-17)
Creatinine 1.5 H mg/dL
(0.6-1.0)
Glucose 191 H mg/dl
(70-99)
Calcium 13.7 H* mg/dl 13.4 H* mg/dl
(8.4-10.2) (8.4-10.2)
AST 45 H U/L
(14-36)
TSH 0.11 L uIU/ml
(0.47-4.68)
PTH Intact 7.2 L pg/ml
(13.6-85.8)
12/13/24 19:46
12/13/24 19:46
Vital Signs
Initial and Last Documented VS:
Initial Vital Signs
Pulse Resp BP Pulse Ox
68 18 113/61 95
12/13/24 19:22 12/13/24 19:22 12/13/24 19:22 12/13/24 19:22
Last Documented Vital Signs
Temp Pulse Resp BP Pulse Ox
97.6 F 66 14 114/88 96
12/13/24 23:12 12/14/24 02:00 12/14/24 02:00 12/14/24 02:00 12/14/24 00:16
MDM/Problems Addressed
Differential Diagnosis Includes:
74yoF here with confusion and weakness over the past several days. Hx of metastatic breast cancer on oral chemotherapy. Son states that patient seems much better currently. Vital signs stable. She is well-appearing without complaints. She is
alert and oriented on exam. Differential diagnosis includes but is not limited to: Dehydration, electrolyte abnormality, thyroid dysfunction, brain metastases, viral illness
Lab work obtained in triage. Calcium is critically elevated at 13.4 which is the likely etiology of her symptoms. Creatinine 1.5, up from baseline of 0.8. Hypercalcemia is likely secondary to underlying malignancy. TSH, PTH, and PTH related
peptide ordered. Will also obtain CT head to exclude brain metastases. 500 cc normal saline bolus ordered for gentle hydration as patient has a history of CHF and is on fluid restriction at baseline. Patient will require admission.
*EKG
Interpreted by ED Provider?: Yes
EKG Intrepretation Date: 12/13/24
Heart Rate: 71
Rate: normal
Rhythm: atrial flutter
[place]: left axis deviation
QRS Pattern: left bundle branch block
Ischemia: no ischemia
*Critical Care Note
Total Time (30-74mins, 75-104mins- exclusive of procedures): Not Applicable
ED Attending Note
-
Portions of this chart may have been created with voice recognition software.� Occasional wrong word or��sound alike� substitutions may have occurred due to the inherent limitations of voice recognition software.
Discharge Plan
Departure
Patient Disposition: Admit
Date of Disposition: 12/14/24
Time of Disposition: 01:14
Presentation/result/management discussed w/ accepting MD/DO: Hospitalist
Discharge Problem:
Hypercalcemia, Acute kidney injury
Prescriptions:
No Action
desloratadine [Clarinex] 5 MG tablet
5 mg PO DAILY
vitamin B complex 1 TAB tablet
1 tab PO DAILY
levothyroxine 50 MCG tablet
150 mcg PO MOTUWETHFRSA
Patient Comments:
12/13/24: Patient states it must be Synthroid brand due to dye in generic
gabapentin 100 MG capsule
400 mg PO BID
gabapentin 100 MG capsule
200 mg PO DAILY PRN (Reason: mild pain)
letrozole 2.5 mg Tablet
2.5 mg PO DAILY
rosuvastatin 20 mg Tablet
20 mg PO HS
diphenhydramine HCl 50 mg Capsule
50 mg PO DAILYPRN PRN (Reason: cold symptoms/allergies)
cefuroxime axetil 500 mg Tablet
500 mg PO DAILY
metoprolol succinate 50 mg Tablet Extended Release 24 Hr
50 mg PO BID Qty: 30 0RF
Eliquis 5 mg Tablet
5 mg PO BID Qty: 30 0RF
calcium carbonate [Calcium 600] 600 mg calcium (1,500 mg) Tablet
600 mg PO DAILY
mirtazapine 15 mg Tablet
15 mg PO HS
cholecalciferol (vitamin D3) 125 mcg (5,000 unit) tablet
125 mcg PO WE
sacubitril-valsartan [Entresto] 49-51 mg Tablet
1 tab PO BID Qty: 60 2RF
spironolactone 25 mg Tablet
25 mg PO DAILY
Ibrance
1 tab PO DAILY
Referrals:
Addison Willett MD [Family Provider] -
Interventions
Interventions:
*Risk Screen - Suicide Last Done: 12/13/24 19:22
*General Assessment Last Done: 12/13/24 19:22
*Neglect/Abuse Screening Last Done: 12/13/24 19:22
ED- Fall Risk Assessment Last Done: 12/14/24 00:05
*ED COVID-19 Vaccine History Last Done: 12/13/24 23:12
ED- Cardiac Assessment Last Done: 12/13/24 23:27
ED- Neurological Assessment Last Done: 12/13/24 23:27
ED- Pulmonary Assessment Last Done: 12/14/24 00:05
Discharge Date and Time
Print Language: PERSIAN
[2024-12-13] MEDS: NSS 500 IV (23:59)
[2024-12-14] VITALS (8 sets, daily range): BP systolic 81–114; BP diastolic 43–88; PULSE 70–91; O2SAT 97; BMI 41.0; BMI 39.1
[2024-12-14 00:47] LABS: Calcium 13.4 mg/dl (8.4-10.2)
[2024-12-14 01:00] LABS: Intact PTH 7.2 pg/ml (13.6-85.8)
[2024-12-14 01:41] LABS: TSH 0.11 uIU/ml (0.47-4.68)
--- NOTE | 2024-12-14 02:39 | HPS.HSE ---
Family Physician
-
Family Physician: Addison Willett
Chief Complaint
-
Weakness, confusion
History of Present Illness
This is a 74-year-old female with past medical history significant for metastatic breast cancer, ER positive, NE negative HER2 negative with mets (according to patient) to the liver, and hip, CHF with a EF of 35 to 40%, history of for hypothyroid,
atrial fibrillation, CKD, type 2 diabetes who presents to the emergency department from home with weakness and confusion.
Patient endorses feeling weak and sleepy. She is unable to tell me exactly for how long. She recalls that she was specifically brought to the emergency department by son because son told her that her cognitive status was declining over the last 2
to 3 days. When I spoke to the patient she felt to be in her usual state of health declined any increased confusion or forgetfulness. She specifically denies URI symptoms, fevers chills cough congestion abdominal pain nausea vomiting diarrhea.
She denies any urinary symptoms. She does endorse some fatigue and increased sleepiness. She denied any focal weakness. She states that she had discontinued taking Lasix 2 weeks ago after cardiology visit. She is now on spironolactone. She
reports that she takes letrozole as well as oral chemotherapy for 3 weeks on and then 1 week off. She denies any cramps. She denies feeling dizzy or lightheaded. She reports some pain in the bilateral hips, non-radiating and not associated with
paresthesias or numbness.
In the emergency department blood pressure was 93/45 with a pulse of 65, ECG shows atrial fibrillation with a rate of 71. Troponin negative. White count was 2.9 hemoglobin was normal at 13.7 with platelet count of 154. Electrolytes were stable
except increase in creatinine to 1.5. Calcium was elevated at 13.7. PTH was depressed to 7. Head CT shows no acute intracranial process. Patient given a 500 cc of normal saline. Repeat calcium was 13.4.
Medical History
Past Medical History
Past Medical History: Reports Arrhythmia (Atrial fibrillation on anticoagulation), Cancer (Breast cancer with mets to the liver and hip bone), CHF (EF of 35 to 40%) and IDDM
Past Surgical History: Reports Other
Social History
Tobacco: Non-smoker
Alcohol: None
Drug: None
Personal: Single
Living: With Family
Employment: Retired
Family History
Family History: Not pertinent
Allergies / Home Medications
Allergies reflects when Allergies were last updated in [facility].
Home Medications with original date entered in [facility]
Allergy/Medication List:
Allergies
Allergy/AdvReac Type Severity Reaction Status Date / Time
feathers Allergy Shortness Verified 12/13/24 23:13
of Breath
Penicillins Allergy Hives & Verified 12/13/24 23:13
Itching 30
years ago
red dye Allergy Itchy and Verified 12/13/24 23:13
Hives
yellow dye Allergy itching Verified 12/13/24 23:13
and hives
Environmental Allergy Congestion Uncoded 12/13/24 23:13
Home Medications
desloratadine 5 mg tablet (Clarinex) 5 mg PO DAILY Allergies 02/12/17
levothyroxine 50 mcg tablet 150 mcg PO MOTUWETHFRSA Thyroid 09/06/21
vitamin B complex 1 tab PO DAILY Supplement 09/06/21
gabapentin 100 mg capsule 200 mg PO DAILY PRN mild pain 10/11/21
gabapentin 100 mg capsule 400 mg PO BID Pain 10/11/21
letrozole 2.5 mg tablet 2.5 mg PO DAILY Cancer 05/12/24
rosuvastatin 20 mg tablet 20 mg PO HS High Cholesterol 05/12/24
cefuroxime axetil 500 mg tablet 500 mg PO DAILY Infection 08/14/24
diphenhydramine HCl 50 mg capsule 50 mg PO DAILYPRN PRN cold symptoms/allergies 08/14/24
apixaban 5 mg tablet (Eliquis) 5 mg PO BID #30 tabs 08/23/24
metoprolol succinate 50 mg tablet,extended release 24 hr 50 mg PO BID #30 tabs 08/23/24
calcium carbonate (Calcium 600) 600 mg PO DAILY 11/03/24
cholecalciferol (vitamin D3) 125 mcg (5,000 unit) tablet 125 mcg PO WE 11/03/24
mirtazapine 15 mg tablet 15 mg PO HS 11/03/24
sacubitril 49 mg-valsartan 51 mg tablet (Entresto) 1 tab PO BID Heart Failure #60 tabs 11/05/24
Ibrance 1 tab PO DAILY 12/13/24
spironolactone 25 mg tablet 25 mg PO DAILY 12/13/24
Review of Systems
-
Constitutional: Reports Fatigue and Sleep Disturbance
EENT: Reports No Symptoms
Respiratory: Reports No Symptoms
Cardiac: Reports No Symptoms
Abdomen/GI: Reports No Symptoms
: Reports No Symptoms
Musculoskeletal: Reports Joint Pain
Skin: Reports No Symptoms
Neurological: Reports No Symptoms
Endocrine: Reports No Symptoms
Hematologic/Lymphatic: Reports No Symptoms
Psych: Reports No Symptoms
Physical Exam
Vital Signs
Vital Signs
Temp Pulse Resp BP Pulse Ox
97.6 F 68 20 93/45 96
12/13/24 23:12 12/14/24 00:16 12/14/24 00:16 12/14/24 00:16 12/14/24 00:16
Physical Exam
General: No Apparent Distress and Appears Chronically Ill
HEENT: NormoCephalic, Anicteric, Moist mucous membranes, Atraumatic and PERRLA
Respiratory: Clear
Cardiac: S1/S2 and Regular Rhythm
Breast: Deferred by me
GI: Soft, Non Tender and Normal Bowel Sounds
Rectal: Deferred by Provider
Genito-urinary: Deferred by me
Musculoskeletal: No Clubbing, No Cyanosis and No Edema
Skin: Warm
Neuro: AO x 3 and Nonfocal/grossly intact
Hematologic/Lymphatic: No Lymphadenopathy
Psych: Calm
Laboratory Results
-
12/13/24 19:46
12/13/24 19:46
Laboratory Results
Total Bilirubin 0.7 mg/dl (0.2-1.3) 12/13/24 19:46
AST 45 U/L (14-36) H 12/13/24 19:46
ALT 29 U/L (0-35) 12/13/24 19:46
Alkaline Phosphatase 77 U/L (38-126) 12/13/24 19:46
Data Reviewed
-
CT Scan: Report Reviewed by me
Medical Tests (Nuc Med, Echo, EKG etc): Image Personally Visualized and interpreted
Lab Data: Labs Reviewed by me
Old Records: Reviewed
Impression/Plan
-
IMPRESSION:
74-year-old female was brought into the emergency department for 3 days of weakness and altered mental status. Currently patient feels that she is not baseline mental status she was alert and oriented x 3 and can recall the details of her medical
conditions accurately and with good insight into the implications. She feels memory is intact. No focal neurological deficits. She denies any acute abdominal pain nausea or vomiting. She does have subacute to chronic bilateral hip pain. She is
still endorse some sleepiness and mild weakness/fatigue. Workup in the emergency department is most notable for elevated creatinine to 1.5 and a serum of 13.4, with a PTH that is slightly depressed at 7. Suspect mild hypercalcemia and no specific
associated symptoms.
PLAN:
1. Hypercalcemia - Suspect secondary due to depressed pth. pth RP pending. Patient with decreased EF of 35-40% and only recently stopped lasix. She does not look volume depleted.
- admit to telemetry
- will challenge with gentle hydration at 70 ml/hr overnight and routine evaluations
- check serum vit d and phosphorous levels. If phos level is low, likely primary hyperpara, if high likely secondary to hypercalcemia of malignancy
- given chf and restraint on iv fluids, DONNA, will need bisphosphonates - d/w renal, start pamidronate
- stop calcium supplementation
- check u/a
- nephrology consulted
- PT OT
2. CHF - Appears euvolemic
- continue GDMT w/ entreso, metop and aldactone (hold parameters)
- continue rosuvastatin
3. AFIB - rate controlled
- continue eliquis
- continue metoprolol
4. DM II - Off insulin regimen
- sliding scale insulin for now
DVT PPX - on apixaban
Code status - full code
[2024-12-14] MEDS: AREDIA 280 MG IV (03:29)
[2024-12-14 07:56] LABS: Glucose - Point of Care 130 mg/dl (70-99)
[2024-12-14] MEDS: CLARITIN 10 MG PO (08:06)
[2024-12-14] MEDS: CEFTIN 500 MG PO (08:07)
[2024-12-14] MEDS: ENTRESTO 49 MG/51 MG 1 TAB PO ×2 (08:08→21:16)
[2024-12-14] MEDS: ELIQUIS 5 MG PO ×2 (08:08→21:18)
[2024-12-14] MEDS: ALDACTONE 25 MG PO (08:09)
[2024-12-14] MEDS: TOPROL XL 50 MG PO ×2 (08:10→21:16)
--- NOTE | 2024-12-14 10:21 | CM ---
CM reviewed chart, patient seen bedside, initial assessment completed. Patient resides with her , three adult children in a multiple story home, patient on first floor, no steps to enter. Patient has multiple walkers, canes, and a wheelchair.
Patient reports history of [facility] in past, denies SNF. Patient PCP Dr. Willett, pharmacy [facility], reports some of her medications are covered. Patient denies insecurities at home. PT ordered, will watch for VN/SNF recommendations. CM will continue
to follow for all discharge planning needs.
Plan; home, watch for VN/SNF recommendations.
[2024-12-14 10:54] LABS: Magnesium 1.7 mg/dl (1.6-2.3); Phosphorus 2.8 mg/dl (2.5-4.5)
--- NOTE | 2024-12-14 11:04 | W.PN.UPDATE ---
Update Note
Progress Note Update
non-billable addendum
admitted with weakness, confusion, change in mental status
found to have hypercalcemia, known breast cancer
started on Pamidronate
Currently feels ok, less confused, less weak
no new complaints
Assessment:
Acute hypercalcemia, symptomatic with weakness and change in mental status
- Mentation improving. CT head negative. UA pending.
- PTH suppressed
- phos normal
- check Vit D levels
- check PTHrP (hx of breast cancer)
- stop Calcium supplements
- s/p Pamidronate
- monitor BMP
- Nephrology consulted
DONNA
- check urine studies
- bladder scans
- Nephrology consulted
Weakness from hypercalcemia
- PT/OT evals
Acute on Chronic HFrEF
Essential HTN
- EF 35-40%
- recently stopped Lasix 2 weeks ago per Addiction Nurse Dr. Castellon - obtain records for reason why
- monitor I/Os, weights, Lytes
- GDMT: continue BB, Aldactone, Entresto
Parox. Afib
- continue Eliquis/BB
Hx Pericardial Effusion
HLD
- on statin
Hypothyroidism
- continue levothyroxine
Non-obstructive R nephrolithiasis
- Outpatient follow up
Peripheral Neuropathy
- on gabapentin
T2DM with neuropathy
- last A1C 5.9 1 month ago
- ISS low
- on gabapentin
Hx of Metastatic R breast CA with liver/hip mets
- Primary oncologist in [place], [place] [facility] (Alanis Hutson or Lisandro Barksdale available at [phone] if updates requested).
- temporary holding Verzenio
- cont letrozole/Ibrance
Morbid Obesity/BMI 39
DVT ppx: Eliquis
Code: Full
[2024-12-14 11:41] LABS: Glucose - Point of Care 126 mg/dl (70-99)
[2024-12-14 12:31] LABS: Hematocrit 37.7 % (37.0-47.0); Hemoglobin 12.9 g/dL (12.0-16.0); Mean Corp Hgb Conc. 34.2 g/dL (33.0-37.0); Mean Corpuscular Hgb 32.3 pg (27.0-31.0); Mean Corpuscular Volume 94.5 fL (81.0-99.0); Mean Platelet Volume 10.9 fL (7.4-10.4); Platelet Count 132 10^3/uL (130-400); Red Blood Cell Count 3.99 10^6/uL (4.20-5.40); Red Cell Dist. Width 12.7 % (11.5-14.5); White Blood Cell Count 2.4 10^3/uL (4.8-10.8)
[2024-12-14 12:43] LABS: Blood Urea Nitrogen 39 mg/dl (7-17); Calcium 12.7 mg/dl (8.4-10.2); Carbon Dioxide 23 mmol/L (22-30); Chloride 105 mmol/L (98-107); Estimated Creatinine Clearance 34 ml/min; Glucose 133 mg/dl (70-99); Potassium 4.2 mmol/L (3.5-5.1); Sodium 135 mmol/L (135-145); eGFR 36.12
--- NOTE | 2024-12-14 13:26 | W.CON.NEPH ---
Consultation
-
Date/Time Consultation Requested: December 13, 2024 at 10 PM
Date/Time Consultation Performed: NovemberDecember 14, 2024 at 10 AM
Requesting Provider: Dr. Ceja
Performing Provider: Dr. Hermes Brand
Reason for Consultation: Hypercalcemia
Medical History
-
Chief Complaint: Altered mental status
History of Present Illness:
74-year-old female with past medical history significant for metastatic breast cancer, ER positive, SD negative HER2 negative with mets (according to patient) to the liver, and hip, CHF with a EF of 35 to 40%, history of for hypothyroid, atrial
fibrillation, CKD, type 2 diabetes who presents to the emergency department from home with weakness and confusio
Renal consult for hypercalcemia of 13.7 and acute kidney injury with a creatinine of 1.5 from baseline 0.9.
Past Medical History
Hypertension
Right knee septic arthritis
Breast cancer
Diabetes
Diabetic neuropathy
Hypothyroidism
Morbid obesity
Chronic pain
Social History
Tobacco: Former Smoker
Alcohol: None
Drug: None
Family History
No chronic kidney disease
Family History: Not Pertinent
Allergies / Home Medications
Allergy/AdvReac Type Severity Reaction Status Date / Time
feathers Allergy Shortness Verified 12/13/24 23:13
of Breath
Penicillins Allergy Hives & Verified 12/13/24 23:13
Itching 30
years ago
red dye Allergy Itchy and Verified 12/13/24 23:13
Hives
yellow dye Allergy itching Verified 12/13/24 23:13
and hives
Environmental Allergy Congestion Uncoded 12/13/24 23:13
�Medication �Instructions �Recorded �Confirmed �Type
desloratadine 5 mg tablet 5 mg PO DAILY Allergies 02/12/17 12/13/24 History
(Clarinex)
levothyroxine 50 mcg tablet 150 mcg PO MOTUWETHFRSA Thyroid 09/06/21 12/13/24 History
vitamin B complex 1 tab PO DAILY Supplement 09/06/21 12/13/24 History
gabapentin 100 mg capsule 200 mg PO DAILY PRN mild pain 10/11/21 12/13/24 History
gabapentin 100 mg capsule 400 mg PO BID Pain 10/11/21 12/13/24 History
letrozole 2.5 mg tablet 2.5 mg PO DAILY Cancer 05/12/24 12/13/24 History
rosuvastatin 20 mg tablet 20 mg PO HS High Cholesterol 05/12/24 12/13/24 History
cefuroxime axetil 500 mg tablet 500 mg PO DAILY Infection 08/14/24 12/13/24 History
diphenhydramine HCl 50 mg capsule 50 mg PO DAILYPRN PRN cold 08/14/24 12/13/24 History
symptoms/allergies
apixaban 5 mg tablet (Eliquis) 5 mg PO BID #30 tabs 08/23/24 12/13/24 Rx
metoprolol succinate 50 mg 50 mg PO BID #30 tabs 08/23/24 12/13/24 Rx
tablet,extended release 24 hr
calcium carbonate (Calcium 600) 600 mg PO DAILY 11/03/24 12/13/24 History
cholecalciferol (vitamin D3) 125 125 mcg PO WE 11/03/24 12/13/24 History
mcg (5,000 unit) tablet
mirtazapine 15 mg tablet 15 mg PO HS 11/03/24 12/13/24 History
sacubitril 49 mg-valsartan 51 mg 1 tab PO BID Heart Failure #60 tabs 11/05/24 12/13/24 Rx
tablet (Entresto)
Ibrance 1 tab PO DAILY 12/13/24 12/13/24 History
spironolactone 25 mg tablet 25 mg PO DAILY 12/13/24 12/13/24 History
Review of Systems
-
No chest pain or shortness of breath
All other systems: Negative unless noted
Physical Exam
Vital Signs
Vital Signs
Temp Pulse Resp BP Pulse Ox
97.8 F 71 18 89/43 95
12/14/24 11:23 12/14/24 11:23 12/14/24 11:23 12/14/24 11:23 12/14/24 11:23
Lab Results
WBC 2.4 10^3/uL (4.8-10.8) L* 12/14/24 12:05
RBC 3.99 10^6/uL (4.20-5.40) L 12/14/24 12:05
Hgb 12.9 g/dL (12.0-16.0) 12/14/24 12:05
Hct 37.7 % (37.0-47.0) 12/14/24 12:05
Plt Count 132 10^3/uL (130-400) 12/14/24 12:05
Sodium 135 mmol/L (135-145) 12/14/24 12:05
Potassium 4.2 mmol/L (3.5-5.1) 12/14/24 12:05
Chloride 105 mmol/L (98-107) 12/14/24 12:05
Carbon Dioxide 23 mmol/L (22-30) 12/14/24 12:05
BUN 39 mg/dl (7-17) H 12/14/24 12:05
Creatinine 1.5 mg/dL (0.6-1.0) H 12/14/24 12:05
eGFR 36.12 12/14/24 12:05
Glucose 133 mg/dl (70-99) H 12/14/24 12:05
Calcium 12.7 mg/dl (8.4-10.2) H 12/14/24 12:05
Phosphorus 2.8 mg/dl (2.5-4.5) 12/14/24 09:50
Albumin 4.3 g/dl (3.5-5.0) 12/13/24 19:46
Physical Exam
General: AOx3, Nontoxic , NAD, obese
HEENT: PERRL, EOMI, Anicteric, Conjunctivae Clear, Ear/Nose Intact, Hearing Normal, Oropharynx Clear/Moist, Dentition Intact, Facial Symmetry, Neck Supple, Neck: Trachea Midline, No JVD and No Thyromegaly, no Bruits
Respiratory: Coarse to auscultation bilaterally with normal lung exersion
Cardiac: S1/S2 and Regular Rate/Rhythm
Breast: Deferred by me
Abdomen: Soft, Nontender, Nondistended, Normal Bowel Sounds and No Hepatosplenomegaly
Rectal: Deferred by Provider
Genito-urinary: No Costovertebral Tenderness
Extremities: No Clubbing, No Cyanosis and No Edema
Skin: No Rash or open lesions
Neuro: Nonfocal/Grossly Intact, CN II-XII (Intact) and Strength (Musculoskeletal exam 5 out of 5 both upper and lower extremities)
Hematologic/Lymphatic: No Cervical Lymphadenopathy, No Submandibular Lymphadenopathy and No Supraclavicular Lymphadenopathy
Psych: Mood/afflect flat, Insight/judgement uncertain
Vascular: plus 1 pedal and radial pulses
Data Reviewed
-
Radiology: Image Personally Visualized and interpreted (Chest x-ray shows pleural effusion with some moderate cephalization.)
Labs: Labs Reviewed by me
Assessment/Plan
-
4-year-old female with past medical history significant for metastatic breast cancer, ER positive, SD negative HER2 negative with mets (according to patient) to the liver, and hip, CHF with a EF of 35 to 40%, history of for hypothyroid, atrial
fibrillation, CKD, type 2 diabetes who presents to the emergency department from home with weakness and confusio
Renal consult for hypercalcemia of 13.7 and acute kidney injury with a creatinine of 1.5 from baseline 0.9.
Impression:
DONNA
Hypercalcemia
History of hypertension
History of chronic pain
History of breast cancer liver metastasis
Plan:
Creatinine of 1.5 with calcium of 13.7 given pamidronate yesterday.
Chest x-ray showing signs of CHF although clinically not presenting as such. Her weights are down from discharge in October from 108 kg to 93 kg.
She apparently was told to hold the Lasix from a cardiology as an outpatient.
Start on normal saline for the hypercalcemia as she does not appear to be volume overloaded.
daily weights.
Urine indices
--- NOTE | 2024-12-14 13:39 | W.CON.NEPH ---
Addendum entered and electronically signed by Hermes Brand DO 12/14/24 16:46:
hold Aldactone in setting of hypercalcemia
Original Note:
Consultation
-
Date/Time Consultation Requested: December 13, 2024 at 10 PM
Date/Time Consultation Performed: December 14, 2024 at 10 AM
Requesting Provider: Dr. Gaston
Performing Provider: Dr. Hermes Brand
Reason for Consultation: Hypercalcemia
Medical History
-
Chief Complaint: Altered mental status
History of Present Illness:
4-year-old female with past medical history significant for metastatic breast cancer, ER positive, DC negative HER2 negative with mets (according to patient) to the liver, and hip, CHF with a EF of 35 to 40%, history of for hypothyroid, atrial
fibrillation, CKD, type 2 diabetes who presents to the emergency department from home with weakness and confusion
Renal consult for hypercalcemia of 13.7 and acute kidney injury with a creatinine of 1.5 from baseline 0.9.
Past Medical History
Hypertension
Right knee septic arthritis
Breast cancer
Diabetes
Diabetic neuropathy
Hypothyroidism
Morbid obesity
Chronic pain
Social History
Tobacco: Former Smoker
Alcohol: None
Drug: None
Family History
No chronic kidney disease
Family History: Not Pertinent
Allergies / Home Medications
Allergy/AdvReac Type Severity Reaction Status Date / Time
feathers Allergy Shortness Verified 12/13/24 23:13
of Breath
Penicillins Allergy Hives & Verified 12/13/24 23:13
Itching 30
years ago
red dye Allergy Itchy and Verified 12/13/24 23:13
Hives
yellow dye Allergy itching Verified 12/13/24 23:13
and hives
Environmental Allergy Congestion Uncoded 12/13/24 23:13
�Medication �Instructions �Recorded �Confirmed �Type
desloratadine 5 mg tablet 5 mg PO DAILY Allergies 02/12/17 12/13/24 History
(Clarinex)
levothyroxine 50 mcg tablet 150 mcg PO MOTUWETHFRSA Thyroid 09/06/21 12/13/24 History
vitamin B complex 1 tab PO DAILY Supplement 09/06/21 12/13/24 History
gabapentin 100 mg capsule 200 mg PO DAILY PRN mild pain 10/11/21 12/13/24 History
gabapentin 100 mg capsule 400 mg PO BID Pain 10/11/21 12/13/24 History
letrozole 2.5 mg tablet 2.5 mg PO DAILY Cancer 05/12/24 12/13/24 History
rosuvastatin 20 mg tablet 20 mg PO HS High Cholesterol 05/12/24 12/13/24 History
cefuroxime axetil 500 mg tablet 500 mg PO DAILY Infection 08/14/24 12/13/24 History
diphenhydramine HCl 50 mg capsule 50 mg PO DAILYPRN PRN cold 08/14/24 12/13/24 History
symptoms/allergies
apixaban 5 mg tablet (Eliquis) 5 mg PO BID #30 tabs 08/23/24 12/13/24 Rx
metoprolol succinate 50 mg 50 mg PO BID #30 tabs 08/23/24 12/13/24 Rx
tablet,extended release 24 hr
calcium carbonate (Calcium 600) 600 mg PO DAILY 11/03/24 12/13/24 History
cholecalciferol (vitamin D3) 125 125 mcg PO WE 11/03/24 12/13/24 History
mcg (5,000 unit) tablet
mirtazapine 15 mg tablet 15 mg PO HS 11/03/24 12/13/24 History
sacubitril 49 mg-valsartan 51 mg 1 tab PO BID Heart Failure #60 tabs 11/05/24 12/13/24 Rx
tablet (Entresto)
Ibrance 1 tab PO DAILY 12/13/24 12/13/24 History
spironolactone 25 mg tablet 25 mg PO DAILY 12/13/24 12/13/24 History
Review of Systems
-
No chest pain or shortness of breath
All other systems: Negative unless noted
Physical Exam
Vital Signs
Vital Signs
Temp Pulse Resp BP Pulse Ox
97.8 F 71 18 89/43 95
12/14/24 11:23 12/14/24 11:23 12/14/24 11:23 12/14/24 11:23 12/14/24 11:23
Lab Results
WBC 2.4 10^3/uL (4.8-10.8) L* 12/14/24 12:05
RBC 3.99 10^6/uL (4.20-5.40) L 12/14/24 12:05
Hgb 12.9 g/dL (12.0-16.0) 12/14/24 12:05
Hct 37.7 % (37.0-47.0) 12/14/24 12:05
Plt Count 132 10^3/uL (130-400) 12/14/24 12:05
Sodium 135 mmol/L (135-145) 12/14/24 12:05
Potassium 4.2 mmol/L (3.5-5.1) 12/14/24 12:05
Chloride 105 mmol/L (98-107) 12/14/24 12:05
Carbon Dioxide 23 mmol/L (22-30) 12/14/24 12:05
BUN 39 mg/dl (7-17) H 12/14/24 12:05
Creatinine 1.5 mg/dL (0.6-1.0) H 12/14/24 12:05
eGFR 36.12 12/14/24 12:05
Glucose 133 mg/dl (70-99) H 12/14/24 12:05
Calcium 12.7 mg/dl (8.4-10.2) H 12/14/24 12:05
Phosphorus 2.8 mg/dl (2.5-4.5) 12/14/24 09:50
Albumin 4.3 g/dl (3.5-5.0) 12/13/24 19:46
Physical Exam
General: AOx3, Nontoxic , NAD, obese
HEENT: PERRL, EOMI, Anicteric, Conjunctivae Clear, Ear/Nose Intact, Hearing Normal, Oropharynx Clear/Moist, Dentition Intact, Facial Symmetry, Neck Supple, Neck: Trachea Midline, No JVD and No Thyromegaly, no Bruits
Respiratory: Coarse to auscultation bilaterally with normal lung exersion
Cardiac: S1/S2 and Regular Rate/Rhythm
Breast: Deferred by me
Abdomen: Soft, Nontender, Nondistended, Normal Bowel Sounds and No Hepatosplenomegaly
Rectal: Deferred by Provider
Genito-urinary: No Costovertebral Tenderness
Extremities: No Clubbing, No Cyanosis and No Edema
Skin: No Rash or open lesions
Neuro: Nonfocal/Grossly Intact, CN II-XII (Intact) and Strength (Musculoskeletal exam 5 out of 5 both upper and lower extremities)
Hematologic/Lymphatic: No Cervical Lymphadenopathy, No Submandibular Lymphadenopathy and No Supraclavicular Lymphadenopathy
Psych: Mood/afflect flat, Insight/judgement uncertain
Vascular: plus 1 pedal and radial pulses
Data Reviewed
-
Radiology: Image Personally Visualized and interpreted (Pulmonary vascular congestion with pleural effusion similar to previous x-ray)
Assessment/Plan
-
4-year-old female with past medical history significant for metastatic breast cancer, ER positive, DC negative HER2 negative with mets (according to patient) to the liver, and hip, CHF with a EF of 35 to 40%, history of for hypothyroid, atrial
fibrillation, CKD, type 2 diabetes who presents to the emergency department from home with weakness and confusio
Renal consult for hypercalcemia of 13.7 and acute kidney injury with a creatinine of 1.5 from baseline 0.9.
Impression:
DONNA
Hypercalcemia
History of hypertension
History of chronic pain
History of breast cancer liver metastasis
Plan:
Creatinine of 1.5 with calcium of 13.7 given pamidronate yesterday.
PTH suppressed, pending vitamin D levels and PTH related peptide.
Chest x-ray showing signs of CHF although clinically not presenting as such and similar to previous x-ray. Her weights are down from discharge in October from 108 kg to 93 kg.
She apparently was told to hold the Lasix from a cardiology as an outpatient.
Start on normal saline for the hypercalcemia as she does not appear to be volume overloaded.
daily weights.
Urine indices
[2024-12-14] MEDS: NSS 1000 IV (15:25)
[2024-12-14 16:45] LABS: Urine Albumin 2+ (Neg - Trace); Urine Bilirubin Negative (Negative); Urine Character Slightly Cloudy (Clear); Urine Glucose Negative (Negative); Urine Ketone Negative (Negative); Urine Leukocyte 3+ (Negative); Urine Nitrite Negative (Negative); Urine Occult Blood 1+ (Negative); Urine Specific Gravity 1.025 (<1.030); Urine Urobilinogen Negative (Neg - 1+)
[2024-12-14 16:47] LABS: Urine Color Yellow
[2024-12-14 16:48] LABS: Glucose - Point of Care 123 mg/dl (70-99)
[2024-12-14 17:16] LABS: Urine Sodium 60 mmol/L (30-90)
[2024-12-14 17:47] LABS: Urine Bacteria Moderate (Negative); Urine Calcium Oxalate Crystals Present
[2024-12-14] MEDS: NEURONTIN 400 MG PO (21:19)
[2024-12-14] MEDS: REMERON 15 MG PO (21:26)
[2024-12-14] MEDS: CRESTOR 20 MG PO (21:27)
[2024-12-14 21:50] LABS: Glucose - Point of Care 124 mg/dl (70-99)
[2024-12-15] VITALS (7 sets, daily range): BP systolic 80–119; BP diastolic 49–64; PULSE 86–106; BMI 39.2
[2024-12-15] MEDS: NSS 1000 IV ×2 (02:23→13:15)
[2024-12-15] MEDS: NON-FORMULARY ITEM 150 MCG PO (06:09)
[2024-12-15 07:24] LABS: Glucose - Point of Care 113 mg/dl (70-99)
[2024-12-15] MEDS: FEMARA 2.5 MG PO (08:17)
[2024-12-15] MEDS: ELIQUIS 5 MG PO ×2 (08:17→20:23)
[2024-12-15] MEDS: CEFTIN 500 MG PO (08:17)
[2024-12-15] MEDS: ENTRESTO 49 MG/51 MG 1 TAB PO ×2 (08:17→20:20)
[2024-12-15] MEDS: CLARITIN 10 MG PO (08:17)
[2024-12-15] MEDS: NEURONTIN 400 MG PO ×2 (08:18→20:23)
[2024-12-15] MEDS: TOPROL XL 50 MG PO ×2 (08:18→20:22)
[2024-12-15 09:21] LABS: Hematocrit 37.3 % (37.0-47.0); Hemoglobin 12.7 g/dL (12.0-16.0); Mean Corpuscular Hgb 32.2 pg (27.0-31.0); Mean Corpuscular Volume 94.4 fL (81.0-99.0); Mean Platelet Volume 10.8 fL (7.4-10.4); Platelet Count 107 10^3/uL (130-400); Red Blood Cell Count 3.95 10^6/uL (4.20-5.40); Red Cell Dist. Width 12.6 % (11.5-14.5); White Blood Cell Count 1.4 10^3/uL (4.8-10.8)
[2024-12-15 09:41] LABS: Blood Urea Nitrogen 31 mg/dl (7-17); Calcium 11.8 mg/dl (8.4-10.2); Carbon Dioxide 23 mmol/L (22-30); Chloride 108 mmol/L (98-107); Estimated Creatinine Clearance 39 ml/min; Glucose 121 mg/dl (70-99); Potassium 4.1 mmol/L (3.5-5.1); Sodium 138 mmol/L (135-145); eGFR 42.88
[2024-12-15 09:59] LABS: Vitamin D, 25-OH*** 30.7 ng/mL (30-80)
[2024-12-15 10:14] LABS: Free T4 1.71 ng/dl (0.78-2.19)
[2024-12-15] MEDS: NON-FORMULARY ITEM 100 TABLET PO (11:15)
[2024-12-15] MEDS: ROCEPHIN 1000 MG IV (11:16)
[2024-12-15] MEDS: STERILE WATER FOR INJECTION 10 ML IV (11:16)
[2024-12-15 11:44] LABS: Glucose - Point of Care 124 mg/dl (70-99)
--- NOTE | 2024-12-15 12:50 | W.PN.HOSP.TC ---
Today's Communication/Plan
-
Rocephin pending culture
follow nephrology recs
Assessment / Plan
Assessment / Plan
Assessment:
Acute hypercalcemia, symptomatic with weakness and change in mental status
- Mentation improving. CT head negative. UA as below.
- PTH suppressed
- phos normal
- Vit D 25-OH is 30
- Vit D 1, 25 - pending
- PTHrP (hx of breast cancer) pending
- stop Calcium supplements
- s/p Pamidronate
- IVF
- monitor BMP - Calc improved to 11.8
- Nephrology following
DONNA
- Pre-renal based off FeNA
- bladder scans
- IVF
- Nephrology following
Weakness from hypercalcemia
- PT/OT evals
Possible UTI
- continue Rocephin day 1 pending culture
Acute on Chronic HFrEF
Essential HTN
- EF 35-40%
- recently stopped Lasix 2 weeks ago per [facility] Dr. Castellon during office visit. not felt to be overly in failure and made Lasix pRN
- monitor I/Os, weights, Lytes
- GDMT: continue BB, Entresto. Aldactone on hold
Parox. Afib
- continue Eliquis/BB
Hx Pericardial Effusion
HLD
- on statin
Hypothyroidism
- continue levothyroxine
Non-obstructive R nephrolithiasis
- Outpatient follow up
Peripheral Neuropathy
- on gabapentin
T2DM with neuropathy
- last A1C 5.9 1 month ago
- ISS low
- on gabapentin
Hx of Metastatic R breast CA with liver/hip mets
- Primary oncologist in [place], goes to [facility] (Alanis Hutson or Lisandro Barksdale available at [phone] if updates requested).
- temporary holding Verzenio
- cont letrozole/Ibrance
Morbid Obesity/BMI 39
DVT ppx: Eliquis
Code: Full
Anticipated Discharge: Within 24 hours
Subjective/Interval History
-
Date of Service: December 15, 2024
resting comfortably, no complaints at present
Objective Data
-
Labs:
Laboratory Results
12/15/24
06:33
WBC 1.4 L*
Hgb 12.7
Hct 37.3
Plt Count 107 L
Sodium 138
Potassium 4.1
Chloride 108 H
Carbon Dioxide 23
BUN 31 H
Creatinine 1.3 H
Glucose 121 H
Calcium 11.8 H
Vital Signs:
Vital Signs
Temp Pulse Resp BP Pulse Ox
98.0 F 74 20 114/52 100
12/15/24 11:31 12/15/24 11:31 12/15/24 11:31 12/15/24 11:31 12/15/24 11:31
I&O
12/14/24 12/15/24 12/16/24
06:59 06:59 06:59
Intake Total 1720 / 1720
Balance 1720 / 1720
Physical Exam
-
General: No Apparent Distress
HEENT: Normocephalic and Atraumatic
Respiratory: Negative Wheezes
Cardiac: Regular Rhythm and S1/S2
GI: Soft and Nontender
Musculoskeletal: No Edema
Neuro: AO x 3
Hematologic / Lymphatic: No Lymphadenopathy
Psych: Calm
Data Reviewed
-
Total Time Spent with Patient (in minutes): 42
Labs: Labs Reviewed by me
--- NOTE | 2024-12-15 14:28 | W.PN.NEPH.PH ---
Today's Communication / Plan
-
wean IVF
Assessment/Plan
-
4-year-old female with past medical history significant for metastatic breast cancer, ER positive, [place] negative HER2 negative with mets (according to patient) to the liver, and hip, CHF with a EF of 35 to 40%, history of for hypothyroid, atrial
fibrillation, CKD, type 2 diabetes who presents to the emergency department from home with weakness and confusio
Renal consult for hypercalcemia of 13.7 and acute kidney injury with a creatinine of 1.5 from baseline 0.9.
Impression:
DONNA
Hypercalcemia
History of hypertension
History of chronic pain
History of breast cancer liver metastasis
Diabetes
Diabetic neuropathy
Hypothyroidism
Morbid obesity
Plan:
Hypercalcemia-improving to 11.8 on IVF , s/p pamidronate on 12/13
Creatinine down to 1.3
PTH suppressed, pending vitamin D2 level, D3 was normal, and pending PTH related peptide.
avoid onesimo, vit D meds
wt lower than last d/c, monitor daily
resp status is stable on RA too
lasix remains on hold still , was changed to prn by cards Dr Castellon- out pt [employer]
once cr returns to baseline could resume Aldactone
Bp stable on ENtresto
monitor cbc, worsening neutropenia and thrombocytopenia
wean off IVF later today
-
-
Date of Service: December 15, 2024
CC / HPI / ROS
-
Chief Complaint:
DONNA, hypercalcemia
History of Present Illness:
cr better at 1.3, onesimo better at 11.8
BP stable, on RA
WBC and plt decreasig
Review of Systems:
no cp ro sob
feels ok
still mild confusion
no n/v, poor appetite
Labs
-
Labs:
WBC 1.4 10^3/uL (4.8-10.8) L* 12/15/24 06:33
RBC 3.95 10^6/uL (4.20-5.40) L 12/15/24 06:33
Hgb 12.7 g/dL (12.0-16.0) 12/15/24 06:33
Hct 37.3 % (37.0-47.0) 12/15/24 06:33
Plt Count 107 10^3/uL (130-400) L 12/15/24 06:33
Sodium 138 mmol/L (135-145) 12/15/24 06:33
Potassium 4.1 mmol/L (3.5-5.1) 12/15/24 06:33
Chloride 108 mmol/L (98-107) H 12/15/24 06:33
Carbon Dioxide 23 mmol/L (22-30) 12/15/24 06:33
BUN 31 mg/dl (7-17) H 12/15/24 06:33
Creatinine 1.3 mg/dL (0.6-1.0) H 12/15/24 06:33
eGFR 42.88 12/15/24 06:33
Glucose 121 mg/dl (70-99) H 12/15/24 06:33
Calcium 11.8 mg/dl (8.4-10.2) H 12/15/24 06:33
Phosphorus 2.8 mg/dl (2.5-4.5) 12/14/24 09:50
Albumin 4.3 g/dl (3.5-5.0) 12/13/24 19:46
Physical Exam
-
Vital Signs:
Vital Signs
Temp Pulse Resp BP Pulse Ox
98.0 F 74 20 114/52 100
12/15/24 11:31 12/15/24 11:31 12/15/24 11:31 12/15/24 11:31 12/15/24 11:31
Cardiovascular:: Regular rate and rhythm
Respiratory:: Bilateral: CTA
Lung Excursion:: Normal
Abdomen:: Nontender and Soft
Extremity Edema:: None: Bilateral:
Keith Catheter: No
[2024-12-15 16:14] LABS: Glucose - Point of Care 124 mg/dl (70-99)
[2024-12-15] MEDS: CRESTOR 20 MG PO (20:24)
[2024-12-15] MEDS: REMERON 15 MG PO (20:24)
[2024-12-15 22:08] LABS: Glucose - Point of Care 143 mg/dl (70-99)
[2024-12-16 03:02] VITALS: BP 111/59
[2024-12-16] MEDS: NON-FORMULARY ITEM 150 MCG PO (05:15)
[2024-12-16 06:00] VITALS: BMI 38.8
[2024-12-16 07:45] VITALS: BP 114/54
[2024-12-16] MEDS: ENTRESTO 49 MG/51 MG 1 TAB PO (07:57)
[2024-12-16] MEDS: NEURONTIN 400 MG PO (07:57)
[2024-12-16] MEDS: CLARITIN 10 MG PO (07:58)
[2024-12-16] MEDS: ELIQUIS 5 MG PO (07:58)
[2024-12-16] MEDS: TOPROL XL 50 MG PO (07:58)
[2024-12-16] MEDS: FEMARA 2.5 MG PO (07:58)
[2024-12-16 08:09] LABS: Glucose - Point of Care 107 mg/dl (70-99)
[2024-12-16 08:28] LABS: Hematocrit 35.9 % (37.0-47.0); Hemoglobin 12.3 g/dL (12.0-16.0); Mean Corp Hgb Conc. 34.3 g/dL (33.0-37.0); Mean Corpuscular Hgb 31.6 pg (27.0-31.0); Mean Corpuscular Volume 92.3 fL (81.0-99.0); Mean Platelet Volume 11.2 fL (7.4-10.4); Platelet Count 88 10^3/uL (130-400); Red Blood Cell Count 3.89 10^6/uL (4.20-5.40); Red Cell Dist. Width 12.8 % (11.5-14.5); White Blood Cell Count 1.6 10^3/uL (4.8-10.8)
[2024-12-16 08:43] LABS: Blood Urea Nitrogen 28 mg/dl (7-17); Calcium 10.9 mg/dl (8.4-10.2); Carbon Dioxide 18 mmol/L (22-30); Chloride 108 mmol/L (98-107); Estimated Creatinine Clearance 51 ml/min; Glucose 103 mg/dl (70-99); Potassium 4.1 mmol/L (3.5-5.1); Sodium 137 mmol/L (135-145); eGFR 58.75
--- NOTE | 2024-12-16 10:19 | VNURNOTE ---
Chart reviewed.� Patient is [facility] with [facility].� Will continue to follow hospital course and DC plans.
[2024-12-16] MEDS: ROCEPHIN 1000 MG IV (11:08)
[2024-12-16] MEDS: STERILE WATER FOR INJECTION 10 ML IV (11:08)
[2024-12-16] MEDS: NON-FORMULARY ITEM 100 TABLET PO (11:08)
[2024-12-16 11:57] VITALS: BP 107/55; BP 99/61; PULSE 100; PULSE 82
[2024-12-16 11:57] LABS: Glucose - Point of Care 116 mg/dl (70-99)
--- NOTE | 2024-12-16 12:40 | W.PN.HOSP.TC ---
Addendum entered and electronically signed by Júnior Panda MD 12/17/24 11:15:
acute metabolic encephalopathy from hypercalcemia
correction: Chronic HFrEF only
Original Note:
Today's Communication/Plan
-
dc to home/vn today
Assessment / Plan
Assessment / Plan
Assessment:
Acute hypercalcemia, symptomatic with weakness and change in mental status
- Mentation improving. CT head negative. UA as below.
- PTH suppressed
- phos normal
- Vit D 25-OH is 30
- Vit D 1, 25 - pending
- PTHrP (hx of breast cancer) pending
- stop Calcium supplements, stop Vit D supplements
- s/p Pamidronate
- s/p IVF
- Calc improved to 10.9. repeat BMP in 1 week
- Nephrology help appreciated
DONNA
- Pre-renal based off FeNA
- bladder scans
- IVF
- Nephrology following
Weakness from hypercalcemia
- PT/OT evals - home/VN
Possible UTI
- Urine culture negative
Acute on Chronic HFrEF
Essential HTN
- EF 35-40%
- recently stopped Lasix 2 weeks ago per [employer] Dr. Castellon during office visit. not felt to be overly in failure and made Lasix pRN
- monitor I/Os, weights, Lytes
- GDMT: continue BB, Entresto. Aldactone resume at nd.
Parox. Afib
- continue Eliquis/BB
Hx Pericardial Effusion
HLD
- on statin
Hypothyroidism
- continue levothyroxine
Non-obstructive R nephrolithiasis
- Outpatient follow up
Peripheral Neuropathy
- on gabapentin
T2DM with neuropathy
- last A1C 5.9 1 month ago
- ISS low
- on gabapentin
Hx of Metastatic R breast CA with liver/hip mets
- Primary oncologist in [place], goes to [facility] (Alanis Hutson or Lisandro Barksdale available at [phone] if updates requested).
- temporary holding Verzenio
- cont letrozole/Ibrance
Morbid Obesity/BMI 39
Dilutional leukopenia and thrombocytopenia
- repeat labs in 1 week
- no fevers or infectious signs
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
- on suppressive Ceftin - continue
DVT ppx: Eliquis
Code: Full
More than 30 minutes spent in discharge including
Final examination of the patient
Summarizing hospital stay
Instructions for continuing care to all relevant caregivers
Preparation of discharge records, prescriptions, and referral forms
Total time spent (in minutes): 41
Anticipated Discharge: Today
Subjective/Interval History
-
Date of Service: December 16, 2024
feels well no complaints
Objective Data
-
Labs:
Laboratory Results
12/16/24
07:14
WBC 1.6 L*
Hgb 12.3
Hct 35.9 L
Plt Count 88 L
Sodium 137
Potassium 4.1
Chloride 108 H
Carbon Dioxide 18 L
BUN 28 H
Creatinine 1.0
Glucose 103 H
Calcium 10.9 H
Vital Signs:
Vital Signs
Temp Pulse Resp BP Pulse Ox
97.9 F 82 18 114/54 97
12/16/24 11:57 12/16/24 07:57 12/16/24 11:57 12/16/24 07:57 12/16/24 11:57
I&O
12/15/24 12/16/24 12/17/24
06:59 06:59 06:59
Intake Total 1720 / 1720 780 / 780 480 / 480
Balance 1720 / 1720 780 / 780 480 / 480
Physical Exam
-
General: No Apparent Distress
HEENT: Normocephalic and Atraumatic
Respiratory: Negative Wheezes
Cardiac: Regular Rhythm and S1/S2
GI: Soft and Nontender
Musculoskeletal: No Edema
Neuro: AO x 3
Hematologic / Lymphatic: No Lymphadenopathy
Psych: Calm
Data Reviewed
-
Total Time Spent with Patient (in minutes): 41
Labs: Labs Reviewed by me
--- NOTE | 2024-12-16 12:46 | W.PN.NEPH.PH ---
Today's Communication / Plan
-
follow BMP
Assessment/Plan
-
4-year-old female with past medical history significant for metastatic breast cancer, ER positive, [place] negative HER2 negative with mets (according to patient) to the liver, and hip, CHF with a EF of 35 to 40%, history of for hypothyroid, atrial
fibrillation, CKD, type 2 diabetes who presents to the emergency department from home with weakness and confusio
Renal consult for hypercalcemia of 13.7 and acute kidney injury with a creatinine of 1.5 from baseline 0.9.
Impression:
DONNA
Hypercalcemia
History of hypertension
History of chronic pain
History of breast cancer liver metastasis
Diabetes
Diabetic neuropathy
Hypothyroidism
Morbid obesity
Plan:
for dc
follow BMP within 1 week
cause of hypercalcemia still unknown
continue entresto
may restart lasix as needed
-
-
Date of Service: December 16, 2024
CC / HPI / ROS
-
Chief Complaint:
DONNA, hypercalcemia
History of Present Illness:
cr better at 1.0
Calcium down to 10.9
BP stable, on RA
Review of Systems:
no cp/sob
Labs
-
Labs:
WBC 1.6 10^3/uL (4.8-10.8) L* 12/16/24 07:14
RBC 3.89 10^6/uL (4.20-5.40) L 12/16/24 07:14
Hgb 12.3 g/dL (12.0-16.0) 12/16/24 07:14
Hct 35.9 % (37.0-47.0) L 12/16/24 07:14
Plt Count 88 10^3/uL (130-400) L 12/16/24 07:14
Sodium 137 mmol/L (135-145) 12/16/24 07:14
Potassium 4.1 mmol/L (3.5-5.1) 12/16/24 07:14
Chloride 108 mmol/L (98-107) H 12/16/24 07:14
Carbon Dioxide 18 mmol/L (22-30) L 12/16/24 07:14
BUN 28 mg/dl (7-17) H 12/16/24 07:14
Creatinine 1.0 mg/dL (0.6-1.0) 12/16/24 07:14
eGFR 58.75 12/16/24 07:14
Glucose 103 mg/dl (70-99) H 12/16/24 07:14
Calcium 10.9 mg/dl (8.4-10.2) H 12/16/24 07:14
Phosphorus 2.8 mg/dl (2.5-4.5) 12/14/24 09:50
Albumin 4.3 g/dl (3.5-5.0) 12/13/24 19:46
Physical Exam
-
Vital Signs:
Vital Signs
Temp Pulse Resp BP Pulse Ox
97.9 F 82 18 114/54 97
12/16/24 11:57 12/16/24 07:57 12/16/24 11:57 12/16/24 07:57 12/16/24 11:57
Cardiovascular:: Regular rate and rhythm
Respiratory:: Bilateral: CTA
Lung Excursion:: Normal
Abdomen:: Nontender and Soft
Bowel Sounds:: Normal
Extremity Edema:: None: Bilateral:
--- NOTE | 2024-12-16 12:50 | W.DS.TRANS ---
DC Summary - Japanese Interpreter
-
Discharge Instructions:
Discharge Diagnosis/Procedures symptomatic hypercalcemia from calcium and Vit D
supplements which are now stopped
Diet Diabetic, Carb Controlled
Activity As tolerated
Bathing Restrictions None
Blood Work repeat CBC and BMP in 1 week - script given
Other Services VN
Specialty Instructions Weigh Daily
Instructions:
Stand-Alone Forms:
Changes to Home Medications: Yes
Discharge Medications:
DC Medications w/original date entered in [employer]
desloratadine 5 mg tablet (Clarinex) 5 mg PO DAILY Allergies 02/12/17
levothyroxine 50 mcg tablet 150 mcg PO MOTUWETHFRSA Thyroid 09/06/21
vitamin B complex 1 tab PO DAILY Supplement 09/06/21
gabapentin 100 mg capsule 200 mg PO DAILY PRN mild pain 10/11/21
gabapentin 100 mg capsule 400 mg PO BID Pain 10/11/21
letrozole 2.5 mg tablet 2.5 mg PO DAILY Cancer 05/12/24
rosuvastatin 20 mg tablet 20 mg PO HS High Cholesterol 05/12/24
cefuroxime axetil 500 mg tablet 500 mg PO DAILY Infection 08/14/24
diphenhydramine HCl 50 mg capsule 50 mg PO DAILYPRN PRN cold symptoms/allergies 08/14/24
apixaban 5 mg tablet (Eliquis) 5 mg PO BID #30 tabs 08/23/24
metoprolol succinate 50 mg tablet,extended release 24 hr 50 mg PO BID #30 tabs 08/23/24
mirtazapine 15 mg tablet 15 mg PO HS 11/03/24
sacubitril 49 mg-valsartan 51 mg tablet (Entresto) 1 tab PO BID Heart Failure #60 tabs 11/05/24
Ibrance 1 tab PO DAILY 12/13/24
spironolactone 25 mg tablet 25 mg PO DAILY 12/13/24
furosemide 40 mg tablet (Lasix) 40 mg PO DAILY PRN Weight gain #30 tabs 12/16/24
Home Medication Changes
calcium and Vit D supplements which are now stopped
Pending Results: No
Total time spent discharging patient (in min): 41
--- NOTE | 2024-12-16 13:24 | CM ---
Pt stable for d/c today.
Met w/ pt bedside, agreeable to d/c. Pt is current w/ [facility] resume of care referral completed
Son will transport at d/c
IMM reviewed, pt given copy, copy placed in chart
Plan: Home. BHARATI w/ [facility]
[2024-12-16 14:06] LABS: Vitamin D 1,25 Dihydroxy 25.8 pg/mL (19.9-79.3)
[2024-12-16 15:05] VITALS: BP 111/59
--- NOTE | 2024-12-17 10:11 | PN.CDI ---
CDI
- -
CDI:
Physician Documentation Request
Admit Date: 12/14/24 03:26
Dear Doctor Amarilys,
The purpose of this query is not to question medical judgement, but to ensure the accuracy of the conditions reported for your patient.
The diagnosis of acute on chronic HFrEF is documented in the record on progress notes and discharge summary.
H&P states 'appears euvolemic continue GDMT w/ entreso, metop and aldactone'
No BNP or chest xray.
Patient did not receive additional diuretics.
H&P and other physical exams state no edema. No abnormalities with respiratory or cardiac assessments noted.
The request is for the following:
- Diagnosis Acute on chronic HFrEF remains a known or suspected condition for this patient and is further supported by (include additional documentation
in the medical record)
- Chronic HFrEF only
- Other (please specify)
Use of terms such as suspected, likely, concern for, or probable (associated with a specific diagnosis that is being evaluated, monitored, or treated as if it exists) are acceptable and can be coded in the inpatient setting, when documented at the
time of discharge.
Thank you,
Adrianna Giordano RN, BSN
CDI Specialist
tiger text
Please use your independent medical judgment in providing your response.
--- NOTE | 2024-12-17 10:23 | PN.CDI ---
CDI
- -
CDI:
Physician Documentation Request
Admit Date: 12/14/24 03:26
Dear Doctor Amarilys,
Patient admitted with acute hyperalcemia, symptomatic with weakness, change in mental status and DONNA. CT head negative.
Based on the above, could you clarify which, if any of the following, is the most likely etiology of the confusion/altered mental status.
Encephalopathy - indicate type, such as metabolic, toxic, septic, alcoholic, anoxic, hypertensive etc. due to a specific condition such as UTI, CVA, hyponatremia etc.
Acute Delirium - indicate known or suspected etiology such as postoperative, due to opioids or other drugs etc. Can also indicate unknown or mixed etiologies.
Other
Use of terms such as suspected, likely, concern for, or probable (associated with a specific diagnosis that is being evaluated, monitored, or treated as if it exists) are acceptable and can be coded in the inpatient setting, when documented at the
time of discharge.
Thank you,
Adrianna Giordano RN, BSN
CDI Specialist
tiger text
Please use your independent medical judgment in providing your response.
[2024-12-18 23:10] LABS: PTH Related Peptide LC-MS/MS 32.8 pmol/L (0.0-3.4)
== END 2024-12-16 15:58 | disposition home health service (06) | DRG 682 ==
LOC: 4 WEST ACU 03:26
PROVIDERS: Emergency Medicine; Physician Assistant; ADMITTING PHYSICIAN Internal Medicine; ATTENDING PHYSICIAN Internal Medicine; CONSULT PHYSICIAN Internal Medicine Nephrology; EMERGENCY PHYSICIAN Student in an Organized Health Care Education/Training Program; FAMILY PHYSICIAN Family Medicine
DX: N17.9 Acute kidney failure, unspecified (principal); G93.41 Metabolic encephalopathy; I13.0 Hypertensive heart and chronic kidney disease with heart failure and stage 1 through stage 4 chronic kidney disease, or unspecified chronic kidney disease; C78.7 Secondary malignant neoplasm of liver and intrahepatic bile duct; C79.51 Secondary malignant neoplasm of bone; I50.22 Chronic systolic (congestive) heart failure; E83.52 Hypercalcemia; R53.1 Weakness; E03.9 Hypothyroidism, unspecified; E78.00 Pure hypercholesterolemia, unspecified; I48.0 Paroxysmal atrial fibrillation; E11.22 Type 2 diabetes mellitus with diabetic chronic kidney disease; E11.40 Type 2 diabetes mellitus with diabetic neuropathy, unspecified; N18.9 Chronic kidney disease, unspecified; G89.29 Other chronic pain; M25.551 Pain in right hip; M25.552 Pain in left hip; N20.0 Calculus of kidney; E66.01 Morbid (severe) obesity due to excess calories; H35.30 Unspecified macular degeneration; I44.7 Left bundle-branch block, unspecified; D72.819 Decreased white blood cell count, unspecified; D69.6 Thrombocytopenia, unspecified; R82.90 Unspecified abnormal findings in urine; Z96.652 Presence of left artificial knee joint; Z77.22 Contact with and (suspected) exposure to environmental tobacco smoke (acute) (chronic); Z92.21 Personal history of antineoplastic chemotherapy; Z79.890 Hormone replacement therapy; Z79.01 Long term (current) use of anticoagulants; Z79.4 Long term (current) use of insulin; Z85.3 Personal history of malignant neoplasm of breast; Z79.811 Long term (current) use of aromatase inhibitors; Z17.0 Estrogen receptor positive status [ER+]; Z17.22 Progesterone receptor negative status; Z17.32 Human epidermal growth factor receptor 2 negative status; Z88.0 Allergy status to penicillin; Z91.02 Food additives allergy status; Z68.39 Body mass index [BMI] 39.0-39.9, adult; Z87.891 Personal history of nicotine dependence; Z87.442 Personal history of urinary calculi
CPT/HCPCS: 70450; 80048; 80053; 81003; 81015; 82306; 82570; 82652; 82962; 83519; 83735; 83970; 84100; 84300; 84439; 84443; 85025; 85027; 87070; 87086; 93005; 96360; 96361; 97162; 97166; 99285; J2430

== ENCOUNTER 2025-01-10 23:01 | Inpatient (IN) | payer OTHER, SELFPAY ==
[2025-01-10] VITALS (13 sets, daily range): BP systolic 77–110; BP diastolic 41–79; BMI 38.4
--- NOTE | 2025-01-10 18:52 | ED.CVA ---
History of Present Illness
<Timmy Weber PA-C - Last Filed: 01/11/25 09:31>
General
Chief Complaint: CVA/TIA Symptoms
Time Seen by Provider: 01/10/25 18:52
Onset of Stroke Symptoms
Onset of symptoms known: Yes
Date of onset of symptoms: 01/10/25
Time of onset of symptoms: 16:00
History of Present Illness
History of Present Illness:
74-year-old female presents the emergency department via EMS due to strokelike symptoms. I was called to the bedside to assess this patient on arrival. She reportedly took a nap at 1 PM and awoke at 4 PM with confusion, apparently had a fall
shortly thereafter. History is somewhat limited due to patient's current aphasia. On initial assessment she is noted to have mild aphasia, right upper extremity weakness, and right upper extremity sensory deficit
Review of Systems
<Timmy Weber PA-C - Last Filed: 01/11/25 09:31>
Review of Systems
Allergies reviewed?: Yes
All Other Systems: ROS reviewed and negative except as documented in HPI and ROS
Phy Exam
<Timmy Weber PA-C - Last Filed: 01/11/25 09:31>
Physical Exam
Physical Exam:
GEN: Well appearing, NAD, WDWN
HEENT: Oral mucosa moist, no scleral icterus, no nasal congestion
Cardiac: Regular rate
Lung: No respiratory distress, no tachypnea
MSK: No gross deformity or injuries
Skin: Good color, no pallor or jaundice, no rashes
Neuro: Alert, oriented x 2, follows commands but mildly aphasic. No clear dysarthria. Right upper extremity drift noted, left upper and bilateral lower extremity without drift. No limb ataxia or visual field deficits
Psych: Calm, cooperative
Scores
<Timmy Weber PA-C - Last Filed: 01/11/25 09:31>
NIH Stroke Score
Level of Consciousness: 0 - Alert
LOC Questions: 1-Answers one correctly
LOC Commands: 0-Performs both correctly
Best Horizontal Gaze: 0-Normal
Visual Golden: 0=Normal, no visual loss
Facial Palsy: 0=Normal, symmetrical
Motor - Right Arm: 1=Drift < 10 seconds
Motor - Left Arm: 0=No drift 10 seconds
Motor - Right Le-No drift 5 seconds
Motor - Left Le-No drift 5 seconds
Limb Ataxia: 0-Absent
Sensation: 1-Mild loss
Best Language: 1-Mild aphasia
Dysarthria: 0-Normal
Extinction and Inattention: 0-No abnormality
Total Score:: 4
<Andrew Mccormack Jr., PA-C - Last Filed: 01/10/25 21:44>
NIH Stroke Score
Total Score:: 4
Course
<Timmy Weber PA-C - Last Filed: 01/11/25 09:31>
Orders/Labs/Results
Orders:
Orders
01/10/25 18:53
Electrocardiogram (*1) Urgent
Reason for Study: TIA/Stroke
EKG- Treatment ONCE
01/10/25 19:05
CT HEAD STROKE ALERT W/o Cont Urgent
Comment:
Reason For Exam: stroke
CT HEAD/NECK ANG STROKE ALERT Urgent
Comment:
Reason For Exam: stroke
01/10/25 19:09
Complete Blood Count/With Diff Urgent
Troponin I Urgent
01/10/25 19:31
0.9% Sodium Chloride 1000 ml [Nss] 1,000 ml IV BOLUS
01/10/25 19:39
Comprehensive Metabolic Panel Urgent
Direct Bilirubin Urgent
Comment: ADD ON
Lipase Urgent
Comment: ADD ON
01/10/25 20:13
Blood Culture Q20M
LYNNE Source: Blood/Venous
Specimen Description:
Comment: Urgent from separate sites. If patient screens positive for possible sepsis
Blood Culture Q20M
LYNNE Source: Blood/Venous
Specimen Description:
Comment: Urgent from separate sites. If patient screens positive for possible sepsis
0.9% Sodium Chloride 1000 ml [Nss] 1,000 ml IV BOLUS
US Abdomen Complete/Upper Urgent
Comment:
Reason For Exam: transaminitis
01/10/25 20:29
Urinalysis Reflex To Culture Urgent
Date Specimen was Collected: 01/10/25
Time Specimen was Collected: 20:27
Urine Microscopic Reflex Cult Urgent
Urine Culture Urgent
LYNNE Source: U
Specimen Description:
Date Specimen was Collected: 01/10/25
Time Specimen was Collected: 20:27
01/10/25 21:07
Cefepime HCl [Maxipime] 2,000 mg IV NOW STA
01/10/25 21:08
MetroNIDAZOLE 500 MG/100 ML [Flagyl 500 mg] 100 ml IV NOW
01/10/25 21:24
Lactic Acid Urgent
01/10/25 22:00
Flush (0.9% Sodium Chloride) [Flush (Nss)] See Dose Instructions IV PER PROTOCOL
01/10/25 22:27
Admit/Transfer Patient As Directed
Co-Sign Provider:
Level of Care: Inpatient admission
Assign to:: IMU- Intermediate Care
Physician / Group: Marilin
Diagnosis: DONNA, Elevated LFTs, Right Sided Weakness
Reason for Hospitalization: IVFs, Brain and Liver Imaging
Expected length of stay greater than two midnights?: Yes
ELOS- Estimated Length of Stay in days: 3
I certify the patient meets the requirements for IP care: Yes
01/10/25 22:28
PRN Pain Medication Management As Directed
May give lesser potent ordered pain med per pt: Yes
preference::
Protocol:: Medication orders for pain may be administered in a
manner that supports deferring to patient preference
when the pt is:
- Requesting an ordered lesser potent pain medication.
Least to most potent pain medications are defined
as: acetaminophen < NSAID < tramadol < opioids
(morphine, oxycodone, hydromorphone).
- Requesting a lesser dose of the same medication IF
ORDERED.
- Requesting a less intrusive route of administration
if both routes are prescribed by the provider (PO <
IV).
01/10/25 22:29
Code Status As Directed
Resuscitation Status: Full Code
01/10/25 22:49
Add On- LAB Urgent
Tests Added?: direct bilirubin, lipase
01/10/25 23:16
0.9% Sodium Chloride 1000 ml [Nss] 1,000 ml IV 80 mls/hr
Acetaminophen [Tylenol/Feverall] 650 mg RECTAL Q4HPRN PRN
Acetaminophen [Tylenol] 650 mg PO Q4HPRN PRN
Dextrose 50%-Water [Dextrose 50% Syringe] 12.5 grams IV [id number] PRN
Glucagon [GlucaGen] 1 mg IM PRN PRN
01/10/25 23:16
Case Management Consult ONCE
Case Management Consult: Discharge Planning
Comment: stroke/tia
Consult Notification Routine
Specialty to Notify: Gastroenterology
Date consulting provider notified: 01/11/25
Time consulting provider notified: 07:24
Notified:: Provider
DIETARY CONSULT Routine
Reason for Consult: stroke/TIA
GASTROINTESTINAL CONSULT Routine
Consulting Provider: Sourav Koehler
Was physician already notified: No
Reason for consult: Elevated LFTs, Liver Mets from Breast CA
NEUROLOGY CONSULT Urgent
Consulting Provider: Mik Sullivan
Was physician already notified: Yes
Workforce Investment Act Career Manager Routine
Activity As Directed
Activity Level: Out of Bed- Chair
Bedside Glucose Monitoring As Directed
Frequency: AC&HS
Additional Instructions:: Change to q6h if pt on TPN, tube feeding or not eating
NIH Stroke Scale As Directed
Directions: Per protocol
Comment: every shift and with any change in condition or mental status
Neurological Checks As Directed
Frequency: q4h
Additional Instructions:: q4h x 24h upon admission to the floor, then qshift & with any change in condition
and mental status
Patient Education As Directed
Type: Stroke education packet
Comment: provide to patient and family
Vital Signs As Directed
Frequency: Per unit guidelines
Ot Eval And Treat Routine
Pt Eval And Treat Routine
Activity Level: Out of Bed-Early Mobility
With Assistance
Speech Therapy Eval & Treat Routine
01/11/25 04:39
Complete Blood Count/No Diff IN AM
Glycohemoglobin (HgbA1c) IN AM
01/11/25 Breakfast
NPO
Allow oral meds: Yes
Allow clear liquids: 4hrs prior to procedure
NPO with Ice Chips: Yes
Comment: may have unrestricted clear liquid up to 4 hrs prior to scheduled procedure
01/11/25 07:30
Insulin Aspart Corrective Low [Novolog Flexpen-Low Resistance] See Protocol SC AC
01/11/25 08:00
Apixaban [Eliquis] 5 mg PO BID
Gabapentin [Neurontin] 400 mg PO BID
Hmlcvhvjd-Edn-Ekws [Femara] 2.5 mg PO DAILY
palbociclib [Ibrance] See Dose Instructions PO DAILY
01/11/25 10:00
Cefepime HCl [Maxipime] 1,000 mg IV Q12H
MetroNIDAZOLE 500 MG/100 ML [Flagyl 500 mg] 100 ml IV Q12H
01/11/25 22:00
Mirtazapine [Remeron] 15 mg PO HS
01/12/25 06:00
Levothyroxine [Synthroid] 150 mcg PO [id number]@0600
Abnormal Lab Results
01/10/25 01/10/25 01/10/25
18:53 19:09 19:39
WBC 2.5 L 10^3/uL
(4.8-10.8)
MCH 31.5 H pg
(27.0-31.0)
RDW 14.9 H %
(11.5-14.5)
MPV 11.2 H fL
(7.4-10.4)
Absolute Lymphs (auto) 0.6 L 10^3/uL
(1.2-3.4)
Sodium 133 L mmol/L
(135-145)
Carbon Dioxide 16 L mmol/L
(22-30)
BUN 36 H mg/dl
(7-17)
Creatinine 2.6 H mg/dL
(0.6-1.0)
Glucose 182 H mg/dl
(70-99)
Total Bilirubin 4.1 H mg/dl
(0.2-1.3)
Direct Bilirubin 3.5 H mg/dl
(0.0-0.4)
AST 347 H U/L
(14-36)
ALT 301 H U/L
(0-35)
Alkaline Phosphatase 737 H U/L
(38-126)
Total Protein 5.4 L g/dl
(6.3-8.2)
Albumin 2.8 L g/dl
(3.5-5.0)
Urine Ketones
Ur Occult Blood Reflex
Urine Bilirubin
Leukocyte Esterase Rfl
Urine RBC
Urine WBC (Reflex)
Urine Bacteria (Reflex)
Urine Albumin (Reflex)
POC Glucose 170 H mg/dl
(70-99)
01/10/25
20:29
WBC
MCH
RDW
MPV
Absolute Lymphs (auto)
Sodium
Carbon Dioxide
BUN
Creatinine
Glucose
Total Bilirubin
Direct Bilirubin
AST
ALT
Alkaline Phosphatase
Total Protein
Albumin
Urine Ketones 1+ A
(Negative)
Ur Occult Blood Reflex 4+ A
(Negative)
Urine Bilirubin 2+ A
(Negative)
Leukocyte Esterase Rfl 1+ A
(Negative)
Urine RBC 7-10 A /HPF
(0-2)
Urine WBC (Reflex) 16-20 A /HPF
(0-5)
Urine Bacteria (Reflex) Moderate A
(Negative)
Urine Albumin (Reflex) 3+ A
(Neg - Trace)
POC Glucose
01/10/25 19:09
01/10/25 19:39
Vital Signs
Initial and Last Documented VS:
Initial Vital Signs
Pulse Resp
124 16
01/10/25 18:55 01/10/25 18:55
Last Documented Vital Signs
Temp Pulse Resp BP Pulse Ox
97.8 F 92 8 98/66 97
01/11/25 04:00 01/11/25 08:00 01/11/25 07:38 01/11/25 07:38 01/11/25 05:32
<Andrew Mccormack Jr., PA-C - Last Filed: 01/10/25 21:44>
Orders/Labs/Results
Orders:
Orders
01/10/25 18:53
Electrocardiogram (*1) Urgent
Reason for Study: TIA/Stroke
EKG- Treatment ONCE
01/10/25 19:05
CT HEAD STROKE ALERT W/o Cont Urgent
Comment:
Reason For Exam: stroke
CT HEAD/NECK ANG STROKE ALERT Urgent
Comment:
Reason For Exam: stroke
01/10/25 19:09
Complete Blood Count/With Diff Urgent
Troponin I Urgent
01/10/25 19:31
0.9% Sodium Chloride 1000 ml [Nss] 1,000 ml IV BOLUS
01/10/25 19:39
Comprehensive Metabolic Panel Urgent
Direct Bilirubin Urgent
Comment: ADD ON
Lipase Urgent
Comment: ADD ON
01/10/25 20:13
Blood Culture Q20M
LYNNE Source: Blood/Venous
Specimen Description:
Comment: Urgent from separate sites. If patient screens positive for possible sepsis
Blood Culture Q20M
LYNNE Source: Blood/Venous
Specimen Description:
Comment: Urgent from separate sites. If patient screens positive for possible sepsis
0.9% Sodium Chloride 1000 ml [Nss] 1,000 ml IV BOLUS
US Abdomen Complete/Upper Urgent
Comment:
Reason For Exam: transaminitis
01/10/25 20:29
Urinalysis Reflex To Culture Urgent
Date Specimen was Collected: 01/10/25
Time Specimen was Collected: 20:27
Urine Microscopic Reflex Cult Urgent
Urine Culture Urgent
LYNNE Source: U
Specimen Description:
Date Specimen was Collected: 01/10/25
Time Specimen was Collected: 20:27
01/10/25 21:07
Cefepime HCl [Maxipime] 2,000 mg IV NOW STA
01/10/25 21:08
MetroNIDAZOLE 500 MG/100 ML [Flagyl 500 mg] 100 ml IV NOW
01/10/25 21:24
Lactic Acid Urgent
01/10/25 22:00
Flush (0.9% Sodium Chloride) [Flush (Nss)] See Dose Instructions IV PER PROTOCOL
01/10/25 22:27
Admit/Transfer Patient As Directed
Co-Sign Provider:
Level of Care: Inpatient admission
Assign to:: IMU- Intermediate Care
Physician / Group: Marilin
Diagnosis: DONNA, Elevated LFTs, Right Sided Weakness
Reason for Hospitalization: IVFs, Brain and Liver Imaging
Expected length of stay greater than two midnights?: Yes
ELOS- Estimated Length of Stay in days: 3
I certify the patient meets the requirements for IP care: Yes
01/10/25 22:28
PRN Pain Medication Management As Directed
May give lesser potent ordered pain med per pt: Yes
preference::
Protocol:: Medication orders for pain may be administered in a
manner that supports deferring to patient preference
when the pt is:
- Requesting an ordered lesser potent pain medication.
Least to most potent pain medications are defined
as: acetaminophen < NSAID < tramadol < opioids
(morphine, oxycodone, hydromorphone).
- Requesting a lesser dose of the same medication IF
ORDERED.
- Requesting a less intrusive route of administration
if both routes are prescribed by the provider (PO <
IV).
01/10/25 22:29
Code Status As Directed
Resuscitation Status: Full Code
01/10/25 22:49
Add On- LAB Urgent
Tests Added?: direct bilirubin, lipase
01/10/25 23:16
0.9% Sodium Chloride 1000 ml [Nss] 1,000 ml IV 80 mls/hr
Acetaminophen [Tylenol/Feverall] 650 mg RECTAL Q4HPRN PRN
Acetaminophen [Tylenol] 650 mg PO Q4HPRN PRN
Dextrose 50%-Water [Dextrose 50% Syringe] 12.5 grams IV [id number] PRN
Glucagon [GlucaGen] 1 mg IM PRN PRN
01/10/25 23:16
Case Management Consult ONCE
Case Management Consult: Discharge Planning
Comment: stroke/tia
Consult Notification Routine
Specialty to Notify: Gastroenterology
Date consulting provider notified: 01/11/25
Time consulting provider notified: 07:24
Notified:: Provider
DIETARY CONSULT Routine
Reason for Consult: stroke/TIA
GASTROINTESTINAL CONSULT Routine
Consulting Provider: Sourav Koehler
Was physician already notified: No
Reason for consult: Elevated LFTs, Liver Mets from Breast CA
NEUROLOGY CONSULT Urgent
Consulting Provider: Mik Sullivan
Was physician already notified: Yes
Workforce Investment Act Career Manager Routine
Activity As Directed
Activity Level: Out of Bed- Chair
Bedside Glucose Monitoring As Directed
Frequency: AC&HS
Additional Instructions:: Change to q6h if pt on TPN, tube feeding or not eating
NIH Stroke Scale As Directed
Directions: Per protocol
Comment: every shift and with any change in condition or mental status
Neurological Checks As Directed
Frequency: q4h
Additional Instructions:: q4h x 24h upon admission to the floor, then qshift & with any change in condition
and mental status
Patient Education As Directed
Type: Stroke education packet
Comment: provide to patient and family
Vital Signs As Directed
Frequency: Per unit guidelines
Ot Eval And Treat Routine
Pt Eval And Treat Routine
Activity Level: Out of Bed-Early Mobility
With Assistance
Speech Therapy Eval & Treat Routine
01/11/25 04:39
Complete Blood Count/No Diff IN AM
Glycohemoglobin (HgbA1c) IN AM
01/11/25 Breakfast
NPO
Allow oral meds: Yes
Allow clear liquids: 4hrs prior to procedure
NPO with Ice Chips: Yes
Comment: may have unrestricted clear liquid up to 4 hrs prior to scheduled procedure
01/11/25 07:30
Insulin Aspart Corrective Low [Novolog Flexpen-Low Resistance] See Protocol SC AC
01/11/25 08:00
Apixaban [Eliquis] 5 mg PO BID
Gabapentin [Neurontin] 400 mg PO BID
Ambsmbqvz-Sjn-Snhj [Femara] 2.5 mg PO DAILY
palbociclib [Ibrance] See Dose Instructions PO DAILY
01/11/25 10:00
Cefepime HCl [Maxipime] 1,000 mg IV Q12H
MetroNIDAZOLE 500 MG/100 ML [Flagyl 500 mg] 100 ml IV Q12H
01/11/25 22:00
Mirtazapine [Remeron] 15 mg PO HS
01/12/25 06:00
Levothyroxine [Synthroid] 150 mcg PO MoTuWeThFrSa@0600
Abnormal Lab Results
01/10/25 01/10/25 01/10/25
18:53 19:09 19:39
WBC 2.5 L 10^3/uL
(4.8-10.8)
MCH 31.5 H pg
(27.0-31.0)
RDW 14.9 H %
(11.5-14.5)
MPV 11.2 H fL
(7.4-10.4)
Absolute Lymphs (auto) 0.6 L 10^3/uL
(1.2-3.4)
Sodium 133 L mmol/L
(135-145)
Carbon Dioxide 16 L mmol/L
(22-30)
BUN 36 H mg/dl
(7-17)
Creatinine 2.6 H mg/dL
(0.6-1.0)
Glucose 182 H mg/dl
(70-99)
Total Bilirubin 4.1 H mg/dl
(0.2-1.3)
Direct Bilirubin 3.5 H mg/dl
(0.0-0.4)
AST 347 H U/L
(14-36)
ALT 301 H U/L
(0-35)
Alkaline Phosphatase 737 H U/L
(38-126)
Total Protein 5.4 L g/dl
(6.3-8.2)
Albumin 2.8 L g/dl
(3.5-5.0)
Urine Ketones
Ur Occult Blood Reflex
Urine Bilirubin
Leukocyte Esterase Rfl
Urine RBC
Urine WBC (Reflex)
Urine Bacteria (Reflex)
Urine Albumin (Reflex)
POC Glucose 170 H mg/dl
(70-99)
01/10/25
20:29
WBC
MCH
RDW
MPV
Absolute Lymphs (auto)
Sodium
Carbon Dioxide
BUN
Creatinine
Glucose
Total Bilirubin
Direct Bilirubin
AST
ALT
Alkaline Phosphatase
Total Protein
Albumin
Urine Ketones 1+ A
(Negative)
Ur Occult Blood Reflex 4+ A
(Negative)
Urine Bilirubin 2+ A
(Negative)
Leukocyte Esterase Rfl 1+ A
(Negative)
Urine RBC 7-10 A /HPF
(0-2)
Urine WBC (Reflex) 16-20 A /HPF
(0-5)
Urine Bacteria (Reflex) Moderate A
(Negative)
Urine Albumin (Reflex) 3+ A
(Neg - Trace)
POC Glucose
01/10/25 19:09
01/10/25 19:39
Vital Signs
Initial and Last Documented VS:
Initial Vital Signs
Pulse Resp
124 16
01/10/25 18:55 01/10/25 18:55
Last Documented Vital Signs
Temp Pulse Resp BP Pulse Ox
97.8 F 92 8 98/66 97
01/11/25 04:00 01/11/25 08:00 01/11/25 07:38 01/11/25 07:38 01/11/25 05:32
<Timmy Weber PA-C - Last Filed: 01/11/25 09:31>
MDM/Problems Addressed
MDM/Problems Addressed:
74-year-old female presents as a stroke alert due to acute onset of right-sided weakness and confusion. On initial evaluation she was given an NIH of 4 however is not a TNK candidate on account of anticoagulant use actively. She was sent for
urgent CT and CTA which shows no evidence for hemorrhage or LVO. She was then noted to be hypotensive with transaminitis and acute kidney injury. Transaminitis is a new finding for her, could represent changes from metastatic hepatic disease
versus hypoperfusion in the setting of hypotension or secondary to a biliary infection. Ultrasound is suspicious for cholecystitis however gallbladder edema could be in the setting of adjacent hepatic disease. Will start broad-spectrum antibiotics
and admit to the hospitalist service. Signed out to Mike Mccormack PA-C pending final ultrasound report
<Timmy Weber PA-C - Last Filed: 01/11/25 09:31>
*Critical Care Note
Total Time (30-74mins, 75-104mins- exclusive of procedures): 60 minutes
comment:
Critical care time: 60 minutes
Critical care time was exclusive of: Separately billable procedures, treating other patients, and teaching time
Critical care was necessary to treat or prevent imminent or life-threatening deterioration of the following conditions: CVA/sepsis/hypotension
Critical care time spent personally by me on the following activities:
[x] Review of old charts
[x] Obtaining history from patient or surrogate
[x] Ordering and review of the laboratory studies
[x] Ordering and review of radiographic studies
[x] Ordering and performing treatments and interventions
[x] Patient patient's response to treatment
[x] Development of treatment plan with patient or surrogate
<Andrew Mccormack Jr., PA-C - Last Filed: 01/10/25 21:44>
*Critical Care Note
Total Time (30-74mins, 75-104mins- exclusive of procedures): Not Applicable
<Andrew Mccormack Jr., PA-C - Last Filed: 01/10/25 21:44>
Update Note
Update Note:
2130: Ultrasound read showing multiple rounded hypoechoic lesions measuring up to 3.2 cm possibly representing metastatic disease. 'Gallbladder contains gallstones as well as moderate to severe nonspecific gallbladder wall thickening up to 8 mm.
Wall thickening could be related to liver disease however if there is any concern for acute cholecystitis could consider HIDA scan' here blood pressure improving with fluids. Patient started on antibiotics otherwise will need be admitted for
further monitoring and treatment.
ED Attending Note
<Timmy Weber PA-C - Last Filed: 01/11/25 09:31>
-
Portions of this chart may have been created with voice recognition software.� Occasional wrong word or��sound alike� substitutions may have occurred due to the inherent limitations of voice recognition software.
Discharge Plan
Departure
Patient Disposition: Admit
Date of Disposition: 01/10/25
Time of Disposition: 21:43
Admit to: IVU
Admit to doctor: Marilin
Presentation/result/management discussed w/ accepting MD/DO: Hospitalist
Patient with high blood pressure during this ER visit?: No
Condition: Good
Covid-19: Not Applicable
Discharge Problem:
Stroke, Transaminitis, Hyperbilirubinemia
Interventions
Interventions:
*Risk Screen - Suicide Last Done: 01/10/25 19:25
*General Assessment Last Done: 01/10/25 20:37
*Neglect/Abuse Screening Last Done: 01/10/25 19:25
*ED- Fall Risk Assessment Last Done: 01/10/25 19:25
*ED COVID-19 Vaccine History Last Done: 01/10/25 20:37
ED- Pulmonary Assessment Last Done: 01/10/25 20:49
ED- Neurological Assessment Last Done: 01/10/25 20:49
ED- Cardiac Assessment Last Done: 01/10/25 20:49
ED Swallowing Screen Last Done: 01/10/25 20:49
[2025-01-10 18:54] LABS: Glucose - Point of Care 170 mg/dl (70-99)
--- NOTE | 2025-01-10 19:20 | PHANOTE ---
med rec tech(01/10/25)-Due to error in recording, pharmacy records utilized from patient's last visit last month.
[2025-01-10 19:24] LABS: Hematocrit 41.6 % (37.0-47.0); Hemoglobin 14.6 g/dL (12.0-16.0); Mean Corp Hgb Conc. 35.1 g/dL (33.0-37.0); Mean Corpuscular Hgb 31.5 pg (27.0-31.0); Mean Corpuscular Volume 89.8 fL (81.0-99.0); Mean Platelet Volume 11.2 fL (7.4-10.4); Platelet Count 179 10^3/uL (130-400); Red Blood Cell Count 4.63 10^6/uL (4.20-5.40); Red Cell Dist. Width 14.9 % (11.5-14.5); White Blood Cell Count 2.5 10^3/uL (4.8-10.8)
[2025-01-10] MEDS: NSS 1000 IV ×3 (19:34→23:58)
[2025-01-10 19:44] LABS: Troponin I < 0.012 ng/ml
[2025-01-10 19:53] LABS: % Basophils 0.4 % (0-2); % Immature Granulocytes 0.4 % (0-0.5); % Lymphocytes 25.4 % (20.5-51.1); % Monocytes 6.9 % (1.7-9.3); % Neutrophils 66.9 % (42.2-75.2); Absolute Lymphocytes 0.6 10^3/uL (1.2-3.4); Absolute Monocytes 0.2 10^3/uL (0.1-0.6); Absolute Neutrophils 1.7 10^3/uL (1.4-6.5); Nucleated Red Blood Cells % 0.8 %
[2025-01-10 20:02] LABS: ALT (SGPT) 301 U/L (0-35); AST (SGOT) 347 U/L (14-36); Albumin 2.8 g/dl (3.5-5.0); Alkaline Phosphatase 737 U/L (38-126); Blood Urea Nitrogen 36 mg/dl (7-17); Calcium 9.8 mg/dl (8.4-10.2); Carbon Dioxide 16 mmol/L (22-30); Chloride 106 mmol/L (98-107); Estimated Creatinine Clearance 19 ml/min; Glucose 182 mg/dl (70-99); Potassium 4.6 mmol/L (3.5-5.1); Sodium 133 mmol/L (135-145); Total Bilirubin 4.1 mg/dl (0.2-1.3); Total Protein 5.4 g/dl (6.3-8.2); eGFR 18.67
[2025-01-10 20:41] LABS: Urine Albumin 3+ (Neg - Trace); Urine Bilirubin 2+ (Negative); Urine Character Cloudy (Clear); Urine Color Amber; Urine Glucose Negative (Negative); Urine Ketone 1+ (Negative); Urine Leukocyte 1+ (Negative); Urine Nitrite Negative (Negative); Urine Occult Blood 4+ (Negative); Urine Specific Gravity 1.015 (<1.030); Urine Urobilinogen 1+ (Neg - 1+)
[2025-01-10 21:24] LABS: Urine Granular Cast >15 /LPF (0)
[2025-01-10 21:26] LABS: Urine Amorphous Seen; Urine Bacteria Moderate (Negative); Urine White Cell 16-20 /HPF (0-5)
[2025-01-10] MEDS: FLAGYL 500 MG 100 IV (21:33)
[2025-01-10 21:46] LABS: Lactic Acid 1.3 mmol/L (0.7-2.0)
[2025-01-10] MEDS: MAXIPIME 2000 MG IV (22:07)
--- NOTE | 2025-01-10 22:43 | W.PN.UPDATE ---
Update Note
Progress Note Update
Patient seen in conjunction with [employer]. I agree with the findings and physical. I concur with assessment and plan listed otherwise.
Briefly, this is a 34-year-old with past medical history significant for diagnosis of breast cancer with liver mets with currently on Ibrance and letrozole, hypothyroid, atrial fibrillation on anticoagulation, CHF, presenting to the emergency
department with aphasia and right-sided weakness.
According to spouse symptoms began at around 5 PM while she was sitting on the dining table. She suddenly had difficulty moving right hand. It was limp and she was unable to raise it on to the table. She had difficulty expressing herself clearly.
She was jumping out words although they were sounded normal. She had no headache. She denies any nausea or vomiting. She denies have any diarrhea. She denies any fevers or chills. She denies any abdominal pain. Symptoms continued until EMS
arrived about 20 minutes later. At that time she was actually able to move her hand. Stroke alert was called and patient was brought into the emergency department.
Family reports decreased p.o. intake since initiation of antineoplastics. Weight loss could not be determined.
Here in the emergency department she for was found to be hypotensive with a low BPs in the 70s systolic on arrival. Currently 110/45 with a pulse of 88 temp of 98.5 and satting 96% on room air. ECG shows atrial floor with variable conduction at a
rate of 98. CBC was notable for a white count of 2.5 but otherwise unremarkable. Electrolytes were stable except for slightly low sodium of 133 and bicarb of 16, BUN and creatinine are elevated at 36 and 2.6 respectively. He has new elevations in
AST ALT and alk phos as well as a total bilirubin of 4.1.
CT of the head shows no acute intracranial process. CT angio of the head and neck shows no high-grade stenosis, no aneurysm dissections. She does have around 50% to lower bilateral atherosclerotic disease in the internal carotids.
UA was similar to prior with positive few bacteria and white cells.
Assessment and plan
Patient with variable loss of function in the right upper extremity. For me she was able to move her hand but sometimes has difficulty controlling her fingers. This could be secondary to an acute stroke versus a watershed infarct in the setting of
hypotension and BP related dynamic changes. Cannot rule out brain mets. She has a new elevation seen bilirubin as well as LFTs in the setting of metastatic liver disease. UA usually positive and unchanged from prior but cannot rule out a UTI.
Admit to IMU
Hypotension - Hypovolemic vs sepsis
- blood and urine cultures sent
- check procal
- biliary vs urinary source, agree with cefepime/flagyl for now
- holding entresto, lasix and metoprolol
- continue IV fluids NS at 80
- low grade pressors if needed
Transaminitis - Elevated bili and transaminitis suggestive of biliary obstruction. Can't rule out cholangitis. No RUQ tenderness. Mild GB wall thickening w/o stones. Unlikely cholecystitis.
- antibiotics as above
- trend lfts with direct bili
- MRI and MRCP
- GI consult
CVA - possible CVA vs BP related ischemic changes. Normal CT head. Normal CT angio H&N
- continue apixaban
- no tpa
- MRI brain to eval for mets
- neurology consult
AFIB
- continue apixaban
- rate control with prn metoprolol as bp tolerates, can start metoprolol if bp stable in am
CHF
- holding lasix (prn dosing at home)
- holding spironolactone and enteresto
DONNA - Cr up from around 1.2 hollie 2.7 and hypotensive. Likely ATN. Not oliguric thus far. Unfortunately recieved IV contrast
- check urine Na/Cr for FENA
- IV fluids and hold entresto for now
- monitor i/o
- if oliguric or Cr not improved will consult nephrology
DVT PPX - on apixaban
Code Status - Full Code
--- NOTE | 2025-01-10 22:43 | HPS.HSE ---
Family Physician
-
Family Physician: Addison iWllett
Chief Complaint
-
Right Sided Weakness
History of Present Illness
Patient is a 74 y/o female past medical history of metastatic breast cancer with liver and bone mets, atrial fibrillation, heart failure, diabetes with neuropathy, hypertension and hypothyroidism who presents with right sided weakness. Patient
noted to be in her usual state around 1:30PM when she went to take a nap. When she woke up around 4:30PM she sustained a fall due to right sided weakness. She as also have speech difficulty, family at bedside noting she had nonsensical speech.
Patient reports her right sided weakness is improving, and family notes speech is improving. Work-up in the emergency department revealed acute kidney injury as well as significantly elevated liver function tests. Patient was also noted to be
hypotensive upon arrival to the emergency department. Patient reports very poor appetite, and family notes she doesn't drink a lot of fluids. She denies abdominal pain, nausea, vomiting or diarrhea. She denies fevers, sweats or chills.
Medical History
Past Medical History
Past Medical History: Reports Other
Additional Past Medical History:
Paroxysmal Atrial Fibrillation
Chronic HFrEF
Insulin-Dependent Diabetes Mellitus
Diabetic Neuropathy
Essential Hypertension
Hyperlipidemia
Hypothyroidism
Metastatic Right Breast Invasive Ductal Carcinoma (Liver and Hip Bone)
Chronic Pain Syndrome
Right Prosthetic Joint Infection
Class II Obesity
Past Surgical History: Reports Other
Additional Past Surgical History:
Right Total Knee Replacement - Jul 2015
Left Total Knee Replacement with Revision - January 2017 / Aug 2021
Right Knee Wash Out - April 2024
Social History
Tobacco: Non-smoker
Alcohol: None
Family History
Family History: Not pertinent
Allergies / Home Medications
Allergies reflects when Allergies were last updated in [facility].
Home Medications with original date entered in [facility]
Allergy/Medication List:
Allergies
Allergy/AdvReac Type Severity Reaction Status Date / Time
Penicillins Allergy Hives Verified 01/10/25 19:34
red dye Allergy Hives Verified 01/10/25 19:34
Home Medications
apixaban 5 mg tablet (Eliquis) 5 mg PO BID 01/10/25
cefuroxime axetil 500 mg tablet 500 mg PO DAILY 01/10/25
desloratadine 5 mg tablet 5 mg PO DAILY 01/10/25
diphenhydramine HCl 50 mg capsule 50 mg PO DAILYPRN PRN allergies 01/10/25
furosemide 40 mg tablet 40 mg PO DAILYPRN PRN swelling 01/10/25
gabapentin 100 mg capsule 200 mg PO DAILYPRN PRN moderate pain 01/10/25
gabapentin 100 mg capsule 400 mg PO BID 01/10/25
letrozole 2.5 mg tablet 2.5 mg PO DAILY 01/10/25
levothyroxine 50 mcg tablet (Synthroid) 150 mcg PO MOTUWETHFRSA 01/10/25
metoprolol succinate 50 mg tablet,extended release 24 hr 50 mg PO BID 01/10/25
mirtazapine 15 mg tablet 15 mg PO HS 01/10/25
palbociclib 100 mg tablet (Ibrance) 100 mg PO DAILY 01/10/25
rosuvastatin 20 mg tablet 20 mg PO HS 01/10/25
sacubitril 24 mg-valsartan 26 mg tablet (Entresto) 1 tab PO BID 01/10/25
spironolactone 25 mg tablet 25 mg PO DAILY 01/10/25
vitamin B complex 1 tab PO DAILY 01/10/25
Review of Systems
-
A 12 point ROS was completed and negative except as noted: Yes
Constitutional: Denies Fever or Chills
Respiratory: Denies Cough or Trouble Breathing
Cardiac: Denies Chest Pain or Palpitations
Abdomen/GI: Reports See HPI
Physical Exam
Vital Signs
Vital Signs
Temp Pulse Resp BP Pulse Ox
98.5 F 81 19 99/58 96
01/10/25 19:59 01/10/25 22:15 01/10/25 22:15 01/10/25 22:03 01/10/25 22:03
Physical Exam
General: Comfortable and Conversant
HEENT: Moist mucous membranes and Other (Sclera are slight icteric)
Respiratory: Clear and Non Labored Respirations
Cardiac: S1/S2 and Irregular Rhythm; No Tachycardia
GI: Soft and Non Tender
Rectal: Deferred by Provider
Musculoskeletal: No Clubbing and No Cyanosis
Skin: Warm, Dry and Jaundice (Slightly)
Neuro: Awake, Alert, Oriented and Other (Slight right upper extremity drift)
Psych: Calm
Laboratory Results
-
01/10/25 19:09
01/10/25 19:39
Laboratory Results
Lactic Acid 1.3 mmol/L (0.7-2.0) 01/10/25 21:24
Total Bilirubin 4.1 mg/dl (0.2-1.3) H 01/10/25 19:39
AST 347 U/L (14-36) H 01/10/25 19:39
ALT 301 U/L (0-35) H 01/10/25 19:39
Alkaline Phosphatase 737 U/L (38-126) H 01/10/25 19:39
Troponin I < 0.012 ng/ml 01/10/25 19:09
Data Reviewed
-
CT Scan: Report Reviewed by me
Lab Data: Labs Reviewed by me
Impression/Plan
-
Right-Sided Weakness and Speech Abnormality, possible TIA/CVA vs new brain mets from breast cancer vs hypotension related
-Consult Neurology
-Check Brain MRI with contrast
-Monitor neuro-checks
-Check HgbA1c and Lipid Panel
Acute Kidney Injury
-Creatinine 1.0 in Nov 2024
-Hold spironolactone, and Entresto
-Continue IVFs
-Await Abd US result
-Recheck creatinine in AM
Elevated LFTs, new compared to Nov 2024
-Preliminary report on Abd US notes gallbladder wall thickening and prior imaging indicates cholelithiasis
-Consult GI
-Check Abd MRI/MRCP
-Recheck LFTs in AM
-Continue empiric Cefepime and Flagyl to cover for possibly cholecystitis
Paroxysmal Atrial Fibrillation
-Continue Eliquis
-Hold Metoprolol due to hypotension
Chronic HFrEF
-Diuretics on hold due to DONNA
-Monitor Is&Os and Daily Weights
Diabetes Mellitus
-HgbA1c 5.9 in October 2004
-Monitor sugars and continue coverage insulin
Diabetic Neuropathy
-Continue gabapentin
Hyperlipidemia
-Hold statin due to elevated LFTs
Hypothyroidism
-Continue Syndrome
Metastatic Right Breast Invasive Ductal Carcinoma (Liver and Hip Bone)
-Continue Letrozole and Ibrance
Hx Right Prosthetic Joint Infection
-Hold suppressive cefuroxime while on Cefepime
Class II Obesity
-Affects all aspects of care
DVT proph: Eliquis
Code Status: Full Code
[2025-01-10 23:22] LABS: Direct Bilirubin 3.5 mg/dl (0.0-0.4); Lipase 77 U/L (23-300)
[2025-01-11] VITALS (33 sets, daily range): BP systolic 72–141; BP diastolic 26–114; PULSE 89–95; O2SAT 95–96; BMI 38.6
[2025-01-11] MEDS: NSS 500 IV (04:37)
[2025-01-11 05:03] LABS: Hematocrit 37.9 % (37.0-47.0); Hemoglobin 13.3 g/dL (12.0-16.0); Mean Corp Hgb Conc. 35.1 g/dL (33.0-37.0); Mean Corpuscular Hgb 31.7 pg (27.0-31.0); Mean Corpuscular Volume 90.5 fL (81.0-99.0); Mean Platelet Volume 11.8 fL (7.4-10.4); Platelet Count 158 10^3/uL (130-400); Red Blood Cell Count 4.19 10^6/uL (4.20-5.40); White Blood Cell Count 2.4 10^3/uL (4.8-10.8)
[2025-01-11 06:06] LABS: ALT (SGPT) 268 U/L (0-35); AST (SGOT) 290 U/L (14-36); Albumin 2.5 g/dl (3.5-5.0); Alkaline Phosphatase 711 U/L (38-126); Blood Urea Nitrogen 35 mg/dl (7-17); Calcium 9.4 mg/dl (8.4-10.2); Carbon Dioxide 17 mmol/L (22-30); Chloride 112 mmol/L (98-107); Estimated Creatinine Clearance 19 ml/min; Glucose 119 mg/dl (70-99); HDL Cholesterol 41 mg/dl; LDL Cholesterol, Calculated 111 mg/dl; Magnesium 1.5 mg/dl (1.6-2.3); Potassium 4.3 mmol/L (3.5-5.1); Sodium 138 mmol/L (135-145); Total Cholesterol 169 mg/dl (50-199); Total Protein 4.9 g/dl (6.3-8.2); Triglyceride 89 mg/dl (10-149); Very Low Density Lipoprotein 17 mg/dl (0-30); eGFR 18.67
--- NOTE | 2025-01-11 09:00 | CM ---
Patient seen at bedside in ED. Patient stated that she remembers CM but today is first visit per medical record. Patient lives with her and family members. Patient home is a 2 story home with 1st floor set up. Patient stated that she is not
allowed to go upstairs. Patient PCP is Dr. Willett and she uses the [facility] in [place]. Patient uses a walker at home but has no other DME. Patient stated that she did not have any SNF stays. Patient has had [facility] in the past per patient, will confirm
with family. Patient with verbalizations that did not come out as she wanted and was visibly frustrated with speech. CM updated physician. CM will continue to follow for discharge planning needs.
Plan; SNF vs home with [facility] pending functional status/medical treatment plan
[2025-01-11] MEDS: MAGNESIUM SULFATE 50 IV (09:03)
[2025-01-11] MEDS: NOVOLOG FLEXPEN-LOW RESISTANCE SC ×3 (09:07→18:43)
[2025-01-11 09:08] LABS: Glucose - Point of Care 119 mg/dl (70-99)
[2025-01-11] MEDS: ELIQUIS 5 MG PO ×2 (10:55→19:36)
[2025-01-11] MEDS: MAXIPIME 1000 MG IV ×2 (10:57→22:36)
--- NOTE | 2025-01-11 10:57 | W.CON.NEPH ---
Consultation
-
Date/Time Consultation Requested: 01/11/2025 9 AM
Date/Time Consultation Performed: 01/11/2025 11 AM
Requesting Provider: Dr. Gaston
Performing Provider: Dr. Jean-Baptiste
Reason for Consultation: DONNA
Medical History
-
Chief Complaint: Right-sided weakness
History of Present Illness:
This is a 74-year-old female who has metastatic breast cancer to liver and bone treated with Ibrance. She has atrial fibrillation on Eliquis therapy. She has heart failure with reduced ejection fraction but only with as needed diuretic therapy.
She also has hypertension on a multidrug regimen. She presented the emergency room after waking up in the afternoon yesterday with right-sided weakness resulting in a fall. She also had speech difficulty at that time since arrival in the emergency
room weakness has been going on improving. Evaluation hypotension on arrival as well as acute kidney injury.
Past Medical History
Paroxysmal Atrial Fibrillation
Chronic HFrEF
Insulin-Dependent Diabetes Mellitus
Diabetic Neuropathy
Essential Hypertension
Hyperlipidemia
Hypothyroidism
Metastatic Right Breast Invasive Ductal Carcinoma (Liver and Hip Bone)
Chronic Pain Syndrome
Right Prosthetic Joint Infection
Obesity
Right Total Knee Replacement - Jul 2015
Left Total Knee Replacement with Revision - January 2017 / Aug 2021
Right Knee Wash Out - April 2024
Social History
Tobacco: Non-Smoker
Alcohol: None
Family History
Family History: Not Pertinent
Allergies / Home Medications
Allergy/AdvReac Type Severity Reaction Status Date / Time
Penicillins Allergy Hives Verified 01/10/25 19:34
red dye Allergy Hives Verified 01/10/25 19:34
�Medication �Instructions �Recorded �Confirmed �Type
apixaban 5 mg tablet (Eliquis) 5 mg PO BID 01/10/25 01/10/25 History
cefuroxime axetil 500 mg tablet 500 mg PO DAILY 01/10/25 01/10/25 History
desloratadine 5 mg tablet 5 mg PO DAILY 01/10/25 01/10/25 History
diphenhydramine HCl 50 mg capsule 50 mg PO DAILYPRN PRN allergies 01/10/25 01/10/25 History
furosemide 40 mg tablet 40 mg PO DAILYPRN PRN swelling 01/10/25 01/10/25 History
gabapentin 100 mg capsule 200 mg PO DAILYPRN PRN moderate 01/10/25 01/10/25 History
pain
gabapentin 100 mg capsule 400 mg PO BID 01/10/25 01/10/25 History
letrozole 2.5 mg tablet 2.5 mg PO DAILY 01/10/25 01/10/25 History
levothyroxine 50 mcg tablet 150 mcg PO MOTUWETHFRSA 01/10/25 01/10/25 History
(Synthroid)
metoprolol succinate 50 mg 50 mg PO BID 01/10/25 01/10/25 History
tablet,extended release 24 hr
mirtazapine 15 mg tablet 15 mg PO HS 01/10/25 01/10/25 History
palbociclib 100 mg tablet (Ibrance) 100 mg PO DAILY 01/10/25 01/10/25 History
rosuvastatin 20 mg tablet 20 mg PO HS 01/10/25 01/10/25 History
sacubitril 24 mg-valsartan 26 mg 1 tab PO BID 01/10/25 01/10/25 History
tablet (Entresto)
spironolactone 25 mg tablet 25 mg PO DAILY 01/10/25 01/10/25 History
vitamin B complex 1 tab PO DAILY 01/10/25 01/10/25 History
Physical Exam
Vital Signs
Vital Signs
Temp Pulse Resp BP Pulse Ox
97.8 F 92 8 98/66 97
01/11/25 04:00 01/11/25 08:00 01/11/25 07:38 01/11/25 07:38 01/11/25 05:32
Lab Results
WBC 2.4 10^3/uL (4.8-10.8) L* 01/11/25 04:39
RBC 4.19 10^6/uL (4.20-5.40) L 01/11/25 04:39
Hgb 13.3 g/dL (12.0-16.0) 01/11/25 04:39
Hct 37.9 % (37.0-47.0) 01/11/25 04:39
Plt Count 158 10^3/uL (130-400) 01/11/25 04:39
Sodium 138 mmol/L (135-145) 01/11/25 05:31
Potassium 4.3 mmol/L (3.5-5.1) 01/11/25 05:31
Chloride 112 mmol/L (98-107) H 01/11/25 05:31
Carbon Dioxide 17 mmol/L (22-30) L 01/11/25 05:31
BUN 35 mg/dl (7-17) H 01/11/25 05:31
Creatinine 2.6 mg/dL (0.6-1.0) H 01/11/25 05:31
eGFR 18.67 01/11/25 05:31
Glucose 119 mg/dl (70-99) H 01/11/25 05:31
Calcium 9.4 mg/dl (8.4-10.2) 01/11/25 05:31
Albumin 2.5 g/dl (3.5-5.0) L 01/11/25 05:31
Laboratory Tests
01/10/25 01/11/25 01/11/25
20:29 04:39 05:31
Hemoglobin A1c 7.0 H
AST 290 H
ALT 268 H
Albumin 2.5 L
Granular Casts >15
CT head neck angiogram on 01/10/2025
IMPRESSION: Atherosclerotic disease of the carotid bulbs and proximal internal carotid arteries bilaterally, with less than 50% diameter reduction bilaterally.
Mild to moderate calcification of the cavernous internal carotid arteries, which appears to result in less than 50% diameter reduction bilaterally.
Normal appearance of the anterior cerebral and middle cerebral arteries bilaterally, with no evidence for large vessel occlusion or high-grade stenosis.
No significant narrowing involving the vertebral or basilar arteries. No significant narrowing involving the posterior cerebral arteries.
The thyroid gland is difficult to visualize, and please correlate with any history of hypothyroidism.
There is patchy subcutaneous edema within the right anterior chest wall, anterior to the pectoralis major muscle and possibly involving the muscle as well. This is asymmetric compared to the left side. Etiology for this subcutaneous edema is
uncertain, and please correlate clinically.
Percent stenosis is calculated using NASCET criteria.
Physical Exam
Patient is awake alert oriented and in no distress. Mood and affect were pleasant, insight and judgment were good. Pupils are equal round and reactive to light, extraocular movements are intact, sclera were anicteric. Hearing was normal, ears and
nose are intact. Oropharynx was clear. Neck was supple with trachea midline and no thyromegaly. Heart was regular rate and rhythm without rubs. Lower extremities without edema. Lungs were clear to auscultation bilaterally and with normal
excursion. Abdomen was soft, nontender, with normal active bowel sounds, and no hepatosplenomegaly. Skin was without rash and with normal turgor.
Data Reviewed
-
CT Scan: Report Reviewed by me
Ultrasound: Report Reviewed by me (Abdominal ultrasound 01/10/2025 shows multiple metastatic liver lesions, no hydronephrosis)
Medical Tests (Nuc Med, Echo etc): Image Personally Visualized and interpreted (EKG on 01/10/2025 by my reading shows atrial flutter with a Kraus C)
Assessment/Plan
-
Assessment
Hypotension
DONNA
Heart failure reduced ejection fraction
Mental status change
Elevated LFTs
Metastatic breast cancer
Leukopenia
Metabolic acidosis
Plan
Follow postvoid residual
Follow BMP
Holding Entresto, Lasix, spironolactone
IV fluids
Empiric antibiotics
DONNA likely prerenal with hypotension/meds
check urine studies
[2025-01-11] MEDS: FEMARA 2.5 MG PO (11:00)
[2025-01-11] MEDS: NEURONTIN 400 MG PO ×2 (11:04→19:36)
[2025-01-11] MEDS: FLAGYL 500 MG 100 IV ×2 (11:05→22:36)
--- NOTE | 2025-01-11 11:23 | W.PN.HOSP.TC ---
Today's Communication/Plan
-
monitor vitals
see plan
GI,neurology to see
MRI/MRCP
MRI brain
Discussed with over the phone, per spouse patient has 3 different charts. Medical records will be looking into merging the charts
Hold Aldactone, Entresto
Monitor renal function closely
Continue with antibiotics for now
Assessment / Plan
Assessment / Plan
Right-Sided Weakness and Speech Abnormality, possible TIA/CVA vs new brain mets from breast cancer vs hypotension related
-Consulted Neurology
-Check Brain MRI with contrast
-Monitor neuro-checks
-Check HgbA1c and Lipid Panel
speech evaluation
PT/OT
Acute Kidney Injury
-Creatinine 1.0 in Nov 2024; admission creatinine 2.6
-Hold spironolactone, and Entresto
-Continue IVFs
Nephrology evaluation
check renal lytes
Patient also got CTA on admission ordered by ED
Reported poor oral intake by family
Elevated LFTs, new compared to Nov 2024
-US abdomen suspect could be related to metastatic disease. Cannot rule out acute cholecystitis
-Consulted GI
-Check Abd MRI/MRCP
Monitor LFTs
-Continue empiric Cefepime and Flagyl to cover for possibly cholecystitis. bcx pending
if BP doesn't respond to fluids then will need pressors
Leukopenia likely secondary to malignancy on chemo
Monitor
Paroxysmal Atrial Fibrillation
-Continue Eliquis
-Hold Metoprolol due to hypotension
Chronic HFrEF
-Diuretics on hold due to DONNA
-Monitor Is&Os and Daily Weights
Diabetes Mellitus
-HgbA1c 5.9 in October 2004
A1c now 7
-Monitor sugars and continue coverage insulin
Diabetic Neuropathy
-Continue gabapentin
Hypomagnesemia
Replete
Hyperlipidemia
-Hold statin due to elevated LFTs
Hypothyroidism
-Continue Syndrome
Metastatic Right Breast Invasive Ductal Carcinoma (Liver and Hip Bone)
-Continue Letrozole and Ibrance
Hx Right Prosthetic Joint Infection
-Hold suppressive cefuroxime while on Cefepime
Class II Obesity
-Affects all aspects of care
DVT proph: Eliquis
Code Status: Full Code
Per spouse patient has 3 different charts that medical record needs to merged.They have been to [place] multiple times before. Spoke to medical records and they will look into it.
General: Comfortable and Conversant
HEENT: Moist mucous membranes and Other (Sclera are slight icteric)
Respiratory: Clear and Non Labored Respirations
Cardiac: S1/S2 and Irregular Rhythm; No Tachycardia
GI: Soft and Non Tender
Musculoskeletal: No Cyanosis
Skin: Warm, Dry and Jaundice (Slightly)
Neuro: Awake, Alert, Oriented and Other (Slight right upper extremity drift)
Psych: Calm
I spent a total of 53 minutes with the patient or on the floor. More than 50% of this time involved counseling and coordination of care.
Anticipated Discharge: > 48 hours
Subjective/Interval History
-
Date of Service: January 11, 2025
denies pain
Objective Data
-
Labs:
Laboratory Results
01/11/25 01/11/25
04:39 05:31
WBC 2.4 L*
Hgb 13.3
Hct 37.9
Plt Count 158
Sodium Cancelled 138
Potassium Cancelled 4.3
Chloride Cancelled 112 H
Carbon Dioxide Cancelled 17 L
BUN Cancelled 35 H
Creatinine Cancelled 2.6 H
Glucose Cancelled 119 H
Calcium Cancelled 9.4
Total Bilirubin Cancelled 4.0 H
AST Cancelled 290 H
ALT Cancelled 268 H
Alkaline Phosphatase Cancelled 711 H
Vital Signs:
Vital Signs
Temp Pulse Resp BP Pulse Ox
97.8 F 92 8 98/66 97
01/11/25 04:00 01/11/25 08:00 01/11/25 07:38 01/11/25 07:38 01/11/25 05:32
I&O
01/10/25 01/11/25 01/12/25
06:59 06:59 06:59
Output Total 250 / 250
Balance -250 / -250
--- NOTE | 2025-01-11 12:55 | PTOTSP ---
Speech Pathology
Clinical Swallow Evaluation
74F with admission for DONNA and ddx TIA/CVA vs new brain mets from breast cancer vs hypotension.
Presents with a mildly impaired oral phase of swallowing 2/2 edentulous status. No overt s/s of aspiration or penetration observed; however, limited trials presented this date 2/2 pt with poor appetite.
Recommend:
1. Regular textures (IDDSI 7), thin liquids
2. Meds whole in applesauce re: c/o pill dysphagia
3. Strategies: Small bites, single sips, slow rate, alternate bites and sips, opt for soft foods
4. Aspiration precautions
5. BUSINESS OBJECTS DEVELOPER service to follow up re: to assess diet level tolerance and provide dysphagia tx at the acute care level
--- NOTE | 2025-01-11 13:16 | CON.GI ---
Addendum entered and electronically signed by Sourav Koehler MD 01/12/25 18:04:
I saw and examined the patient.
The PA's note was reviewed and I agree with the note.
Comment:
MRI/MRCP were reviewed. Patient unfortunately has significant hepatic metastatic masses which are likely predominant medical driver of her LFT elevation. She does have mildly dilated intrahepatic ducts, however no focal/isolated region amenable for
biliary stent placement. Given this, will defer endoscopic intervention. Follow-up with oncology/palliative care. GI will sign off.
Original Note:
Consultation
-
Date/Time Consultation Requested: 01/11/2025
Date/Time Consultation Performed: 01/11/2025
Performing Provider: Sourav Koehler
Reason for Consultation: Elevated LFT
Medical History
Chief Complaint / HPI
Chief Complaint: elevated LFT
History of Present Illness:
74 year old female with h/o metastatic breast ca with liver and bone mets, afib, CHF, DM, HTN, and hypothyroidism who p/w right sided weakness. She had rt sided weakness which resulted in a fall, and associated speech impairment. Her weakness and
speech are improving spontaneously. During evaluation, she was noted to have elevated LFTs. She denies abdominal pain, fevers, sweats or chills, nausea, vomiting or diarrhea.
Past Medical History
Past Medical History: Arrhythmias, Cancer, CHF, HTN, Hypercholesterolemia, Hypothyroidism and IDDM
Past Surgical History: Other
Social History
Tobacco: Non-Smoker
Alcohol: None
Family History
Family History: Reviewed & Not Pertinent
Allergies / Home Medications
Allergy/AdvReac Type Severity Reaction Status Date / Time
feathers Allergy Shortness Verified 01/11/25 12:04
of Breath
Penicillins Allergy Hives & Verified 01/11/25 12:04
Itching 30
years ago
red dye Allergy Itchy and Verified 01/11/25 12:04
Hives
yellow dye Allergy itching Verified 01/11/25 12:04
and hives
Environmental Allergy Congestion Uncoded 01/11/25 12:04
�Medication �Instructions �Recorded
desloratadine 5 mg tablet 5 mg PO DAILY Allergies 02/12/17
(Clarinex)
levothyroxine 50 mcg tablet 150 mcg PO MOTUWETHFRSA Thyroid 09/06/21
vitamin B complex 1 tab PO DAILY Supplement 09/06/21
gabapentin 100 mg capsule 200 mg PO DAILY PRN mild pain 10/11/21
gabapentin 100 mg capsule 400 mg PO BID Pain 10/11/21
letrozole 2.5 mg tablet 2.5 mg PO DAILY Cancer 05/12/24
rosuvastatin 20 mg tablet 20 mg PO HS High Cholesterol 05/12/24
cefuroxime axetil 500 mg tablet 500 mg PO DAILY Infection 08/14/24
diphenhydramine HCl 50 mg capsule 50 mg PO DAILYPRN PRN cold 08/14/24
symptoms/allergies
apixaban 5 mg tablet (Eliquis) 5 mg PO BID #30 tabs 08/23/24
metoprolol succinate 50 mg 50 mg PO BID #30 tabs 08/23/24
tablet,extended release 24 hr
mirtazapine 15 mg tablet 15 mg PO HS 11/03/24
sacubitril 49 mg-valsartan 51 mg 1 tab PO BID Heart Failure #60 tabs 11/05/24
tablet (Entresto)
Ibrance 1 tab PO DAILY 12/13/24
spironolactone 25 mg tablet 25 mg PO DAILY 12/13/24
furosemide 40 mg tablet (Lasix) 40 mg PO DAILY PRN Weight gain #30 12/16/24
tabs
apixaban 5 mg tablet (Eliquis) 5 mg PO BID 01/10/25
cefuroxime axetil 500 mg tablet 500 mg PO DAILY 01/10/25
desloratadine 5 mg tablet 5 mg PO DAILY 01/10/25
diphenhydramine HCl 50 mg capsule 50 mg PO DAILYPRN PRN allergies 01/10/25
furosemide 40 mg tablet 40 mg PO DAILYPRN PRN swelling 01/10/25
gabapentin 100 mg capsule 200 mg PO DAILYPRN PRN moderate 01/10/25
pain
gabapentin 100 mg capsule 400 mg PO BID 01/10/25
letrozole 2.5 mg tablet 2.5 mg PO DAILY 01/10/25
levothyroxine 50 mcg tablet 150 mcg PO MOTUWETHFRSA 01/10/25
(Synthroid)
metoprolol succinate 50 mg 50 mg PO BID 01/10/25
tablet,extended release 24 hr
mirtazapine 15 mg tablet 15 mg PO HS 01/10/25
palbociclib 100 mg tablet (Ibrance) 100 mg PO DAILY 01/10/25
rosuvastatin 20 mg tablet 20 mg PO HS 01/10/25
sacubitril 24 mg-valsartan 26 mg 1 tab PO BID 01/10/25
tablet (Entresto)
spironolactone 25 mg tablet 25 mg PO DAILY 01/10/25
vitamin B complex 1 tab PO DAILY 01/10/25
Review of Systems
Vital Signs
Temp Pulse Resp BP Pulse Ox
97.8 F 89 20 94/57 97
01/11/25 04:00 01/11/25 12:30 01/11/25 12:30 01/11/25 08:30 01/11/25 12:00
Physical Exam
Exam
General: Well Developed and Well Nourished
HEENT: Normocephalic and Anicteric
Respiratory: Clear
Cardiac: S1/S2
GI: Soft, Non Tender, Non Distended and Normal Bowel Sounds
Results
WBC 2.4 10^3/uL (4.8-10.8) L* 01/11/25 04:39
Hgb 13.3 g/dL (12.0-16.0) 01/11/25 04:39
Hct 37.9 % (37.0-47.0) 01/11/25 04:39
MCV 90.5 fL (81.0-99.0) 01/11/25 04:39
Plt Count 158 10^3/uL (130-400) 01/11/25 04:39
Absolute Neuts (auto) 1.7 10^3/uL (1.4-6.5) 01/10/25 19:09
Sodium 138 mmol/L (135-145) 01/11/25 05:31
Potassium 4.3 mmol/L (3.5-5.1) 01/11/25 05:31
Chloride 112 mmol/L (98-107) H 01/11/25 05:31
Carbon Dioxide 17 mmol/L (22-30) L 01/11/25 05:31
BUN 35 mg/dl (7-17) H 01/11/25 05:31
Creatinine 2.6 mg/dL (0.6-1.0) H 01/11/25 05:31
Calcium 9.4 mg/dl (8.4-10.2) 01/11/25 05:31
Total Bilirubin 4.0 mg/dl (0.2-1.3) H 01/11/25 05:31
AST 290 U/L (14-36) H 01/11/25 05:31
ALT 268 U/L (0-35) H 01/11/25 05:31
Alkaline Phosphatase 711 U/L (38-126) H 01/11/25 05:31
Lipase 77 U/L (23-300) 01/10/25 19:39
Diagnostic Image Results:
Prior GI Procedures:
EGD:
Colonoscopy:
Assessment / Plan
-
74 year old female with h/o metastatic breast ca with liver and bone mets, afib, CHF, DM, HTN, and hypothyroidism who p/w right sided weakness and noted to have elevated LFT. Normal CT angio, CT head, ? TIA, waiting for neurology eval.
Impression / Rec:
1. Elevated LFT - elevated in mixed pattern, bili 4.1 and alk phos 737 with AST 347 and ALT 301 on admission, were normal on 11/2024. She has known hepatic metastasis. US showed normal CBD, liver mass, cholelithiasis. She is asymptomatic and
denies abdominal pain/nausea/vomiting. Suspect LFT elevation from metastatic tumor burden vs biliary etiology such as choledocholithiasis vs other. MRI/MRCP pending.
Total Time Spent with Patient (in minutes): 55
-
-
Thank you for consultation and allowing me to participate in the patient's care. Please call the personnel placement specialist GI physician during the after hours with any questions or concerns.
[2025-01-11] MEDS: NSS 1000 IV (13:24)
[2025-01-11 13:53] LABS: TSH Reflex To Free T4 < 0.02 uIU/ml (0.47-4.68)
--- NOTE | 2025-01-11 13:58 | CON.NEURO ---
Neuro Assessment/Plan
Assessment
history and exam consistent with stroke, though 10% of brain tumors do present like a stroke. agree with brain MRI with and w/o contrast rule out brain mets
CTA imgs reviewed, calcified carotid plaques, no significant stenosis
stroke secondary prevention she should continue Eliquis 5 BID and continue rosuvastatin 20 for now
Consultation
Order
Date of Consultation: 01/11/25
Requesting Provider:
Reason for Consult:
Subjective/Objective
Subjective Data
Date of Service: January 11, 2025
From H&P
Patient is a 74 y/o female past medical history of metastatic breast cancer with liver and bone mets, atrial fibrillation, heart failure, diabetes with neuropathy, hypertension and hypothyroidism who presents with right sided weakness. Patient
noted to be in her usual state around 1:30PM when she went to take a nap. When she woke up around 4:30PM she sustained a fall due to right sided weakness. She as also have speech difficulty, family at bedside noting she had nonsensical speech.
Patient reports her right sided weakness is improving, and family notes speech is improving. Work-up in the emergency department revealed acute kidney injury as well as significantly elevated liver function tests. Patient was also noted to be
hypotensive upon arrival to the emergency department. Patient reports very poor appetite, and family notes she doesn't drink a lot of fluids. She denies abdominal pain, nausea, vomiting or diarrhea. She denies fevers, sweats or chills.
this afternoon, she reports the right sided weakness was initially pretty severe, now it is mild
Objective Data
Vital Signs
Temp Pulse Resp BP Pulse Ox
36.6 C 89 20 94/57 97
01/11/25 04:00 01/11/25 12:30 01/11/25 12:30 01/11/25 08:30 01/11/25 12:00
Lab Results
01/11/25 04:39
01/11/25 05:31
Sodium 138 mmol/L (135-145) 01/11/25 05:31
Potassium 4.3 mmol/L (3.5-5.1) 01/11/25 05:
BUN 35 mg/dl (7-17) H 01/11/25 05:31
Glucose 119 mg/dl (70-99) H 01/11/25 05:
Calcium 9.4 mg/dl (8.4-10.2) 01/11/25 05:
LDL Cholesterol, Calc 111 mg/dl 01/11/25 05:31
Patient Allergies
feathers Allergy (Verified 01/11/25 12:04)
Shortness of Breath
Penicillins Allergy (Verified 01/11/25 12:04)
Hives & Itching 30 years ago
red dye Allergy (Verified 01/11/25 12:04)
Itchy and Hives
yellow dye Allergy (Verified 01/11/25 12:04)
itching and hives
Environmental Allergy (Uncoded 01/11/25 12:04)
Congestion
Physical Exam
-
Awake, alert, disoriented to age/month
moderately dysarthric, language intact to naming, repetition, comprehension
VFF, EOMI, right NL flattening
RUE/LE 5-/5, LUE/LE 5/5, normal bulk/tone
Medications
-
Active Medications
Generic Name Dose Route Start Last Admin
Trade Name Freq PRN Reason Stop Dose Admin
Acetaminophen 650 mg 01/10/25 23:16
Acetaminophen 650 Mg Rectal Suppository RECTAL 02/07/25 23:15
Q4HPRN PRN
HALL, mild pain, or temp >100.4F
Acetaminophen 650 mg 01/10/25 23:16
Acetaminophen 325 Mg Tablet PO 02/07/25 23:15
Q4HPRN PRN
HALL, mild pain, or temp >100.4F
Apixaban 5 mg 01/11/25 08:00 01/11/25 10:55
Apixaban (Eliquis) 5 Mg Tablet PO 02/08/25 07:59 5 mg
BID BRODY Administration
Cefepime HCl 1,000 mg 01/11/25 10:00 01/11/25 10:57
Cefepime Hcl 1,000 Mg/11.3 Ml Vial IV 1,000 mg
Q12H BRODY Administration
Dextrose 12.5 grams 01/10/25 23:16
Dextrose 50% (0.5 Grams/Ml) 50 Ml Syringe IV 02/07/25 23:15
[id number] PRN
hypoglycemia
Protocol
Gabapentin 400 mg 01/11/25 08:00 01/11/25 11:04
Gabapentin 400 Mg Capsule PO 02/08/25 07:59 400 mg
BID BRODY Administration
Glucagon 1 mg 01/10/25 23:16
Glucagon 1 Mg Vial IM 02/07/25 23:15
PRN PRN
hypoglycemia
Protocol
Sodium Chloride 1,000 mls @ 80 mls/hr 01/10/25 23:16 01/11/25 13:24
Nss IV 1,000 mls
.[id number] BRODY Administration
Metronidazole 100 mls @ 100 mls/hr 01/11/25 10:00 01/11/25 11:05
Flagyl 500 Mg IV 100 mls
Q12H BRODY Administration
Insulin Aspart 0 units 01/11/25 07:30 01/11/25 13:24
Insulin Aspart Low Resistance 300 Units/3 Ml Pen.Injctr SC 02/08/25 07:29 Not Given
AC BRODY
Protocol
Letrozole 2.5 mg 01/11/25 08:00
Letrozole 2.5 Mg (Non-Form) Tablet PO 02/08/25 07:59
DAILY BRODY
Levothyroxine Sodium 150 mcg 01/12/25 06:00
Levothyroxine 150 Mcg Tablet PO 02/09/25 05:59
MoTuWeThFrSa@0600 BRODY
Mirtazapine 15 mg 01/11/25 22:00
Mirtazapine 15 Mg Regular Release Tablet PO 02/08/25 21:59
HS BRODY
Palbociclib [Ibrance 0 mg 01/11/25 08:00
] 100 Mg Tablet Po PO 02/08/25 07:59
Daily DAILY BRODY
Sodium Chloride 0 flush 01/10/25 22:00
Sodium Chloride 0.9% (Flush) Syringe IV 02/07/25 21:59
PER PROTOCOL BRODY
Home Medications
�Medication �Instructions �Recorded
desloratadine 5 mg tablet 5 mg PO DAILY Allergies 02/12/17
(Clarinex)
levothyroxine 50 mcg tablet 150 mcg PO MOTUWETHFRSA Thyroid 09/06/21
vitamin B complex 1 tab PO DAILY Supplement 09/06/21
gabapentin 100 mg capsule 200 mg PO DAILY PRN mild pain 10/11/21
gabapentin 100 mg capsule 400 mg PO BID Pain 10/11/21
letrozole 2.5 mg tablet 2.5 mg PO DAILY Cancer 05/12/24
rosuvastatin 20 mg tablet 20 mg PO HS High Cholesterol 05/12/24
cefuroxime axetil 500 mg tablet 500 mg PO DAILY Infection 08/14/24
diphenhydramine HCl 50 mg capsule 50 mg PO DAILYPRN PRN cold 08/14/24
symptoms/allergies
apixaban 5 mg tablet (Eliquis) 5 mg PO BID #30 tabs 08/23/24
metoprolol succinate 50 mg 50 mg PO BID #30 tabs 08/23/24
tablet,extended release 24 hr
mirtazapine 15 mg tablet 15 mg PO HS 11/03/24
sacubitril 49 mg-valsartan 51 mg 1 tab PO BID Heart Failure #60 tabs 11/05/24
tablet (Entresto)
Ibrance 1 tab PO DAILY 12/13/24
spironolactone 25 mg tablet 25 mg PO DAILY 12/13/24
furosemide 40 mg tablet (Lasix) 40 mg PO DAILY PRN Weight gain #30 12/16/24
tabs
apixaban 5 mg tablet (Eliquis) 5 mg PO BID 01/10/25
cefuroxime axetil 500 mg tablet 500 mg PO DAILY 01/10/25
desloratadine 5 mg tablet 5 mg PO DAILY 01/10/25
diphenhydramine HCl 50 mg capsule 50 mg PO DAILYPRN PRN allergies 01/10/25
furosemide 40 mg tablet 40 mg PO DAILYPRN PRN swelling 01/10/25
gabapentin 100 mg capsule 200 mg PO DAILYPRN PRN moderate 01/10/25
pain
gabapentin 100 mg capsule 400 mg PO BID 01/10/25
letrozole 2.5 mg tablet 2.5 mg PO DAILY 01/10/25
levothyroxine 50 mcg tablet 150 mcg PO MOTUWETHFRSA 01/10/25
(Synthroid)
metoprolol succinate 50 mg 50 mg PO BID 01/10/25
tablet,extended release 24 hr
mirtazapine 15 mg tablet 15 mg PO HS 01/10/25
palbociclib 100 mg tablet (Ibrance) 100 mg PO DAILY 01/10/25
rosuvastatin 20 mg tablet 20 mg PO HS 01/10/25
sacubitril 24 mg-valsartan 26 mg 1 tab PO BID 01/10/25
tablet (Entresto)
spironolactone 25 mg tablet 25 mg PO DAILY 01/10/25
vitamin B complex 1 tab PO DAILY 01/10/25
[2025-01-11 14:23] LABS: Urine Sodium 64 mmol/L (30-90)
[2025-01-11 14:34] LABS: Free T4 2.06 ng/dl (0.78-2.19)
[2025-01-11] MEDS: ProAmatine 5 MG PO (16:21)
[2025-01-11] MEDS: NSS 250 IV (20:27)
--- NOTE | 2025-01-11 21:12 | W.PN.UPDATE ---
Update Note
Progress Note Update
~Patient hypotensive BP 86/47, MAP 56, HR 82. Patient drowsy but easily arousable and conversant. Given 250 ml bolus.
Pt continued to be hypotensive after bolus, BP 70/40's. Started on Levophed gtt 2 mcg/min,�
3 am check at 7 mcg/min, BP 110/60, MAP 70.
-5 am�Critical lab: CO2 7, ordered sodium bicarb 150 meq IV @ 80 mls/hr. Repeat labs ordered. [facility].
[2025-01-11] MEDS: LEVOPHED 250 IV (21:19)
[2025-01-11 21:50] LABS: Glucose - Point of Care 95 mg/dl (70-99)
[2025-01-11] MEDS: REMERON 15 MG PO (22:35)
[2025-01-12] VITALS (51 sets, daily range): BP systolic 51–147; BP diastolic 26–129; BMI 38.5
--- NOTE | 2025-01-12 00:38 | PTCARENOTE ---
pt admitted from ED before shift change. pt is AAOx2-3, little forgetful, very drowsy at start of shift but no complaints of lightheadedness. bed alarm put on at start of tank farm gauger. able to take pills whole with water without issues. NIH- 4- pt
with mild aphasia at times, some slurred speech. right arm noted to be weaker than left. skin tear to right hand, dressed with adaptic and adama. scabs on bilateral feet and right knee abrasion noted. on RA 94%, a-fib/a-flutter on the monitor. right
breast noted to be hard and enlarged. IV fluids infusing. BP low for start of shift. notified covering MAG[employer]IC RESONANCE TECHNOLOGIST, IV bolus hung without improvement, IV levophed hung per MAR, titrated to keep MAP >65. currently at 7mcg/min. updated on plan of
care. brought in medications, meds sent down to pharmacy and profiled. oriented to new room, call gallo within reach, care ongoing.
--- NOTE | 2025-01-12 01:34 | PTCARENOTE ---
pt placed on bedpan d/t low BP to void, pt unable to void, bladder scanned for 645ml, straight cath'd for 600ml. pt reported relief after. urine specimen collected and sent down to lab.
[2025-01-12 02:12] LABS: Urine Sodium 81 mmol/L (30-90)
[2025-01-12 02:36] LABS: Body Fluid for Eosinophils No Eosinophils seen
[2025-01-12] MEDS: NSS 1000 IV (03:06)
[2025-01-12] MEDS: NON-FORMULARY ITEM 150 UNIT PO (04:13)
[2025-01-12 04:27] LABS: Hematocrit 39.3 % (37.0-47.0); Hemoglobin 14.2 g/dL (12.0-16.0); Mean Corp Hgb Conc. 36.1 g/dL (33.0-37.0); Mean Corpuscular Hgb 31.6 pg (27.0-31.0); Mean Corpuscular Volume 87.3 fL (81.0-99.0); Mean Platelet Volume 11.9 fL (7.4-10.4); Platelet Count 166 10^3/uL (130-400); Red Cell Dist. Width 14.9 % (11.5-14.5); White Blood Cell Count 2.8 10^3/uL (4.8-10.8)
[2025-01-12 05:05] LABS: ALT (SGPT) 283 U/L (0-35); AST (SGOT) 308 U/L (14-36); Albumin 3.2 g/dl (3.5-5.0); Alkaline Phosphatase 841 U/L (38-126); Blood Urea Nitrogen 32 mg/dl (7-17); Calcium 9.4 mg/dl (8.4-10.2); Carbon Dioxide 7 mmol/L (22-30); Chloride 113 mmol/L (98-107); Direct Bilirubin 4.5 mg/dl (0.0-0.4); Estimated Creatinine Clearance 21 ml/min; Glucose 141 mg/dl (70-99); Potassium 4.7 mmol/L (3.5-5.1); Sodium 138 mmol/L (135-145); Total Bilirubin 5.3 mg/dl (0.2-1.3); Total Protein 6.2 g/dl (6.3-8.2); eGFR 20.55
[2025-01-12] MEDS: LEVOPHED 250 IV ×2 (05:36→19:32)
--- NOTE | 2025-01-12 05:44 | PTCARENOTE ---
CO2 came back critical this AM-7, notified covering ASSISTANT PROFESSOR OF NURSING- orders entered.
[2025-01-12] MEDS: SODIUM BICARBONATE 1150 MEQ IV ×2 (06:03→21:53)
[2025-01-12 08:23] LABS: Glucose - Point of Care 139 mg/dl (70-99)
[2025-01-12] MEDS: NOVOLOG FLEXPEN-LOW RESISTANCE SC ×3 (09:19→17:37)
[2025-01-12] MEDS: ELIQUIS 5 MG PO ×2 (09:26→19:32)
[2025-01-12] MEDS: NEURONTIN 400 MG PO ×2 (09:26→19:32)
[2025-01-12] MEDS: FEMARA 2.5 MG PO (09:26)
[2025-01-12] MEDS: MAXIPIME 1000 MG IV ×2 (09:27→21:38)
[2025-01-12] MEDS: FLAGYL 500 MG 100 IV ×2 (09:27→21:38)
--- NOTE | 2025-01-12 09:41 | W.PN.GI.CBS2 ---
Today's Communication / Plan
-
As per plan
Assessment / Plan
-
74 year old female with h/o metastatic breast ca with liver and bone mets, afib, CHF, DM, HTN, and hypothyroidism who p/w right sided weakness and noted to have elevated LFT. Normal CT angio, CT head, ? TIA, waiting for neurology eval.
US Abd 01/10/25:
IMPRESSION:
Hepatic metastatic disease.
Cholelithiasis. Abnormal thickened gallbladder wall with suggested wall edema, though reported negative sonographic Hagan sign. Although gallbladder wall thickening may reflect adjacent contiguous hepatocellular disease, acute cholecystitis may be
considered in the proper clinical setting.
No bile duct dilatation.
Poorly visualized/obscured pancreas and retroperitoneum.
MRI Abd/MRCP 01/11/25:
IMPRESSION: The right breast is not fully included on the [id number]. The medial aspect of the right breast is enlarged and edematous. It also demonstrates enhancement, raising the possibility of neoplastic disease.
Cholelithiasis. Gallbladder wall appears thickened, nonspecific. Innumerable hepatic metastatic lesions are visualized. Additionally, there is evidence for infiltrative neoplastic disease within the central liver extending adjacent to the right and
left portal veins as well as the main portal vein, resulting in central bile duct dilation.Periaortic and interaortocaval lymphadenopathy, compatible with neoplastic lymphadenopathy.Not mentioned above, small amount of ascites in both upper
quadrants adjacent to the liver and spleen. Multiple right pleural effusion with minimal left pleural effusion.
Impression / Rec:
1. Elevated LFT - elevated in mixed pattern
--> Bili 5.3 (4.0, 4.1), D Bili 4.5,and alk phos 841 (711,737) with AST 308 (290, 347) and ALT 283(268, 301), were normal on 11/2024.
-->She has known hepatic metastasis.
-->US showed normal CBD, liver mass, cholelithiasis.
-->She is asymptomatic and denies abdominal pain/nausea/vomiting.
--> MRI/MRCP, thickened GB,There are innumerable rounded lesions throughout the liver compatible with hepatic metastatic disease. Additionally, there is infiltrative increased T2-weighted signal within the central liver, adjacent to the
right and left portal veins as well as the main portal vein, and also adjacent to the proximal splenic and hepatic arteries in the periportal region. This is likely infiltrative neoplastic disease. diffuse peripheral intrahepatic bile duct dilation,
considered moderate. There is relative lack of visualization of the bile ducts centrally, which is likely due to infiltrative neoplastic disease in the central periportal region and central liver. The common bile duct is likely involved by
infiltrative neoplastic disease, and is only subtly visualized as a small caliber one-2 mm duct, The infiltrative neoplastic disease extends into the head of the pancreas adjacent the common bile duct. There is fatty infiltration of the rest of the
pancreas. Of note, the pancreatic duct does not appear to be significantly dilated.
Plan:
--Reviewed MRI/MRCP with Dr. Koehler. No ERCP planned. Mostly metastatic lesions with some ductal dilatation noted that is diffuse/infiltration.
-- Would allow patient to advance diet as per internal medicine. Discussed with internal medicine.
Subjective
Subjective
Date of Service: January 12, 2025
Patient with no abdominal pain. Denies any pruritus. MRI/MRCP showing innumerable hepatic metastatic lesions. Evidence of infiltrative neoplastic disease within the central liver extending adjacent to the right and left portal veins as well as
the main portal vein resulting in central bile duct dilatation. Infiltrative neoplastic disease extends into the head of the pancreas adjacent to the common bile duct. Patient continues on cefepime and Flagyl. She remains on Eliquis.
Objective
Data Reviewed
Laboratory Data:
Laboratory Results
01/12/25 04:11
Laboratory Results
Magnesium 1.5 mg/dl (1.6-2.3) L 01/11/25 05:31
Total Bilirubin 5.3 mg/dl (0.2-1.3) H 01/12/25 04:11
AST 308 U/L (14-36) H 01/12/25 04:11
ALT 283 U/L (0-35) H 01/12/25 04:11
Alkaline Phosphatase 841 U/L (38-126) H 01/12/25 04:11
Lipase 77 U/L (23-300) 01/10/25 19:39
Vital Signs and I&O:
Vital Signs
Temp Pulse Resp BP Pulse Ox
97.5 F 89 21 112/83 95
01/12/25 07:23 01/12/25 09:00 01/12/25 09:00 01/12/25 09:00 01/12/25 09:00
I&O
01/11/25 01/12/25 01/13/25
06:59 06:59 06:59
Intake Total 960 / 960
Output Total 250 / 250 600 / 600
Balance -250 / -250 360 / 360
Physical Exam
Physical Exam
HEENT: Anicteric
Cardiology: Normal Sinus Rhythm
Pulmonary: Clear (anterior)
GI: Soft, Non Distended, Non Tender and Normal Bowel Sounds
Neuro: Non Focal
--- NOTE | 2025-01-12 11:02 | W.PN.NEPH.PH ---
Today's Communication / Plan
-
Bicarb drip
Assessment/Plan
-
Assessment
Hypotension
DONNA creatinine 2.6 on admission recent discharge with a creatinine of 1.0 December 16 status post acute kidney injury prerenal
Heart failure reduced ejection fraction
Mental status change
Elevated LFTs
Metastatic breast cancer
Leukopenia
Metabolic acidosis
Plan
DONNA multifactorial hypotension/CT angio.
Urinalysis hematuria and white blood cells negative urine culture
Holding Entresto, Lasix, spironolactone
Empiric antibiotics
DONNA likely prerenal with hypotension/meds
Developed metabolic acidosis= agree with bicarbonate drip.
Oliguric.
A.m. labs
Total Time Spent with Patient (in minutes): 35
-
-
Date of Service: January 12, 2025
CC / HPI / ROS
-
Chief Complaint:
Acute kidney injury
History of Present Illness:
Acute kidney injury with hypotension.
Creatinine 2.6 on admission
Review of Systems:.
No chest pain or shortness of breath
Labs
-
Labs:
WBC 2.8 10^3/uL (4.8-10.8) L 01/12/25 04:11
RBC 4.50 10^6/uL (4.20-5.40) 01/12/25 04:11
Hgb 14.2 g/dL (12.0-16.0) 01/12/25 04:11
Hct 39.3 % (37.0-47.0) 01/12/25 04:11
Plt Count 166 10^3/uL (130-400) 01/12/25 04:11
eGFR 20.55 01/12/25 04:11
Albumin 3.2 g/dl (3.5-5.0) L 01/12/25 04:11
Physical Exam
-
Vital Signs:
Vital Signs
Temp Pulse Resp BP Pulse Ox
97.5 F 101 22 120/96 94
01/12/25 07:23 01/12/25 10:30 01/12/25 10:30 01/12/25 10:30 01/12/25 10:30
Cardiovascular:: Regular rate and rhythm
Respiratory:: Bilateral: CTA
Lung Excursion:: Normal
Abdomen:: Nontender and Soft
Bowel Sounds:: Normal
Extremity Edema:: None: Bilateral:
[2025-01-12 11:49] LABS: Blood Urea Nitrogen 32 mg/dl (7-17); Calcium 9.2 mg/dl (8.4-10.2); Carbon Dioxide 15 mmol/L (22-30); Chloride 110 mmol/L (98-107); Estimated Creatinine Clearance 21 ml/min; Glucose 162 mg/dl (70-99); Potassium 4.1 mmol/L (3.5-5.1); Sodium 137 mmol/L (135-145); eGFR 20.55
[2025-01-12 12:22] LABS: Glucose - Point of Care 140 mg/dl (70-99)
[2025-01-12] MEDS: NSS IV (12:34)
--- NOTE | 2025-01-12 12:50 | W.PN.NEURO.1 ---
Today's Communication / Plan
-
Likely should continue lifelong anticoagulation with apixaban
MRI of brain with and without contrast pending
Consider palliative care consultation
Neuro Assessment/Plan
Assessment
Acute onset right sided weakness most likely secondary to breast CA with metastasis to the brain especially suggested by lumbar puncture results suggesting greater than 100,000 WBCs in the CSF
Plan
Likely should continue lifelong anticoagulation with apixaban
MRI of brain with and without contrast pending
Consider palliative care consultation
Will follow as needed.
Subjective/Objective
Subjective Data
Date of Service: January 12, 2025
Objective Data
Vital Signs
Temp Pulse Resp BP Pulse Ox
36.9 C 88 17 84/58 95
01/12/25 12:47 01/12/25 12:36 01/12/25 12:36 01/12/25 12:36 01/12/25 12:36
Lab Results
01/12/25 04:11
01/12/25 11:09
Sodium 137 mmol/L (135-145) 01/12/25 11:09
Potassium 4.1 mmol/L (3.5-5.1) 01/12/25 11:09
BUN 32 mg/dl (7-17) H 01/12/25 11:09
Glucose 162 mg/dl (70-99) H 01/12/25 11:09
Calcium 9.2 mg/dl (8.4-10.2) 01/12/25 11:09
LDL Cholesterol, Calc 111 mg/dl 01/11/25 05:31
Patient Allergies
feathers Allergy (Verified 01/11/25 12:04)
Shortness of Breath
Penicillins Allergy (Verified 01/11/25 12:04)
Hives & Itching 30 years ago
red dye Allergy (Verified 01/11/25 12:04)
Itchy and Hives
yellow dye Allergy (Verified 01/11/25 12:04)
itching and hives
Environmental Allergy (Uncoded 01/11/25 12:04)
Congestion
Data Reviewed
-
MRI Head: Pending
Labs: Report Reviewed
Reviewed with: Physician
Old Records: Summarized
Past History
Past History
ED Past Medical History: Cancer (Breast CA with metastases), HTN, Hypercholesterolemia, IDDM and Other (Macular degeneration, )
ED Past Surgical History: (X 3), Gynecological (D&C), Orthopedic (Right and left carpal tunnel, right knee surgery X 2, Left knee replacement), Tonsilectomy and Other (Left breast tumor removed, Cataracts, )
Social History
Tobacco: 2nd hand smoke exposure
Alcohol: None
Drug: None
Personal:
Living: with family
Employment: Employed
Family History
Family History: Other (Reviewed and noncontributory)
Medications
-
Medications:
Generic Name Dose Route Start Last Admin
Trade Name Freq PRN Reason Stop Dose Admin
Acetaminophen 650 mg 01/10/25 23:16
Acetaminophen 650 Mg Rectal Suppository RECTAL 02/07/25 23:15
Q4HPRN PRN
HALL, mild pain, or temp >100.4F
Acetaminophen 650 mg 01/10/25 23:16
Acetaminophen 325 Mg Tablet PO 02/07/25 23:15
Q4HPRN PRN
HALL, mild pain, or temp >100.4F
Apixaban 5 mg 01/11/25 08:00 01/12/25 09:26
Apixaban (Eliquis) 5 Mg Tablet PO 02/08/25 07:59 5 mg
BID BRODY Administration
Cefepime HCl 1,000 mg 01/11/25 10:00 01/12/25 09:27
Cefepime Hcl 1,000 Mg/11.3 Ml Vial IV 1,000 mg
Q12H BRODY Administration
Dextrose 12.5 grams 01/10/25 23:16
Dextrose 50% (0.5 Grams/Ml) 50 Ml Syringe IV 02/07/25 23:15
[id number] PRN
hypoglycemia
Protocol
Gabapentin 400 mg 01/11/25 08:00 01/12/25 09:26
Gabapentin 400 Mg Capsule PO 02/08/25 07:59 400 mg
BID BRODY Administration
Glucagon 1 mg 01/10/25 23:16
Glucagon 1 Mg Vial IM 02/07/25 23:15
PRN PRN
hypoglycemia
Protocol
Sodium Chloride 1,000 mls @ 80 mls/hr 01/10/25 23:16 01/12/25 12:34
Nss IV Not Given
.[id number] BRODY
Metronidazole 100 mls @ 100 mls/hr 01/11/25 10:00 01/12/25 09:27
Flagyl 500 Mg IV 100 mls
Q12H BRODY Administration
Norepinephrine Bitartrate 4 mg in 250 mls @ 0 mls/hr 01/11/25 21:15 01/12/25 05:36
Levophed IV 250 mls
PER PROTOCOL BRODY Administration
Protocol
Per Protocol
Sodium Bicarbonate 150 meq/ 1,150 mls @ 80 mls/hr 01/12/25 05:30 01/12/25 06:03
Sterile Water IV 1,150 mls
.[id number] BRODY Administration
Insulin Aspart 0 units 01/11/25 07:30 01/12/25 12:26
Insulin Aspart Low Resistance 300 Units/3 Ml Pen.Injctr SC 02/08/25 07:29 Not Given
AC BRODY
Protocol
Letrozole 2.5 mg 01/11/25 08:00 01/12/25 09:26
Letrozole 2.5 Mg (Non-Form) Tablet PO 02/08/25 07:59 2.5 mg
DAILY BRODY Administration
Mirtazapine 15 mg 01/11/25 22:00 01/11/25 22:35
Mirtazapine 15 Mg Regular Release Tablet PO 02/08/25 21:59 15 mg
HS BRODY Administration
Palbociclib [Ibrance 0 mg 01/12/25 08:00
] 100 Mg Tablet Po PO 02/09/25 07:59
Daily DAILY BRODY
Levothyroxine 50 Mcg 0 unit 01/12/25 06:00 01/12/25 04:13
Tablet - 3 Tabs PO 02/09/25 05:59 150 unit
MoTuWeThFrSa@0600 BRODY Administration
Sodium Chloride 0 flush 01/10/25 22:00
Sodium Chloride 0.9% (Flush) Syringe IV 02/07/25 21:59
PER PROTOCOL BRODY
--- NOTE | 2025-01-12 13:43 | W.PN.HOSP.TC ---
Today's Communication/Plan
-
See plan
Assessment / Plan
Assessment / Plan
Impression:
Presentation with right-sided weakness, described acute onset
Metabolic encephalopathy, protracted
Neutropenia
Acute kidney injury
Increased anion gap metabolic acidosis
Persistent hypotension requiring vasopressors
Elevated LFTs, mixed pattern
Conditions prior to admission:
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
� Primary oncologist at [facility]. Currently on letrozole and Ibrance
Paroxysmal atrial fibrillation
Anticoagulation with Eliquis
Chronic CHF reduced EF.
Diabetes type 2, NIDDM.
Dyslipidemia
Hypothyroidism on repletion.
Class II obesity with BMI of 38.
Plan:
Presentation with protracted encephalopathy, patient's describes confusion, memory problem, trouble finding words
Acute onset of right-sided weakness
Differential diagnosis evolving CVA versus intracranial mets, versus metabolic encephalopathy
CT/CTA on admission with no acute findings.
Monitor neurologic status closely.
Avoid hypotension
MRI of the brain.
Diet will be advanced with aspiration precautions
She has been on anticoagulation with Eliquis
Persistent hypotension.
Neutropenia.
No complaints suggestive of possible source of infection.
Blood cultures negative
Urine cultures negative.
MRI of the abdomen reviewed as below. Minimal ascites and at this point less likely SBP. Low clinical suspicion for acute cholecystitis or choledocholithiasis.
Continue empiric antibiotic coverage: Cefepime/metronidazole
Would hold Ibrance acutely until infection completely ruled out. Monitor WBC closely.
Abnormal LFT, mixed pattern
MRI of the abdomen consistent with metastatic hepatic disease involving radha hepatic with extensive compression of the bile ducts.
No focal lesions for target by endoscopy/stenting
Discussed with GI monitor LFTs.
Acute kidney injury.
Increased anion gap metabolic acidosis
Suspect prerenal causes in the settings of low oral intake, diuretics, Entresto.
Continue IV fluids with sodium bicarbonate.
Continue norepinephrine with MAP goal 55 to 60 mmHg
Hold diuretics/Lasix and spironolactone. Hold Entresto.
Check serum acetone.
Chronic CHF reduced EF.
Echo 11/22 with LVEF 35-40%. Global hypokinesis. Mild to moderate MR/MS, mild to moderate aortic stenosis with SESAR 1.4 cm�
Hypovolemic currently.
Hold diuretics and Entresto
Monitor volume status closely while on IV fluids
Type 2 diabetes
Hemoglobin A1c 7.0.
Not on any glucose lowering therapy prior to admission.
Given metabolic acidosis, check serum acetone
Continue basal bolus protocol with serial Accu-Cheks
Carbohydrate diet
Given all of above including progressive encephalopathy, multiorgan failure not limited to DONNA, metabolic acidosis, progressive hepatobiliary abnormalities secondary to metastatic disease, declining performance status, I had brought up option of
palliative care with consideration of hospice. Patient and will consider that depends on the ongoing workup and response to treatment.
Full code.
DVT prophylaxis has been on Eliquis.
Anticipated Discharge: > 48 hours
Subjective/Interval History
-
Date of Service: January 12, 2025
Objective Data
-
Labs:
Laboratory Results
01/12/25 01/12/25
04:11 11:09
WBC 2.8 L
Hgb 14.2
Hct 39.3
Plt Count 166
Sodium 138 137
Potassium 4.7 4.1
Chloride 113 H 110 H
Carbon Dioxide 7 L* 15 L
BUN 32 H 32 H
Creatinine 2.4 H 2.4 H
Glucose 141 H 162 H
Calcium 9.4 9.2
Total Bilirubin 5.3 H
AST 308 H
ALT 283 H
Alkaline Phosphatase 841 H
Vital Signs:
Vital Signs
Temp Pulse Resp BP Pulse Ox
98.4 F 95 20 90/78 96
03/17/25 12:47 01/12/25 13:31 01/12/25 13:31 01/12/25 13:31 01/12/25 13:30
I&O
01/11/25 01/12/25 01/13/25
06:59 06:59 06:59
Intake Total 960 / 960
Output Total 250 / 250 600 / 600
Balance -250 / -250 360 / 360
Physical Exam
-
General: Well Developed and No Apparent Distress
HEENT: Normocephalic, Atraumatic and Moist Mucous Membranes
Respiratory: Clear to Auscultation
Cardiac: Regular Rhythm and S1/S2; Negative Murmur, Rub or Gallop
GI: Soft, Nontender, Nondistended and Normal Bowel Sounds; Negative Organomegaly
Rectal: Deferred by Provider
Musculoskeletal: No Clubbing, No Cyanosis and No Edema
Skin: Negative Rash
Neuro: Nonfocal/Grossly Intact
[2025-01-12 15:53] LABS: B-Hydroxybutyrate 2.21 mmol/L (0.02-0.27)
[2025-01-12 17:16] LABS: Glucose - Point of Care 142 mg/dl (70-99)
--- NOTE | 2025-01-12 18:00 | PTCARENOTE ---
NIH as documented, R sided weakness and aphasia remains. Levo able to be weaned to 3 mcg/min during the day. Unable to obtain Brain MRI due to being on Levo. Pt's at the bedside and updated by RN and . Patient sat in chair for
approx 5 hours today. Pt with poor appetite, only ate a few bites for dinner. Assessment, care and VS as charted.
[2025-01-12] MEDS: REMERON 15 MG PO (19:32)
[2025-01-12 21:31] LABS: Glucose - Point of Care 138 mg/dl (70-99)
[2025-01-12] MEDS: STERILE WATER FOR INJECTION 10 ML IV (21:38)
[2025-01-13] VITALS (46 sets, daily range): BP systolic 76–137; BP diastolic 32–100; BMI 39.1
--- NOTE | 2025-01-13 00:57 | PTCARENOTE ---
assumed care of patient. pt is AAOx2- not time. able to make needs known. VSS. pt is on levophed gtt, tried to taper down but BP dropped. levo back at 3mcg/min. notified IV team that pt has had IV levophed running in a peripheral for over 24hrs. no
new IV site needed per IV team. levo continues to run in R FA. site patent at this time. NIH 4- pt still continues with aphasia, some slurred speech at times. pt significantly weaker in right arm. pt was able to get up to use [facility] x2 assist in
beginning of shift. in middle of shift pt attempted to get up again, pt unsafe at this time, almost fell with x2 associates helping. pt placed back to bed. bed alarm on. no c/o pain. care ongoing.
[2025-01-13] MEDS: NON-FORMULARY ITEM 150 UNIT PO (04:55)
[2025-01-13 05:32] LABS: Blood Urea Nitrogen 30 mg/dl (7-17); Calcium 8.9 mg/dl (8.4-10.2); Carbon Dioxide 17 mmol/L (22-30); Chloride 108 mmol/L (98-107); Estimated Creatinine Clearance 24 ml/min; Glucose 149 mg/dl (70-99); Hematocrit 38.8 % (37.0-47.0); Hemoglobin 14.1 g/dL (12.0-16.0); Mean Corp Hgb Conc. 36.3 g/dL (33.0-37.0); Mean Corpuscular Hgb 31.3 pg (27.0-31.0); Mean Platelet Volume 12.1 fL (7.4-10.4); Platelet Count 157 10^3/uL (130-400); Potassium 3.6 mmol/L (3.5-5.1); Red Blood Cell Count 4.51 10^6/uL (4.20-5.40); Red Cell Dist. Width 14.7 % (11.5-14.5); Sodium 136 mmol/L (135-145); White Blood Cell Count 2.4 10^3/uL (4.8-10.8); eGFR 24.12
[2025-01-13 07:16] LABS: Glucose - Point of Care 162 mg/dl (70-99)
[2025-01-13] MEDS: ELIQUIS 5 MG PO ×2 (08:37→20:28)
[2025-01-13] MEDS: NEURONTIN 400 MG PO ×2 (08:37→20:28)
[2025-01-13] MEDS: FEMARA 2.5 MG PO (08:37)
[2025-01-13] MEDS: MAXIPIME 1000 MG IV ×2 (09:11→21:03)
[2025-01-13] MEDS: FLAGYL 500 MG 100 IV ×2 (09:11→21:03)
[2025-01-13] MEDS: STERILE WATER FOR INJECTION 10 ML IV ×2 (09:11→21:03)
[2025-01-13] MEDS: NOVOLOG FLEXPEN-LOW RESISTANCE 1 UNITS SC ×3 (09:58→16:39)
[2025-01-13 10:47] LABS: Glucose - Point of Care 156 mg/dl (70-99)
[2025-01-13] MEDS: LEVOPHED 250 IV ×2 (10:47→20:28)
[2025-01-13 10:50] LABS: ALT (SGPT) 225 U/L (0-35); AST (SGOT) 243 U/L (14-36); Alkaline Phosphatase 890 U/L (38-126); Direct Bilirubin 4.6 mg/dl (0.0-0.4); Total Bilirubin 5.8 mg/dl (0.2-1.3); Total Protein 5.5 g/dl (6.3-8.2)
[2025-01-13 10:54] LABS: Ammonia < 9 umol/L (9-30)
--- NOTE | 2025-01-13 10:59 | W.PN.NEPH.PH ---
Today's Communication / Plan
-
Continue maintenance bicarb drip
Assessment/Plan
-
Assessment
Hypotension
DONNA creatinine 2.6 on admission recent discharge with a creatinine of 1.0 December 16 status post acute kidney injury prerenal
Heart failure reduced ejection fraction
Mental status change
Elevated LFTs
Metastatic breast cancer
Leukopenia
Metabolic acidosis
Plan
DONNA multifactorial hypotension/CT angio.
Urinalysis hematuria and white blood cells negative urine culture
Holding Entresto, Lasix, spironolactone
Empiric antibiotics
DONNA likely prerenal with hypotension/meds
Developed metabolic acidosis= improved with bicarbonate. Will continue with close monitoring of her pulmonary status with reduced EF 35 to 40%
Remains on pressor with negative blood cultures and urine culture to date
Oliguric.
A.m. labs
-
-
Date of Service: January 13, 2025
CC / HPI / ROS
-
Chief Complaint:
Acute kidney injury
History of Present Illness:
Acute kidney injury with hypotension.
Creatinine 2.6 on admission
Review of Systems:.
No chest pain or shortness of breath
Labs
-
Labs:
WBC 2.4 10^3/uL (4.8-10.8) L* 01/13/25 04:54
RBC 4.51 10^6/uL (4.20-5.40) 01/13/25 04:54
Hgb 14.1 g/dL (12.0-16.0) 01/13/25 04:54
Hct 38.8 % (37.0-47.0) 01/13/25 04:54
Plt Count 157 10^3/uL (130-400) 01/13/25 04:54
Sodium 136 mmol/L (135-145) 01/13/25 04:54
Potassium 3.6 mmol/L (3.5-5.1) 01/13/25 04:54
Chloride 108 mmol/L (98-107) H 01/13/25 04:54
Carbon Dioxide 17 mmol/L (22-30) L 01/13/25 04:54
BUN 30 mg/dl (7-17) H 01/13/25 04:54
Creatinine 2.1 mg/dL (0.6-1.0) H 01/13/25 04:54
eGFR 24.12 01/13/25 04:54
Glucose 149 mg/dl (70-99) H 01/13/25 04:54
Calcium 8.9 mg/dl (8.4-10.2) 01/13/25 04:54
Albumin 3.0 g/dl (3.5-5.0) L 01/13/25 04:54
Physical Exam
-
Vital Signs:
Vital Signs
Temp Pulse Resp BP Pulse Ox
97.8 F 95 18 118/92 93
01/13/25 07:02 01/13/25 06:30 01/13/25 06:30 01/13/25 06:30 01/13/25 04:05
Cardiovascular:: Regular rate and rhythm
Respiratory:: Bilateral: CTA
Lung Excursion:: Normal
Abdomen:: Nontender and Soft
Bowel Sounds:: Normal
Extremity Edema:: None: Bilateral:
--- NOTE | 2025-01-13 11:30 | PN.CDI ---
CDI
- -
CDI:
Physician Documentation Request
Admit Date: 01/10/25 23:01
Dear Doctor Mynor,
Please review the following and provide your response in the progress notes.
Clinical Indicators:
Pt admitted with right sided weakness, DONNA, and elevated LFT's.
01/12 Note: ' She states that she eats a regular diet at home. She said that her appetite has been poor for a long time. She states that she lost 'a lot' of weight. History shows on 11/03/24 she weighed 240 lbs. Today she weighs 203 lbs. This is a
15.5% BW loss over 2 months (significant).
Current BW: (01/12) 203 lbs 11.314 oz BMI: 38.5 (obese)
Patient meets AND and ASPEN critieria for severe protein calorie malnutrition of chronic illness due to loss of more than 5% BW in one month and less than 75% of nutrition needs met for over one month.'
If possible, please provide in your progress notes, additional specificity regarding the severity of the malnutrition:
Severe Protein calorie malnutrition
Other (please specify)
Barnwell Criteria ([facility] Hospitalist 2017)
2 or more criteria must be present for either
non severe or severe malnutrition
Note that the criteria differs related to the
presence of an acute or chronic illness
Chronic Illness
Energy Intake Non Severe: <75% for >1 month
Severe: <75% for >1 month
Weight Loss Non Severe: 5% over 1 month
7.5% over 3 months
10% over 6 months
20% over 1 year
Severe: >5% over 1 month
>7.5% over 3 months
>10% over 6 months
>20% over 1 year
Additional criteria that can be used to Determine if Mild or Moderate Malnutrition ([employer] Manual 2018)
Use of terms such as suspected, likely, concern for, or probable (associated with a specific diagnosis that is being evaluated, monitored, or treated as if it exists) are acceptable and can be coded in the inpatient setting, when documented at the
time of discharge.
Thank you,
Dione Nichols RN, BSN
CDI Specialist
[place] [facility]
Please use your independent medical judgment in providing your response.
--- NOTE | 2025-01-13 11:38 | PN.CDI ---
CDI
- -
CDI:
Physician Documentation Request
Admit Date: 01/10/25 23:01
Dear Doctor Mynor,
Please review the following and provide your response in the progress notes.
Current documentation includes a diagnosis of hypotension.
Clinical Indicators:
Pt admitted with right sided weakness, DONNA, and elevated LFT's.
01/11 update note: ' ~Patient hypotensive BP 86/47, MAP 56, HR 82. Patient drowsy but easily arousable and conversant. Given 250 ml bolus.
Pt continued to be hypotensive after bolus, BP 70/40's. Started on Levophed gtt 2 mcg/min,�
3 am check at 7 mcg/min, BP 110/60, MAP 70.
-5 am�Critical lab: CO2 7, ordered sodium bicarb 150 meq IV @ 80 mls/hr.'
01/12 Progress Note: ' Persistent hypotension..Acute kidney injury
Increased anion gap metabolic acidosis
Suspect prerenal causes in the settings of low oral intake, diuretics, Entresto.
Continue IV fluids with sodium bicarbonate.
Continue norepinephrine with MAP goal 55 to 60 mmHg.
Hypovolemic currently.'
Pt received 4 Liter IVF
Please clarify which of the following is the most likely etiology of the above symptoms and treatment rendered:
Hypovolemic shock - indicate if due to surgery, trauma or other etiology
Cardiogenic shock
Septic Shock
Shock, unknown type
Hypotension - indicate type/etiology, such as idiopathic, neurogenic or orthostatic, post-procedural, postoperative, due to hemodialysis, chronic, drug induced (indicate drug), etc.
Hypotension Only
Other
Use of terms such as suspected, likely, concern for, or probable (associated with a specific diagnosis that is being evaluated, monitored, or treated as if it exists) are acceptable and can be coded in the inpatient setting, when documented at the
time of discharge.
Thank you,
Dione Nichols RN, BSN
CDI Specialist
[place] [facility]
Please use your independent medical judgment in providing your response.
--- NOTE | 2025-01-13 12:27 | PTCARENOTE ---
Patient's arrived at bedside. He is requesting a new hospitalist. Dr. Lowe made aware.
--- NOTE | 2025-01-13 13:00 | PTCARENOTE ---
NIH as documented, R sided weakness and aphasia remains. Levo remains, see flowsheet. PICC line to be placed today. at bedside and updated. Assessment, care and VS as charted.
--- NOTE | 2025-01-13 13:11 | CM ---
Patient with Hx metastatic breast cancer with Dx encephalopathy, Persistent hypotension, Neutropenia. Room air. PICC placed. Receiving Levophed gtt, IVF w bicarb, IV Abx. PT/OT; recommendation TBD. Per nurse; A/O.
Patient busy with IV team/x-ray.
Met with patient's Dionisio in [facility] [place];
allowed to express distress just being informed that his is not doing well, that chemo is suspended and that patient may need hospice. He called one of his sons while CM was present, wanting to tell him to come to hospital right away.
says he will be gathering his 3 sons & daughter to come in and be with his .
Dionisio says he is aware that MD wants to wait until tomorrow to see how patient is doing and decide at that time about hospice. Despite that, he wanted to discuss hospice now - explained hospice philosophy & benefits. He would agree to speaking
with Hospice nurse.
He feels he will not be able to take patient home and will want her to go to SNF - explained that SNF is private pay when in hospice.
He would like the senior javascript developer to see his - they were Nondenominational/non-sikhism now.
Spoke with [employer] [employer]; Bonnie will meet with the patient/family this afternoon.
Plan follow up tomorrow re; possible hospice.
[2025-01-13] MEDS: SODIUM BICARBONATE 1150 MEQ IV (14:07)
--- NOTE | 2025-01-13 16:33 | W.PN.HOSP.TC ---
Today's Communication/Plan
-
Continue IV fluids with bicarbonate
Continue vasopressor support
MRI of the brain if possible in terms of hemodynamic stability.
Goals of care discussion
Assessment / Plan
Assessment / Plan
Impression:
Presentation with right-sided weakness, described acute onset
Metabolic encephalopathy, protracted
Neutropenia
Acute kidney injury
Increased anion gap metabolic acidosis
Persistent hypotension requiring vasopressors
Elevated LFTs, mixed pattern
Conditions prior to admission:
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
� Primary oncologist at [place]. Currently on letrozole and Ibrance
Paroxysmal atrial fibrillation
Anticoagulation with Eliquis
Chronic CHF reduced EF.
Diabetes type 2, NIDDM.
Dyslipidemia
Hypothyroidism on repletion.
Class II obesity with BMI of 38.
Plan:
Presentation with protracted encephalopathy, patient's describes confusion, memory problem, trouble finding words
Acute onset of right-sided weakness
Differential diagnosis evolving CVA versus intracranial mets, versus metabolic encephalopathy
CT/CTA on admission with no acute findings.
Monitor neurologic status closely.
Avoid hypotension
MRI of the brain.
Diet will be advanced with aspiration precautions
She has been on anticoagulation with Eliquis
Persistent hypotension.
Neutropenia.
No complaints suggestive of possible source of infection.
Blood cultures negative
Urine cultures negative.
MRI of the abdomen reviewed as below. Minimal ascites and at this point less likely SBP. Low clinical suspicion for acute cholecystitis or choledocholithiasis.
Continue empiric antibiotic coverage: Cefepime/metronidazole
Would hold Ibrance acutely until infection completely ruled out. Monitor WBC closely.
Abnormal LFT, mixed pattern
MRI of the abdomen consistent with metastatic hepatic disease involving radha hepatic with extensive compression of the bile ducts.
No focal lesions for target by endoscopy/stenting
Discussed with GI monitor LFTs.
Acute kidney injury.
Increased anion gap metabolic acidosis
Suspect prerenal causes in the settings of low oral intake, diuretics, Entresto.
Continue IV fluids with sodium bicarbonate.
Continue norepinephrine with MAP goal 55 to 60 mmHg
Hold diuretics/Lasix and spironolactone. Hold Entresto.
Mild elevation of beta hydroxybutyrate likely related to hepatic dysfunction. Doubt DKA.
Chronic CHF reduced EF.
Echo 11/22 with LVEF 35-40%. Global hypokinesis. Mild to moderate MR/MS, mild to moderate aortic stenosis with SESAR 1.4 cm�
Hypovolemic currently.
Hold diuretics and Entresto
Monitor volume status closely while on IV fluids
Type 2 diabetes
Hemoglobin A1c 7.0.
Not on any glucose lowering therapy prior to admission.
Given metabolic acidosis, check serum acetone
Continue basal bolus protocol with serial Accu-Cheks
Carbohydrate diet
Given all of above including progressive encephalopathy, multiorgan failure not limited to DONNA, metabolic acidosis, progressive hepatobiliary abnormalities secondary to metastatic disease, declining performance status, I had brought up option of
palliative care with consideration of hospice. Patient and will consider that depends on the ongoing workup and response to treatment.
01/14.
Discussion with patient's primary oncology Dr. Hutson at [facility]
Related progressive multiorgan dysfunction including metabolic encephalopathy, hepatic or renal insufficiency with severe metabolic acidosis and hypotension requiring alkalinized fluids and vasopressors. No evidence for infection. Clinical
presentation indicative of progressive metastatic process and declining performance status. [place] patient is not a candidate for further systemic treatment including Ibrance.
Further discussion with patient's introducing difficult clinical situation and limited options. They indicate that the patient would not like to have any aggressive measures and in case of declining quality of life, they would seek for
palliative approach and concentrate on her comfort care.
Anticipated Discharge: 24 - 48 hours
Subjective/Interval History
-
Date of Service: January 13, 2025
Objective Data
-
Labs:
Laboratory Results
01/13/25
04:54
WBC 2.4 L*
Hgb 14.1
Hct 38.8
Plt Count 157
Sodium 136
Potassium 3.6
Chloride 108 H
Carbon Dioxide 17 L
BUN 30 H
Creatinine 2.1 H
Glucose 149 H
Calcium 8.9
Total Bilirubin 5.8 H
AST 243 H
ALT 225 H
Alkaline Phosphatase 890 H
Vital Signs:
Vital Signs
Temp Pulse Resp BP Pulse Ox
97.5 F 108 16 93/62 95
01/13/25 11:07 01/13/25 13:30 01/13/25 13:30 01/13/25 13:30 01/13/25 11:50
I&O
01/12/25 01/13/25 01/14/25
06:59 06:59 06:59
Intake Total 960 / 960 1920 / 1920 360 / 360
Output Total 600 / 600 525 / 525
Balance 360 / 360 1395 / 1395 360 / 360
Physical Exam
-
General: Well Developed and No Apparent Distress
HEENT: Normocephalic, Atraumatic and Moist Mucous Membranes
Respiratory: Clear to Auscultation
Cardiac: Regular Rhythm and S1/S2; Negative Murmur, Rub or Gallop
GI: Soft, Nontender, Nondistended and Normal Bowel Sounds; Negative Organomegaly
Rectal: Deferred by Provider
Musculoskeletal: No Clubbing, No Cyanosis and No Edema
Skin: Negative Rash
Neuro: Nonfocal/Grossly Intact
[2025-01-13 16:49] LABS: Glucose - Point of Care 199 mg/dl (70-99)
[2025-01-13] MEDS: REMERON 15 MG PO (20:28)
[2025-01-14] VITALS (22 sets, daily range): BP systolic 80–152; BP diastolic 48–122; BMI 38.5
[2025-01-14] MEDS: SODIUM BICARBONATE 1150 MEQ IV (00:58)
--- NOTE | 2025-01-14 04:25 | DOWNTIME ---
There was a [employer] Client [employer] Deputy Downtime on 01/14/2025 from 0100 to 01/15/2024 at 0420 . Downtime documentation of patient's care, including medication administrations, has been reconciled in the electronic record per guidelines. Refer to the
patient's paper chart under the miscellaneous tab to see printed paper medication records and downtime forms.
[2025-01-14 04:49] LABS: ALT (SGPT) 166 U/L (0-35); AST (SGOT) 213 U/L (14-36); Albumin 2.4 g/dl (3.5-5.0); Alkaline Phosphatase 756 U/L (38-126); Blood Urea Nitrogen 30 mg/dl (7-17); Calcium 8.1 mg/dl (8.4-10.2); Carbon Dioxide 24 mmol/L (22-30); Chloride 100 mmol/L (98-107); Estimated Creatinine Clearance 27 ml/min; Glucose 233 mg/dl (70-99); Sodium 133 mmol/L (135-145); Total Bilirubin 6.8 mg/dl (0.2-1.3); Total Protein 4.7 g/dl (6.3-8.2)
[2025-01-14 05:14] LABS: % Basophils 1.4 % (0-2); % Eosinophils 0.5 % (0-6); % Immature Granulocytes 0.5 % (0-0.5); % Lymphocytes 31.6 % (20.5-51.1); % Monocytes 7.4 % (1.7-9.3); % Neutrophils 58.6 % (42.2-75.2); Absolute Lymphocytes 0.7 10^3/uL (1.2-3.4); Absolute Monocytes 0.2 10^3/uL (0.1-0.6); Absolute Neutrophils 1.3 10^3/uL (1.4-6.5); Hematocrit 32.7 % (37.0-47.0); Hemoglobin 12.1 g/dL (12.0-16.0); Mean Corpuscular Hgb 31.5 pg (27.0-31.0); Mean Corpuscular Volume 85.2 fL (81.0-99.0); Mean Platelet Volume 11.8 fL (7.4-10.4); Nucleated Red Blood Cells % 0 %; Platelet Count 111 10^3/uL (130-400); Red Blood Cell Count 3.84 10^6/uL (4.20-5.40); Red Cell Dist. Width 14.7 % (11.5-14.5); White Blood Cell Count 2.2 10^3/uL (4.8-10.8)
[2025-01-14] MEDS: NON-FORMULARY ITEM 1 UNIT PO (05:38)
[2025-01-14 05:44] LABS: Glucose - Point of Care 157 mg/dl (70-99)
[2025-01-14] MEDS: LEVOPHED 250 IV ×2 (06:13→15:31)
--- NOTE | 2025-01-14 06:32 | PTCARENOTE ---
Patient remains on levo 7mcg/min for map >65. Family at bedside. Am k 3- supervisor electronics processing provider ordered PO repletion.
[2025-01-14] MEDS: KCL 40 MEQ PO (06:43)
[2025-01-14 07:40] LABS: Glucose - Point of Care 182 mg/dl (70-99)
[2025-01-14] MEDS: NOVOLOG FLEXPEN-LOW RESISTANCE 1 UNITS SC (08:53)
[2025-01-14] MEDS: ELIQUIS 5 MG PO ×2 (08:54→20:32)
[2025-01-14] MEDS: NEURONTIN 400 MG PO ×2 (08:55→20:32)
--- NOTE | 2025-01-14 09:15 | W.PN.NEPH.PH ---
Today's Communication / Plan
-
Encourage p.o.
Assessment/Plan
-
Assessment
Hypotension
DONNA creatinine 2.6 on admission recent discharge with a creatinine of 1.0 December 16 status post acute kidney injury prerenal
Heart failure reduced ejection fraction
Mental status change
Elevated LFTs
Metastatic breast cancer
Leukopenia
Metabolic acidosis
Plan
Convert to saline IV fluids
Encourage p.o. intake
Follow BMP
Continue Levophed, failed weaning attempt overnight
Start midodrine
Discussed with patient at length regarding overall clinical picture. She understands that if she is unable to eat any other interventions are moot
Critical care time spent 35 minutes
-
-
Date of Service: January 14, 2025
CC / HPI / ROS
-
Chief Complaint:
Acute kidney injury
History of Present Illness:
Critically ill on Levophed for hypotension
Oral intake poor
WBC low at 2.2
Platelets lower 111
DONNA/creatinine down to 1.9
K low 3.0
Sodium lower 133
LFTs improving
Review of Systems:.
No chest pain or shortness of breath
No appetite
Labs
-
Labs:
WBC 2.2 10^3/uL (4.8-10.8) L* 01/14/25 03:33
RBC 3.84 10^6/uL (4.20-5.40) L 01/14/25 03:33
Hgb 12.1 g/dL (12.0-16.0) 01/14/25 03:33
Hct 32.7 % (37.0-47.0) L 01/14/25 03:33
Plt Count 111 10^3/uL (130-400) L D 01/14/25 03:33
Sodium 133 mmol/L (135-145) L 01/14/25 03:33
Potassium 3.0 mmol/L (3.5-5.1) L 01/14/25 03:33
Chloride 100 mmol/L (98-107) 01/14/25 03:33
Carbon Dioxide 24 mmol/L (22-30) 01/14/25 03:33
BUN 30 mg/dl (7-17) H 01/14/25 03:33
Creatinine 1.9 mg/dL (0.6-1.0) H 01/14/25 03:33
eGFR 27.20 01/14/25 03:33
Glucose 233 mg/dl (70-99) H 01/14/25 03:33
Calcium 8.1 mg/dl (8.4-10.2) L 01/14/25 03:33
Albumin 2.4 g/dl (3.5-5.0) L 01/14/25 03:33
Physical Exam
-
Vital Signs:
Vital Signs
Temp Pulse Resp BP Pulse Ox
98.3 F 102 26 118/48 95
01/14/25 04:34 01/14/25 08:38 01/14/25 08:38 01/14/25 08:38 01/13/25 21:18
Cardiovascular:: Regular rate and rhythm
Respiratory:: Bilateral: Coarse
Lung Excursion:: Normal
Abdomen:: Nontender and Soft
Bowel Sounds:: Normal
Extremity Edema:: +1: Bilateral:
[2025-01-14] MEDS: ProAmatine 10 MG PO ×2 (10:27→18:06)
[2025-01-14] MEDS: FLAGYL 500 MG 100 IV (10:32)
[2025-01-14] MEDS: NSS 1000 IV (10:32)
[2025-01-14] MEDS: STERILE WATER FOR INJECTION 10 ML IV ×2 (10:34→22:58)
[2025-01-14] MEDS: MAXIPIME 1000 MG IV ×2 (10:34→22:58)
--- NOTE | 2025-01-14 12:18 | HOSPNOTE ---
Attending spoke with spouse and he would like one more day to continue treatment and then will make the decision tomorrow 01/15 for hospice care. Patient will need to remain inpatient hospice. Referral sent and we will admit inpatient hospice
tomorrow.
[2025-01-14] MEDS: FEMARA 2.5 MG PO (12:25)
--- NOTE | 2025-01-14 12:44 | CM ---
CM reviewed pt with Dr Lowe and hospice/[facility]
On-going GOC and spouse would like to make decision tomorrow regarding tx vs hospice
If plan for hospice, per [facility], pt will likely meet criteria for GIP admission
CM will remain available for support and dc planning
Discharge Disposition- anticipate hospice GIP admissions tomorrow
--- NOTE | 2025-01-14 14:01 | W.PN.HOSP.TC ---
Today's Communication/Plan
-
Remains hypotensive and pressor dependent.
Cognitive status has been slowly deteriorating
Noted with elevated bilirubin at 6.
Continue supportive care including vasopressor, empiric antibiotics.
Agree with trial of midodrine with attempt to reduce Levophed.
Ongoing goals of care discussion. At this point plan if no reasonable improvement of the next 24 hours, consult hospice.
Discussed with nursing
Discussed with patient's at the bedside
Assessment / Plan
Assessment / Plan
Impression:
Presentation with right-sided weakness, described acute onset
Metabolic encephalopathy, protracted
Neutropenia
Acute kidney injury
Increased anion gap metabolic acidosis
Shock likely multifactorial in the settings of peripheral vasodilation as well as chronic cardiomyopathy with reduced EF. Persistent hypotension requiring vasopressors
Elevated LFTs, mixed pattern
Acute urinary retention requiring Keith catheter placed on 01/13
Severe protein calorie malnutrition
Conditions prior to admission:
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
� Primary oncologist at [place]. Currently on letrozole and Ibrance
Paroxysmal atrial fibrillation
Anticoagulation with Eliquis
Chronic CHF reduced EF.
Diabetes type 2, NIDDM.
Dyslipidemia
Hypothyroidism on repletion.
Class II obesity with BMI of 38.
Plan:
Presentation with protracted encephalopathy, patient's describes confusion, memory problem, trouble finding words
Acute onset of right-sided weakness
Differential diagnosis evolving CVA versus intracranial mets, versus metabolic encephalopathy
CT/CTA on admission with no acute findings.
Monitor neurologic status closely.
Treat hypotension
Diet advanced with aspiration precautions
Shock likely multifactorial in the settings of decreased SVR in patient with advanced carcinoma and hepatic failure, metabolic acidosis as well as with cardiomyopathy and reduced EF. Persistent hypotension.
Neutropenia related to chemotherapy with so far no evidence of infection
No complaints suggestive of possible source of infection.
Blood cultures negative
Urine cultures negative.
MRI of the abdomen reviewed as below. Minimal ascites and at this point less likely SBP. Low clinical suspicion for acute cholecystitis or choledocholithiasis.
Continue empiric antibiotic coverage: Cefepime. Metronidazole stopped on 01/14
Would hold Ibrance acutely until infection completely ruled out. Monitor WBC closely.
Diffuse metastatic process in the liver with elevated LFT, mixed pattern
MRI of the abdomen consistent with metastatic hepatic disease involving radha hepatic with extensive compression of the bile ducts.
No focal lesions for target by endoscopy/stenting
Discussed with GI monitor LFTs.
Acute kidney injury.
Increased anion gap metabolic acidosis
Suspect prerenal causes in the settings of low oral intake, diuretics, Entresto.
Continue IV fluids with sodium bicarbonate.
Continue norepinephrine with MAP goal 55 to 60 mmHg
Hold diuretics/Lasix and spironolactone. Hold Entresto.
Mild elevation of beta hydroxybutyrate likely related to hepatic dysfunction. Doubt DKA.
Acute urine retention with Keith catheter placed on 01/13
Chronic CHF reduced EF.
Echo 11/22 with LVEF 35-40%. Global hypokinesis. Mild to moderate MR/MS, mild to moderate aortic stenosis with SESAR 1.4 cm�
Hypovolemic currently.
Hold diuretics and Entresto
Monitor volume status closely while on IV fluids
Type 2 diabetes
Hemoglobin A1c 7.0.
Not on any glucose lowering therapy prior to admission.
Given metabolic acidosis, check serum acetone
Continue basal bolus protocol with serial Accu-Cheks
Carbohydrate diet
Given all of above including progressive encephalopathy, multiorgan failure not limited to DONNA, metabolic acidosis, progressive hepatobiliary abnormalities secondary to metastatic disease, declining performance status, I had brought up option of
palliative care with consideration of hospice. Patient and will consider that depends on the ongoing workup and response to treatment.
01/14.
Discussion with patient's primary oncology Dr. Hutson at [facility]
Related progressive multiorgan dysfunction including metabolic encephalopathy, hepatic or renal insufficiency with severe metabolic acidosis and hypotension requiring alkalinized fluids and vasopressors. No evidence for infection. Clinical
presentation indicative of progressive metastatic process and declining performance status. [place] patient is not a candidate for further systemic treatment including Ibrance.
Further discussion with patient's introducing difficult clinical situation and limited options. They indicate that the patient would not like to have any aggressive measures and in case of declining quality of life, they would seek for
palliative approach and concentrate on her comfort care.
Anticipated Discharge: > 48 hours
Subjective/Interval History
-
Date of Service: January 14, 2025
Objective Data
-
Labs:
Laboratory Results
01/14/25
03:33
WBC 2.2 L*
Hgb 12.1
Hct 32.7 L
Plt Count 111 L D
Sodium 133 L
Potassium 3.0 L
Chloride 100
Carbon Dioxide 24
BUN 30 H
Creatinine 1.9 H
Glucose 233 H
Calcium 8.1 L
Total Bilirubin 6.8 H
AST 213 H
ALT 166 H
Alkaline Phosphatase 756 H
Vital Signs:
Vital Signs
Temp Pulse Resp BP Pulse Ox
98.3 F 102 22 95/53 94
01/14/25 04:34 01/14/25 12:00 01/14/25 12:00 01/14/25 12:00 01/14/25 10:25
I&O
01/13/25 01/14/25 01/15/25
06:59 06:59 06:59
Intake Total 1920 / 1920 1800 / 1800 1400 / 1400
Output Total 525 / 525 1000 / 1000 260 / 260
Balance 1395 / 1395 800 / 800 1140 / 1140
Physical Exam
-
General: Well Developed and No Apparent Distress
HEENT: Normocephalic, Atraumatic and Moist Mucous Membranes
Respiratory: Clear to Auscultation
Cardiac: Regular Rhythm and S1/S2; Negative Murmur, Rub or Gallop
GI: Soft, Nontender, Nondistended and Normal Bowel Sounds; Negative Organomegaly
Rectal: Deferred by Provider
Musculoskeletal: No Clubbing, No Cyanosis and No Edema
Skin: Negative Rash
Neuro: Nonfocal/Grossly Intact
[2025-01-14] MEDS: NOVOLOG FLEXPEN-LOW RESISTANCE 2 UNITS SC ×2 (14:34→18:06)
[2025-01-14 14:46] LABS: Glucose - Point of Care 247 mg/dl (70-99)
[2025-01-14 16:40] LABS: Glucose - Point of Care 201 mg/dl (70-99)
[2025-01-14] MEDS: REMERON 15 MG PO (22:58)
[2025-01-14] MEDS: TYLENOL 650 MG PO (22:58)
[2025-01-15] VITALS (48 sets, daily range): BP systolic 62–129; BP diastolic 31–117; BMI 39.6
[2025-01-15] MEDS: NSS 1000 IV ×2 (00:05→10:34)
[2025-01-15] MEDS: ProAmatine 10 MG PO ×3 (02:51→18:33)
[2025-01-15] MEDS: LEVOPHED 250 IV ×2 (02:51→15:25)
[2025-01-15 05:09] LABS: Hematocrit 33.9 % (37.0-47.0); Hemoglobin 12.5 g/dL (12.0-16.0); Mean Corp Hgb Conc. 36.9 g/dL (33.0-37.0); Mean Corpuscular Hgb 31.2 pg (27.0-31.0); Mean Corpuscular Volume 84.5 fL (81.0-99.0); Mean Platelet Volume 11.8 fL (7.4-10.4); Platelet Count 108 10^3/uL (130-400); Red Blood Cell Count 4.01 10^6/uL (4.20-5.40); Red Cell Dist. Width 14.7 % (11.5-14.5); White Blood Cell Count 2.2 10^3/uL (4.8-10.8)
[2025-01-15 05:14] LABS: ALT (SGPT) 144 U/L (0-35); AST (SGOT) 213 U/L (14-36); Alkaline Phosphatase 788 U/L (38-126); Blood Urea Nitrogen 25 mg/dl (7-17); Calcium 7.7 mg/dl (8.4-10.2); Carbon Dioxide 24 mmol/L (22-30); Chloride 101 mmol/L (98-107); Direct Bilirubin 6.8 mg/dl (0.0-0.4); Estimated Creatinine Clearance 28 ml/min; Glucose 166 mg/dl (70-99); Sodium 136 mmol/L (135-145); Total Bilirubin 7.7 mg/dl (0.2-1.3); eGFR 29.02
[2025-01-15 05:35] LABS: Albumin 2.3 g/dl (3.5-5.0); Total Protein 4.5 g/dl (6.3-8.2)
[2025-01-15 09:31] LABS: Glucose - Point of Care 181 mg/dl (70-99)
--- NOTE | 2025-01-15 09:57 | W.PN.NEPH.PH ---
Today's Communication / Plan
-
follow BMP
Assessment/Plan
-
Assessment
Hypotension
DONNA creatinine 2.6 on admission recent discharge with a creatinine of 1.0 December 16 status post acute kidney injury prerenal
Heart failure reduced ejection fraction
Mental status change
Elevated LFTs
Metastatic breast cancer
Leukopenia
Metabolic acidosis
Plan
reduce IVF
Encourage p.o. intake
Follow BMP
Continue Levophed, failed weaning attempt overnight
continue midodrine
Critical care time spent 31 minutes
-
-
Date of Service: January 15, 2025
CC / HPI / ROS
-
Chief Complaint:
Acute kidney injury
History of Present Illness:
Critically ill on Levophed for hypotension still
Oral intake modest
WBC low at 2.2
Platelets lower 108
DONNA/creatinine down to 1.8
K low 3.0
Sodium up to 136
LFTs stable
Review of Systems:.
No chest pain or shortness of breath
No appetite
Labs
-
Labs:
WBC 2.2 10^3/uL (4.8-10.8) L* 01/15/25 04:26
RBC 4.01 10^6/uL (4.20-5.40) L 01/15/25 04:26
Hgb 12.5 g/dL (12.0-16.0) 01/15/25 04:26
Hct 33.9 % (37.0-47.0) L 01/15/25 04:26
Plt Count 108 10^3/uL (130-400) L 01/15/25 04:26
Sodium 136 mmol/L (135-145) 01/15/25 04:26
Potassium 3.0 mmol/L (3.5-5.1) L 01/15/25 04:26
Chloride 101 mmol/L (98-107) 01/15/25 04:26
Carbon Dioxide 24 mmol/L (22-30) 01/15/25 04:26
BUN 25 mg/dl (7-17) H 01/15/25 04:26
Creatinine 1.8 mg/dL (0.6-1.0) H 01/15/25 04:26
eGFR 29.02 01/15/25 04:26
Glucose 166 mg/dl (70-99) H 01/15/25 04:26
Calcium 7.7 mg/dl (8.4-10.2) L 01/15/25 04:26
Albumin 2.3 g/dl (3.5-5.0) L 01/15/25 04:26
Physical Exam
-
Vital Signs:
Vital Signs
Temp Pulse Resp BP Pulse Ox
97.2 F 90 15 101/65 96
01/15/25 07:55 01/15/25 04:00 01/15/25 04:00 01/15/25 04:00 01/14/25 20:10
Cardiovascular:: Regular rate and rhythm
Respiratory:: Bilateral: Coarse
Lung Excursion:: Normal
Abdomen:: Nontender and Soft
Bowel Sounds:: Normal
Extremity Edema:: +1: Bilateral:
[2025-01-15] MEDS: NON-FORMULARY ITEM 1 UNIT PO (10:10)
[2025-01-15] MEDS: NOVOLOG FLEXPEN-LOW RESISTANCE 1 UNITS SC ×3 (10:11→18:32)
[2025-01-15] MEDS: ELIQUIS 5 MG PO ×2 (10:12→23:49)
[2025-01-15] MEDS: FEMARA 2.5 MG PO (10:12)
[2025-01-15] MEDS: MAXIPIME 1000 MG IV ×2 (10:13→23:49)
[2025-01-15] MEDS: STERILE WATER FOR INJECTION 10 ML IV ×2 (10:13→23:50)
[2025-01-15] MEDS: NEURONTIN 400 MG PO ×2 (10:14→23:49)
[2025-01-15] MEDS: KCL 40 MEQ PO (10:35)
[2025-01-15 10:53] LABS: Magnesium 1.2 mg/dl (1.6-2.3)
[2025-01-15] MEDS: KCL 270 MEQ IV (11:58)
[2025-01-15 12:16] LABS: Glucose - Point of Care 180 mg/dl (70-99)
--- NOTE | 2025-01-15 13:46 | W.PN.HOSP.TC ---
Today's Communication/Plan
-
Eri vasopressor dependent.
Fluctuating cognitive status, confusion, mood swings likely due to worsening toxic metabolic encephalopathy
Worsening hepatic function with rising bilirubin.
Discussed with patient's at the bedside
Plan is to transition to hospice
They are asking for hemodynamic support while rest of the family gathering most likely over the next 24 to 48 hours.
Assessment / Plan
Assessment / Plan
Impression:
Presentation with right-sided weakness, described acute onset
Metabolic encephalopathy, protracted
Neutropenia
Acute kidney injury
Increased anion gap metabolic acidosis
Shock likely multifactorial in the settings of peripheral vasodilation as well as chronic cardiomyopathy with reduced EF. Persistent hypotension requiring vasopressors
Elevated LFTs, mixed pattern
Acute urinary retention requiring Keith catheter placed on 01/13
Severe protein calorie malnutrition
Conditions prior to admission:
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
� Primary oncologist at [place]. Currently on letrozole and Ibrance
Paroxysmal atrial fibrillation
Anticoagulation with Eliquis
Chronic CHF reduced EF.
Diabetes type 2, NIDDM.
Dyslipidemia
Hypothyroidism on repletion.
Class II obesity with BMI of 38.
Plan:
Presentation with protracted encephalopathy, patient's describes confusion, memory problem, trouble finding words
Acute onset of right-sided weakness
Differential diagnosis evolving CVA versus intracranial mets, versus metabolic encephalopathy
CT/CTA on admission with no acute findings.
Monitor neurologic status closely.
Treat hypotension
Diet advanced with aspiration precautions
Shock likely multifactorial in the settings of decreased SVR in patient with advanced carcinoma and hepatic failure, metabolic acidosis as well as with cardiomyopathy and reduced EF. Persistent hypotension.
Neutropenia related to chemotherapy with so far no evidence of infection
No complaints suggestive of possible source of infection.
Blood cultures negative
Urine cultures negative.
MRI of the abdomen reviewed as below. Minimal ascites and at this point less likely SBP. Low clinical suspicion for acute cholecystitis or choledocholithiasis.
Continue empiric antibiotic coverage: Cefepime. Metronidazole stopped on 01/14
Would hold Ibrance acutely until infection completely ruled out. Monitor WBC closely.
Diffuse metastatic process in the liver with elevated LFT, mixed pattern
MRI of the abdomen consistent with metastatic hepatic disease involving radha hepatic with extensive compression of the bile ducts.
No focal lesions for target by endoscopy/stenting
Discussed with GI monitor LFTs.
Acute kidney injury.
Increased anion gap metabolic acidosis
Suspect prerenal causes in the settings of low oral intake, diuretics, Entresto.
Continue IV fluids with sodium bicarbonate.
Continue norepinephrine with MAP goal 55 to 60 mmHg
Hold diuretics/Lasix and spironolactone. Hold Entresto.
Mild elevation of beta hydroxybutyrate likely related to hepatic dysfunction. Doubt DKA.
Acute urine retention with Ekith catheter placed on 01/13
Chronic CHF reduced EF.
Echo 11/22 with LVEF 35-40%. Global hypokinesis. Mild to moderate MR/MS, mild to moderate aortic stenosis with SESAR 1.4 cm�
Hypovolemic currently.
Hold diuretics and Entresto
Monitor volume status closely while on IV fluids
Type 2 diabetes
Hemoglobin A1c 7.0.
Not on any glucose lowering therapy prior to admission.
Given metabolic acidosis, check serum acetone
Continue basal bolus protocol with serial Accu-Cheks
Carbohydrate diet
Given all of above including progressive encephalopathy, multiorgan failure not limited to DONNA, metabolic acidosis, progressive hepatobiliary abnormalities secondary to metastatic disease, declining performance status, I had brought up option of
palliative care with consideration of hospice. Patient and will consider that depends on the ongoing workup and response to treatment.
01/14.
Discussion with patient's primary oncology Dr. Hutson at [facility]
Related progressive multiorgan dysfunction including metabolic encephalopathy, hepatic or renal insufficiency with severe metabolic acidosis and hypotension requiring alkalinized fluids and vasopressors. No evidence for infection. Clinical
presentation indicative of progressive metastatic process and declining performance status. [place] patient is not a candidate for further systemic treatment including Ibrance.
Further discussion with patient's introducing difficult clinical situation and limited options. They indicate that the patient would not like to have any aggressive measures and in case of declining quality of life, they would seek for
palliative approach and concentrate on her comfort care.
Anticipated Discharge: > 48 hours
Subjective/Interval History
-
Date of Service: January 15, 2025
Objective Data
-
Labs:
Laboratory Results
01/15/25
04:26
WBC 2.2 L*
Hgb 12.5
Hct 33.9 L
Plt Count 108 L
Sodium 136
Potassium 3.0 L
Chloride 101
Carbon Dioxide 24
BUN 25 H
Creatinine 1.8 H
Glucose 166 H
Calcium 7.7 L
Total Bilirubin 7.7 H
AST 213 H
ALT 144 H
Alkaline Phosphatase 788 H
Vital Signs:
Vital Signs
Temp Pulse Resp BP Pulse Ox
97.2 F 94 13 100/71 96
01/15/25 07:55 01/15/25 10:00 01/15/25 10:00 01/15/25 10:00 01/14/25 20:10
I&O
01/14/25 01/15/25 01/16/25
06:59 06:59 06:59
Intake Total 1800 / 1800 3015 / 3015
Output Total 1000 / 1000 510 / 510
Balance 800 / 800 2505 / 2505
Physical Exam
-
General: Well Developed and No Apparent Distress
HEENT: Normocephalic, Atraumatic and Moist Mucous Membranes
Respiratory: Clear to Auscultation
Cardiac: Regular Rhythm and S1/S2; Negative Murmur, Rub or Gallop
GI: Soft, Nontender, Nondistended and Normal Bowel Sounds; Negative Organomegaly
Rectal: Deferred by Provider
Musculoskeletal: No Clubbing, No Cyanosis and No Edema
Skin: Negative Rash
Neuro: Nonfocal/Grossly Intact
--- NOTE | 2025-01-15 14:19 | HOSPNOTE ---
Per the floor RN no hospice decision until Sunday. Will continue to follow.
[2025-01-15] MEDS: MAGNESIUM SULFATE 100 IV (15:02)
[2025-01-15] MEDS: TYLENOL 650 MG PO (15:40)
--- NOTE | 2025-01-15 16:27 | CM ---
Patient with Hx metastatic breast cancer with Dx encephalopathy, Acute onset of right-sided weakness. Room air. Receiving Levophed gtt, midodrine, IV Abx, IVF. Per nursing; confused, drowsy, slurred speech.
Spoke with [facility]; she met with who is waiting for family to arrive tomorrow, and anticipate hospice decision by Sat 01/17.
Plan possible hospice once family decides.
[2025-01-15 16:40] LABS: Glucose - Point of Care 173 mg/dl (70-99)
--- NOTE | 2025-01-15 18:39 | PTCARENOTE ---
Patient more confused today. Speech more garbled and difficult to understand. Patient drowsy but arousable. Minimal oral intake. Levo drip currently at 5mcg/hr 18.8mls/hr. IV fluids infusing as ordered. Keith catheter draining dark piedad
urine. Patient most likely to go on hospice care on Sunday. Will monitor.
[2025-01-15 21:40] LABS: Glucose - Point of Care 150 mg/dl (70-99)
[2025-01-15] MEDS: REMERON 15 MG PO (23:49)
[2025-01-16] VITALS (45 sets, daily range): BP systolic 79–123; BP diastolic 49–108; BMI 40.6
[2025-01-16] MEDS: ProAmatine 10 MG PO ×3 (01:04→17:50)
[2025-01-16] MEDS: LEVOPHED 250 IV ×3 (01:11→22:51)
--- NOTE | 2025-01-16 04:12 | PTCARENOTE ---
Received pt at change of shift. Levo was at 5 mcg/min at start of shift; currently at 8 mcg/min. MAP goal >65; MAP is borderline throughout shift. Pt is having very confused conversations; discussing the idea of for a majority of the time.
Very tearful; Emotional support provided. No family at bedside this shift. Bed alarm active. Call gallo within reach.
[2025-01-16 04:38] LABS: Hematocrit 35.3 % (37.0-47.0); Hemoglobin 12.8 g/dL (12.0-16.0); Mean Corp Hgb Conc. 36.3 g/dL (33.0-37.0); Mean Corpuscular Hgb 30.8 pg (27.0-31.0); Mean Corpuscular Volume 85.1 fL (81.0-99.0); Mean Platelet Volume 10.7 fL (7.4-10.4); Platelet Count 108 10^3/uL (130-400); Red Blood Cell Count 4.15 10^6/uL (4.20-5.40); Red Cell Dist. Width 15.7 % (11.5-14.5); White Blood Cell Count 2.4 10^3/uL (4.8-10.8)
[2025-01-16 05:23] LABS: ALT (SGPT) 124 U/L (0-35); AST (SGOT) 209 U/L (14-36); Albumin 2.4 g/dl (3.5-5.0); Alkaline Phosphatase 779 U/L (38-126); Blood Urea Nitrogen 23 mg/dl (7-17); Calcium 7.6 mg/dl (8.4-10.2); Carbon Dioxide 19 mmol/L (22-30); Chloride 105 mmol/L (98-107); Direct Bilirubin 7.1 mg/dl (0.0-0.4); Estimated Creatinine Clearance 30 ml/min; Glucose 170 mg/dl (70-99); Potassium 3.6 mmol/L (3.5-5.1); Sodium 136 mmol/L (135-145); Total Bilirubin 8.1 mg/dl (0.2-1.3); Total Protein 4.8 g/dl (6.3-8.2); eGFR 31.08
[2025-01-16] MEDS: NON-FORMULARY ITEM PO (06:18)
[2025-01-16 08:04] LABS: Glucose - Point of Care 163 mg/dl (70-99)
[2025-01-16] MEDS: NEURONTIN 400 MG PO ×2 (09:06→20:15)
[2025-01-16] MEDS: FEMARA 2.5 MG PO (09:07)
[2025-01-16] MEDS: MAXIPIME 1000 MG IV ×2 (09:07→20:15)
[2025-01-16] MEDS: STERILE WATER FOR INJECTION 10 ML IV ×2 (09:07→20:15)
[2025-01-16] MEDS: ELIQUIS 5 MG PO ×2 (09:07→20:15)
[2025-01-16] MEDS: NOVOLOG FLEXPEN-LOW RESISTANCE 1 UNITS SC ×2 (09:17→13:16)
--- NOTE | 2025-01-16 12:41 | W.PN.NEPH.PH ---
Today's Communication / Plan
-
Continue supportive care transitioning to hospice
Assessment/Plan
-
Assessment
Hypotension
DONNA creatinine 2.6 on admission recent discharge with a creatinine of 1.0 December 16 status post acute kidney injury prerenal
Heart failure reduced ejection fraction
Mental status change
Elevated LFTs
Metastatic breast cancer
Leukopenia
Metabolic acidosis
Plan
reduce IVF
Encourage p.o. intake
Follow BMP
Continue Levophed, failed weaning attempt overnight
continue midodrine
Transitioning to hospice
Critical care time spent 31 minutes
-
-
Date of Service: January 16, 2025
CC / HPI / ROS
-
Chief Complaint:
Acute kidney injury
History of Present Illness:
Critically ill on Levophed for hypotension still
Oral intake modest
WBC low at 2.2
Platelets lower 108
DONNA/creatinine down to 1.8
K low 3.0
Sodium up to 136
LFTs stable
Review of Systems:.
No chest pain or shortness of breath
No appetite
Labs
-
Labs:
WBC 2.4 10^3/uL (4.8-10.8) L* 01/16/25 04:05
RBC 4.15 10^6/uL (4.20-5.40) L 01/16/25 04:05
Hgb 12.8 g/dL (12.0-16.0) 01/16/25 04:05
Hct 35.3 % (37.0-47.0) L 01/16/25 04:05
Plt Count 108 10^3/uL (130-400) L 01/16/25 04:05
Sodium 136 mmol/L (135-145) 01/16/25 04:05
Potassium 3.6 mmol/L (3.5-5.1) 01/16/25 04:05
Chloride 105 mmol/L (98-107) 01/16/25 04:05
Carbon Dioxide 19 mmol/L (22-30) L 01/16/25 04:05
BUN 23 mg/dl (7-17) H 01/16/25 04:05
Creatinine 1.7 mg/dL (0.6-1.0) H 01/16/25 04:05
eGFR 31.08 01/16/25 04:05
Glucose 170 mg/dl (70-99) H 01/16/25 04:05
Calcium 7.6 mg/dl (8.4-10.2) L 01/16/25 04:05
Albumin 2.4 g/dl (3.5-5.0) L 01/16/25 04:05
Physical Exam
-
Vital Signs:
Vital Signs
Temp Pulse Resp BP Pulse Ox
97.7 F 91 22 112/69 95
01/16/25 07:29 01/16/25 12:00 01/16/25 12:00 01/16/25 12:00 01/15/25 19:15
Cardiovascular:: Regular rate and rhythm
Respiratory:: Bilateral: Coarse
Lung Excursion:: Normal
Abdomen:: Nontender and Soft
Bowel Sounds:: Normal
Extremity Edema:: +1: Bilateral:
[2025-01-16 12:54] LABS: Glucose - Point of Care 165 mg/dl (70-99)
[2025-01-16] MEDS: NSS 1000 IV (13:17)
--- NOTE | 2025-01-16 13:20 | W.PN.HOSP.TC ---
Today's Communication/Plan
-
Cognitive status has been declining
Noted daily rising bilirubin
Remains vasopressor dependent.
Continue supportive care for now with plan to transition to inpatient hospice on 01/17.
Assessment / Plan
Assessment / Plan
Impression:
Presentation with right-sided weakness, described acute onset
Metabolic encephalopathy, protracted
Neutropenia
Acute kidney injury
Increased anion gap metabolic acidosis
Shock likely multifactorial in the settings of peripheral vasodilation as well as chronic cardiomyopathy with reduced EF. Persistent hypotension requiring vasopressors
Elevated LFTs, mixed pattern
Acute urinary retention requiring Keith catheter placed on 01/13
Severe protein calorie malnutrition
Conditions prior to admission:
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
� Primary oncologist at [place]. Currently on letrozole and Ibrance
Paroxysmal atrial fibrillation
Anticoagulation with Eliquis
Chronic CHF reduced EF.
Diabetes type 2, NIDDM.
Dyslipidemia
Hypothyroidism on repletion.
Class II obesity with BMI of 38.
Plan:
Presentation with protracted encephalopathy, patient's describes confusion, memory problem, trouble finding words
Acute onset of right-sided weakness
Differential diagnosis evolving CVA versus intracranial mets, versus metabolic encephalopathy
CT/CTA on admission with no acute findings.
Monitor neurologic status closely.
Treat hypotension
Diet advanced with aspiration precautions
Shock likely multifactorial in the settings of decreased SVR in patient with advanced carcinoma and hepatic failure, metabolic acidosis as well as with cardiomyopathy and reduced EF. Persistent hypotension.
Neutropenia related to chemotherapy with so far no evidence of infection
No complaints suggestive of possible source of infection.
Blood cultures negative
Urine cultures negative.
MRI of the abdomen reviewed as below. Minimal ascites and at this point less likely SBP. Low clinical suspicion for acute cholecystitis or choledocholithiasis.
Continue empiric antibiotic coverage: Cefepime. Metronidazole stopped on 01/14
Would hold Ibrance acutely until infection completely ruled out. Monitor WBC closely.
Diffuse metastatic process in the liver with elevated LFT, mixed pattern
MRI of the abdomen consistent with metastatic hepatic disease involving radha hepatic with extensive compression of the bile ducts.
No focal lesions for target by endoscopy/stenting
Discussed with GI monitor LFTs.
Acute kidney injury.
Increased anion gap metabolic acidosis
Suspect prerenal causes in the settings of low oral intake, diuretics, Entresto.
Continue IV fluids with sodium bicarbonate.
Continue norepinephrine with MAP goal 55 to 60 mmHg
Hold diuretics/Lasix and spironolactone. Hold Entresto.
Mild elevation of beta hydroxybutyrate likely related to hepatic dysfunction. Doubt DKA.
Acute urine retention with Keith catheter placed on 01/13
Chronic CHF reduced EF.
Echo 11/22 with LVEF 35-40%. Global hypokinesis. Mild to moderate MR/MS, mild to moderate aortic stenosis with SESAR 1.4 cm�
Hypovolemic currently.
Hold diuretics and Entresto
Monitor volume status closely while on IV fluids
Type 2 diabetes
Hemoglobin A1c 7.0.
Not on any glucose lowering therapy prior to admission.
Given metabolic acidosis, check serum acetone
Continue basal bolus protocol with serial Accu-Cheks
Carbohydrate diet
Given all of above including progressive encephalopathy, multiorgan failure not limited to DONNA, metabolic acidosis, progressive hepatobiliary abnormalities secondary to metastatic disease, declining performance status, I had brought up option of
palliative care with consideration of hospice. Patient and will consider that depends on the ongoing workup and response to treatment.
01/14.
Discussion with patient's primary oncology Dr. Hutson at [facility]
Related progressive multiorgan dysfunction including metabolic encephalopathy, hepatic or renal insufficiency with severe metabolic acidosis and hypotension requiring alkalinized fluids and vasopressors. No evidence for infection. Clinical
presentation indicative of progressive metastatic process and declining performance status. [place] patient is not a candidate for further systemic treatment including Ibrance.
Further discussion with patient's introducing difficult clinical situation and limited options. They indicate that the patient would not like to have any aggressive measures and in case of declining quality of life, they would seek for
palliative approach and concentrate on her comfort care.
Anticipated Discharge: > 48 hours
Subjective/Interval History
-
Date of Service: January 16, 2025
Objective Data
-
Labs:
Laboratory Results
01/16/25
04:05
WBC 2.4 L*
Hgb 12.8
Hct 35.3 L
Plt Count 108 L
Sodium 136
Potassium 3.6
Chloride 105
Carbon Dioxide 19 L
BUN 23 H
Creatinine 1.7 H
Glucose 170 H
Calcium 7.6 L
Total Bilirubin 8.1 H
AST 209 H
ALT 124 H
Alkaline Phosphatase 779 H
Vital Signs:
Vital Signs
Temp Pulse Resp BP Pulse Ox
97.3 F 91 22 112/69 95
01/16/25 11:09 01/16/25 12:00 01/16/25 12:00 01/16/25 12:00 01/15/25 19:15
I&O
01/15/25 01/16/25 01/17/25
06:59 06:59 06:59
Intake Total 3015 / 3015 1075 / 1075
Output Total 510 / 510 575 / 575
Balance 2505 / 2505 500 / 500
Physical Exam
-
General: Well Developed and No Apparent Distress
HEENT: Normocephalic, Atraumatic and Moist Mucous Membranes
Respiratory: Clear to Auscultation
Cardiac: Regular Rhythm and S1/S2; Negative Murmur, Rub or Gallop
GI: Soft, Nontender, Nondistended and Normal Bowel Sounds; Negative Organomegaly
Rectal: Deferred by Provider
Musculoskeletal: No Clubbing, No Cyanosis and No Edema
Skin: Negative Rash
Neuro: Nonfocal/Grossly Intact
--- NOTE | 2025-01-16 15:03 | HOSPNOTE ---
Patient will be admitted inpatient hospice tomorrow 01/17. Attending aware and in agreement.
--- NOTE | 2025-01-16 15:53 | CM ---
Patient with Hx metastatic breast cancer with Dx encephalopathy, Acute onset of right-sided weakness, shock. Room air. Receiving Levophed gtt, midodrine, IV Abx, IVF. Per nursing; confused, restless.
Spoke with [facility]; plan is Inpatient Hospice tomorrow.
Plan [facility] 01/17/25.
--- NOTE | 2025-01-16 16:30 | PTCARENOTE ---
Patient appears confused this morning. Expressive aphasia still present. Pt denies any pain. Pt remains on Levo, see flowsheet. CHG wipes performed. Keith remains, order changed per . Patient to go on hospice tomorrow per notes and
, who was at the bedside today. Assessment, care and VS as charted.
[2025-01-16 18:00] LABS: Glucose - Point of Care 146 mg/dl (70-99)
[2025-01-16] MEDS: NOVOLOG FLEXPEN-LOW RESISTANCE SC (18:15)
[2025-01-16] MEDS: REMERON 15 MG PO (20:14)
[2025-01-16] MEDS: TYLENOL 650 MG PO (21:30)
[2025-01-16 21:53] LABS: Glucose - Point of Care 142 mg/dl (70-99)
[2025-01-16] MEDS: ROXICODONE 2.5 MG PO (22:31)
--- NOTE | 2025-01-16 22:39 | PTCARENOTE ---
Pt c/o left upper abdominal pain. Received Tylenol without good result. Starting grunting/moaning in pain. Unable to state pain rating but left hand held over left upper abdomen. Noris KAN TT'd and made aware. Order entered for Roxicodone 2.5mg. Pt
received as ordered. Currently resting comfortable. Call gallo remains within reach. Will continue to monitor.
[2025-01-17] VITALS (13 sets, daily range): BP systolic 83–120; BP diastolic 52–98
[2025-01-17] MEDS: ProAmatine PO (02:14)
[2025-01-17 05:34] LABS: ALT (SGPT) 102 U/L (0-35); AST (SGOT) 218 U/L (14-36); Albumin 2.3 g/dl (3.5-5.0); Alkaline Phosphatase 690 U/L (38-126); Blood Urea Nitrogen 24 mg/dl (7-17); Calcium 7.1 mg/dl (8.4-10.2); Carbon Dioxide 19 mmol/L (22-30); Chloride 110 mmol/L (98-107); Estimated Creatinine Clearance 29 ml/min; Glucose 137 mg/dl (70-99); Potassium 3.4 mmol/L (3.5-5.1); Sodium 137 mmol/L (135-145); Total Bilirubin 8.9 mg/dl (0.2-1.3); Total Protein 4.5 g/dl (6.3-8.2); eGFR 29.02
[2025-01-17 08:21] LABS: Glucose - Point of Care 140 mg/dl (70-99)
[2025-01-17] MEDS: NEURONTIN 400 MG PO (08:43)
[2025-01-17] MEDS: FEMARA 2.5 MG PO (08:43)
[2025-01-17] MEDS: ELIQUIS 5 MG PO (08:43)
[2025-01-17] MEDS: NON-FORMULARY ITEM 1 UNIT PO (08:43)
[2025-01-17] MEDS: NOVOLOG FLEXPEN-LOW RESISTANCE SC (09:10)
[2025-01-17] MEDS: MAXIPIME 1000 MG IV (10:32)
[2025-01-17] MEDS: ProAmatine 10 MG PO (10:32)
[2025-01-17] MEDS: STERILE WATER FOR INJECTION 10 ML IV (10:32)
--- NOTE | 2025-01-17 11:28 | PTCARENOTE ---
Pt to be placed on inpatient hospice; and family members present - Hospice nurse reviewed inpatient hospice procedures.
--- NOTE | 2025-01-17 11:31 | W.PN.HOSP.TC ---
Today's Communication/Plan
-
Hospice care
Comfort measures
Downgrade to MedSurg
Assessment / Plan
Assessment / Plan
Impression:
Presentation with right-sided weakness, described acute onset
Metabolic encephalopathy, protracted
Neutropenia
Acute kidney injury
Increased anion gap metabolic acidosis
Shock likely multifactorial in the settings of peripheral vasodilation as well as chronic cardiomyopathy with reduced EF. Persistent hypotension requiring vasopressors
Elevated LFTs, mixed pattern
Acute urinary retention requiring Keith catheter placed on 01/13
Severe protein calorie malnutrition
Conditions prior to admission:
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
� Primary oncologist at [place]. Currently on letrozole and Ibrance
Paroxysmal atrial fibrillation
Anticoagulation with Eliquis
Chronic CHF reduced EF.
Diabetes type 2, NIDDM.
Dyslipidemia
Hypothyroidism on repletion.
Class II obesity with BMI of 38.
Plan:
Presentation with protracted encephalopathy, patient's describes confusion, memory problem, trouble finding words
Acute onset of right-sided weakness
Differential diagnosis evolving CVA versus intracranial mets, versus metabolic encephalopathy
CT/CTA on admission with no acute findings.
Monitor neurologic status closely.
Treat hypotension
Diet advanced with aspiration precautions
Shock likely multifactorial in the settings of decreased SVR in patient with advanced carcinoma and hepatic failure, metabolic acidosis as well as with cardiomyopathy and reduced EF. Persistent hypotension.
Neutropenia related to chemotherapy with so far no evidence of infection
No complaints suggestive of possible source of infection.
Blood cultures negative
Urine cultures negative.
MRI of the abdomen reviewed as below. Minimal ascites and at this point less likely SBP. Low clinical suspicion for acute cholecystitis or choledocholithiasis.
Continue empiric antibiotic coverage: Cefepime. Metronidazole stopped on 01/14
Would hold Ibrance acutely until infection completely ruled out. Monitor WBC closely.
Diffuse metastatic process in the liver with elevated LFT, mixed pattern
MRI of the abdomen consistent with metastatic hepatic disease involving radha hepatic with extensive compression of the bile ducts.
No focal lesions for target by endoscopy/stenting
Discussed with GI monitor LFTs.
Acute kidney injury.
Increased anion gap metabolic acidosis
Suspect prerenal causes in the settings of low oral intake, diuretics, Entresto.
Continue IV fluids with sodium bicarbonate.
Continue norepinephrine with MAP goal 55 to 60 mmHg
Hold diuretics/Lasix and spironolactone. Hold Entresto.
Mild elevation of beta hydroxybutyrate likely related to hepatic dysfunction. Doubt DKA.
Acute urine retention with Keith catheter placed on 01/13
Chronic CHF reduced EF.
Echo 11/22 with LVEF 35-40%. Global hypokinesis. Mild to moderate MR/MS, mild to moderate aortic stenosis with SESAR 1.4 cm�
Hypovolemic currently.
Hold diuretics and Entresto
Monitor volume status closely while on IV fluids
Type 2 diabetes
Hemoglobin A1c 7.0.
Not on any glucose lowering therapy prior to admission.
Given metabolic acidosis, check serum acetone
Continue basal bolus protocol with serial Accu-Cheks
Carbohydrate diet
Given all of above including progressive encephalopathy, multiorgan failure not limited to DONNA, metabolic acidosis, progressive hepatobiliary abnormalities secondary to metastatic disease, declining performance status, I had brought up option of
palliative care with consideration of hospice. Patient and will consider that depends on the ongoing workup and response to treatment.
01/14.
Discussion with patient's primary oncology Dr. Hutson at [facility]
Related progressive multiorgan dysfunction including metabolic encephalopathy, hepatic or renal insufficiency with severe metabolic acidosis and hypotension requiring alkalinized fluids and vasopressors. No evidence for infection. Clinical
presentation indicative of progressive metastatic process and declining performance status. [place] patient is not a candidate for further systemic treatment including Ibrance.
Further discussion with patient's introducing difficult clinical situation and limited options. They indicate that the patient would not like to have any aggressive measures and in case of declining quality of life, they would seek for
palliative approach and concentrate on her comfort care.
01/17. Patient formally signed onto hospice. Treatment based medications discontinued and transition to comfort regimen including morphine drip protocol. Will downgrade to med/surge
Anticipated Discharge: 24 - 48 hours
Subjective/Interval History
-
Date of Service: January 17, 2025
Seen and examined at the bedside. Family at bedside as well. Transitioning to hospice today.
Objective Data
-
Labs:
Laboratory Results
01/17/25
04:02
Sodium 137
Potassium 3.4 L
Chloride 110 H
Carbon Dioxide 19 L
BUN 24 H
Creatinine 1.8 H
Glucose 137 H
Calcium 7.1 L
Total Bilirubin 8.9 H
AST 218 H
ALT 102 H
Alkaline Phosphatase 690 H
Vital Signs:
Vital Signs
Temp Pulse Resp BP Pulse Ox
99 F 123 15 135/88 96
01/17/25 07:55 01/17/25 10:32 01/17/25 06:30 01/17/25 10:32 01/16/25 11:00
I&O
01/16/25 01/17/25 01/18/25
06:59 06:59 06:59
Intake Total 1075 / 1075 1643.4 / 1643.4
Output Total 575 / 575 425 / 425
Balance 500 / 500 1218.4 / 1218.4
Review of Systems
-
History Source: Patient
All other systems: Reviewed and negative
Physical Exam
-
General: Well Developed, Comfortable and Morbidly Obese
HEENT: Normocephalic, Atraumatic and Moist Mucous Membranes
Respiratory: Clear to Auscultation and Non Labored Respirations
Cardiac: Regular Rhythm, S1/S2 and Tachycardic; Negative Murmur, Rub or Gallop
GI: Soft and Nontender
Musculoskeletal: No Clubbing, No Cyanosis and No Edema
Skin: Warm and Dry; Negative Rash
Neuro: AO x 3 and Other (Right-sided deficits)
Psych: Calm
[2025-01-17] MEDS: MORPHINE SULFATE 1 MG IV (11:42)
== END 2025-01-17 11:44 | disposition hospice, inpatient (51) | DRG 314 ==
LOC: IMU 23:01
PROVIDERS: Internal Medicine; Nurse Practitioner Family; Physician Assistant; Physician Assistant Medical; Radiology Vascular & Interventional Radiology; ADMITTING PHYSICIAN Internal Medicine; ATTENDING PHYSICIAN Internal Medicine; CONSULT PHYSICIAN Internal Medicine Gastroenterology; CONSULT PHYSICIAN Psychiatry & Neurology Clinical Neurophysiology; CONSULT PHYSICIAN Specialist; EMERGENCY PHYSICIAN Emergency Medicine; FAMILY PHYSICIAN Family Medicine
PROC: 02HV33Z Insertion of Infusion Device into Superior Vena Cava, Percutaneous Approach (ICD-10-PCS; 2025-01-13)
PROC: B548ZZA Ultrasonography of Superior Vena Cava, Guidance (ICD-10-PCS; 2025-01-13)
DX: I95.9 Hypotension, unspecified (principal); E43 Unspecified severe protein-calorie malnutrition; R57.1 Hypovolemic shock; G93.41 Metabolic encephalopathy; I63.9 Cerebral infarction, unspecified; C78.7 Secondary malignant neoplasm of liver and intrahepatic bile duct; E87.20 Acidosis, unspecified; N17.9 Acute kidney failure, unspecified; I50.22 Chronic systolic (congestive) heart failure; C79.51 Secondary malignant neoplasm of bone; C79.31 Secondary malignant neoplasm of brain; R47.01 Aphasia; R18.8 Other ascites; D70.9 Neutropenia, unspecified; C50.911 Malignant neoplasm of unspecified site of right female breast; I48.0 Paroxysmal atrial fibrillation; E11.40 Type 2 diabetes mellitus with diabetic neuropathy, unspecified; E03.9 Hypothyroidism, unspecified; E66.812 Obesity, class 2; Z68.38 Body mass index [BMI] 38.0-38.9, adult; K72.90 Hepatic failure, unspecified without coma; E78.00 Pure hypercholesterolemia, unspecified; Z79.811 Long term (current) use of aromatase inhibitors; E83.42 Hypomagnesemia; W19.XXXA Unspecified fall, initial encounter; I11.0 Hypertensive heart disease with heart failure; Z79.4 Long term (current) use of insulin; Z96.653 Presence of artificial knee joint, bilateral; Z88.0 Allergy status to penicillin; Z79.890 Hormone replacement therapy; Z79.01 Long term (current) use of anticoagulants; Z79.899 Other long term (current) drug therapy; K80.20 Calculus of gallbladder without cholecystitis without obstruction; G89.4 Chronic pain syndrome
CPT/HCPCS: 51701; 70450; 70496; 70498; 71045; 74183; 76700; 80048; 80053; 80061; 81003; 81015; 81099; 82010; 82140; 82248; 82570; 82962; 83036; 83605; 83690; 83735; 84300; 84439; 84443; 84484; 85025; 85027; 87040; 87086; 92610; 93005; 96361; 96365; 96367; 97167; 99291; A9575; Q9967

== ENCOUNTER 2025-01-17 11:45 | Inpatient (IN) | payer OTHER, SELFPAY ==
[2025-01-17] MEDS: MORPHINE SULFATE 2 MG IV ×4 (13:06→15:32)
[2025-01-17] MEDS: ZOFRAN 4 MG IV (13:43)
--- NOTE | 2025-01-17 13:50 | HOSPNOTE ---
Patient is admitted to [facility] hosp[facility] services. Met with spouse Dionisio, hospice philosophy and care explained, questions answered. Consents signed by Dionisio. Patient AAO x 2. No signs of anxiety or dyspnea during the visit. reported abdominal
pain. No meaningful oral intake. Keith intact.
Informal report with floor RN Martin Weber. Report with attending physician Dr. Jimenez, orders verified and clarified.
[2025-01-17] MEDS: MORPHINE 100 IV (15:09)
[2025-01-17] MEDS: ATIVAN 1 MG IV (15:33)
--- NOTE | 2025-01-18 00:29 | PTCARENOTE ---
Pt continues on hospice. at bedside. Morphine gtt continues at 1mg/hr. Pt currently comfortable. Will continue to monitor.
--- NOTE | 2025-01-18 03:07 | PTCARENOTE ---
At approx 0235 pt HR began dropping from 120's-130's till asystole at 0250. Agonal breathes noted. at bedside and made aware. Emotional support provided. Noris KAN TT'd and on floor to pronounce. Pt's removed all pt's personal
belongings from room and appreciative of care provided to his .
--- NOTE | 2025-01-18 03:17 | W.PN.DEATH ---
Pronouncement of
-
Called to see patient to pronounce.
No spontaneous heart tones or respirations noted.
Patient not responsive to verbal stimuli.
Patient is pronounced .
Time of : 02:50
Date of : 01/18/25
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
Family Notified: Yes ( at beside)
--- NOTE | 2025-01-18 04:06 | PTCARENOTE ---
[facility] called and this RN spoke with Noé Weaver. Pt was medically declined. Post mortem care completed. All personal belongings sent home with . [place] [facility] [place]
--- NOTE | 2025-01-18 04:25 | PTCARENOTE ---
Pt and pt's [place] [facility] [place]
== END 2025-01-18 04:26 | disposition expired | DRG 598 ==
LOC: IMU 11:45
PROVIDERS: ADMITTING PHYSICIAN Internal Medicine
DX: C50.911 Malignant neoplasm of unspecified site of right female breast (principal); C78.7 Secondary malignant neoplasm of liver and intrahepatic bile duct; C79.51 Secondary malignant neoplasm of bone; Z51.5 Encounter for palliative care